=== PATIENT | female | born 1945 | race Caucasian/White ===

== ENCOUNTER 2023-05-17 14:58 | Outpatient (AMB) | payer MEDICARE, OTHER, SELFPAY ==
--- NOTE | 2023-05-17 15:02 | MHC.PC.OV ---
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 Allergies No Known Allergies Allergy (Verified 05/17/23 15:05) Medication List - Last Reconciled 05/17/23 by Camilla Thomason MD atorvastatin 10 mg PO DAILY carbidopa-levodopa 25-100 mg 1 tab PO TID cholecalciferol (vitamin D3) 25 mcg PO DAILY donepezil 5 mg PO DAILY escitalopram oxalate 10 mg PO DAILY Tobacco use date assessed: 05/17/23 Fall risk assessment: 1 Fall in past year Last assessed Fall Risk: 05/17/23 Dental Screening Dental Screen Date: 05/17/23 Did you have a dental visit in the last 12 months?: Yes Did you have a dental problem in the last 6 months where you did not have access to dental care?: No Was dental information given to patient?: No 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 She just moved from [place] recently Patient also have Parkinson's disease she is taking medication with good control of symptoms, need a new neurologist. Her colonoscopy was few years ago History of constipation but eating more fiber and stool softener Lipid disorder: She is on atorvastatin 10 mg and diet-controlled Anxiety: Stable with Lexapro 10 mg Patient is here with her daughter all questions answered I have placed order for labs to be done fasting On examination patient is both ears are impacted with cerumen which seems semi solid We have irrigated the years with good result patient tolerated procedure well. Follow-up 3 or 4 months. She is also going in for eye exam for cataract [facility] Social History Housing: Assisted Living Facility Patient Tobacco Use Status: Never used Tobacco e-Cigarette/Vaping Use: Never Used service: No Current occupational status: retired Cognitive needs: No Hearing needs: No Vision needs: Yes Questionnaire AUDIT C Alcohol Use Questionnaire (AUDIT-C) 1. How often do you have a drink containing alcohol?: Never 3. How often do you have six or more drinks on one occasion?: Never Total Score: 0 Score Reviewed/Action Taken: Yes Review of Systems Const Denies chills, Denies excessive sweating, Denies fever(s) and Denies poor appetite Eyes Denies eye pain ENT Denies sore throat, Denies throat swelling and Denies tongue swelling Card Denies chest pain at rest, Denies radiating jaw, neck or arm pain and Denies paroxysmal nocturnal dyspnea Resp Denies cough and Denies hemoptysis GI Denies melena, Denies change in stool character, Denies coffee ground emesis and Denies vomiting Musc Reports as per HPI Skin/Breast Reports as per HPI Neuro Denies tremor(s) Endo Denies cold intolerance and Denies excessive sweating Aller/Immun Denies throat swelling and Denies tongue swelling Physical exam (Primary Care) Vital Signs: Last Vital Signs Pulse 63 05/17/23 15:04 BP 112/62 05/17/23 15:04 Pulse Ox 96 05/17/23 15:04 Oxygen Delivery Method Room Air 05/17/23 15:04 BMI result Body Mass Index 21.4 Tobacco/Smoking Status: Tobacco use Status Tobacco use date assessed 05/17/23 05/17/23 15:12 Patient Tobacco Use Status Never used Tobacco 05/17/23 15:12 e-Cigarette/Vaping Use Never Used 05/17/23 15:12 Const General: cooperative, comfortable and no acute distress Orientation/consciousness: patient oriented x3 HENMT Head: Yes normocephalic and Yes atraumatic Ears: hearing grossly normal bilaterally Eyes General: appearance normal, both eyes and all related structures Neck Neck: Yes no lymphadenopathy and No tracheal deviation Resp Effort & Inspection: normal respiratory effort, able to speak in complete sentences and no audible wheezes Cardio Rhythm: regular rhythm Heart sounds: S1 normal heart sound present and S2 normal heart sound present GI Palpation (GI): Soft to palpation and nontender Auscultation: normal bowel sounds Skin General skin exam: turgor normal Neuro Other: Tremors present both hands General: patient oriented x3 and moves all extremities Extrem Right lower extremity: no edema Left lower extremity: no edema Psych Affect: normal affect Attitude: cooperative Office Procedures Cerumen Removal From which ear canal was the cerumen removed: bilateral Removal: irrigation Notes: patient tolerated procedure well, no complications and ear canal clear [id number] Irrigation/Lavage Assessment and Plan Assessment & Plan (1) Establishing care with new doctor, encounter for: Code(s): Z76.89 - Persons encountering health services in other specified circumstances (2) Parkinson disease: Code(s): G20 - Parkinson's disease (3) Anxiety, generalized: Code(s): F41.1 - Generalized anxiety disorder (4) Lipid disorder: Code(s): E78.9 - Disorder of lipoprotein metabolism, unspecified (5) Lymphoma: Code(s): C85.90 - Non-Hodgkin lymphoma, unspecified, unspecified site (6) Impacted cerumen of both ears: Code(s): H61.23 - Impacted cerumen, bilateral Plan Patient is a 78-year-old female came in today for an establish care visit Patient a moment is 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 She just moved from [place] recently Patient also have Parkinson's disease she is taking medication with good control of symptoms, need a new neurologist. Her colonoscopy was few years ago History of constipation but eating more fiber and stool softener Lipid disorder: She is on atorvastatin 10 mg and diet-controlled Anxiety: Stable with Lexapro 10 mg Patient is here with her daughter all questions answered I have placed order for labs to be done fasting On examination patient is both ears are impacted with cerumen which seems semi solid We have irrigated the years with good result patient tolerated procedure well. Follow-up 3 or 4 months. She is also going in for eye exam for cataract Orders: Orders Vitamin B12 Today E78.9 - Disorder of lipoprotein metabolism, unspecified, F41.1 - Generalized anxiety disorder, G20 - Parkinson's disease, Z76.89 - Persons encountering health services in other specified circumstances Comprehensive Dike. Panel Fast Today E78.9 - Disorder of lipoprotein metabolism, unspecified, F41.1 - Generalized anxiety disorder, G20 - Parkinson's disease, Z76.89 - Persons encountering health services in other specified circumstances Lipid Panel Today E78.9 - Disorder of lipoprotein metabolism, unspecified, F41.1 - Generalized anxiety disorder, G20 - Parkinson's disease, Z76.89 - Persons encountering health services in other specified circumstances TSH reflex Free T4 Today E78.9 - Disorder of lipoprotein metabolism, unspecified, F41.1 - Generalized anxiety disorder, G20 - Parkinson's disease, Z76.89 - Persons encountering health services in other specified circumstances Vitamin D 25-OH (D2 and D3) Today E78.9 - Disorder of lipoprotein metabolism, unspecified, F41.1 - Generalized anxiety disorder, G20 - Parkinson's disease, Z76.89 - Persons encountering health services in other specified circumstances Complete Blood Count Auto Diff Today E78.9 - Disorder of lipoprotein metabolism, unspecified, F41.1 - Generalized anxiety disorder, G20 - Parkinson's disease, Z76.89 - Persons encountering health services in other specified circumstances Referrals Neurology Referral G20 - Parkinson's disease Hematology & Oncology Referral C85.90 - Non-Hodgkin lymphoma, unspecified, unspecified site Coding Level of Care Code New Pt Level 5 (73042) Diagnoses Establishing care with new doctor, encounter for Z76.89 Parkinson disease G20 Anxiety, generalized F41.1 Lipid disorder E78.9 Lymphoma C85.90 Impacted cerumen of both ears H61.23 CPT Codes Office Procedure - CPT: 52198-Rsh Irrigation/Lavage ([id number]) Time Spent (min) 60 Comment 35 min with patient, 10 ear irrigation,15 charting/ coordination of care
[2023-05-17 15:04] VITALS: BP 112/62; PULSE 63; O2SAT 96; BMI 21.4
== END 2023-05-17 16:30 | disposition home or self-care (01) ==
PROVIDERS: PCP Internal Medicine; Visit Provider Internal Medicine
DX: G20 Parkinson's disease (principal); C85.90 Non-Hodgkin lymphoma, unspecified, unspecified site; Z76.89 Persons encountering health services in other specified circumstances; H61.23 Impacted cerumen, bilateral; F41.1 Generalized anxiety disorder; E78.9 Disorder of lipoprotein metabolism, unspecified
CPT/HCPCS: 69209; 99205

== ENCOUNTER 2023-05-22 10:27 | Outpatient (REF) | payer MEDICARE, OTHER, SELFPAY ==
[2023-05-22 13:31] LABS: MANUAL DIFF FLAG NO
[2023-05-22 13:41] LABS: Basophils Percent Auto 0.7 % (0-2); Eosinophils Absolute Auto 0.2 X10*3/uL (0.0-0.4); Hematocrit 42.2 % (37.0-47.0); Hemoglobin 13.6 g/dl (12.0-16.0); Imm Gran Abs Auto 0.03 X10*3/uL (0.00-0.03); Imm Gran Pct Auto 0.5 % (0.0-0.4); Lymphocytes Absolute Auto 0.8 X10*3/uL (1.2-4.9); Lymphocytes Percent Auto 12.8 % (20-40); Mean Corpuscular HGB Conc 32.2 g/dl (31.0-35.0); Mean Corpuscular Hemoglobin 29.8 pg (27.0-33.0); Mean Corpuscular Volume 92.5 fL (80.0-98.0); Mean Platelet Volume 10.3 fL (9.4-12.3); Monocytes Absolute Auto 0.4 X10*3/uL (0.1-1.2); Neutrophils Absolute Auto 4.6 x10*3/uL (2.0-8.3); Platelet Count 174 X10*3/uL (160-400); Red Blood Count 4.56 X10*6/uL (4.20-5.50); Red Cell Distribution Width 14.1 % (11.0-16.0)
[2023-05-22 14:08] LABS: Alanine Aminotransferase 5 U/L (0-31); Albumin Level 4.3 g/dL (3.5-5.0); Alkaline Phosphatase 80 U/L (39-117); Anion Gap 11 (12-20); Aspartate Amino Transferase 19 U/L (5-31); Bilirubin Total 0.9 mg/dL (0.0-1.0); Blood Urea Nitrogen 9 mg/dL (9-16); Calcium 9.6 mg/dL (8.4-10.2); Carbon Dioxide 28 mmol/L (22-29); Chloride 107 mmol/L (96-108); Cholesterol 169 mg/dL (<200); Estimated Glomerular Filt Rate > 60; Glucose Fasting 91 mg/dL (60-99); HDL Cholesterol 69 mg/dL (>40); LDL Cholesterol Calculated 89 mg/dL (<100); Potassium 4.1 mmol/L (3.3-5.1); Sodium 142 mmol/L (135-145); Total Protein 6.6 g/dL (6.5-8.0); Triglycerides 56 mg/dL (<150)
[2023-05-22 14:22] LABS: Vitamin B12 343 pg/mL (200-900)
[2023-05-22 14:25] LABS: TSH reflex Free T4 5.21 uIU/mL (0.32-4.0)
[2023-05-22 15:27] LABS: Free T4 (Free Thyroxine) 0.76 ng/dL (0.71-1.85)
[2023-05-27 14:37] LABS: Vitamin D 25-OH, D2 <4 ng/mL; Vitamin D 25-OH, D3 25 ng/mL; Vitamin D 25-OH, Total 25 ng/mL (30-100)
== END 2023-05-22 10:28 | disposition home or self-care (01) ==
LOC: HO.HMGCLDS 10:27
PROVIDERS: PCP Internal Medicine; Visit Provider Internal Medicine
DX: E78.9 Disorder of lipoprotein metabolism, unspecified (principal); F41.1 Generalized anxiety disorder; G20 Parkinson's disease; Z76.89 Persons encountering health services in other specified circumstances
CPT/HCPCS: 36415; 80053; 80061; 82306; 82607; 84439; 84443; 85025

== ENCOUNTER 2023-05-31 11:55 | Outpatient (REF) | payer MEDICARE, OTHER, SELFPAY ==
[2023-05-31 15:04] LABS: TSH reflex Free T4 5.72 uIU/mL (0.32-4.0)
[2023-05-31 16:09] LABS: Free T4 (Free Thyroxine) 0.99 ng/dL (0.71-1.85)
== END 2023-05-31 11:56 | disposition home or self-care (01) ==
LOC: HO.HMGCLDS 11:55
PROVIDERS: PCP Internal Medicine; Visit Provider Internal Medicine
DX: R94.6 Abnormal results of thyroid function studies (principal)
CPT/HCPCS: 36415; 84439; 84443

== ENCOUNTER → 2023-06-18 15:09 | Outpatient (BNV) | payer MEDICARE, OTHER, SELFPAY | PROVIDERS: PCP Internal Medicine; Visit Provider Internal Medicine | DX: Z85.72 Personal history of non-Hodgkin lymphomas (principal) | CPT/HCPCS: 99204; 99212; 99213; 99214; G2211 ==

== ENCOUNTER 2023-06-20 08:29 | Outpatient (AMB) | payer MEDICARE, OTHER, SELFPAY ==
--- NOTE | 2023-06-20 08:50 | A.OFFPC_ITS ---
Intake Visit Reasons: Follow Up Labs~ [phone] (iphone) Allergies No Known Allergies Allergy (Verified 05/17/23 15:05) Medication List - Last Reconciled 06/20/23 by Camilla Thomason MD atorvastatin 10 mg PO DAILY carbidopa-levodopa 25-100 mg 1 tab PO TID cyanocobalamin (vitamin B-12) 1,000 mcg PO DAILY 90 days donepezil 5 mg PO DAILY escitalopram oxalate (Lexapro) 10 mg PO DAILY levothyroxine 25 mcg PO DAILY Tobacco use date assessed: 06/20/23 Fall risk assessment: No Falls in past year Last assessed Fall Risk: 06/20/23 Dental Screening Did you have a dental visit in the last 12 months?: Yes Did you have a dental problem in the last 6 months where you did not have access to dental care?: No Was dental information given to patient?: Patient has dentist HPI Follow Up Labs~ [phone] (iphone) HPI Details Patient is 78-year-old female this is a telemedicine video conference to go over lab report Patient's TSH level came back low at 5.72 we have repeated twice. Report explained to patient, I am starting her on levothyroxine 25 mcg, patient was instructed to take it on empty stomach once a day. Her vitamin-D level is 25 I would recommend that she start taking supplement she has bought [id number] supplement that she will start Vitamin B12 level is low normal at 343, have sent supplement patient is to start taking that twice a week. Thyroid test need to be repeated again in 6 weeks, patient have a follow-up appointment in 2 months. [facility] Medical History Parkinson disease Surgical History History of left knee replacement History of left knee surgery History of tonsillectomy Family History Mother Colon cancer Father Lung cancer Sister Breast cancer Social History Housing: Assisted Living Facility Patient Tobacco Use Status: Never used Tobacco e-Cigarette/Vaping Use: Never Used service: No Current occupational status: retired Cognitive needs: No Hearing needs: No Vision needs: Yes Questionnaire AUDIT C Alcohol Use Questionnaire (AUDIT-C) 1. How often do you have a drink containing alcohol?: Never 3. How often do you have six or more drinks on one occasion?: Never Total Score: 0 Score Reviewed/Action Taken: Yes Review of Systems Const Denies chills and Denies fever(s) ENT Denies epistaxis and Denies nasal discharge Card Denies chest pain Resp Denies chest congestion, Denies cough and Denies hemoptysis GI Denies diarrhea and Denies nausea Skin/Breast Denies rash Neuro Reports no additional complaints Psych Reports no additional complaints Endo Reports no additional complaints Physical exam (Primary Care) Tobacco/Smoking Status: Tobacco use Status Tobacco use date assessed 06/20/23 06/20/23 08:51 Patient Tobacco Use Status Never used Tobacco 06/20/23 08:51 e-Cigarette/Vaping Use Never Used 06/20/23 08:51 Telehealth Telehealth Location of provider rendering services: practice address Location of patient: address on file Patient Identification confirmed using: Name, : Yes Telehealth method: video Patient verbally consented to treatment: Yes Patient verbally consented to billing insurance company: Yes Patient informed of any privacy concerns related to visit: Yes Minutes spent on Phone/Video with Pt.: 16 Assessment and Plan Assessment & Plan (1) TSH elevation: Code(s): R79.89 - Other specified abnormal findings of blood chemistry (2) Vitamin D deficiency: Code(s): E55.9 - Vitamin D deficiency, unspecified Plan Patient is 78-year-old female this is a telemedicine video conference to go over lab report Patient's TSH level came back low at 5.72 we have repeated twice. Report explained to patient, I am starting her on levothyroxine 25 mcg, patient was instructed to take it on empty stomach once a day. Her vitamin-D level is 25 I would recommend that she start taking supplement she has bought [id number] supplement that she will start Vitamin B12 level is low normal at 343, have sent supplement patient is to start taking that twice a week. Thyroid test need to be repeated again in 6 weeks, patient have a follow-up appointment in 2 months. Orders: Orders TSH reflex Free T4 6 Weeks R79.89 - Other specified abnormal findings of blood chemistry Medications: New levothyroxine 25 mcg PO DAILY 90 tabs 0RF cyanocobalamin (vitamin B-12) 1,000 mcg PO DAILY 90 tabs 0RF 90 days Coding Level of Care Code Tele Est Pt Level 3 (69732) Diagnoses TSH elevation R79.89 Vitamin D deficiency E55.9
== END 2023-06-20 12:53 | disposition home or self-care (01) ==
LOC: HO.HMGC 08:29
PROVIDERS: PCP Internal Medicine; Visit Provider Internal Medicine
DX: R79.89 Other specified abnormal findings of blood chemistry (principal); E55.9 Vitamin D deficiency, unspecified
CPT/HCPCS: 99213

== ENCOUNTER 2023-07-18 13:04 | Outpatient (REF) | payer MEDICARE, OTHER, SELFPAY ==
--- NOTE | ~2023-07-18 | CT_ITS ---
EXAMINATION: CT ABDOMEN AND PELVIS WITH CONTRAST CLINICAL INFORMATION: History of lymphoma. COMPARISON: None available. TECHNIQUE: Multidetector volumetric images were obtained from the superior aspect of the liver through the pubic symphysis following administration 85 mL of Omnipaque 350 intravenous contrast. Sagittal and coronal reformatted images were obtained on the technologist's workstation. Oral contrast: No This CT examination was performed using dose optimization techniques as appropriate, variously including the following: *Automated exposure control *Adjustment of mA and/or kV according to patient size (this includes techniques or standardized protocols for targeted exams where dose is matched to indication/reason for exam; i.e. extremities or head) *Use of iterative reconstruction technique DLP: 894 mGy-cm. FINDINGS: LUNG BASES: There is a 1 to 2 mm sized right lower lobe pulmonary nodule (4:21). There is mild cardiac enlargement. The visualized lung bases are otherwise unremarkable. LIVER, GALLBLADDER, AND BILIARY TREE: The liver is normal in size, shape, and attenuation. No focal hepatic lesion or biliary ductal dilatation is present. The gallbladder wall demonstrates some marked enhancement but is otherwise unremarkable with no evidence of radiopaque gallstones, gallbladder wall thickening, or obvious pericholecystic inflammatory changes. PANCREAS: Unremarkable. SPLEEN: Unremarkable. ADRENAL GLANDS: Unremarkable. KIDNEYS AND URETERS: The kidneys are normal in size, shape, and attenuation. No hydronephrosis, hydroureter, or calculi seen. No perinephric stranding. BLADDER: Unremarkable. GASTROINTESTINAL TRACT: The small and large bowel are unremarkable aside from some scattered colonic diverticula without diverticulitis. No evidence of appendicitis. ABDOMINAL WALL: No significant hernia is appreciated. LYMPH NODES: Some small retroperitoneal lymph nodes are present, the largest measuring about 1 cm in short axis dimension (6:28). No gross retroperitoneal lymphadenopathy. VASCULAR: Unremarkable. PELVIC VISCERA: Calcification at the fundus of the anteverted uterus probably represents an old fibroid. OSSEOUS STRUCTURES: Unremarkable. CT/CT abdomen pelvis w IV con IMPRESSION: 1. No evidence of recurrent lymphoma. 2. Incidental findings as described above including colonic diverticulosis, probable uterine fibroid and small retroperitoneal lymph nodes. 3. Tiny 1 to 2 mm right lower lobe pulmonary nodule. Fleischner guidelines were followed.
[2023-07-18] MEDS: iohexoL 350 MG/ML 100 ML INFUS..BTL 85 ML IV (14:34)
[2023-07-19 08:07] LABS: Creatinine POC 0.6 mg/dL (0.5-1.4); GFR POC > 60
== END 2023-07-18 13:05 | disposition home or self-care (01) ==
LOC: HO.CT 13:04
PROVIDERS: PCP Internal Medicine; Visit Provider Internal Medicine
DX: C85.90 Non-Hodgkin lymphoma, unspecified, unspecified site (principal)
CPT/HCPCS: 74177; 82565; Q9967

== ENCOUNTER 2023-08-13 14:42 | Outpatient (REF) | payer MEDICARE, OTHER, SELFPAY ==
[2023-08-13 16:38] LABS: TSH reflex Free T4 4.98 uIU/mL (0.32-4.0)
[2023-08-13 18:12] LABS: Free T4 (Free Thyroxine) 0.88 ng/dL (0.71-1.85)
== END 2023-08-13 14:43 | disposition home or self-care (01) ==
LOC: HO.HMGCLDS 14:42
PROVIDERS: PCP Internal Medicine; Visit Provider Internal Medicine
DX: R94.6 Abnormal results of thyroid function studies (principal)
CPT/HCPCS: 36415; 84439; 84443

== ENCOUNTER 2023-08-20 11:04 | Outpatient (AMB) | payer MEDICARE, OTHER, SELFPAY ==
[2023-08-20 11:06] VITALS: BP 110/64; PULSE 71; O2SAT 96; BMI 22.9
--- NOTE | 2023-08-20 11:06 | A.OFFPC_ITS ---
Vital Signs 08/20/23 11:06 Height 5 ft 3 in Weight 129 lb 2 oz BMI 22.9 BP 110/64 Blood Pressure Location Rt brachial Position Sitting Pulse 71 Pulse Source Pulse Oximeter Pulse Oximetry (%) 96 Oxygen Delivery Method Room Air Intake Visit Reasons: Pre Op LT Eye Catract Allergies No Known Allergies Allergy (Verified 08/20/23 11:07) Medication List - Last Reconciled 08/20/23 by Camilla Thomason MD atorvastatin 10 mg PO DAILY carbidopa-levodopa 25-100 mg 1 tab PO BEDTIME cyanocobalamin (vitamin B-12) 1,000 mcg PO DAILY 90 days donepezil 5 mg PO DAILY escitalopram oxalate (Lexapro) 10 mg PO DAILY levothyroxine 25 mcg PO DAILY Tobacco use date assessed: 08/20/23 Fall risk assessment: 2 + Falls in past year Last assessed Fall Risk: 08/20/23 Dental Screening Dental Screen Date: 08/20/23 Did you have a dental visit in the last 12 months?: No Did you have a dental problem in the last 6 months where you did not have access to dental care?: No Was dental information given to patient?: No HPI Pre Op LT Eye Catract HPI Details Patient is 78-year-old female came in today for preop clearance for cataract surgery August 30 and then again in September 18 the other eye [facility] Dr[facility] Patient is doing well and in her usual state of health Blood pressure is controlled vital signs stable Her TSH level is slightly of I am adjusting her levothyroxine to 50 mcg Patient will repeat labs again in 3 months Patient is stable for cataract surgery [facility] Medical History Parkinson disease Surgical History History of left knee replacement History of left knee surgery History of tonsillectomy Family History Mother Colon cancer Father Lung cancer Sister Breast cancer Housing: Assisted Living Facility Patient Tobacco Use Status: Never used Tobacco e-Cigarette/Vaping Use: Never Used service: No Current occupational status: retired Cognitive needs: No Hearing needs: No Vision needs: Yes Questionnaire PHQ-9 Over the last 2 weeks, how often have you been bothered by any of the following problems? 1. Little interest or pleasure in doing things: not at all 2. Feeling down, depressed, or hopeless: not at all 3. Trouble falling or staying asleep, or sleeping too much: not at all 4. Feeling tired or having little energy: not at all 5. Poor appetite or overeating: not at all 6. Feeling bad about yourself - or that you are a failure or have let yourself or your family down: not at all 7. Trouble concentrating on things, such as reading the newspaper or watching television: not at all 8. Moving or speaking so slowly that other people could have noticed. Or the opposite - being so fidgety or restless that you have been moving around a lot more than usual: not at all 9. Thoughts that you would be better off or of hurting yourself in some way: not at all Total score: 0 Depression Screening Interpretation: Negative Depression Screening Done: Yes 83737 - PHQ-9 Billing: Yes Source: Developed by Drs. Julio C Box, Echo Vega, Harsha James and colleagues, with an educational gunjan from [employer]. Thrive Questionnaire Date Thrive assessed: 08/20/23 I am a: Patient What is your living situation today?: I have a steady place to live Within the past 12 months, did the food you bought not last and you didn't have the money to get more?: Never true Within the past 12 months, did you worry whether your food would run out before you got money to buy more?: Never true Do you have trouble paying for medicines?: No Do you have trouble getting transportation to medical appointments?: No Do you have trouble paying your heating and electricity bill?: No Do you have trouble taking care of your child, family member or friend?: No Do you have trouble with day-to-day activities such as bathing, preparing meals, shopping, managing finances, etc.?: Yes Are you currently unemployed and looking for a job?: No Are you interested in more education?: Yes Please select the resources that you would like help with: None Currently or been in a relationship where the following occur: no concerns reported AUDIT C Alcohol Use Questionnaire (AUDIT-C) 1. How often do you have a drink containing alcohol?: Never 3. How often do you have six or more drinks on one occasion?: Never Total Score: 0 Score Reviewed/Action Taken: Yes MARGIE-7 AMB Questionnaire MARGIE-7 Date MARGIE - 7 assessed: 08/20/23 Feeling nervous, anxious, or on edge: 0 = Not at all Not being able to stop or control worryin = Not at all Worrying too much about different things: 0 = Not at all Trouble relaxin = Not at all Being so restless that it is hard to sit still: 0 = Not at all Becoming easily annoyed or irritable: 0 = Not at all Feeling afraid as if something awful might happen: 0 = Not at all Total MARGIE-7 score (0-4 normal; 5-9 mild; 10-14 moderate; 15-21 severe): 0 Source: Developed by Drs. Julio C Box, Echo Vega, Harsha James and colleagues, with an educational gunjan from [employer]. MARGIE-7 Assessment Billing MARGIE-7 Assessment Tool: MARGIE-7 Assessment 53528 Review of Systems Const Denies chills, Denies excessive sweating, Denies fever(s) and Denies poor appetite Eyes Denies eye pain ENT Denies sore throat, Denies throat swelling and Denies tongue swelling Card Denies chest pain at rest, Denies radiating jaw, neck or arm pain and Denies paroxysmal nocturnal dyspnea Resp Denies cough and Denies hemoptysis GI Denies melena, Denies change in stool character, Denies coffee ground emesis and Denies vomiting Musc Reports as per HPI Skin/Breast Reports as per HPI Neuro Denies tremor(s) Endo Denies excessive sweating Aller/Immun Denies throat swelling and Denies tongue swelling Physical exam (Primary Care) Vital Signs: Last Vital Signs Pulse 71 08/20/23 11:06 BP 110/64 08/20/23 11:06 Pulse Ox 96 08/20/23 11:06 Oxygen Delivery Method Room Air 08/20/23 11:06 BMI result Body Mass Index 22.9 Tobacco/Smoking Status: Tobacco use Status Tobacco use date assessed 08/20/23 08/20/23 11:08 Patient Tobacco Use Status Never used Tobacco 08/20/23 11:08 e-Cigarette/Vaping Use Never Used 08/20/23 11:08 PHQ-9: PHQ-9 Score PHQ-9: Total score 0 08/20/23 11:51 Depression Screening Interpretation: Negative Thrive Assessment: Date of Thrive Assessment Date Thrive assessed 08/20/23 08/20/23 11:33 Currently or been in a relationship where the following occur: no concerns reported Const General: cooperative, comfortable and no acute distress Orientation/consciousness: patient oriented x3 HENMT Head: Yes normocephalic and Yes atraumatic Ears: hearing grossly normal bilaterally Eyes General: appearance normal, both eyes and all related structures Neck Neck: Yes no lymphadenopathy, Yes supple and No tracheal deviation Resp Effort & Inspection: normal respiratory effort, able to speak in complete sentences and no audible wheezes Cardio Rhythm: regular rhythm Heart sounds: S1 normal heart sound present and S2 normal heart sound present GI Palpation (GI): Soft to palpation and nontender Auscultation: normal bowel sounds Skin General skin exam: turgor normal Neuro General: patient oriented x3 and moves all extremities Gait exam (Neuro): Normal gait present Extrem Right lower extremity: no edema Left lower extremity: no edema Psych Affect: normal affect Attitude: cooperative Assessment and Plan Assessment & Plan (1) Pre-op evaluation: Code(s): Z01.818 - Encounter for other preprocedural examination (2) Cataract: Code(s): H26.9 - Unspecified cataract Qualifiers: Age-related cataract type: unspecified Cataract type: age-related Laterality: bilateral Qualified Code(s): H25.9 - Unspecified age-related cataract (3) Parkinson disease: Code(s): G20 - Parkinson's disease Qualifiers: Dyskinesia presence: with dyskinesia Fluctuating manifestations: with fluctuating manifestations Qualified Code(s): G20.B2 - Parkinson's disease with dyskinesia, with fluctuations (4) Other specified hypothyroidism: Code(s): E03.8 - Other specified hypothyroidism (5) Anxiety, generalized: Code(s): F41.1 - Generalized anxiety disorder Plan Patient is 78-year-old female came in today for preop clearance for cataract surgery August 30 and then again in September 18 the [address] eye [address] Dr[address] [facility] [place] Patient is doing well and in her usual state of health Blood pressure is controlled vital signs stable Her TSH level is slightly of I am adjusting her levothyroxine to 50 mcg Patient will repeat labs again in 3 months Patient is stable for cataract surgery Orders: Orders Complete Blood Count Auto Diff 3 Months C85.90 - Non-Hodgkin lymphoma, unspecified, unspecified site, E03.8 - Other specified hypothyroidism, E55.9 - Vitamin D deficiency, unspecified, E78.9 - Disorder of lipoprotein metabolism, unspecified, F41.1 - Generalized anxiety disorder, G20 - Parkinson's disease Comprehensive Met. Panel 3 Months C85.90 - Non-Hodgkin lymphoma, unspecified, unspecified site, E03.8 - Other specified hypothyroidism, E55.9 - Vitamin D deficiency, unspecified, E78.9 - Disorder of lipoprotein metabolism, unspecified, F41.1 - Generalized anxiety disorder, G20 - Parkinson's disease TSH reflex Free T4 3 Months C85.90 - Non-Hodgkin lymphoma, unspecified, unspecified site, E03.8 - Other specified hypothyroidism, E55.9 - Vitamin D deficiency, unspecified, E78.9 - Disorder of lipoprotein metabolism, unspecified, F41.1 - Generalized anxiety disorder, G20 - Parkinson's disease Medications: Changed From levothyroxine 25 mcg PO DAILY 90 tabs 0RF To levothyroxine 50 mcg PO DAILY 90 tabs 0RF From carbidopa-levodopa 25-100 mg 1 tab PO BEDTIME 90 tabs 0RF To carbidopa-levodopa 25-100 mg 1 tab PO TID 270 tabs 0RF 90 days Coding Level of Care Code Est Pt Level 4 (82099) Diagnoses Pre-op evaluation Z01.818 Age-related cataract of both eyes, unspecified age-related cataract type H25.9 Age-related cataract type: unspecified Cataract type: age-related Laterality: bilateral Parkinson's disease with dyskinesia and fluctuating manifestations G20.B2 Dyskinesia presence: with dyskinesia Fluctuating manifestations: with fluctuating manifestations Other specified hypothyroidism E03.8 Anxiety, generalized F41.1 Additional Codes MARGIE-7 Assessment Billing - MARGIE-7 Assessment Tool: MARGIE-7 Assessment [id number] ([id number])
== END 2023-08-20 12:38 | disposition home or self-care (01) ==
PROVIDERS: Visit Provider Internal Medicine
DX: H25.9 Unspecified age-related cataract (principal); G20.B2 Parkinson's disease with dyskinesia, with fluctuations; E03.8 Other specified hypothyroidism; F41.1 Generalized anxiety disorder; Z01.818 Encounter for other preprocedural examination
CPT/HCPCS: 99214

== ENCOUNTER 2023-09-12 13:05 | Outpatient (AMB) | payer MEDICARE, OTHER, SELFPAY ==
--- NOTE | 2023-09-12 13:09 | MHC.OFFVIS ---
Intake Vital Signs 09/12/23 13:10 Height 5 ft 3 in Weight 129 lb BMI 22.8 BP 118/70 Blood Pressure Location Rt brachial Position Sitting Respiration 16 Pulse 67 Pulse Source Pulse Oximeter Pulse Oximetry (%) 97 Oxygen Delivery Method Room Air Intake Visit Reasons: [id number] Intake Note: Pt presents to the office for a new pt evaluation for Parkinson's. [employer] Required: No Allergies No Known Allergies Allergy (Verified 09/12/23 13:10) Medication List - Last Reconciled 09/12/23 by Laura Delgado MD atorvastatin 10 mg PO DAILY carbidopa-levodopa 25-100 mg 1 tab PO TID 90 days cyanocobalamin (vitamin B-12) 1,000 mcg PO DAILY 90 days donepezil 5 mg PO DAILY escitalopram oxalate (Lexapro) 10 mg PO DAILY levothyroxine 50 mcg PO DAILY HPI HPI Comments History of Present Illness Details 78y/o Left handed female with h/o Parkinsons Disease comes for further management Her first symptom was tremors in her left hand and later in bilateral hands. she was living in [place] at that time and was diagnosed with Parkinsons disease. She moved to [facility] 5 months ago and is here for further management. She also reports memory issues - usually short term she also has lot of word finding difficulties. she did speech therapy but not sure it helped. Neuropsych eval in November 2022 was c/ Mild cognitive impairment. She is on donepezil 5mg - she could not tolerate 10mg . It helped her speech. Sleep- 1-2 episodes where she thought someone was in the room when she woke up. Mood- anxiety and mild depression Motivation-OK SPeech- softer. No drooling Handwriting- smaller and difficult Using utensils-slower Dressing-slower Showering- slower No difficulty turning in bed Gait- slower She had 2 fall 1 week ago - she lives at [facility] and she tripped on rug she has constipation- better with change in diet No dizziness . No vertigo Appetite fluctuates. No exposure to chemicals, no fh/o parkinsons No h/o head injury . No exposure to antipsychitics or reglan. [facility] Medical History (Updated 09/12/23 @ 13:51 by Laura Delgado MD) Mild cognitive impairment Parkinson's disease without dyskinesia or fluctuating manifestations Lymphoma Parkinson disease Surgical History History of left knee replacement History of left knee surgery History of tonsillectomy Family History Mother Colon cancer Father Lung cancer Sister Breast cancer Social History Housing: Assisted Living Facility Patient Tobacco Use Status: Never used Tobacco e-Cigarette/Vaping Use: Never Used service: No Current occupational status: retired Cognitive needs: No Hearing needs: No Vision needs: Yes Physical Exam Vital Signs: Last Vital Signs Pulse 67 09/12/23 13:10 Resp 16 09/12/23 13:10 BP 118/70 09/12/23 13:10 Pulse Ox 97 09/12/23 13:10 Oxygen Delivery Method Room Air 09/12/23 13:10 BMI result Body Mass Index 22.8 Const General: cooperative, healthy appearing, comfortable and no acute distress Nutritional Appearance: average body habitus Orientation/consciousness: patient oriented x3 Eyes Pupils: Equal, round and reactive pupils present Neck Neck: Yes no meningeal signs Neuro Other: Mildly decreased facial expression and blink fred rest tremors L>R Mild postural tremors Left Upper extremity No cog wheel rigidty Fred bradykinesia L>R FFM and foot taps moderately decreased Moderate hypophonia gait- no arm swing, slow stooped General: patient oriented x3, moves all extremities and no meningeal signs Cranial nerves: Yes Facial sensation intact/muscles of mastication intact, Yes Equal, round and reactive pupils present, Yes Bilaterally intact EOM present, Yes Nystagmus not present, Yes Normal facial strength present and Yes Midline tongue present Cognition (Neuro): normal cognition Deep tendon reflexes (DTR's): Right triceps reflex intensity grade: 1+, Left triceps reflex intensity grade: 1+, Rt Biceps (C5, C6): 1+, Left biceps reflex intensity grade: 1+, Right brachioradialis reflex intensity grade: 1+, Left brachioradialis reflex intensity grade: 1+, Right patellar reflex intensity grade: 1+ and Left patellar reflex intensity grade: 1+ Coordination: [id number] test normal Assessment & Plan Assessment & Plan (1) Parkinson's disease without dyskinesia or fluctuating manifestations: Code(s): G20.A1 - Parkinson's disease without dyskinesia, without mention of fluctuations (2) Mild cognitive impairment: Code(s): G31.84 - Mild cognitive impairment of uncertain or unknown etiology Plan The diagnosis and prognosis were discussed Continue carbidopa/levodopa 25/100 tid lexapro 10mg qd donepezil 5mg qd( did not tolerate 10mg) Reviewed Neuropsyhc testing Info on [email or web address] was given Continue exercise Orders: Orders PT Evaluation and Treatment Today G20.A1 - Parkinson's disease without dyskinesia, without mention of fluctuations Medications: Refilled carbidopa-levodopa 25-100 mg 1 tab PO TID 90 days 270 tabs 0RF donepezil 5 mg PO DAILY 90 tabs 0RF escitalopram oxalate (Lexapro) 10 mg PO DAILY 90 tabs 0RF Coding Level of Care Code New Pt Level 4 (05841) Diagnoses Parkinson's disease without dyskinesia or fluctuating manifestations G20.A1 Mild cognitive impairment G31.84
[2023-09-12 13:10] VITALS: BP 118/70; PULSE 67; RESP 16; O2SAT 97; BMI 22.8
== END 2023-09-12 13:56 | disposition home or self-care (01) ==
PROVIDERS: PCP Internal Medicine; Visit Provider Psychiatry & Neurology Neurology
DX: G20.A1 Parkinson's disease without dyskinesia, without mention of fluctuations (principal); G31.84 Mild cognitive impairment of uncertain or unknown etiology
CPT/HCPCS: 99204

== ENCOUNTER → 2023-09-12 13:05 | Outpatient (BNVA) | payer MEDICARE, OTHER, SELFPAY | PROVIDERS: PCP Internal Medicine; Visit Provider Psychiatry & Neurology Neurology | DX: G20.A1 Parkinson's disease without dyskinesia, without mention of fluctuations (principal); G31.84 Mild cognitive impairment of uncertain or unknown etiology | CPT/HCPCS: 99202 ==

== ENCOUNTER 2023-10-25 13:04 | Outpatient (AMB) | payer MEDICARE, OTHER, SELFPAY ==
--- NOTE | 2023-10-25 13:16 | MHC.PC.OV ---
Vital Signs 10/25/23 13:17 Height 5 ft 3 in Weight 132 lb 4 oz BMI 23.4 BP 118/66 Blood Pressure Location Rt brachial Position Sitting Pulse 65 Pulse Source Pulse Oximeter Pulse Oximetry (%) 97 Oxygen Delivery Method Room Air Intake Visit Reasons: follow up Allergies No Known Allergies Allergy (Verified 10/25/23 13:19) Medication List - Last Reconciled 10/25/23 by Camilla Thomason MD atorvastatin 10 mg PO DAILY carbidopa-levodopa 25-100 mg 1 tab PO TID 90 days cholecalciferol (vitamin D3) (Vitamin D3) 50 mcg PO DAILY cyanocobalamin (vitamin B-12) 1,000 mcg PO DAILY 90 days donepezil 5 mg PO DAILY escitalopram oxalate (Lexapro) 10 mg PO DAILY levothyroxine 50 mcg PO DAILY Tobacco use date assessed: 10/25/23 Fall risk assessment: No Falls in past year Last assessed Fall Risk: 10/25/23 Dental Screening Dental Screen Date: 10/25/23 Did you have a dental visit in the last 12 months?: No Did you have a dental problem in the last 6 months where you did not have access to dental care?: No Was dental information given to patient?: Patient has dentist HPI follow up HPI Details Patient is 78 year female is diagnosed with Parkinson's disease, and history of non-Hodgkin's lymphoma Currently seeing neurologist and is taking medication feeling much better Blood pressure is well controlled Patient is Lexapro for stress and anxiety/depression, patient is stable Continue atorvastatin Hypothyroidism: She is currently on levothyroxine 50 mcg we need to repeat TSH level as it was high in July Follow-up 4 months [facility] Medical History (Updated 10/25/23 @ 13:38 by Camilla Thomason MD) Lymphoma Mild cognitive impairment Parkinson's disease without dyskinesia or fluctuating manifestations Parkinson disease Surgical History History of left knee replacement History of left knee surgery History of tonsillectomy Family History Mother Colon cancer Father Lung cancer Sister Breast cancer Social History Housing: Assisted Living Facility Patient Tobacco Use Status: Never used Tobacco e-Cigarette/Vaping Use: Never Used service: No Current occupational status: retired Cognitive needs: No Hearing needs: No Vision needs: Yes Questionnaire Thrive Questionnaire Date Thrive assessed: 08/20/23 MARGIE-7 AMB Questionnaire MARGIE-7 Date MARGIE - 7 assessed: 08/20/23 Source: Developed by Drs. Julio C Box, Echo Vega, Harsha James and colleagues, with an educational gunjan from [employer]. Review of Systems Const Denies chills and Denies fever(s) ENT Denies epistaxis and Denies nasal discharge Card Denies chest pain Resp Denies chest congestion, Denies cough and Denies hemoptysis GI Denies diarrhea and Denies nausea Skin/Breast Denies rash Neuro Reports no additional complaints Psych Reports no additional complaints Endo Reports no additional complaints Physical exam (Primary Care) Vital Signs: Last Vital Signs Pulse 65 10/25/23 13:17 BP 118/66 10/25/23 13:17 Pulse Ox 97 10/25/23 13:17 Oxygen Delivery Method Room Air 10/25/23 13:17 BMI result Body Mass Index 23.4 Tobacco/Smoking Status: Tobacco use Status Tobacco use date assessed 10/25/23 10/25/23 13:20 Patient Tobacco Use Status Never used Tobacco 10/25/23 13:20 e-Cigarette/Vaping Use Never Used 10/25/23 13:20 Thrive Assessment: Date of Thrive Assessment Date Thrive assessed 08/20/23 10/25/23 13:20 Const General: cooperative, comfortable and no acute distress Orientation/consciousness: patient oriented x3 HENMT Head: Yes normocephalic Eyes General: appearance normal, both eyes and all related structures Neck Neck: Yes supple Resp Effort & Inspection: normal respiratory effort, no cough and no stridor Cardio Rhythm: regular rhythm Heart sounds: S1 normal heart sound present and S2 normal heart sound present Skin General skin exam: turgor normal Neuro General: patient oriented x3, tone normal and moves all extremities Extrem Right lower extremity: no edema Left lower extremity: no edema Assessment and Plan Assessment & Plan (1) Lipid disorder: Code(s): E78.9 - Disorder of lipoprotein metabolism, unspecified (2) TSH elevation: Code(s): R79.89 - Other specified abnormal findings of blood chemistry (3) Other specified hypothyroidism: Code(s): E03.8 - Other specified hypothyroidism (4) Parkinson's disease without dyskinesia or fluctuating manifestations: Code(s): G20.A1 - Parkinson's disease without dyskinesia, without mention of fluctuations (5) Lymphoma: Code(s): C85.90 - Non-Hodgkin lymphoma, unspecified, unspecified site Plan Patient is 78 year female is diagnosed with Parkinson's disease, and history of non-Hodgkin's lymphoma Currently seeing neurologist and is taking medication feeling much better Blood pressure is well controlled Patient is Lexapro for stress and anxiety/depression, patient is stable Continue atorvastatin Hypothyroidism: She is currently on levothyroxine 50 mcg we need to repeat TSH level as it was high in July Follow-up 4 months Orders: Orders TSH reflex Free T4 Today E03.8 - Other specified hypothyroidism, E78.9 - Disorder of lipoprotein metabolism, unspecified, G20.A1 - Parkinson's disease without dyskinesia, without mention of fluctuations, R79.89 - Other specified abnormal findings of blood chemistry Complete Blood Count Auto Diff Today E03.8 - Other specified hypothyroidism, E78.9 - Disorder of lipoprotein metabolism, unspecified, G20.A1 - Parkinson's disease without dyskinesia, without mention of fluctuations, R79.89 - Other specified abnormal findings of blood chemistry Comprehensive Met. Panel Today E03.8 - Other specified hypothyroidism, E78.9 - Disorder of lipoprotein metabolism, unspecified, G20.A1 - Parkinson's disease without dyskinesia, without mention of fluctuations, R79.89 - Other specified abnormal findings of blood chemistry Coding Level of Care Code Est Pt Level 4 (17534) Diagnoses Lipid disorder E78.9 TSH elevation R79.89 Other specified hypothyroidism E03.8 Parkinson's disease without dyskinesia or fluctuating manifestations G20.A1 Lymphoma C85.90
[2023-10-25 13:17] VITALS: BP 118/66; PULSE 65; O2SAT 97; BMI 23.4
== END 2023-10-25 15:32 | disposition home or self-care (01) ==
PROVIDERS: PCP Internal Medicine; Visit Provider Internal Medicine
DX: E78.9 Disorder of lipoprotein metabolism, unspecified (principal); C85.90 Non-Hodgkin lymphoma, unspecified, unspecified site; R79.89 Other specified abnormal findings of blood chemistry; G20.A1 Parkinson's disease without dyskinesia, without mention of fluctuations; E03.8 Other specified hypothyroidism
CPT/HCPCS: 99214

== ENCOUNTER 2023-10-25 13:30 | Outpatient (REF) | payer MEDICARE, OTHER, SELFPAY ==
[2023-10-25 16:19] LABS: MANUAL DIFF FLAG NO
[2023-10-25 16:26] LABS: Basophils Percent Auto 0.5 % (0-2); Eosinophils Absolute Auto 0.1 X10*3/uL (0.0-0.4); Eosinophils Percent Auto 1.8 % (0-4); Hematocrit 41.7 % (37.0-47.0); Hemoglobin 13.7 g/dl (12.0-16.0); Imm Gran Abs Auto 0.03 X10*3/uL (0.00-0.03); Imm Gran Pct Auto 0.5 % (0.0-0.4); Lymphocytes Absolute Auto 0.9 X10*3/uL (1.2-4.9); Lymphocytes Percent Auto 15.5 % (20-40); Mean Corpuscular HGB Conc 32.9 g/dl (31.0-35.0); Mean Corpuscular Hemoglobin 30.2 pg (27.0-33.0); Mean Corpuscular Volume 92.1 fL (80.0-98.0); Mean Platelet Volume 10.4 fL (9.4-12.3); Monocytes Absolute Auto 0.5 X10*3/uL (0.1-1.2); Neutrophils Absolute Auto 4.2 x10*3/uL (2.0-8.3); Neutrophils Percent Auto 73.7 % (45-73); Platelet Count 159 X10*3/uL (160-400); Red Blood Count 4.53 X10*6/uL (4.20-5.50); Red Cell Distribution Width 13.4 % (11.0-16.0); White Blood Count 5.6 X10*3/uL (4.8-10.8)
[2023-10-25 16:52] LABS: Alanine Aminotransferase 12 U/L (0-31); Albumin Level 4.3 g/dL (3.5-5.0); Alkaline Phosphatase 59 U/L (39-117); Anion Gap 14 (12-20); Aspartate Amino Transferase 20 U/L (5-31); Bilirubin Total 0.7 mg/dL (0.0-1.0); Blood Urea Nitrogen 15 mg/dL (9-16); Calcium 9.7 mg/dL (8.4-10.2); Carbon Dioxide 29 mmol/L (22-29); Chloride 103 mmol/L (96-108); Estimated Glomerular Filt Rate > 60; Glucose Random 78 mg/dL (60-115); Potassium 4.1 mmol/L (3.3-5.1); Sodium 142 mmol/L (135-145); Total Protein 6.5 g/dL (6.5-8.0)
[2023-10-25 16:57] LABS: TSH reflex Free T4 2.15 uIU/mL (0.32-4.0)
== END 2023-10-25 13:31 | disposition home or self-care (01) ==
LOC: HO.HMGCLDS 13:30
PROVIDERS: PCP Internal Medicine; Visit Provider Internal Medicine
DX: E78.9 Disorder of lipoprotein metabolism, unspecified (principal); R79.89 Other specified abnormal findings of blood chemistry; E03.8 Other specified hypothyroidism; G20.A1 Parkinson's disease without dyskinesia, without mention of fluctuations
CPT/HCPCS: 36415; 80053; 84443; 85025

== ENCOUNTER 2024-01-15 13:04 | Outpatient (AMB) | payer MEDICARE, OTHER, SELFPAY ==
--- NOTE | 2024-01-15 13:09 | MHC.OFFVIS ---
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 she reports difficulty with memory - remembering names etc Her first symptom was tremors in her left hand and later in bilateral hands. she was living in [place] at that time and was diagnosed with Parkinsons disease. She moved to [facility] 5 months ago and is here for further management. She also reports memory issues - usually short term she also has lot of word finding difficulties. she did speech therapy but not sure it helped. Neuropsych eval in November 2022 was c/ Mild cognitive impairment. She is on donepezil 5mg - she could not tolerate 10mg . It helped her speech. Sleep- 1-2 episodes where she thought someone was in the room when she woke up. Mood- anxiety and mild depression Motivation-OK SPeech- softer. No drooling Handwriting- smaller and difficult Using utensils-slower Dressing-slower Showering- slower No difficulty turning in bed Gait- slower She had 1 near fall - she lives at [facility] she has constipation- better with change in diet No dizziness . No vertigo Appetite fluctuates. No exposure to chemicals, no fh/o parkinsons No h/o head injury . No exposure to antipsychotics or reglan. [facility] Medical History Lymphoma Mild cognitive impairment Parkinson's disease without dyskinesia or fluctuating manifestations Parkinson disease Surgical History History of left knee replacement History of left knee surgery History of tonsillectomy Family History Mother Colon cancer Father Lung cancer Sister Breast cancer Social History Housing: Assisted Living Facility Patient Tobacco Use Status: Never used Tobacco e-Cigarette/Vaping Use: Never Used service: No Current occupational status: retired Cognitive needs: No Hearing needs: No Vision needs: Yes Physical Exam Vital Signs: Last Vital Signs Pulse 68 01/15/24 13:10 Resp 16 01/15/24 13:10 BP 136/74 01/15/24 13:10 Pulse Ox 97 01/15/24 13:10 Oxygen Delivery Method Room Air 01/15/24 13:10 Oxygen Flow Rate 97 01/15/24 13:10 BMI result Body Mass Index 23.7 Const General: cooperative, healthy appearing, comfortable and no acute distress Nutritional Appearance: average body habitus Orientation/consciousness: patient oriented x3 Eyes Pupils: Equal, round and reactive pupils present Neck Neck: Yes no meningeal signs Neuro Other: Mildly decreased facial expression and blink fred rest tremors L>R Mild postural tremors Left Upper extremity No cog wheel rigidty Fred bradykinesia L>R FFM and foot taps moderately decreased Moderate hypophonia, word finding difficulties gait- no arm swing, slow stooped General: patient oriented x3, moves all extremities and no meningeal signs Cranial nerves: Yes Facial sensation intact/muscles of mastication intact, Yes Equal, round and reactive pupils present, Yes Bilaterally intact EOM present, Yes Nystagmus not present, Yes Normal facial strength present and Yes Midline tongue present Cognition (Neuro): normal cognition Deep tendon reflexes (DTR's): Right triceps reflex intensity grade: 1+, Left triceps reflex intensity grade: 1+, Rt Biceps (C5, C6): 1+, Left biceps reflex intensity grade: 1+, Right brachioradialis reflex intensity grade: 1+, Left brachioradialis reflex intensity grade: 1+, Right patellar reflex intensity grade: 1+ and Left patellar reflex intensity grade: 1+ Coordination: galeui-we-pcry test normal Assessment & Plan Assessment & Plan (1) Parkinson's disease without dyskinesia or fluctuating manifestations: Code(s): G20.A1 - Parkinson's disease without dyskinesia, without mention of fluctuations (2) Mild cognitive impairment: Code(s): G31.84 - Mild cognitive impairment of uncertain or unknown etiology Plan The diagnosis and prognosis were discussed Continue carbidopa/levodopa 25/100 tid Increase lexapro 15mg qd donepezil 5mg qd( did not tolerate 10mg) Speech and cognitive therapy Continue exercise Orders: Referrals Speech and Hearing Referral G20.A1 - Parkinson's disease without dyskinesia, without mention of fluctuations, G31.84 - Mild cognitive impairment of uncertain or unknown etiology Medications: Changed From escitalopram oxalate (Lexapro) 10 mg PO DAILY 90 tabs 0RF To escitalopram oxalate (Lexapro) 1.5 tabs orally daily; 135 tabs 2RF Coding Level of Care Code Est Pt Level 4 (92160) Diagnoses Parkinson's disease without dyskinesia or fluctuating manifestations G20.A1 Mild cognitive impairment G31.84
[2024-01-15 13:10] VITALS: BP 136/74; PULSE 68; RESP 16; O2SAT 97; BMI 23.7
== END 2024-01-15 13:54 | disposition home or self-care (01) ==
PROVIDERS: PCP Internal Medicine; Visit Provider Psychiatry & Neurology Neurology
DX: G20.A1 Parkinson's disease without dyskinesia, without mention of fluctuations (principal); G31.84 Mild cognitive impairment of uncertain or unknown etiology
CPT/HCPCS: 99214

== ENCOUNTER → 2024-01-15 13:04 | Outpatient (BNVA) | payer MEDICARE, OTHER, SELFPAY | PROVIDERS: PCP Internal Medicine; Visit Provider Psychiatry & Neurology Neurology | DX: G20.A1 Parkinson's disease without dyskinesia, without mention of fluctuations (principal); G31.84 Mild cognitive impairment of uncertain or unknown etiology | CPT/HCPCS: 99212 ==

== ENCOUNTER 2024-02-18 13:30 | Outpatient (AMB) | payer MEDICARE, OTHER, SELFPAY ==
--- NOTE | 2024-02-18 13:37 | MHC.PC.OV ---
Vital Signs 02/18/24 13:42 02/18/24 13:58 Height 5 ft 3 in Weight 128 lb BMI 22.7 BP 110/58 L Blood Pressure Location Rt brachial Position Sitting Pulse 80 Pulse Source Pulse Oximeter Pulse Oximetry (%) 94 97 Oxygen Delivery Method Room Air Intake Visit Reasons: 4 month follow up Allergies No Known Allergies Allergy (Verified 02/18/24 13:46) Medication List - Last Reconciled 02/18/24 by Camilla Thomason MD atorvastatin 10 mg PO DAILY carbidopa-levodopa 25-100 mg 1 tab PO TID 90 days cholecalciferol (vitamin D3) (Vitamin D3) 50 mcg PO DAILY cyanocobalamin (vitamin B-12) 1,000 mcg PO DAILY 90 days donepezil 5 mg PO DAILY escitalopram oxalate (Lexapro) 1.5 tabs orally daily; levothyroxine 50 mcg PO DAILY Tobacco use date assessed: 02/18/24 Fall risk assessment: No Falls in past year Last assessed Fall Risk: 02/18/24 Dental Screening Dental Screen Date: 10/25/23 Did you have a dental visit in the last 12 months?: Yes Did you have a dental problem in the last 6 months where you did not have access to dental care?: No Was dental information given to patient?: Patient has dentist HPI 4 month follow up HPI Details Patient is a 78-year-old female with a history of Parkinson disease, ex-smoker, COVID months ago Complaining of feeling shortness a breath which started even before she had COVID Patient also have history of lipid disorder, memory deficit, anxiety and hypothyroidism along with vitamin-D deficiency She is due for labs, thyroid test was done in July of last year Complaining of having hot flashes off and on I am ordering pulmonary function test with the patient Meanwhile she is to continue home medications She does not seem to be short of breath at this time, she is able to speak in full sentences Anxiety stable Follow-up 3 months or earlier if needed [facility] Medical History Lymphoma Mild cognitive impairment Parkinson's disease without dyskinesia or fluctuating manifestations Parkinson disease Surgical History History of left knee replacement History of left knee surgery History of tonsillectomy Family History Mother Colon cancer Father Lung cancer Sister Breast cancer Social History Housing: Assisted Living Facility Patient Tobacco Use Status: Never used Tobacco e-Cigarette/Vaping Use: Never Used service: No Current occupational status: retired Cognitive needs: No Hearing needs: No Vision needs: Yes Questionnaire Thrive Questionnaire Date Thrive assessed: 08/20/23 AUDIT C Alcohol Use Questionnaire (AUDIT-C) 1. How often do you have a drink containing alcohol?: Never 3. How often do you have six or more drinks on one occasion?: Never Total Score: 0 Score Reviewed/Action Taken: Yes MARGIE-7 AMB Questionnaire MARGIE-7 Date MARGIE - 7 assessed: 08/20/23 Source: Developed by Drs. Julio C Box, Echo Vega, Harsha James and colleagues, with an educational gunjan from [employer]. Review of Systems Const Denies chills and Denies fever(s) ENT Denies epistaxis and Denies nasal discharge Card Denies chest pain Resp Denies chest congestion, Denies cough and Denies hemoptysis GI Denies diarrhea and Denies nausea Skin/Breast Denies rash Neuro Reports no additional complaints Psych Reports no additional complaints Endo Reports no additional complaints Physical exam (Primary Care) Vital Signs: Last Vital Signs Pulse 80 02/18/24 13:42 BP 110/58 L 02/18/24 13:42 Pulse Ox 97 02/18/24 13:58 Oxygen Delivery Method Room Air 02/18/24 13:42 BMI result Body Mass Index 22.7 Tobacco/Smoking Status: Tobacco use Status Tobacco use date assessed 02/18/24 02/18/24 13:46 Patient Tobacco Use Status Never used Tobacco 02/18/24 13:39 e-Cigarette/Vaping Use Never Used 02/18/24 13:39 Thrive Assessment: Date of Thrive Assessment Date Thrive assessed 08/20/23 02/18/24 13:39 Const General: cooperative, comfortable and no acute distress Orientation/consciousness: patient oriented x3 HENMT Head: Yes normocephalic Eyes General: appearance normal, both eyes and all related structures Neck Neck: Yes supple Resp Effort & Inspection: normal respiratory effort, no cough and no stridor Cardio Rhythm: regular rhythm Heart sounds: S1 normal heart sound present and S2 normal heart sound present Skin General skin exam: turgor normal Neuro General: patient oriented x3, tone normal and moves all extremities Extrem Right lower extremity: no edema Left lower extremity: no edema Assessment and Plan Assessment & Plan (1) Shortness of breath: Code(s): R06.02 - Shortness of breath (2) Ex-smoker: Code(s): Z87.891 - Personal history of nicotine dependence (3) Other specified hypothyroidism: Code(s): E03.8 - Other specified hypothyroidism (4) Vitamin D deficiency: Code(s): E55.9 - Vitamin D deficiency, unspecified (5) Lipid disorder: Code(s): E78.9 - Disorder of lipoprotein metabolism, unspecified (6) Anxiety, generalized: Code(s): F41.1 - Generalized anxiety disorder (7) Parkinson disease: Code(s): G20 - Parkinson's disease Qualifiers: Dyskinesia presence: with dyskinesia Fluctuating manifestations: with fluctuating manifestations Qualified Code(s): G20.B2 - Parkinson's disease with dyskinesia, with fluctuations Plan Patient is a 78-year-old female with a history of Parkinson disease, ex-smoker, COVID months ago Complaining of feeling shortness a breath which started even before she had COVID Patient also have history of lipid disorder, memory deficit, anxiety and hypothyroidism along with vitamin-D deficiency She is due for labs, thyroid test was done in July of last year Complaining of having hot flashes off and on I am ordering pulmonary function test with the patient Meanwhile she is to continue home medications She does not seem to be short of breath at this time, she is able to speak in full sentences Anxiety stable Follow-up 3 months or earlier if needed Orders: Orders TSH reflex Free T4 Today E03.8 - Other specified hypothyroidism, E55.9 - Vitamin D deficiency, unspecified, E78.9 - Disorder of lipoprotein metabolism, unspecified, F41.1 - Generalized anxiety disorder, G20.B2 - Parkinson's disease with dyskinesia, with fluctuations PFT pulmonary function test Today R06.02 - Shortness of breath, Z87.891 - Personal history of nicotine dependence Complete Blood Count Auto Diff Today E03.8 - Other specified hypothyroidism, E55.9 - Vitamin D deficiency, unspecified, E78.9 - Disorder of lipoprotein metabolism, unspecified, F41.1 - Generalized anxiety disorder, G20.B2 - Parkinson's disease with dyskinesia, with fluctuations Comprehensive Met. Panel Today E03.8 - Other specified hypothyroidism, E55.9 - Vitamin D deficiency, unspecified, E78.9 - Disorder of lipoprotein metabolism, unspecified, F41.1 - Generalized anxiety disorder, G20.B2 - Parkinson's disease with dyskinesia, with fluctuations Coding Level of Care Code Est Pt Level 4 (09260) Complex EM visit Add On G2211 Diagnoses Shortness of breath R06.02 Ex-smoker Z87.891 Other specified hypothyroidism E03.8 Vitamin D deficiency E55.9 Lipid disorder E78.9 Anxiety, generalized F41.1 Parkinson's disease with dyskinesia and fluctuating manifestations G20.B2 Dyskinesia presence: with dyskinesia Fluctuating manifestations: with fluctuating manifestations
[2024-02-18 13:42] VITALS: BP 110/58; PULSE 80; O2SAT 94; BMI 22.7
[2024-02-18 13:58] VITALS: O2SAT 97
== END 2024-02-18 14:12 | disposition home or self-care (01) ==
PROVIDERS: PCP Internal Medicine; Visit Provider Internal Medicine
DX: R06.02 Shortness of breath (principal); Z87.891 Personal history of nicotine dependence; G20.B2 Parkinson's disease with dyskinesia, with fluctuations; E03.8 Other specified hypothyroidism; E55.9 Vitamin D deficiency, unspecified; E78.9 Disorder of lipoprotein metabolism, unspecified; F41.1 Generalized anxiety disorder
CPT/HCPCS: 99214; G2211

== ENCOUNTER 2024-02-18 13:55 | Outpatient (REF) | payer MEDICARE, OTHER, SELFPAY ==
[2024-02-18 16:28] LABS: MANUAL DIFF FLAG NO
[2024-02-18 16:37] LABS: Basophils Percent Auto 0.3 % (0-2); Eosinophils Absolute Auto 0.1 X10*3/uL (0.0-0.4); Eosinophils Percent Auto 1.7 % (0-4); Hematocrit 43.4 % (37.0-47.0); Hemoglobin 14.3 g/dl (12.0-16.0); Imm Gran Abs Auto 0.01 X10*3/uL (0.00-0.03); Imm Gran Pct Auto 0.2 % (0.0-0.4); Lymphocytes Absolute Auto 0.9 X10*3/uL (1.2-4.9); Lymphocytes Percent Auto 15.3 % (20-40); Mean Corpuscular HGB Conc 32.9 g/dl (31.0-35.0); Mean Corpuscular Hemoglobin 30.4 pg (27.0-33.0); Mean Corpuscular Volume 92.1 fL (80.0-98.0); Mean Platelet Volume 10.7 fL (9.4-12.3); Monocytes Absolute Auto 0.5 X10*3/uL (0.1-1.2); Monocytes Percent Auto 7.9 % (2-11); Neutrophils Absolute Auto 4.3 x10*3/uL (2.0-8.3); Neutrophils Percent Auto 74.6 % (45-73); Platelet Count 168 X10*3/uL (160-400); Red Blood Count 4.71 X10*6/uL (4.20-5.50); Red Cell Distribution Width 13.5 % (11.0-16.0); White Blood Count 5.8 X10*3/uL (4.8-10.8)
[2024-02-18 17:27] LABS: Alanine Aminotransferase 9 U/L (0-31); Albumin Level 4.4 g/dL (3.5-5.0); Alkaline Phosphatase 62 U/L (39-117); Anion Gap 15 (12-20); Aspartate Amino Transferase 19 U/L (5-31); Bilirubin Total 0.8 mg/dL (0.0-1.0); Blood Urea Nitrogen 13 mg/dL (9-16); Carbon Dioxide 31 mmol/L (22-29); Chloride 105 mmol/L (96-108); Estimated Glomerular Filt Rate > 60; Glucose Random 112 mg/dL (60-115); Potassium 3.8 mmol/L (3.3-5.1); Sodium 147 mmol/L (135-145); Total Protein 6.5 g/dL (6.5-8.0)
[2024-02-18 17:45] LABS: TSH reflex Free T4 1.52 uIU/mL (0.32-4.0)
== END 2024-02-18 13:56 | disposition home or self-care (01) ==
LOC: HO.HMGCLDS 13:55
PROVIDERS: PCP Internal Medicine; Visit Provider Internal Medicine
DX: E03.8 Other specified hypothyroidism (principal); E55.9 Vitamin D deficiency, unspecified; C85.90 Non-Hodgkin lymphoma, unspecified, unspecified site; E78.9 Disorder of lipoprotein metabolism, unspecified; F41.1 Generalized anxiety disorder; G20.B2 Parkinson's disease with dyskinesia, with fluctuations
CPT/HCPCS: 36415; 80053; 84443; 85025

== ENCOUNTER 2024-04-08 10:19 | Outpatient (RCR) | payer MEDICARE, OTHER, SELFPAY ==
--- NOTE | 2024-04-14 16:05 | MHC.SP.ADU ---
Referring provider: Dr. 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 She moved from [place] this past year with her and currently reside in the Independent Living area of [facility]. She arrives with her Step-Daughter, Akiko, who provides additional history. During our interview, Rosalina appeared anxious and had frequent pauses that resulted in word-finding difficulty and loss of topic maintenance. Rosalina reports difficulty sleeping, marked by frequent need to void and sleeping in until the late morning. In recent months, additional stressors have included her Husbands health. She is active with pool aerobics. She reports that she avoids the lunch room at [facility] due to anxiety having people notice her difficulty with word-finding. She reports difficulty with vision, stating that her current lenses are distracting to her. She is in the process of replacing them. Difficulty with vision has also reduced her ability to read, which she used to enjoy daily. She reports history of Speech Therapy in [place], however neither she nor her Step-Daughter are able to recall the therapist name or location. Medical History: Past medical history includes: Lymphoma Mild cognitive impairment Parkinson's disease without dyskinesia or fluctuating manifestations Parkinson disease Past surgical history includes: History of left knee replacement History of left knee surgery History of tonsillectomy Recent Hospitalizations: No Respiratory Needs: Room Air Patient Orientation: Person, Place Only Social History: Employment Status: Retired Highest level of education obtained: Completed Bachelor's Swallowing History: Dysphagia Specific: Within Functional Limits Comments: Pre-eval Risk for Aspiration: None Pre-evaluation Dietary Consistencies: Regular Pre-eval Liquid Intake: Thin Pre-eval Medication Intake: Whole with Liquid Reported Speech, Language, Cognition difficulties: Understanding Attention Reading Memory Cognition Speaking Problem Solving Writing Quality of Life: Patient Stated Goal of Speech-Language Therapy: Assessment Informal Voice Assessment: Voice Loudness: Normal Voice Nasal Resonance: Normal Voice Oral Resonance: Normal Voice Phonatory-based Quality: Normal Voice Pitch: Normal Clinical Impression: Intact Tests of Cognition: RBANS Clinical Impression: Observations: The RBANS is considered a screening battery for cognitive function and is repeatable for the purpose of evaluating any changes in function. It is intended for use with adolescents and adults, ages 12 to 89 years. Composite domains assessed in this test are: Immediate Memory, Visuospatial/Constructional, Language, Attention, and Delayed Memory. Her scores are tabled below: R-BANS Update I.) Immediate Memory Index: 53 Ia.) List Learning: -- Scaled Score: 2 Ib.) Story Memory: -- Scaled Score: 3 The Immediate Memory Index measures, ?initial encoding and learning of complex and simple verbal information. Low scores on this index indicated difficulties with verbal learning.? The score is derived from the participant?s performance on the subtests List Learning and Story Memory. List Learning measures, ?rote verbal memory function.? Participants are asked to repeat back a list of ten words presented to them verbally across four trials. Poor performance on this subtest indicates that, ?the examinee may have difficulty learning new verbal information and that repetition may not be beneficial?, if they do not improve across trials. The Story Memory subtest measures, ?memory for conceptually related verbal information.? Here, a short story is read to them across two trials and they are asked to recall details from the story. ?The test is a measure of verbal memory functioning for information that is related?. As with List Learning, participants that do not demonstrate a positive learning curve across trials could indicate, ?difficulty with learning new verbal learning, and that repetition may not help, or that the examinee may have difficulty retrieving new information from memory. II.) Visuospatial/Constructional Index: 72 IIa.) Figure Copy: -- Scaled Score: 10 IIb.) Line Orientation: -- Percentile Group: <2 The Visuospatial/Constructional Index is derived from the Figure Copy and Line Orientation subtests. It measures, ?basic visuospatial perception and the ability to copy a design from a model?. Low performance with this index can indicate, ?difficulties with processing and using visuospatial information?, or, ?visual impairments or attention disorders such as eron neglect?. The Figure Copy subtest requires the examinee to copy a complex geometrical design from a model that is present throughout the task. ?This requires many cognitive skills including visuospatial reasoning, attention to visual details, motor programming, and to a lesser degree, organization and fine-motor ability?. Points are given for specific details, as well as specific placement in the context of the entire image. The Line Orientation subtest measures, ?the examinee?s ability to correctly identify spatial orientation in two-dimensions?. Poor performance indicates significant visuospatial impairments in acuity and attention. III.) Language Index: 78 IIIa.) Picture Naming: -- Percentile Group: 26 - 50 IIIb.) Semantic Fluency: -- Scaled Score: 2 The Language Index is, ?a measure of expressive language functioning?. Low scores with this subtest ?would indicate difficulties with language functioning? and, ?while the overall score would still indicate language difficulties, the deficits may be more related to fluency versus naming skills.? The Picture Naming subtest is provided by showing the participant a series of 10 simple line drawing and asking them to name them. The Semantic Fluency subtest is a measure of, ?the examinee?s ability to retrieve and express words using a semantic prompt?. In brief, the examinee is given a category and asked to name as many exemplars as they can in 60 seconds. Low scores, ?indicate significantly impaired ability to retrieve and express verbal information from long-term memory stores?. IV.) Attention Index: 64 Tamara.) Digit Span: -- Scaled Score: 7 IVb.) Coding: -- Scaled Score: 2 The Attention Index is a derived from the Digit Span and Coding subtests. It is a measure of, ?simple auditory registration, visual scanning and processing speed. Low scores on this index indicate, ?difficulties with basic attention and processing speed?. Difficulties can vary between the subtests suggesting acute differences between auditory and visual processing and attention. Digit Span is a measure of, ?auditory registration and brief focused attention. Low scores can also indicate difficulties with auditory attention and registration?. In it, the examinee is read a series of single digit numbers and asked to repeat them back in the same order. ?Impairments in auditory acuity can also influence performance on this test?. Coding is a measure of, ?brief, focused, visual attention, visual scanning and processing speed?. In it, the examinee is given a paulino at the top of the page where each symbol is associated with a different number. The examinee is then asked to fill out as many numbers to corresponding symbols as they can in 90 seconds. In incorporates the notion of diligence and sustained attention as well. Difficulties can indicate problems with, ?processing speed and focused visual attention?. V.) Delayed Memory Index: 71 Va.) List Recall: -- Percentile Group: 17-25 Vb.) List Recognition: -- Percentile Group: <2 Vc.) Story Recall: -- Scaled Score: 1 Vd.) Figure Recall: -- Scaled Score: 10 The Delayed Memory Index is derived by combining the subtest scores for List Recall, Story Recall, and Figure Recall, and cross-referencing them with the List Recognition subtest. Auditory and Visual subtest are combined together. Difference between subtests can be highlighted to provide more specific information about areas of deficit and strength. ?The deficits, may be more related to verbal more than visual memory, or free recall as opposed to recognition memory or general variability in memory functioning.? RBANS Total Scale Score: 59 (%ile=0.3) SUMMARY: Rosalina?s domain scores on the RBANS fell in the below average to severely below average range. She demonstrated relative area of strength in Language (SS=78). Her memory scores improved from Immediate Memory (SS=53) to Delayed Memory (SS=71). She recognized 16/20 items on a the Delayed Recognition subtest. Her lowest performance was with the Immediate Memory Index (SS=53). It should be noted that the List Recall and Story Recall subtests are the first two of the test, and she presented with significant anxiety and negative self-talk (?You?re wasting your time?) during both of these subtests. Attention (SS=64) was also significantly reduced. Difficulty with attention and information processing and can negatively impact the ability to encode new information into memory. Her Total Scale Score was 59, in the 0.3 percentile as compared to her age-matched peers. She was not able to complete the Line Orientation task due to difficulty following directions in the context of a Visualspatial task. Per her Step-Daughter this is consistent with anecdotes from home where Rosalina has specific difficulty managing complex visual information. She is in the process of getting new lenses for her glasses, however this inability, despite repetition and prompting may indicate cortical-visual impairment. Review of her EMR shows that she was mentioned to have Mild Cognitive Impairment (MCI) in November of 2022. Today?s results demonstrate a significant regression from MCI and may indicate comorbidities other than Parkinson?s Disease. Her records from [place] are not readily available, but her Step-Daughter states she will work on locating them. It is recommended that Rosalina participate in a short course of Cognitive-Communication Therapy to address cognitively stimulating activities to promote brain health. Treatment will initially focus on a variety of clinician led activities to assess areas of interest and ability levels. Prior to discharge treatment will focus on patient-centered activities that they can participate in the community once treatment has ended. Given the severity of her deficits, it would be beneficial to have a caregiver or Family member present during her appointments to assist with carry-over at home and in the community. Her Step-Daughter reports it may be a hardship for her to attend on a weekly basis, but that there is staff from [facility] that may be able to join her visits. Impressions and Recommendations Impact on Daily Function/Activity Limitations: Daily Activities: Moderate Interpersonal Interactions: Moderate Education: None Employment: None Community: Moderate Prognosis for Improvement: Fair Recommendation for Speech Therapy: Outpatient Speech Therapy Frequency/Duration: 1 x week x 12 weeks Date Range for Service Requested: Time to Reassess: PRN Projection Technician Goals: Short Term Goals: Goal # : STG1: Pt will reorganize x2-3 step sequences presented out of order with >80% accuracy and with the assistance of compensatory strategies. Goal Status: New Goal Goal# : STG2: Pt will identify concrete and abstract category members with >80% accuracy and minimal assistance. Goal Status: New Goal Goal # : STG3: Pt will complete simple mazes with >80% accuracy and minimal assistance. Goal Status: New Goal Goal # : STG4: Pt will complete weekly HEP tasks with >80% accuracy with minimal assistance. Goal Status: New Goal Recommended Referrals to be Discussed with Primary Care Provider: Neurology Neuropsychological Eval Follow-up with referring provider. 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
== END 2024-06-02 14:54 | disposition still patient (30) ==
LOC: HO.SH 10:19
PROVIDERS: PCP Internal Medicine; Visit Provider Psychiatry & Neurology Neurology
DX: G20.A1 Parkinson's disease without dyskinesia, without mention of fluctuations (principal); G31.84 Mild cognitive impairment of uncertain or unknown etiology
CPT/HCPCS: 92523

== ENCOUNTER 2024-05-26 13:38 | Outpatient (AMB) | payer MEDICARE, OTHER, SELFPAY ==
[2024-05-26 13:42] VITALS: BP 128/68; PULSE 61; O2SAT 97; BMI 22.4
--- NOTE | 2024-05-26 13:42 | MHC.PC.OV ---
Vital Signs 05/26/24 13:42 Height 5 ft 3 in Weight 126 lb 8 oz BMI 22.4 BP 128/68 Blood Pressure Location Lt brachial Position Sitting Pulse 61 Pulse Source Pulse Oximeter Pulse Oximetry (%) 97 Oxygen Delivery Method Room Air Intake Visit Reasons: 3M F/U Allergies No Known Allergies Allergy (Verified 05/26/24 13:45) Medication List - Last Reconciled 05/26/24 by Camilla Thomason MD atorvastatin 10 mg PO DAILY carbidopa-levodopa 25-100 mg 1 tab PO TID 90 days cholecalciferol (vitamin D3) (Vitamin D3) 50 mcg PO DAILY cyanocobalamin (vitamin B-12) 1,000 mcg PO DAILY 90 days donepezil 5 mg PO DAILY escitalopram oxalate (Lexapro) 1.5 tabs orally daily; levothyroxine 50 mcg PO DAILY Tobacco use date assessed: 05/26/24 Fall risk assessment: No Falls in past year Last assessed Fall Risk: 05/26/24 Dental Screening Dental Screen Date: 05/26/24 Did you have a dental visit in the last 12 months?: No Did you have a dental problem in the last 6 months where you did not have access to dental care?: No Was dental information given to patient?: Patient has dentist HPI 3M F/U HPI Details Patient is a 79-year-old female with a history of Parkinson disease, ex-smoker She is in her usual state of health She had labs done in January, sodium was slightly elevated at 147 we will be repeating labs again, I encouraged to drink more water Patient would also like her ears clean On examination her left ear is impacted Lipid disorder: Continue atorvastatin 10 mg She is now seeing Dr. Delgado neurology for the treatment of Parkinson's disease and anxiety Continue levothyroxine 50 mcg Continue vitamin-D and B12 supplement Follow-up 6 months [facility] [place] Medical History Lymphoma Mild cognitive impairment Parkinson's disease without dyskinesia or fluctuating manifestations Parkinson disease Surgical History History of left knee replacement History of left knee surgery History of tonsillectomy Family History Mother Colon cancer Father Lung cancer Sister Breast cancer Social History Housing: Assisted Living Facility Patient Tobacco Use Status: Never used Tobacco e-Cigarette/Vaping Use: Never Used service: No Current occupational status: retired Cognitive needs: No Hearing needs: No Vision needs: Yes Questionnaire PHQ-9 Over the last 2 weeks, how often have you been bothered by any of the following problems? 1. Little interest or pleasure in doing things: not at all 2. Feeling down, depressed, or hopeless: not at all 3. Trouble falling or staying asleep, or sleeping too much: not at all 4. Feeling tired or having little energy: not at all 5. Poor appetite or overeating: not at all 6. Feeling bad about yourself - or that you are a failure or have let yourself or your family down: not at all 7. Trouble concentrating on things, such as reading the newspaper or watching television: not at all 8. Moving or speaking so slowly that other people could have noticed. Or the opposite - being so fidgety or restless that you have been moving around a lot more than usual: not at all 9. Thoughts that you would be better off or of hurting yourself in some way: not at all Total score: 0 Depression Screening Interpretation: Negative Depression Screening Done: Yes 69668 - PHQ-9 Billing: Yes Source: Developed by Drs. Julio C Box, Echo Vega, Harsha James and colleagues, with an educational gunjan from [employer]. Thrive Questionnaire Date Thrive assessed: 05/26/24 I am a: Patient What is your living situation today?: I have a steady place to live Within the past 12 months, did the food you bought not last and you didn't have the money to get more?: Never true Within the past 12 months, did you worry whether your food would run out before you got money to buy more?: Never true Do you have trouble paying for medicines?: No Do you have trouble getting transportation to medical appointments?: No Do you have trouble paying your heating and electricity bill?: No Do you have trouble taking care of your child, family member or friend?: No Do you have trouble with day-to-day activities such as bathing, preparing meals, shopping, managing finances, etc.?: No Are you currently unemployed and looking for a job?: No Are you interested in more education?: No Please select the resources that you would like help with: None Currently or been in a relationship where the following occur: No concerns reported THRIVE Score: 0 AUDIT C Alcohol Use Questionnaire (AUDIT-C) 1. How often do you have a drink containing alcohol?: Never 3. How often do you have six or more drinks on one occasion?: Never Total Score: 0 Score Reviewed/Action Taken: Yes MARGIE-7 AMB Questionnaire MARGIE-7 Date MARGIE - 7 assessed: 05/26/24 Feeling nervous, anxious, or on edge: 0 = Not at all Not being able to stop or control worryin = Not at all Worrying too much about different things: 0 = Not at all Trouble relaxin = Not at all Being so restless that it is hard to sit still: 0 = Not at all Becoming easily annoyed or irritable: 0 = Not at all Feeling afraid as if something awful might happen: 0 = Not at all Total MARGIE-7 score (0-4 normal; 5-9 mild; 10-14 moderate; 15-21 severe): 0 Source: Developed by Drs. Julio C Box, Echo Vega, Harsha James and colleagues, with an educational gunjan from [employer]. MARGIE-7 Assessment Billing MARGIE-7 Assessment Tool: MARGIE-7 Assessment 87672 Review of Systems Const Denies chills and Denies fever(s) ENT Denies epistaxis and Denies nasal discharge Card Denies chest pain Resp Denies chest congestion, Denies cough and Denies hemoptysis GI Denies diarrhea and Denies nausea Skin/Breast Denies rash Neuro Reports no additional complaints Psych Reports no additional complaints Endo Reports no additional complaints Physical exam (Primary Care) Vital Signs: Last Vital Signs Pulse 61 05/26/24 13:42 BP 128/68 05/26/24 13:42 Pulse Ox 97 05/26/24 13:42 Oxygen Delivery Method Room Air 05/26/24 13:42 BMI result Body Mass Index 22.4 Tobacco/Smoking Status: Tobacco use Status Tobacco use date assessed 05/26/24 05/26/24 13:46 Patient Tobacco Use Status Never used Tobacco 05/26/24 13:46 e-Cigarette/Vaping Use Never Used 05/26/24 13:46 PHQ-9: PHQ-9 Score PHQ-9: Total score 0 05/26/24 14:03 Depression Screening Interpretation: Negative Thrive Assessment: Date of Thrive Assessment Date Thrive assessed 05/26/24 05/26/24 13:46 Currently or been in a relationship where the following occur: No concerns reported Const General: cooperative, comfortable and no acute distress HENMT Other: Patient has very tortuous ear canals, right ear filled with cerumen Head: Yes normocephalic Eyes General: appearance normal, both eyes and all related structures Neck Neck: Yes supple Resp Effort & Inspection: normal respiratory effort, no cough and no stridor Cardio Rhythm: regular rhythm Heart sounds: S1 normal heart sound present and S2 normal heart sound present Skin General skin exam: turgor normal Neuro General: tone normal and moves all extremities Extrem Right lower extremity: no edema Left lower extremity: no edema Office Procedures Cerumen Removal From which ear canal was the cerumen removed: bilateral Removal: irrigation Notes: patient tolerated procedure well and no complications 12867-Nle Irrigation/Lavage Assessment and Plan Assessment & Plan (1) Other specified hypothyroidism: Code(s): E03.8 - Other specified hypothyroidism (2) Lipid disorder: Code(s): E78.9 - Disorder of lipoprotein metabolism, unspecified (3) Excessive cerumen in both ear canals: Code(s): H61.23 - Impacted cerumen, bilateral (4) Vitamin D deficiency: Code(s): E55.9 - Vitamin D deficiency, unspecified (5) Anxiety, generalized: Code(s): F41.1 - Generalized anxiety disorder (6) Parkinson disease: Code(s): G20 - Parkinson's disease Qualifiers: Dyskinesia presence: with dyskinesia Fluctuating manifestations: with fluctuating manifestations Qualified Code(s): G20.B2 - Parkinson's disease with dyskinesia, with fluctuations (7) Mild cognitive impairment: Code(s): G31.84 - Mild cognitive impairment of uncertain or unknown etiology (8) Shortness of breath: Code(s): R06.02 - Shortness of breath (9) Ex-smoker: Code(s): Z87.891 - Personal history of nicotine dependence Plan Patient is a 79-year-old female with a history of Parkinson disease, ex-smoker She is in her usual state of health She had labs done in January, sodium was slightly elevated at 147 we will be repeating labs again, I encouraged to drink more water Patient would also like her ears clean On examination her left ear is impacted Lipid disorder: Continue atorvastatin 10 mg She is now seeing Dr. Delgado neurology for the treatment of Parkinson's disease and anxiety Continue levothyroxine 50 mcg Continue vitamin-D and B12 supplement Continued to feel mild shortness a breath which has not worsened Follow-up 6 month Orders: Orders UA CC w/rflx Micro + Cult Today E03.8 - Other specified hypothyroidism, E55.9 - Vitamin D deficiency, unspecified, E78.9 - Disorder of lipoprotein metabolism, unspecified, F41.1 - Generalized anxiety disorder, G20.B2 - Parkinson's disease with dyskinesia, with fluctuations, G31.84 - Mild cognitive impairment of uncertain or unknown etiology Complete Blood Count Auto Diff Today E03.8 - Other specified hypothyroidism, E55.9 - Vitamin D deficiency, unspecified, E78.9 - Disorder of lipoprotein metabolism, unspecified, F41.1 - Generalized anxiety disorder, G20.B2 - Parkinson's disease with dyskinesia, with fluctuations, G31.84 - Mild cognitive impairment of uncertain or unknown etiology Comprehensive Met. Panel Today E03.8 - Other specified hypothyroidism, E55.9 - Vitamin D deficiency, unspecified, E78.9 - Disorder of lipoprotein metabolism, unspecified, F41.1 - Generalized anxiety disorder, G20.B2 - Parkinson's disease with dyskinesia, with fluctuations, G31.84 - Mild cognitive impairment of uncertain or unknown etiology TSH reflex Free T4 Today E03.8 - Other specified hypothyroidism, E55.9 - Vitamin D deficiency, unspecified, E78.9 - Disorder of lipoprotein metabolism, unspecified, F41.1 - Generalized anxiety disorder, G20.B2 - Parkinson's disease with dyskinesia, with fluctuations, G31.84 - Mild cognitive impairment of uncertain or unknown etiology LDL Cholesterol Direct Today E03.8 - Other specified hypothyroidism, E55.9 - Vitamin D deficiency, unspecified, E78.9 - Disorder of lipoprotein metabolism, unspecified, F41.1 - Generalized anxiety disorder, G20.B2 - Parkinson's disease with dyskinesia, with fluctuations, G31.84 - Mild cognitive impairment of uncertain or unknown etiology Coding Level of Care Code Est Pt Level 4 (80672) Complex EM visit Add On G2211 Diagnoses Other specified hypothyroidism E03.8 Lipid disorder E78.9 Excessive cerumen in both ear canals H61.23 Vitamin D deficiency E55.9 Anxiety, generalized F41.1 Parkinson's disease with dyskinesia and fluctuating manifestations G20.B2 Dyskinesia presence: with dyskinesia Fluctuating manifestations: with fluctuating manifestations Mild cognitive impairment G31.84 Shortness of breath R06.02 Ex-smoker Z87.891 CPT Codes Office Procedure - CPT: 70534-Eht Irrigation/Lavage ([id number]) Additional Codes MARGIE-7 Assessment Billing - MARGIE-7 Assessment Tool: MARGIE-7 Assessment 09068 ([id number])
== END 2024-05-26 14:10 | disposition home or self-care (01) ==
PROVIDERS: PCP Internal Medicine; Visit Provider Internal Medicine
DX: E03.8 Other specified hypothyroidism (principal); E78.9 Disorder of lipoprotein metabolism, unspecified; G20.B2 Parkinson's disease with dyskinesia, with fluctuations; H61.23 Impacted cerumen, bilateral; E55.9 Vitamin D deficiency, unspecified; F41.1 Generalized anxiety disorder; G31.84 Mild cognitive impairment of uncertain or unknown etiology; R06.02 Shortness of breath; Z87.891 Personal history of nicotine dependence
CPT/HCPCS: 69209; 99214; G2211

== ENCOUNTER 2024-05-26 14:29 | Outpatient (REF) | payer MEDICARE, OTHER, SELFPAY ==
[2024-05-26 16:18] LABS: MANUAL DIFF FLAG NO
[2024-05-26 16:24] LABS: Basophils Percent Auto 0.4 % (0-2); Eosinophils Absolute Auto 0.1 X10*3/uL (0.0-0.4); Eosinophils Percent Auto 1.2 % (0-4); Hemoglobin 13.9 g/dl (12.0-16.0); Imm Gran Abs Auto 0.03 X10*3/uL (0.00-0.03); Imm Gran Pct Auto 0.4 % (0.0-0.4); Lymphocytes Absolute Auto 0.9 X10*3/uL (1.2-4.9); Lymphocytes Percent Auto 12.4 % (20-40); Mean Corpuscular HGB Conc 33.1 g/dl (31.0-35.0); Mean Corpuscular Hemoglobin 30.6 pg (27.0-33.0); Mean Corpuscular Volume 92.5 fL (80.0-98.0); Mean Platelet Volume 10.5 fL (9.4-12.3); Monocytes Absolute Auto 0.5 X10*3/uL (0.1-1.2); Monocytes Percent Auto 7.5 % (2-11); Neutrophils Absolute Auto 5.4 x10*3/uL (2.0-8.3); Neutrophils Percent Auto 78.1 % (45-73); Platelet Count 166 X10*3/uL (160-400); Red Blood Count 4.54 X10*6/uL (4.20-5.50); Red Cell Distribution Width 13.4 % (11.0-16.0); White Blood Count 6.9 X10*3/uL (4.8-10.8)
[2024-05-26 20:51] LABS: Alanine Aminotransferase 18 U/L (0-31); Albumin Level 4.6 g/dL (3.5-5.0); Alkaline Phosphatase 62 U/L (39-117); Anion Gap 14 (12-20); Aspartate Amino Transferase 24 U/L (5-31); Bilirubin Total 0.7 mg/dL (0.0-1.0); Blood Urea Nitrogen 12 mg/dL (9-16); Calcium 10.1 mg/dL (8.4-10.2); Carbon Dioxide 27 mmol/L (22-29); Chloride 105 mmol/L (96-108); Estimated Glomerular Filt Rate > 60; Glucose Random 88 mg/dL (60-115); Potassium 3.8 mmol/L (3.3-5.1); Sodium 142 mmol/L (135-145); Total Protein 6.9 g/dL (6.5-8.0)
[2024-05-26 21:07] LABS: TSH reflex Free T4 1.74 uIU/mL (0.32-4.0)
[2024-05-27 16:03] LABS: LDL Cholesterol Direct 76 mg/dL (<100)
== END 2024-05-26 14:30 | disposition home or self-care (01) ==
LOC: HO.HMGCLDS 14:29
PROVIDERS: PCP Internal Medicine; Visit Provider Internal Medicine
DX: G20.B2 Parkinson's disease with dyskinesia, with fluctuations (principal); F41.1 Generalized anxiety disorder; E78.9 Disorder of lipoprotein metabolism, unspecified; E03.8 Other specified hypothyroidism; E55.9 Vitamin D deficiency, unspecified; G31.84 Mild cognitive impairment of uncertain or unknown etiology
CPT/HCPCS: 36415; 80053; 83721; 84443; 85025

== ENCOUNTER 2024-06-03 11:31 | Outpatient (AMB) | payer MEDICARE, OTHER, SELFPAY ==
--- NOTE | 2024-06-03 11:40 | MHC.OFFVIS ---
Vital Signs 06/03/24 11:41 Height 5 ft 3 in Weight 126 lb BMI 22.3 Intake Visit Reasons: 4 MONTH F/U Intake Note: Patient presents for follow up. Allergies No Known Allergies Allergy (Verified 05/26/24 13:45) Medication List - Last Reconciled 06/03/24 by Laura Delgado MD atorvastatin 10 mg PO DAILY carbidopa-levodopa 25-100 mg 1 tab PO TID 90 days cholecalciferol (vitamin D3) (Vitamin D3) 50 mcg PO DAILY cyanocobalamin (vitamin B-12) 1,000 mcg PO DAILY 90 days donepezil 5 mg PO DAILY escitalopram oxalate (Lexapro) 1.5 tabs orally daily; levothyroxine 50 mcg PO DAILY HPI Comments Details: 79y/o Left handed female with h/o Parkinsons Disease, word finding difficulty, cognitive impairment and comes for follow up. Her lexapro was increased 15mg qd during her last visit - family noticed more anxiety .she does not have a psychologist now. she used to see a psychologist when she was in [place]. Memory is worse .speech is worse.she is scheduled to start speech therapy next week. Her first symptom was tremors in her left hand and later in bilateral hands. she was living in [place] at that time and was diagnosed with Parkinsons disease.she goes to a support group [facility] . She also reports memory issues - usually short term she also has lot of word finding difficulties. she did speech therapy but not sure it helped. Neuropsych eval in November 2022 was c/ Mild cognitive impairment. She is on donepezil 5mg . It helped her speech. Sleep- 1-2 episodes where she thought someone was in the room when she woke up. Mood- anxiety and mild depression Motivation-OK SPeech- softer. No drooling Handwriting- smaller and difficult Using utensils-slower Dressing-slower Showering- slower No difficulty turning in bed Gait- slower She had 1 near fall - she lives at [facility] she has constipation- better with change in diet No dizziness . No vertigo [facility] Medical History Anxiety Lymphoma Mild cognitive impairment Parkinson's disease without dyskinesia or fluctuating manifestations Parkinson disease Surgical History History of left knee replacement History of left knee surgery History of tonsillectomy Family History Mother Colon cancer Father Lung cancer Sister Breast cancer Social History Housing: Assisted Living Facility Patient Tobacco Use Status: Never used Tobacco e-Cigarette/Vaping Use: Never Used service: No Current occupational status: retired Cognitive needs: No Hearing needs: No Vision needs: Yes Physical Exam Vital Signs: BMI result Body Mass Index 22.3 Const General: cooperative, healthy appearing, comfortable and no acute distress Nutritional Appearance: average body habitus Orientation/consciousness: patient oriented x3 Eyes Pupils: Equal, round and reactive pupils present Neck Neck: Yes no meningeal signs Neuro Other: Mildly decreased facial expression and blink fred rest tremors L>R Mild postural tremors Left Upper extremity No cog wheel rigidty Fred bradykinesia L>R FFM and foot taps moderately decreased Moderate hypophonia, word finding difficulties gait- no arm swing, slow stooped General: patient oriented x3, moves all extremities and no meningeal signs Cranial nerves: Yes Facial sensation intact/muscles of mastication intact, Yes Equal, round and reactive pupils present, Yes Bilaterally intact EOM present, Yes Nystagmus not present, Yes Normal facial strength present and Yes Midline tongue present Cognition (Neuro): normal cognition Assessment & Plan Assessment & Plan (1) Parkinson's disease without dyskinesia or fluctuating manifestations: Code(s): G20.A1 - Parkinson's disease without dyskinesia, without mention of fluctuations Category: Medical (2) Mild cognitive impairment: Code(s): G31.84 - Mild cognitive impairment of uncertain or unknown etiology Category: Medical Plan The diagnosis and prognosis were discussed Continue carbidopa/levodopa 25/100 tid lexapro 15mg qd donepezil 5mg qd( did not tolerate 10mg) Speech and cognitive therapy Continue exercise Orders: Referrals Geriatrics Referral F41.1 - Generalized anxiety disorder, G20.A1 - Parkinson's disease without dyskinesia, without mention of fluctuations, G31.84 - Mild cognitive impairment of uncertain or unknown etiology Psychology Referral F41.9 - Anxiety disorder, unspecified Coding Level of Care Code Est Pt Level 4 (40939) Complex EM visit Add On G2211 Diagnoses Parkinson's disease without dyskinesia or fluctuating manifestations G20.A1 Mild cognitive impairment G31.84
[2024-06-03 11:41] VITALS: BMI 22.3
== END 2024-06-03 12:27 | disposition home or self-care (01) ==
PROVIDERS: PCP Internal Medicine; Visit Provider Psychiatry & Neurology Neurology
DX: G20.A1 Parkinson's disease without dyskinesia, without mention of fluctuations (principal); G31.84 Mild cognitive impairment of uncertain or unknown etiology
CPT/HCPCS: 99214; G2211

== ENCOUNTER → 2024-06-03 11:31 | Outpatient (BNVA) | payer MEDICARE, OTHER, SELFPAY | PROVIDERS: PCP Internal Medicine; Visit Provider Psychiatry & Neurology Neurology | DX: G20.A1 Parkinson's disease without dyskinesia, without mention of fluctuations (principal); G31.84 Mild cognitive impairment of uncertain or unknown etiology | CPT/HCPCS: 99212 ==

== ENCOUNTER 2024-08-07 13:00 | Outpatient (RCR) | payer MEDICARE, OTHER, SELFPAY ==
--- NOTE | 2024-08-12 16:03 | MHC.SL.SOA ---
Referring Provider: Dr. Laura Delgado Reason for Referral: Parkinson's disease without dyskinesia, without mention of fluctuations Date of Plan of Treatment:04/08/24 Onset of Symptoms/Illness:01/15/24 Date Treatment Started:04/08/24 Medical Diagnosis:Cognitive communication disorder Primary Speech Language Diagnosis:R41.841 Cognitive communication disorder Secondary Speech Language Diagnosis:R47.01 Aphasia Reason for Visit:23955 Individual Treatment Subjective:This is a formal discharge for Rosalina Trejo (: 49). Her initial Evaluation was on 04/08/24. She was seen for 6 visits between 06/08/24 and 08/07/24. This discharge comes at the request of the patient who reports that the work she has been getting has made her feel bad about herself. Objective: The following goals were targeted this treatment period: STG1: Pt will reorganize x5-6 step sequences presented out of order with >80% accuracy and with the assistance of compensatory strategies. STG2: Pt will identify 10 concrete and abstract category members with >80% accuracy and minimal assistance. STG3: Pt will complete simple mazes with >80% accuracy and minimal assistance. STG4: Pt will complete weekly HEP tasks with >80% accuracy with minimal assistance. Assessment:Rosalina is a very kind and curious 79 year-old woman with progressive Parkinson's. She is active at her [facility] and has local Family support. Her step daughter brought her to appointments and joins her in activities. Carryover has been complicated by dynamics between the and Rosalina. Per Step-Daughter, he is not patient enough to help with HEP. Also, while her Step-Daughter is available, most the time they spend is on the road going to appointments or shopping. Rosalina does have trouble with multi-step problem solving, but does better staying engaged with quick, 1-step problems. Unfortunately, if a problem becomes difficult for her, some negative thoughts about her competency start to distract her and it is hard for her to stay on task. Turner noting, if Pt is given a visually stimulating item she will also become quickly confused. [facility] [employer] discussed Vision Therapy referral for this. They are interested also in the [facility] and [facility] programs which they are waiting for a good time to commit after the Winter. In today's session Rosalina requested that we discharge at this time as she is not getting the most out of treatment, and in fact the problems are making her feel bad about her abilities. They are invited to seek re-referral at a more convenient time. Plan: Goal # : STG1: Pt will reorganize x5-6 step sequences presented out of order with >80% accuracy and with the assistance of compensatory strategies. Status of Goal: Discharge Goal Goal # : STG2: Pt will identify 10 concrete and abstract category members with >80% accuracy and minimal assistance. Status of Goal: Discharge Goal Goal # : STG3: Pt will complete simple mazes with >80% accuracy and minimal assistance. Status of Goal: Discharge Goal Goal # : STG4: Pt will complete weekly HEP tasks with >80% accuracy with minimal assistance. Status of Goal: Discharge Goal Seen by: Graduate/Clinical Fellow: No Supervisory Statement: f_Reg Query Last Value , MHC.AU.SIGNAT Speech Language Pathologist: Ron Trevino M.A., CCC-[employer]ING [employer]ED [employer]ER
== END 2024-08-13 14:25 | disposition home or self-care (01) ==
LOC: HO.SH 13:00
PROVIDERS: PCP Internal Medicine; Visit Provider Psychiatry & Neurology Neurology
DX: G20.A1 Parkinson's disease without dyskinesia, without mention of fluctuations (principal); G31.84 Mild cognitive impairment of uncertain or unknown etiology
CPT/HCPCS: 92507

== ENCOUNTER 2024-08-14 11:21 | Outpatient (REF) | payer MEDICARE, SELFPAY ==
--- NOTE | ~2024-08-14 | MM_ITS ---
EXAMINATION: MM SCREENING DIGITAL BREAST TOMOSYNTHESIS, BILATERAL CLINICAL INFORMATION: Screening. Asymptomatic. COMPARISON: Mammography: Comparison is made with available priors TECHNIQUE: Digital breast mammography with tomosynthesis is performed in both the craniocaudal and mediolateral oblique views along with computer-aided detection (CAD). FINDINGS: There are scattered areas of fibroglandular density (ACR BI-RADS breast composition Category b). Scattered left asymmetries stable back to 2020. There are no significant masses, abnormal calcifications, or other abnormalities. MM/MM tomosynthesis screening BI IMPRESSION: No mammographic evidence of malignancy. ASSESSMENT: BI-RADS BI-RADS 2 - Benign Findings RECOMMENDATION: Routine annual mammography screening. 1 year F/U This examination should not preclude the clinical evaluation of a suspicious palpable abnormality. This patient's information was entered into a reminder system with a target due date for their next mammogram. Electronically signed by: Brittanie Perry DO 08/25/2024 10:57 AM ROZINA
== END 2024-08-14 11:22 | disposition home or self-care (01) ==
LOC: HO.MAMMO 11:21
PROVIDERS: PCP Internal Medicine; Visit Provider Internal Medicine
DX: Z12.31 Encounter for screening mammogram for malignant neoplasm of breast (principal)
CPT/HCPCS: 77063; 77067

== ENCOUNTER → 2024-08-14 11:30 | Outpatient (BNV) | payer MEDICARE, SELFPAY | PROVIDERS: PCP Internal Medicine; Visit Provider Internal Medicine | DX: Z12.31 Encounter for screening mammogram for malignant neoplasm of breast (principal) | CPT/HCPCS: 77063; 77067 ==

== ENCOUNTER 2024-11-24 14:32 | Outpatient (AMB) | payer MEDICARE, OTHER, SELFPAY ==
[2024-11-24 14:37] VITALS: BP 120/70; PULSE 68; RESP 20; TEMP 36.7; O2SAT 98; BMI 22.0
--- NOTE | 2024-11-24 14:37 | A.OFFVIS_ITS ---
Intake Vital Signs 11/24/24 14:37 Height 5 ft 3 in Weight 124 lb BMI 22.0 BP 120/70 Blood Pressure Location Lt brachial Position Sitting Respiration 20 Pulse 68 Pulse Source Pulse Oximeter Temp 98.1 F Temp Source Oral Pulse Oximetry (%) 98 Oxygen Delivery Method Room Air Intake Visit Reasons: SWV Allergies No Known Allergies Allergy (Verified 11/24/24 14:39) Medication List - Last Reconciled 11/24/24 by Camilla Thomason MD atorvastatin 10 mg PO DAILY carbidopa-levodopa 25-100 mg 1 tab PO TID cholecalciferol (vitamin D3) (Vitamin D3) 50 mcg PO DAILY cyanocobalamin (vitamin B-12) 1,000 mcg PO DAILY 90 days donepezil 5 mg PO BEDTIME escitalopram oxalate 20 mg PO DAILY levothyroxine 50 mcg PO DAILY HPI HPI Comments History of Present Illness Details AWV Medical/social history reviewed Past medical history reviewed [place] of care / care team list updated Surgical/ hospitalization history reviewed Current medications including OTC and supplements reviewed Family history reviewed Tobacco controlled form updated Alcohol use form updated Illicit drug use in social history reviewed Current diagnosis of depression ?screening updated Appropriate PHQ 2/PHQ-9 completed . Vital signs reviewed Alcohol tobacco drug use reviewed and discussed . MMSE completed . ? Fall risk: ?Assessed Fall history: ?None Have you had any falls with injury in the past year?? No Have you had 2 or more falls in the past year?? No Fall risk assessment completed Home safety discussed with the patient Functional ability assessed and discussed and documented Activities of daily living reviewed and appropriate actions taken . HRA filled out by the patient and reviewed by provider and scanned . Appropriate written screening schedule established . Any health advise needed provided . Advance care planning discussed with the patient , necessary paperwork filled Examination IPPE/AWE: Balance intact Romberg intact Tandem walk intact walk-in turn intact rise from sit to stand intact . ?Hearing ?whisper test pass . Medication list reviewed, patient is stable on medications All other providers patient is seeing discussed and noted . [facility] Medical History Anxiety Lymphoma Mild cognitive impairment Parkinson's disease without dyskinesia or fluctuating manifestations Parkinson disease Surgical History History of left knee replacement History of left knee surgery History of tonsillectomy Family History Mother Colon cancer Father Lung cancer Sister Breast cancer Social History Housing: Assisted Living Facility Patient Tobacco Use Status: Never used Tobacco e-Cigarette/Vaping Use: Never Used service: No Current occupational status: retired Cognitive needs: No Hearing needs: No Vision needs: Yes Questionnaire PHQ-9 Over the last 2 weeks, how often have you been bothered by any of the following problems? 1. Little interest or pleasure in doing things: not at all 2. Feeling down, depressed, or hopeless: not at all 3. Trouble falling or staying asleep, or sleeping too much: not at all 4. Feeling tired or having little energy: not at all 5. Poor appetite or overeating: not at all 6. Feeling bad about yourself - or that you are a failure or have let yourself or your family down: not at all 7. Trouble concentrating on things, such as reading the newspaper or watching television: not at all 8. Moving or speaking so slowly that other people could have noticed. Or the opposite - being so fidgety or restless that you have been moving around a lot more than usual: not at all 9. Thoughts that you would be better off or of hurting yourself in some way: not at all Total score: 0 Source: Developed by Drs. Julio C Box, Echo Vega, Harsha James and colleagues, with an educational gunjan from [employer]. Physical Exam Vital Signs: Last Vital Signs Temp 98.1 F 11/24/24 14:37 Pulse 68 11/24/24 14:37 Resp 20 11/24/24 14:37 BP 120/70 11/24/24 14:37 Pulse Ox 98 11/24/24 14:37 Oxygen Delivery Method Room Air 11/24/24 14:37 BMI result Body Mass Index 22.0 Office Procedures EKG 78553-[id number], Complete Assessment & Plan Assessment & Plan (1) Parkinson disease: Code(s): G20 - Parkinson's disease Qualifiers: Dyskinesia presence: with dyskinesia Fluctuating manifestations: with fluctuating manifestations Qualified Code(s): G20.B2 - Parkinson's disease with dyskinesia, with fluctuations (2) Anxiety, generalized: Code(s): F41.1 - Generalized anxiety disorder (3) Lipid disorder: Code(s): E78.9 - Disorder of lipoprotein metabolism, unspecified (4) Other specified hypothyroidism: Code(s): E03.8 - Other specified hypothyroidism (5) Swelling of both ankles: Code(s): M25.471 - Effusion, right ankle; M25.472 - Effusion, left ankle (6) Shoulder pain, right: Code(s): M25.511 - Pain in right shoulder Orders: Orders TSH reflex Free T4 Today E03.8 - Other specified hypothyroidism, E78.9 - Disorder of lipoprotein metabolism, unspecified, F41.1 - Generalized anxiety disorder, G20.B2 - Parkinson's disease with dyskinesia, with fluctuations Comprehensive Met. Panel Today E03.8 - Other specified hypothyroidism, E78.9 - Disorder of lipoprotein metabolism, unspecified, F41.1 - Generalized anxiety disorder, G20.B2 - Parkinson's disease with dyskinesia, with fluctuations LDL Cholesterol Direct Today E03.8 - Other specified hypothyroidism, E78.9 - Disorder of lipoprotein metabolism, unspecified, F41.1 - Generalized anxiety disorder, G20.B2 - Parkinson's disease with dyskinesia, with fluctuations Vitamin D 25-OH (D2 and D3) Today E03.8 - Other specified hypothyroidism, E78.9 - Disorder of lipoprotein metabolism, unspecified, F41.1 - Generalized anxiety disorder, G20.B2 - Parkinson's disease with dyskinesia, with fluctuations Complete Blood Count Auto Diff Today E03.8 - Other specified hypothyroidism, E78.9 - Disorder of lipoprotein metabolism, unspecified, F41.1 - Generalized anxiety disorder, G20.B2 - Parkinson's disease with dyskinesia, with f luctuations Vitamin B12 Today E03.8 - Other specified hypothyroidism, E78.9 - Disorder of lipoprotein metabolism, unspecified, F41.1 - Generalized anxiety disorder, G20.B2 - Parkinson's disease with dyskinesia, with fluctuations UA CC w/rflx Micro + Cult Today E03.8 - Other specified hypothyroidism, E78.9 - Disorder of lipoprotein metabolism, unspecified, F41.1 - Generalized anxiety disorder, G20.B2 - Parkinson's disease with dyskinesia, with fluctuations CA echo transthoracic complete Today M25.471 - Effusion, right ankle, M25.472 - Effusion, left ankle XR shoulder RT min 2V Today M25.511 - Pain in right shoulder Quality Reporting (2019) Depression/Bipolar (159/160/161/177) PHQ-9: Total score: 0 Coding Diagnoses Parkinson's disease with dyskinesia and fluctuating manifestations G20.B2 Dyskinesia presence: with dyskinesia Fluctuating manifestations: with fluctuating manifestations Anxiety, generalized F41.1 Lipid disorder E78.9 Other specified hypothyroidism E03.8 Swelling of both ankles M25.471; M25.472 Shoulder pain, right M25.511 CPT Codes EKG - CPT: 00416-[id number], Complete ([id number])
--- NOTE | 2024-11-24 16:08 | A.OFFPC_ITS ---
Vital Signs 11/24/24 14:37 Height 5 ft 3 in Weight 124 lb BMI 22.0 BP 120/70 Blood Pressure Location Lt brachial Position Sitting Respiration 20 Pulse 68 Pulse Source Pulse Oximeter Temp 98.1 F Temp Source Oral Pulse Oximetry (%) 98 Oxygen Delivery Method Room Air Intake Visit Reasons: Follow Up Allergies No Known Allergies Allergy (Verified 11/24/24 14:39) Medication List - Last Reconciled 11/24/24 by Camilla Thomason MD atorvastatin 10 mg PO DAILY carbidopa-levodopa 25-100 mg 1 tab PO TID cholecalciferol (vitamin D3) (Vitamin D3) 50 mcg PO DAILY cyanocobalamin (vitamin B-12) 1,000 mcg PO DAILY 90 days donepezil 5 mg PO BEDTIME escitalopram oxalate 20 mg PO DAILY levothyroxine 50 mcg PO DAILY Tobacco use date assessed: 05/26/24 Dental Screening Dental Screen Date: 05/26/24 HPI Follow Up HPI Details History - The patient is a 79-year-old female pr esenting with detailed evaluations needed for dermatological concerns on the leg, shortness of breath, foot discomfort, and musculoskeletal pain. - Dermatological issues on the legs were previously evaluated in dermatology, presenting with eczema and a recent red john. Which has improved and patient has appointment coming up in March - The patient experiences episodes of sh ortness of breath, worsened when lying flat and uses two pillows to relieve. - history of neuropathy, which affects c omfortable footwear selection. She wanted to have a podiatry referral but could not tell me why she needs it - right Shoulder pain exacerbated by a f all is suspected to be linked to tendonitis, indicating possible limited motion. X-ray of shoulder ordered today - Chronic back pain, worsened at areas o f bra strap pressure - irregularity of hot rhythm noted on ex amination. 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 - Engage in appropriate exercises as julio c ded for shoulder pain. - Continue monitoring for shortness of b reath and contact care if it worsens. - Keep dermatology appointments for leg eczema and ding. - echocardiogram ordered- x-ray to be do ne today right shoulder - lab order to be done today Review of Systems General: No fever no chills neurological: No headaches no dizziness ear nose throat: No sore throat no hearing difficulty no ear pain cardiovascular: No syncope, no chest pain, no palpitations gastrointestinal: No nausea vomiting or diarrhea endocrine: No polyuria polydipsia no heat intolerance genitourinary: No dysuria Physical Exam general: No acute distress HEENT: No acute findings neck: Supple respiratory system: Shortness of breath noted, uses two pillows at night cardiovascular: S1-S2, irregular heart rhythm noted, echocardiogram and cardiology referral planned gastrointestinal: No pain Back examination reveals no reason for back pain other than kyphosis extremities: Swelling noted in feet, possible fluid retention 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: Alert awake oriented x3 motor sensory intact skin: Normal turgor, eczema noted on legs [facility] Medical History Anxiety Lymphoma Mild cognitive impairment Parkinson's disease without dyskinesia or fluctuating manifestations Parkinson disease Surgical History History of left knee replacement History of left knee surgery History of tonsillectomy Family History Mother Colon cancer Father Lung cancer Sister Breast cancer Social History Housing: Assisted Living Facility Patient Tobacco Use Status: Never used Tobacco e-Cigarette/Vaping Use: Never Used service: No Current occupational status: retired Cognitive needs: No Hearing needs: No Vision needs: Yes Questionnaire PHQ-9 Over the last 2 weeks, how often have you been bothered by any of the following problems? 1. Little interest or pleasure in doing things: not at all 2. Feeling down, depressed, or hopeless: not at all 3. Trouble falling or staying asleep, or sleeping too much: not at all 4. Feeling tired or having little energy: not at all 5. Poor appetite or overeating: not at all 6. Feeling bad about yourself - or that you are a failure or have let yourself or your family down: not at all 7. Trouble concentrating on things, such as reading the newspaper or watching television: not at all 8. Moving or speaking so slowly that other people could have noticed. Or the opposite - being so fidgety or restless that you have been moving around a lot more than usual: not at all 9. Thoughts that you would be better off or of hurting yourself in some way: not at all Total score: 0 Depression Screening Interpretation: Negative Depression Screening Done: Yes 12249 - PHQ-9 Billing: Yes Source: Developed by Drs. Julio C Box, Echo Vega, Harsha James and colleagues, with an educational gunjan from [employer]. Thrive Questionnaire Date Thrive assessed: 05/26/24 I am a: Patient What is your living situation today?: I have a steady place to live Within the past 12 months, did the food you bought not last and you didn't have the money to get more?: Never true Within the past 12 months, did you worry whether your food would run out before you got money to buy more?: Never true Do you have trouble paying for medicines?: No Do you have trouble getting transportation to medical appointments?: No Do you have trouble paying your heating and electricity bill?: No Do you have trouble taking care of your child, family member or friend?: No Do you have trouble with day-to-day activities such as bathing, preparing meals, shopping, managing finances, etc.?: No Are you currently unemployed and looking for a job?: No Are you interested in more education?: No Please select the resources that you would like help with: None Currently or been in a relationship where the following occur: No concerns reported THRIVE Score: 0 MARGIE-7 AMB Questionnaire MARGIE-7 Date MARGIE - 7 assessed: 05/26/24 Source: Developed by Drs. Julio C Box, Harsha Berman and colleagues, with an educational gunjan from [employer]. Physical exam (Primary Care) Vital Signs: Last Vital Signs Temp 98.1 F 11/24/24 14:37 Pulse 68 11/24/24 14:37 Resp 20 11/24/24 14:37 BP 120/70 11/24/24 14:37 Pulse Ox 98 11/24/24 14:37 Oxygen Delivery Method Room Air 11/24/24 14:37 BMI result Body Mass Index 22.0 Tobacco/Smoking Status: Tobacco use Status Tobacco use date assessed 05/26/24 06/14/24 10:00 Patient Tobacco Use Status Never used Tobacco 06/14/24 10:00 e-Cigarette/Vaping Use Never Used 06/14/24 10:00 Depression Screening Interpretation: Negative Thrive Assessment: Date of Thrive Assessment Date Thrive assessed 05/26/24 06/14/24 10:00 Currently or been in a relationship where the following occur: No concerns reported Office Procedures EKG [id number], Complete Coding Level of Care Code Est Pt Level 5 (79519) Complex EM visit Add On G2211 Diagnoses Shortness of breath R06.02 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 Swelling of both ankles M25.471; M25.472 Acute pain of right shoulder M25.511 Chronicity: acute Parkinson's disease with dyskinesia and fluctuating manifestations G20.B2 Dyskinesia presence: with dyskinesia Fluctuating manifestations: with fluctuating manifestations Anxiety, generalized F41.1 Lipid disorder E78.9 Other specified hypothyroidism E03.8 Vitamin D deficiency E55.9 CPT Codes EKG - CPT: 87437-[id number], Complete ([id number]) Additional Codes PHQ-9 - 98240 - PHQ-9 Billing: Yes ([id number]) Assessment & Plan Assessment & Plan (1) Shortness of breath: Code(s): R06.02 - Shortness of breath Category: Medical (2) Premature atrial complexes: Code(s): I49.1 - Atrial premature depolarization Category: Medical (3) Swelling of both ankles: Code(s): M25.471 - Effusion, right ankle; M25.472 - Effusion, left ankle Category: Medical (4) Shoulder pain, right: Code(s): M25.511 - Pain in right shoulder Category: Medical Qualifiers: Chronicity: acute Qualified Code(s): M25.511 - Pain in right shoulder (5) Parkinson disease: Code(s): G20 - Parkinson's disease Category: Medical Qualifiers: Dyskinesia presence: with dyskinesia Fluctuating manifestations: with fluctuating manifestations Qualified Code(s): G20.B2 - Parkinson's disease with dyskinesia, with fluctuations (6) Anxiety, generalized: Code(s): F41.1 - Generalized anxiety disorder Category: Medical (7) Lipid disorder: Code(s): E78.9 - Disorder of lipoprotein metabolism, unspecified Category: Medical (8) Other specified hypothyroidism: Code(s): E03.8 - Other specified hypothyroidism Category: Medical (9) Vitamin D deficiency: Code(s): E55.9 - Vitamin D deficiency, unspecified Category: Medical Plan History - The patient is a 79-year-old female presenting with detailed evaluations needed for dermatological concerns on the leg, shortness of breath, foot discomfort, and musculoskeletal pain. - Dermatological issues on the legs were previously evaluated in dermatology, presenting with eczema and a recent red john. Which has improved and patient has appointment coming up in March - The patient experiences episodes of shortness of breath, worsened when lying flat and uses two pillows to relieve. - history of neuropathy, which affects comfortable footwear selection. She wanted to have a podiatry referral but could not tell me why she needs it - right Shoulder pain exacerbated by a fall is suspected to be linked to tendonitis, indicating possible limited motion. X-ray of shoulder ordered today - Chronic back pain, worsened at areas of bra strap pressure - irregularity of hot rhythm noted on examination. EKG done today shows premature atrial complexes 64 beats per minute Due to swelling of ankle I have ordered echocardiogram and will also place a referral for her to be evaluated by leather stripping machine operator Problem List - Red john and eczema on leg - Shortness of breath - bilateral Foot swelling - Foot neuropathy chronic - Shoulder pain right after fall few months ago with limited range of motion in a - Back pain chronic - irregularity of heart rhythm - premature atrial complexes - kyphosis - Parkinson's disease Patient Instructions - Consider wearing comfortable shoes instead of tight ones to ease foot swelling. - Engage in appropriate exercises as guided for shoulder pain. - Continue monitoring for shortness of breath and contact care if it worsens. - Keep dermatology appointments for leg eczema and ding. - echocardiogram ordered- x-ray to be done today right shoulder - lab order to be done today 40 minutes spent in care of this patient, discussing with daughter and patient, EKG coordination of care Orders: Orders TSH reflex Free T4 Today E03.8 - Other specified hypothyroidism, E78.9 - Disorder of lipoprotein metabolism, unspecified, F41.1 - Generalized anxiety disorder, G20.B2 - Parkinson's disease with dyskinesia, with fluctuations Comprehensive Met. Panel Today E03.8 - Other specified hypothyroidism, E78.9 - Disorder of lipoprotein metabolism, unspecified, F41.1 - Generalized anxiety disorder, G20.B2 - Parkinson's disease with dyskinesia, with fluctuations LDL Cholesterol Direct Today E03.8 - Other specified hypothyroidism, E78.9 - Disorder of lipoprotein metabolism, unspecified, F41.1 - Generalized anxiety disorder, G20.B2 - Parkinson's disease with dyskinesia, with fluctuations Vitamin D 25-OH (D2 and D3) Today E03.8 - Other specified hypothyroidism, E78.9 - Disorder of lipoprotein metabolism, unspecified, F41.1 - Generalized anxiety disorder, G20.B2 - Parkinson's disease with dyskinesia, with fluctuations Complete Blood Count Auto Diff Today E03.8 - Other specified hypothyroidism, E78.9 - Disorder of lipoprotein metabolism, unspecified, F41.1 - Generalized anxiety disorder, G20.B2 - Parkinson's disease with dyskinesia, with fluctuations Vitamin B12 Today E03.8 - Other specified hypothyroidism, E78.9 - Disorder of lipoprotein metabolism, unspecified, F41.1 - Generalized anxiety disorder, G20.B2 - Parkinson's disease with dyskinesia, with fluctuations UA CC w/rflx Micro + Cult Today E03.8 - Other specified hypothyroidism, E78.9 - Disorder of lipoprotein metabolism, unspecified, F41.1 - Generalized anxiety disorder, G20.B2 - Parkinson's disease with dyskinesia, with fluctuations CA echo transthoracic complete Today M25.471 - Effusion, right ankle, M25.472 - Effusion, left ankle XR shoulder RT min 2V Today M25.511 - Pain in right shoulder Referrals Cardiology Referral I49.1 - Atrial premature depolarization, M25.471 - Effusion, right ankle, M25.472 - Effusion, left ankle, R06.02 - Shortness of breath
== END 2024-11-24 15:35 | disposition home or self-care (01) ==
PROVIDERS: PCP Internal Medicine; Visit Provider Internal Medicine
DX: R06.02 Shortness of breath (principal); I49.1 Atrial premature depolarization; M25.471 Effusion, right ankle; M25.472 Effusion, left ankle; M25.511 Pain in right shoulder; G20.B2 Parkinson's disease with dyskinesia, with fluctuations; F41.1 Generalized anxiety disorder; E78.9 Disorder of lipoprotein metabolism, unspecified; E03.8 Other specified hypothyroidism; E55.9 Vitamin D deficiency, unspecified

== ENCOUNTER 2024-11-24 14:32 | Outpatient (REF) | payer MEDICARE, SELFPAY ==
--- NOTE | ~2024-11-24 | XR_ITS ---
EXAMINATION: XR SHOULDER, RIGHT CLINICAL INFORMATION: M25.511 - Pain in right shoulder COMPARISON: None available. TECHNIQUE: AP external rotation, Grashey, scapular Y, and axillary views of the right shoulder. FINDINGS: Normal bone mineralization. No fracture, dislocation, or suspicious bone lesion. Normal alignment. The glenohumeral joint demonstrates mild degenerative arthritis. The AC joint is normal. There is a type III acromion. There is a moderate size undersurface spur. The subacromial space is minimally narrowed by subacromial spurring. Remainder of the soft tissue and bony structures appear normal. XR/XR shoulder RT min 2V IMPRESSION: 1. No acute findings right shoulder. 2. Subacromial spur, mildly narrowing the subacromial space. 3. 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 Electronically signed by: Quinton East MD 11/25/2024 12:36 PM [facility] [place]
== END 2024-11-24 14:33 | disposition home or self-care (01) ==
LOC: HO.HMGCX 14:32
PROVIDERS: PCP Internal Medicine; Visit Provider Internal Medicine
DX: R06.02 Shortness of breath (principal); I49.1 Atrial premature depolarization; M25.471 Effusion, right ankle; M25.472 Effusion, left ankle; M25.511 Pain in right shoulder; G20.B2 Parkinson's disease with dyskinesia, with fluctuations; F41.1 Generalized anxiety disorder; E78.9 Disorder of lipoprotein metabolism, unspecified; E03.8 Other specified hypothyroidism; E55.9 Vitamin D deficiency, unspecified
CPT/HCPCS: 73030; 93005; 96127; 99212

== ENCOUNTER → 2024-11-24 15:42 | Outpatient (BNV) | payer MEDICARE, SELFPAY | PROVIDERS: PCP Internal Medicine; Visit Provider Radiology Diagnostic Radiology | DX: M25.711 Osteophyte, right shoulder (principal) | CPT/HCPCS: 73030 ==

== ENCOUNTER 2024-12-08 09:21 | Outpatient (REF) | payer MEDICARE, SELFPAY ==
[2024-12-08 09:56] LABS: MANUAL DIFF FLAG NO
[2024-12-08 10:52] LABS: Basophils Percent Auto 0.6 % (0-2); Eosinophils Absolute Auto 0.1 X10*3/uL (0.0-0.4); Eosinophils Percent Auto 1.1 % (0-4); Hematocrit 41.7 % (37.0-47.0); Hemoglobin 14.1 g/dl (12.0-16.0); Imm Gran Abs Auto 0.02 X10*3/uL (0.00-0.03); Imm Gran Pct Auto 0.3 % (0.0-0.4); Lymphocytes Absolute Auto 0.7 X10*3/uL (1.2-4.9); Lymphocytes Percent Auto 10.7 % (20-40); Mean Corpuscular HGB Conc 33.8 g/dl (31.0-35.0); Mean Corpuscular Hemoglobin 31.2 pg (27.0-33.0); Mean Corpuscular Volume 92.3 fL (80.0-98.0); Mean Platelet Volume 10.4 fL (9.4-12.3); Monocytes Absolute Auto 0.4 X10*3/uL (0.1-1.2); Monocytes Percent Auto 6.4 % (2-11); Neutrophils Absolute Auto 5.1 x10*3/uL (2.0-8.3); Neutrophils Percent Auto 80.9 % (45-73); Platelet Count 150 X10*3/uL (160-400); Red Blood Count 4.52 X10*6/uL (4.20-5.50); Red Cell Distribution Width 13.4 % (11.0-16.0); White Blood Count 6.4 X10*3/uL (4.8-10.8)
[2024-12-08 11:24] LABS: Appearance Urine Clear; Color Urine Yellow; Glucose Urine UA Negative (Negative); Leukocyte Esterase Urine Small (1+) (Negative); Nitrite Urine Negative (Negative); PH 5.5 (5.0-9.0); Specific Gravity - Urine 1.025 (1.005-1.025); UMIC TRIGGER UACC YES; Urine Blood Negative (Negative); Urine Ketones Trace mg/dL (Negative); Urine Protein Negative (Neg-Trace)
[2024-12-08 11:34] LABS: Bacteria Urine None Seen (None Seen); Hyaline Casts Urine 0-2 /LPF (0-2); RBC Urine 0-2 /HPF (0-2); UACC Culture Trigger YES; WBC Urine 0-5 /HPF (0-5)
[2024-12-08 12:06] LABS: Alanine Aminotransferase 10 U/L (0-31); Albumin Level 4.3 g/dL (3.5-5.0); Alkaline Phosphatase 53 U/L (39-117); Anion Gap 11 (12-20); Aspartate Amino Transferase 27 U/L (5-31); Bilirubin Total 0.8 mg/dL (0.0-1.0); Blood Urea Nitrogen 19 mg/dL (9-16); Calcium 9.2 mg/dL (8.4-10.2); Carbon Dioxide 31 mmol/L (22-29); Chloride 107 mmol/L (96-108); Estimated Glomerular Filt Rate > 60; Glucose Random 78 mg/dL (60-115); Potassium 3.6 mmol/L (3.3-5.1); Sodium 145 mmol/L (135-145); Total Protein 6.5 g/dL (6.5-8.0)
[2024-12-08 12:10] LABS: TSH reflex Free T4 1.36 uIU/mL (0.32-4.0)
[2024-12-08 12:18] LABS: Vitamin B12 1105 pg/mL (200-900)
[2024-12-11 01:34] LABS: LDL Cholesterol Direct 67 mg/dL (<100)
[2024-12-14 23:44] LABS: Vitamin D 25-OH, D2 <4 ng/mL; Vitamin D 25-OH, D3 46 ng/mL; Vitamin D 25-OH, Total 46 ng/mL (30-100)
== END 2024-12-08 09:22 | disposition home or self-care (01) ==
LOC: HO.LAB 09:21
PROVIDERS: PCP Internal Medicine; Visit Provider Internal Medicine
DX: E03.8 Other specified hypothyroidism (principal); E55.9 Vitamin D deficiency, unspecified; E78.9 Disorder of lipoprotein metabolism, unspecified; F41.1 Generalized anxiety disorder; G20.B2 Parkinson's disease with dyskinesia, with fluctuations
CPT/HCPCS: 36415; 80053; 81001; 82306; 82607; 83721; 84443; 85025; 87086

== ENCOUNTER → 2024-12-14 13:03 | Outpatient (REF) | payer MEDICARE, SELFPAY ==
--- NOTE | 2024-12-14 13:08 | CA_ITS ---
Transthoracic Echocardiogram Patient (Last, First, Middle): Rosalina Trejo, Gender: Female Date of : 1945 Age: 79 Procedure Date: 12/14/2024 Procedure Type: Transthoracic Echocardiogram Location: OP Height: 160.02 cm Weight: 58.97 kg BSA: 1.61 m2 Heart Rate: 66 bpm BP: 110 / 65 mmHg Laboratory Specialist: KYA Referring MD: Camilla Thomason MD Symptoms: M25.471 - Effusion, right ankle Study Quality: Adequate ECG Rhythm: Sinus Conclusions: - The left ventricular systolic function is hyperdynamic. The visually estimated ejection fraction is >70%. - No obvious valvular pathology seen on this study. Findings Left Ventricle Normal left ventricular cavity size. There is normal left ventricular wall thickness. The left ventricular systolic function is hyperdynamic. The visually estimated ejection fraction is >70%. There is no evidence of regional wall motion abnormalities. Evidence suggests grade I (mild) diastolic dysfunction. Right Ventricle Normal right ventricular cavity size and systolic function. Atria Both atria are normal in size. Aortic Valve There is a normal trileaflet aortic valve. There is no aortic valve stenosis. There is no aortic valve regurgitation. Mitral Valve The mitral valve appears normal. There is trace mitral valve regurgitation. There is no mitral valve stenosis. Pulmonic Valve The pulmonic valve is likely normal. Tricuspid Valve There is trace tricuspid valve regurgitation. There is no evidence of pulmonary hypertension. Great Vessels The asc aorta is normal in size. Venous The inferior vena cava is normal in size and collapses greater than 50% with inspiration. Pericardium/Pleural There is no evidence of pericardial effusion. Prior Study Comparison No prior study available for comparison. Recommendations, Care & Conclusions No obvious valvular pathology seen on this study. Measurements 2D Linear Measurements IVSd: 0.75 0.6-0.9/0.6-1.0 cm LVIDd: 4.02 3.9-5.3/4.2-5.9 cm LVIDd Index: 2.50 2.4-3.2/2.2-3.1 cm/m2 LVIDs: 1.72 2.0-3.6 cm LVPWd: 1.00 0.7-1.1 cm LA Diam: 3.20 2.7-3.8/3.0-4.0 cm LAIDs Index: 1.99 1.5-2.3 cm/m2 LV Mass: 132.12 67-162/88-224 g LV Mass Index: 82.06 43-95/49-115 g/m2 LVOT Diam: 1.70 3.0+(-)1.3 cm 2D Systolic Function EF 4C: 76.40 >55% EF 2C: 73.80 >55% EF BiP: 74.90 >55% Mitral Valve MV Pk E: 1.14 MV PK A: 1.28 MV Decel Time: 202.00 E/A: 0.90 E'Lateral: 7.83 E'Medial: 7.51 E/E' Med: 15.20 E/E' Lat: 14.60 PHT: 59.00 MVA PHT: 3.73 Decel Van Zandt: 5.62 Aortic Valve AoV Pk Yefri: 1.58 AoV Mn Yefri: 1.18 AoV VTI: 0.36 AoV Pk Grad: 10.00 Aov Mn Grad: 6.00 NAEEM Cont.VTI: 1.57 LVOT LVOT Pk Yefri: 1.23 LVOT Mn Yefri: 0.88 LVOT VTI: 0.25 LVOT Pk Grad: 6.00 LVOT Mn Grad: 3.00 LVOT Diam: 1.70 LVOT Area: 2.27 Diastolic Function MV Pk E: 1.14 MV Pk A: 1.28 E/A: 0.90 E'Medial: 7.51 E/E' Med: 15.20 E' Laterial: 7.83 E/E' Lat: 14.60 Right Ventricle TAPSE (mm): 21.50 TVS' Yefri: 12.30 Tricuspid Valve TR Pk Yefri: 2.03 TR Pk Grad: 16.00 RA Press: 3.00 RVSP: 19.00 Great Vessels Aorta Sinus of Valsalva: 3.00 2.0-3.5 cm Ao Asc: 3.10 2.1-3.4 cm Pulmonary Valve PV Pk Yefri: 0.86 Peak PV Grad: 3.00 Updated in Other Vendor System with Status of Final Sanchez Jones MD electronically signed on 12/14/2024 2:09:20 PM with status of Final
== END ==
LOC: HO.CARD 13:03
PROVIDERS: PCP Internal Medicine; Visit Provider Internal Medicine
DX: M25.471 Effusion, right ankle (principal); M25.472 Effusion, left ankle
CPT/HCPCS: 93306

== ENCOUNTER → 2024-12-14 13:08 | Outpatient (BNV) | payer MEDICARE, SELFPAY | PROVIDERS: PCP Internal Medicine; Visit Provider Internal Medicine | DX: I42.8 Other cardiomyopathies (principal) | CPT/HCPCS: 93306 ==

== ENCOUNTER 2024-12-24 12:57 | Outpatient (AMB) | payer MEDICARE, SELFPAY ==
--- NOTE | 2024-12-24 12:59 | MHC.OFFVIS ---
Vital Signs 12/24/24 13:00 Height 5 ft 3 in Weight 115 lb BMI 20.4 BP 122/70 Blood Pressure Location Rt brachial Position Sitting Pulse 74 Pulse Source Pulse Oximeter Pulse Oximetry (%) 98 Oxygen Delivery Method Room Air Intake Visit Reasons: Follow Up-Son would like to be called for visit Intake Note: Patient following up referral to geriatric and speech therapy done 08/23. patient seen at geriatrics at [facility] on 12/04/24 Allergies No Known Allergies Allergy (Verified 12/24/24 13:06) Medication List - Last Reconciled 12/24/24 by Laura Delgado MD atorvastatin 10 mg PO DAILY buspirone 5 mg PO BID carbidopa-levodopa 25-100 mg 1 tab PO TID cholecalciferol (vitamin D3) (Vitamin D3) 50 mcg PO DAILY 90 days cyanocobalamin (vitamin B-12) 1,000 mcg PO DAILY 90 days donepezil 5 mg PO BEDTIME escitalopram oxalate 20 mg PO DAILY levothyroxine 50 mcg PO DAILY multivitamin 1 tab PO DAILY HPI Comments Details: 79y/o Left handed female with h/o Parkinsons Disease, word finding difficulty, cognitive impairment and comes for follow up. 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 he started her on buspar 5 mg bid she denies hallucinations. Her first symptom was tremors in her left hand and later in bilateral hands. she was living in [place] at that time and was diagnosed with Parkinsons disease.she goes to a support group at [facility] . She also reports memory issues - usually short term she also has lot of word finding difficulties. Neuropsych eval in November 2022 was c/ Mild cognitive impairment. She is on donepezil 5mg . Sleep- 1-2 episodes where she thought someone was in the room when she woke up. Mood- anxiety and mild depression Motivation-OK SPeech- softer. No drooling Handwriting- smaller and difficult Using utensils-slower Dressing-slower Showering- slower No difficulty turning in bed Gait- slower She had 1 near fall - she lives at [facility] she has constipation- better with change in diet No dizziness . No vertigo [facility] Medical History (Updated 12/24/24 @ 13:23 by Laura Delgado MD) Dementia Anxiety Lymphoma Mild cognitive impairment Parkinson's disease without dyskinesia or fluctuating manifestations Parkinson disease Surgical History History of left knee replacement History of left knee surgery History of tonsillectomy Family History Mother Colon cancer Father Lung cancer Sister Breast cancer Social History Housing: Assisted Living Facility Patient Tobacco Use Status: Never used Tobacco e-Cigarette/Vaping Use: Never Used service: No Current occupational status: retired Cognitive needs: No Hearing needs: No Vision needs: Yes Physical Exam Vital Signs: Last Vital Signs Pulse 74 12/24/24 13:00 BP 122/70 12/24/24 13:00 Pulse Ox 98 12/24/24 13:00 Oxygen Delivery Method Room Air 12/24/24 13:00 BMI result Body Mass Index 20.4 Const General: cooperative, healthy appearing, comfortable and no acute distress Nutritional Appearance: average body habitus Orientation/consciousness: patient oriented x3 Eyes Pupils: Equal, round and reactive pupils present Neck Neck: Yes no meningeal signs Neuro Other: Mildly decreased facial expression and blink fred rest tremors L>R Mild postural tremors Left Upper extremity No cog wheel rigidty Fred bradykinesia L>R FFM and foot taps moderately decreased Moderate hypophonia, word finding difficulties gait- no arm swing, slow stooped General: patient oriented x3, moves all extremities and no meningeal signs Cranial nerves: Yes Facial sensation intact/muscles of mastication intact, Yes Equal, round and reactive pupils present, Yes Bilaterally intact EOM present, Yes Nystagmus not present, Yes Normal facial strength present and Yes Midline tongue present Cognition (Neuro): normal cognition Assessment & Plan Assessment & Plan (1) Parkinson's disease without dyskinesia or fluctuating manifestations: Code(s): G20.A1 - Parkinson's disease without dyskinesia, without mention of fluctuations Category: Medical (2) Dementia: Code(s): F03.90 - Unspecified dementia, unspecified severity, without behavioral disturbance, psychotic disturbance, mood disturbance, and anxiety Category: Medical Qualifiers: Dementia type: unspecified type Plan The diagnosis and prognosis were discussed Continue carbidopa/levodopa 25/100 tid lexapro 20mg qd donepezil 5mg qd( did not tolerate 10mg) F/u with Dr. Hernandez Continue exercise Coding Level of Care Code Est Pt Level 4 (48229) Complex EM visit Add On G2211 Diagnoses Parkinson's disease without dyskinesia or fluctuating manifestations G20.A1 Dementia F03.90 Dementia type: unspecified type
[2024-12-24 13:00] VITALS: BP 122/70; PULSE 74; O2SAT 98; BMI 20.4
== END 2024-12-24 13:41 | disposition home or self-care (01) ==
LOC: HO.HSMS 12:58
PROVIDERS: PCP Internal Medicine; Visit Provider Psychiatry & Neurology Neurology
DX: G20.A1 Parkinson's disease without dyskinesia, without mention of fluctuations (principal); F03.90 Unspecified dementia, unspecified severity, without behavioral disturbance, psychotic disturbance, mood disturbance, and anxiety
CPT/HCPCS: 99214; G2211

== ENCOUNTER → 2024-12-24 12:57 | Outpatient (BNVA) | payer MEDICARE, SELFPAY | PROVIDERS: PCP Internal Medicine; Visit Provider Psychiatry & Neurology Neurology | DX: G20.A1 Parkinson's disease without dyskinesia, without mention of fluctuations (principal); F02.80 Dementia in other diseases classified elsewhere, unspecified severity, without behavioral disturbance, psychotic disturbance, mood disturbance, and anxiety | CPT/HCPCS: 99212 ==

== ENCOUNTER 2025-01-06 12:22 | Outpatient (AMB) | payer MEDICARE, SELFPAY ==
--- NOTE | 2025-01-06 12:22 | A.OFFPC_ITS ---
Intake Visit Reasons: f/u labs Allergies No Known Allergies Allergy (Verified 01/06/25 12:22) Medication List - Last Reconciled 01/06/25 by Camilla Thomason MD atorvastatin 10 mg PO DAILY buspirone 5 mg PO BID carbidopa-levodopa 25-100 mg 1 tab PO TID cholecalciferol (vitamin D3) (Vitamin D3) 50 mcg PO DAILY 90 days cyanocobalamin (vitamin B-12) 1,000 mcg PO DAILY 90 days donepezil 5 mg PO BEDTIME escitalopram oxalate 20 mg PO DAILY levothyroxine 50 mcg PO DAILY multivitamin 1 tab PO DAILY Tobacco use date assessed: 01/06/25 Fall risk assessment: 1 Fall in past year Last assessed Fall Risk: 01/06/25 Dental Screening Dental Screen Date: 01/06/25 Did you have a dental visit in the last 12 months?: No Did you have a dental problem in the last 6 months where you did not have access to dental care?: No Was dental information given to patient?: Patient has dentist HPI f/u labs HPI Details This is a tele health conference in presence of patient's daughter - The patient is a 79-year-old female pr esenting with noticeable breathlessness. - A previously detected irregular heartb eat was investigated, with the echocardiogram showing normal heart function and no valvular issues. The symptom of breathlessness has noticeably worsened over the past several months. - There is a documented change in the pa tient's ability to exert herself without experiencing dyspnea, as reported by family members witnessing these episodes during daily activities. - An earlier EKG showed the presence of PACs. The respiratory component is noted, requiring further lung function assessment that was initially instructed but not completed. - A brain MRI noted chronic microangiopa thy, raising no immediate concerns of significant brain pathology, though the patient has been diagnosed with mild to moderate dementia by a neurologist, not directly linked to MRI findings. 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 - Complete a pulmonary function test as advised by healthcare providers to assess lung function. - Continue discussions regarding cogniti ve health with the neurologist and express any concerns about memory changes. - Set up a patient portal for more effic ient communication with healthcare provider Review of Systems - General: No fever no chills - Neurological: No headaches no dizziness - Ear nose throat: No sore throat no hearing difficulty no ear pain - Cardiovascular: No syncope - Gastrointestinal: No nausea vomiting or diarrhea PFSH Medical History Dementia Anxiety Lymphoma Mild cognitive impairment Parkinson's disease without dyskinesia or fluctuating manifestations Parkinson disease Surgical History History of left knee replacement History of left knee surgery History of tonsillectomy Family History Mother Colon cancer Father Lung cancer Sister Breast cancer Social History Housing: Assisted Living Facility Patient Tobacco Use Status: Never used Tobacco e-Cigarette/Vaping Use: Never Used service: No Current occupational status: retired Cognitive needs: No Hearing needs: No Vision needs: Yes Questionnaire PHQ-9 Over the last 2 weeks, how often have you been bothered by any of the following problems? 23194 - PHQ-9 Billing: Patient declined-do not bill Source: Developed by Drs. Julio C Box, Echo Vega, Harsha James and colleagues, with an educational gunjan from [employer]. Thrive Questionnaire Date Thrive assessed: 01/06/25 I am a: Patient What is your living situation today?: I have a steady place to live Within the past 12 months, did the food you bought not last and you didn't have the money to get more?: Never true Within the past 12 months, did you worry whether your food would run out before you got money to buy more?: Never true Do you have trouble paying for medicines?: No Do you have trouble getting transportation to medical appointments?: No Do you have trouble paying your heating and electricity bill?: No Do you have trouble taking care of your child, family member or friend?: No Do you have trouble with day-to-day activities such as bathing, preparing meals, shopping, managing finances, etc.?: No Are you currently unemployed and looking for a job?: No Are you interested in more education?: No Please select the resources that you would like help with: None Currently or been in a relationship where the following occur: No concerns reported THRIVE Score: 0 AUDIT C Alcohol Use Questionnaire (AUDIT-C) 1. How often do you have a drink containing alcohol?: Never 3. How often do you have six or more drinks on one occasion?: Never Total Score: 0 Score Reviewed/Action Taken: Yes MARGIE-7 AMB Questionnaire MARGIE-7 Date MARGIE - 7 assessed: 01/06/25 Feeling nervous, anxious, or on edge: 0 = Not at all Not being able to stop or control worryin = Not at all Worrying too much about different things: 0 = Not at all Trouble relaxin = Not at all Being so restless that it is hard to sit still: 0 = Not at all Becoming easily annoyed or irritable: 0 = Not at all Source: Developed by Drs. Julio C Box, Echo Vega, Harsha James and colleagues, with an educational gunjan from [employer]. MARGIE-7 Assessment Billing MARGIE-7 Assessment Tool: MARGIE-7 Assessment 52560 Physical exam (Primary Care) Tobacco/Smoking Status: Tobacco use Status Tobacco use date assessed 01/06/25 01/06/25 12:24 Patient Tobacco Use Status Never used Tobacco 01/06/25 12:24 e-Cigarette/Vaping Use Never Used 01/06/25 12:24 Thrive Assessment: Date of Thrive Assessment Date Thrive assessed 01/06/25 01/06/25 12:24 Currently or been in a relationship where the following occur: No concerns reported Telehealth Telehealth Telehealth [facility] Location of provider rendering services: practice address Location of patient: address on file Patient Identification confirmed using: Name, : Yes Telehealth method: video Patient verbally consented to treatment: Yes Patient verbally consented to billing insurance company: Yes Patient informed of any privacy concerns related to visit: Yes Coding Level of Care Code Tele Est Pt Level 4 (49378) Diagnoses 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 Dyspnea on exertion R06.09 Dyspnea type: dyspnea on exertion Moderate dementia without behavioral disturbance, psychotic disturbance, mood disturbance, or anxiety, unspecified dementia type F03.B0 Dementia behavioral or psychological symptom: without behavioral, psychotic, or mood disturbance or anxiety Dementia severity: moderate Dementia type: unspecified type Additional Codes MARGIE-7 Assessment Billing - MARGIE-7 Assessment Tool: MARGIE-7 Assessment 83237 ([id number]) Time Spent (min) 30 Assessment & Plan Assessment & Plan (1) Premature atrial complexes: Code(s): I49.1 - Atrial premature depolarization Category: Medical (2) Dyspnea: Code(s): R06.00 - Dyspnea, unspecified Category: Medical Qualifiers: Dyspnea type: dyspnea on exertion Qualified Code(s): R06.09 - Other forms of dyspnea (3) Dementia: Code(s): F03.90 - Unspecified dementia, unspecified severity, without behavioral disturbance, psychotic disturbance, mood disturbance, and anxiety Category: Medical Qualifiers: Dementia behavioral or psychological symptom: without behavioral, psychotic, or mood disturbance or anxiety Dementia severity: moderate Dementia type: unspecified type Qualified Code(s): F03.B0 - Unspecified dementia, moderate, without behavioral disturbance, psychotic disturbance, mood disturbance, and anxiety Plan History - The patient is a 79-year-old female presenting with noticeable breathlessness. - A previously detected irregular heartbeat was investigated, with the echocardiogram showing normal heart function and no valvular issues. The symptom of breathlessness has noticeably worsened over the past several months. - There is a documented change in the patient's ability to exert herself without experiencing dyspnea, as reported by family members witnessing these episodes during daily activities. - An earlier EKG showed the presence of PACs. The respiratory component is noted, requiring further lung function assessment that was initially instructed but not completed. - A brain MRI noted chronic microangiopathy, raising no immediate concerns of significant brain pathology, though the patient has been diagnosed with mild to moderate dementia by a neurologist, not directly linked to MRI findings. 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 - Complete a pulmonary function test as advised by healthcare providers to assess lung function. - Continue discussions regarding cognitive health with the neurologist and express any concerns about memory changes. - Set up a patient portal for more efficient communication with healthcare provider Orders: Referrals Cardiology Referral I49.1 - Atrial premature depolarization, R06.09 - Other forms of dyspnea Pulmonology Referral R06.09 - Other forms of dyspnea
== END 2025-01-06 13:09 | disposition home or self-care (01) ==
LOC: HO.HMCC 12:22
PROVIDERS: PCP Internal Medicine; Visit Provider Internal Medicine
DX: I49.1 Atrial premature depolarization (principal); R06.09 Other forms of dyspnea; F03.B0 Unspecified dementia, moderate, without behavioral disturbance, psychotic disturbance, mood disturbance, and anxiety

== ENCOUNTER → 2025-01-06 12:22 | Outpatient (BNVA) | payer MEDICARE, SELFPAY | PROVIDERS: PCP Internal Medicine; Visit Provider Internal Medicine | DX: I49.1 Atrial premature depolarization (principal); R06.09 Other forms of dyspnea; F03.B0 Unspecified dementia, moderate, without behavioral disturbance, psychotic disturbance, mood disturbance, and anxiety | CPT/HCPCS: 96127 ==

== ENCOUNTER 2025-01-15 17:13 | Emergency (ER) | payer MEDICARE, SELFPAY ==
--- NOTE | ~2025-01-15 | CT_ITS ---
CLINICAL HISTORY: AMS CT head without contrast Comparison: None Findings: No acute hemorrhage. No extra-axial fluid collection. No hydrocephalus, mass-effect or herniation. Borja-white differentiation is maintained. White matter is within normal limits for age. No acute orbital pathology. No acute soft tissue abnormality. No fracture. The visualized paranasal sinuses are predominantly clear. The mastoid air cells are clear. Impression: No acute findings. This document has been electronically signed by: Chari Torres MD on 01/15/2025 20:33:49
--- NOTE | ~2025-01-15 | XR_ITS ---
CLINICAL HISTORY: AMS, weak Chest Radiograph Comparison: None Findings: No cardiomegaly. Normal mediastinal contours. No pneumothorax. No opacity. No pleural effusion. Normal upper abdomen. No acute fracture. Impression: No acute findings. This document has been electronically signed by: Chari Torres MD on 01/15/2025 18:23:14
[2025-01-15 17:21] VITALS: BP 128/59; PULSE 64; RESP 14; TEMP 36.3; O2SAT 98
[2025-01-15 17:31] VITALS: BP 100/55; BP 129/66; PULSE 62; PULSE 65; RESP 12; O2SAT 100; O2SAT 99; BMI 20.7
--- NOTE | 2025-01-15 17:38 | ECG_ITS ---
Test Reason : CHEST PAIN Blood Pressure : */* mmHG Vent. Rate : 58 BPM Atrial Rate : 58 BPM P-R Int : 142 ms QRS Dur : 84 ms QT Int : 428 ms P-R-T Axes : 4 44 44 degrees QTcB Int : 420 ms Sinus bradycardia Otherwise normal ECG No previous ECGs available Referred By: Jayde Mckeon Electronically Signed By: LIZ VIEIRA MD
--- NOTE | 2025-01-15 18:14 | ED.AMS ---
HPI - Altered Mental Status General Chief Complaint: Altered Mental Status Stated Complaint: AMX X2 DAYS Time Seen by Provider: 01/15/25 17:35 Source: patient, family (Patients daughter; Akiko) and EMS Mode of arrival: EMS Limitations: altered mental status History of Present Illness ED Provider: Jayde Mckeon NP HPI narrative: Patients daughter; Akiko at bedside Who provides primary source of history. Patient is a 79-year-old female with past medical history of Parkinson's, has had some degree of cognitive dysfunction at baseline but over the past 2 days they have noticed a significant change in her cognition with increasing confusion. They do admit that on 01/12/2025 she received a COVID vaccination. She has also been experiencing incontinence over the past 2 days, not certain whether this is due to her confusion, or lack of sensation that she needs to use the bathroom. Patient is not able to provide much meaningful history. She does admit to having some shortness of breath which per daughter has been ongoing for the past 2 months, she has been evaluated by her primary care doctor for this and they are awaiting an outpatient pulmonology evaluation. She additionally has been seen by Neurology through [facility], states that she most recently had a brain MRI within the past month, which showed no acute abnormal findings aside from chronic microvascular changes concerning for dementia. They deny any recent falls, or head injuries. No notable fevers. Denies any known sick contacts. Denies URI symptoms. Related Data Home Medications ?Medication ?Instructions ?Recorded ?Confirmed buspirone 5 mg tablet 5 mg PO BID 12/24/24 01/06/25 multivitamin 1 tab PO DAILY 12/24/24 01/06/25 Previous Rx's ?Medication ?Instructions ?Recorded carbidopa 25 mg-levodopa 100 mg 1 tab PO TID #90 tabs 08/24/24 tablet donepezil 5 mg tablet 5 mg PO BEDTIME #30 tabs 08/24/24 escitalopram oxalate 20 mg tablet 20 mg PO DAILY #30 tabs 08/24/24 cholecalciferol (vitamin D3) 50 50 mcg PO DAILY 90 days #90 caps 11/25/24 mcg (2,000 unit) capsule (Vitamin D3) atorvastatin 10 mg tablet 10 mg PO DAILY #90 tabs 12/11/24 cyanocobalamin (vitamin B-12) 1,000 mcg PO DAILY 90 days #90 tabs 01/09/25 1,000 mcg tablet levothyroxine 50 mcg tablet 50 mcg PO DAILY #90 tabs 01/10/25 cefuroxime axetil 250 mg tablet 250 mg PO Q12H #10 tabs 01/15/25 Allergies Allergy/AdvReac Type Severity Reaction Status Date / Time No Known Allergies Allergy Verified 01/15/25 17:33 Review of Systems Review of Systems: Yes all other systems are reviewed and are negative [facility] Past Medical History Attestation statement: The following information was validated with the patient. Source: old records reviewed Medical History Dementia Anxiety Lymphoma Mild cognitive impairment Parkinson's disease without dyskinesia or fluctuating manifestations Parkinson disease Surgical History History of left knee replacement History of left knee surgery History of tonsillectomy Family History Family History Mother Colon cancer Father Lung cancer Sister Breast cancer Social History Social History Housing: Assisted Living Facility Patient Tobacco Use Status: Never used Tobacco Smoked in Last 30 Days: No e-Cigarette/Vaping Use: Never Used Use of substances other than those prescribed or required for medical reasons: No Advance Directives: Yes Advance Directives on File: Yes Advance Directives Date on File: 07/15/24 Do you have a plan to hurt others: No Plan service: No Current occupational status: retired Cognitive needs: No Hearing needs: No Vision needs: Yes Physical Exam ED Vital Signs: Vital Signs - 24 hr 01/15/25 17:21 01/15/25 17:31 01/15/25 19:22 Temperature 97.3 F Pulse Rate 64 62 63 Respiratory Rate 14 12 18 Blood Pressure 128/59 L 129/66 163/77 H Pulse Oximetry 98 99 100 Oxygen Delivery Method Room Air Room Air Room Air 01/15/25 21:33 Temperature 98.1 F Pulse Rate 59 Respiratory Rate 16 Blood Pressure 132/40 L Pulse Oximetry 99 Oxygen Delivery Method Room Air BMI result Body Mass Index 20.7 Appearance: Alert.?Oriented to person, disoriented to place time and event. No acute distress.?Normal affect. Eyes: Pupils equal, round and reactive to light.? ENT: Pharynx normal.?? Neck: Normal inspection.? Neck supple.?? CVS: Heart sounds normal. Normal heart rate and rhythm.? Pulses normal.?? Respiratory: No respiratory distress.? Lung sounds clear to auscultation bilaterally?? Abdomen: Soft and non-tender. Normoactive bowel sounds. Skin: Skin warm and dry.? Normal skin color.? Extremities: No lower extremity edema.? Neuro: Moves all extremities spontaneously. Sensation intact bilaterally. CN II-XII intact. No focal neuro deficits. Course Reevaluation(s) Reevaluation #1: Patient signed out to [employer] pending urinalysis and head CT / re-evaluation and disposition Time: 20:04 Reevaluation #2: Patient received in sign-out at change of shift pending urinalysis he CT head. The patient's urinalysis does appear to show a UTI with large esterase, 21-50 white cells and 2+ bacteria. There was only 3-5 epithelial cells. The patient is also having UTI symptoms with confusion and urinary incontinence. We will treat with cefuroxime b.i.d. x5 days. Discussed with the patient's daughter who is comfortable taking the patient home Time: 21:11 Medications Administered Discontinued Medications Generic Name Dose Route Start Last Admin Trade Name Freq PRN Reason Stop Dose Admin Carbidopa/Levodopa 1 tab 01/15/25 21:08 01/15/25 21:33 Carbidopa/Levodopa 25/100 Tablet PO 01/15/25 21:09 1 tab ONCE ONE Administration Cefuroxime Axetil 250 mg 01/15/25 21:10 01/15/25 21:33 Cefuroxime Axetil 250 Mg Tablet PO 01/15/25 21:11 250 mg ONCE ONE Administration Donepezil HCl 5 mg 01/15/25 21:08 01/15/25 21:34 Donepezil Hcl 5 Mg Tablet PO 01/15/25 21:09 5 mg ONCE ONE Administration Medical Decision Making Medical Decision Making MDM Narrative: Patient is a 79-year-old female with past medical history of Parkinson's disease, dementia, lymphoma, anxiety who presents emergency department with family for evaluation of increasing confusion particularly over the past 2 days as per HPI. She is pleasantly confused at the time my evaluation oriented to person. Overall she is well-appearing, nontoxic, afebrile. She is without tachycardia tachypnea or hypoxia. She is able to speak clear full sentences though she is confused, she seems to answer questions purposefully. Most recently seen via telehealth with primary care doctor for further evaluation of breath glistening, prior echocardiogram without valvular issues, showing normal heart function, previous EKGs revealing PACs, advising outpatient follow-up with cardiology and pulmonology for her dyspnea and PACs. On evaluation in the emergency department today, CBC is without leukocytosis anemia, has a mild thrombocytopenia she has been seen on prior. Hoarseness electrolyte derangement. No ERIC. LFTs overall unremarkable. Ammonia within normal range. High sensitive troponin within normal range, EKG without acute ischemic findings. BNP is not elevated, and clinically is without signs of volume overload. Viral serologies are negative. CXR is without consolidation or infiltrate to suggest pneumonia. She has not had any recent falls or head injury, however given her acute confusion, will obtain CT of the head to exclude CVA, ICH, lower suspicion for intracranial mass given recent MRI without acute pathology. Urinalysis is pending at this time. Differential Diagnosis Differential Diagnoses: The differential diagnosis associated with the presentation includes (See narrative above) Admission/Observation Consideration of admission/observation: Escalation of care including admission/observation considered Lab Data MDM Lab Attestation statement: I reviewed the patient's lab results. (See narrative above) 01/15/25 18:17 01/15/25 18:17 Labs: Lab Results 01/15/25 01/15/25 01/15/25 Range/Units 18:17 18:23 19:40 WBC 7.6 (4.8-10.8) X10*3/uL RBC 4.24 (4.20-5.50) X10*6/uL Hgb 13.1 (12.0-16.0) g/dl Hct 39.1 (37.0-47.0) % MCV 92.2 (80.0-98.0) fL MCH 30.9 (27.0-33.0) pg MCHC 33.5 (31.0-35.0) g/dl RDW 13.3 (11.0-16.0) % Plt Count 132 L (160-400) X10*3/uL MPV 10.4 (9.4-12.3) fL Immature Gran % (Auto) 0.4 (0.0-0.4) % Neut % (Auto) 72.0 (45-73) % Lymph % (Auto) 13.6 L (20-40) % [place] % (Auto) 10.9 (2-11) % Eos % (Auto) 2.8 (0-4) % Baso % (Auto) 0.3 (0-2) % Lymph # (Auto) 1.0 L (1.2-4.9) X10*3/uL [place] # (Auto) 0.8 (0.1-1.2) X10*3/uL Eos # (Auto) 0.2 (0.0-0.4) X10*3/uL Baso # (Auto) 0.0 (0.0-0.2) X10*3/uL Abs Immat Gran (auto) 0.03 (0.00-0.03) X10*3/uL Absolute Neuts (auto) 5.5 (2.0-8.3) x10*3/uL Absolute Nucleated RBC 0.000 (0.0-0.012) X10*3/uL Nucleated RBC % (auto) 0.0 (0.0-0.2) /100WBC VBG pH 7.43 (7.32-7.43) VBG pCO2 55 mmHg VBG pO2 37 mmHg VBG HCO3 37 H (22-26) mmol/L VBG O2 Saturation 61.0 % VBG Base Excess 11.2 mmol/L Sodium 142 (135-145) mmol/L Potassium 3.6 (3.3-5.1) mmol/L Chloride 103 (96-108) mmol/L Carbon Dioxide 30 H (22-29) mmol/L Anion Gap 13 (12-20) BUN 26 H (9-16) mg/dL Creatinine 0.89 (0.5-1.4) mg/dL Estim Creat Clear Calc 41.8 Estimated GFR > 60 Random Glucose 96 (60-115) mg/dL Calcium 9.3 (8.4-10.2) mg/dL Magnesium 2.6 (1.6-2.6) mg/dL Total Bilirubin 1.0 (0.0-1.0) mg/dL AST 34 H (5-31) U/L ALT 9 (0-31) U/L Alkaline Phosphatase 45 (39-117) U/L Ammonia 44 (13-55) umol/L Troponin I High Sens 5.7 (<3.5-17.0) ng/L B-Natriuretic Peptide 86 (<100) pg/mL Total Protein 6.0 L (6.5-8.0) g/dL Albumin 4.0 (3.5-5.0) g/dL Lipase 16 (8-78) U/L Urine Color Yellow Urine Appearance Cloudy Urine pH 6.0 (5.0-9.0) Ur Specific [place] 1.015 (1.005-1.025) Urine Protein Trace (Neg-Trace) mg/dL Urine Glucose (UA) Negative (Negative) mg/dL Urine Ketones Trace (Negative) mg/dL Urine Blood Small (1+) H (Negative) Urine Nitrite Negative (Negative) Ur Leukocyte Esterase Large (3+) H (Negative) Urine RBC 11-20 H (0-2) /HPF Urine WBC 21-50 H (0-5) /HPF Ur Squamous Epith Cells 3-5 (0-2) /HPF Urine Bacteria 2+ (None Seen) Hyaline Casts 0-2 (0-2) /LPF Influenza Type A (PCR) NEGATIVE (Negative) Influenza Type B (PCR) NEGATIVE (Negative) RSV RNA Qual (PCR) NEGATIVE (Negative) SARS-CoV-2 RNA (RT-PCR) NEGATIVE (Negative) Independent Interpretation I performed an independent interpretation of an: EKG (EKG reveals a sinus bradycardia with ventricular rate 58, QTC [address]-elevation) and Plain X-Ray (See narrative above) Radiology Impression Discussion of test interpretation with radiology: I have reviewed the radiologist's reading. Radiologist Impression: Chest Radiograph Comparison: None Findings: No cardiomegaly. Normal mediastinal contours. No pneumothorax. No opacity. No pleural effusion. Normal upper abdomen. No acute fracture. Impression: No acute findings. Independent Historian Clinical information obtained from an independent historian. History obtained from or confirmed by: Spouse and Other (Patient's stepdaughter Akiko) External Record Review External record reviewed: Outpatient record Attestation Attending Attestation: I was personally present and available for consultation in the ED. I have reviewed everything on the chart that is available and agree with the documentation provided by the CELESTINA including discussion about the assessment, treatment plan and discussion. Based on medical record the care appears appropriate. Rufus Radford MD [facility] Emergency Medicine Discharge Plan Discharge Clinical Impression: Urinary tract infection Patient Disposition: Home, Self-Care Instructions: Urinary Tract Infection in Older Adults (ED) Additional Instructions: Take cefuroxime twice daily for the next 10 days This is to treat urinary tract infection Take all your other medications as prescribed Follow-up with your primary doctor, return for new or worsening symptoms Prescriptions: New cefuroxime axetil 250 mg tablet 250 mg PO Q12H Qty: 10 0RF No Action donepezil 5 mg tablet 5 mg PO BEDTIME Qty: 30 6RF escitalopram oxalate 20 mg tablet 20 mg PO DAILY Qty: 30 6RF carbidopa-levodopa 25-100 mg tablet 1 tab PO TID Qty: 90 6RF atorvastatin 10 mg tablet 10 mg PO DAILY Qty: 90 0RF cyanocobalamin (vitamin B-12) 1,000 mcg tablet 1,000 mcg PO DAILY 90 Days Qty: 90 0RF levothyroxine 50 mcg tablet 50 mcg PO DAILY Qty: 90 0RF cholecalciferol (vitamin D3) [Vitamin D3] 50 mcg (2,000 unit) Capsule 50 mcg PO DAILY 90 Days Qty: 90 1RF buspirone 5 mg tablet 5 mg PO BID multivitamin Tablet 1 tab PO DAILY Print Language: Guamanian
[2025-01-15 18:27] LABS: Venous Blood Gas Refer to POC result
[2025-01-15 18:27] LABS: VBG Base Excess 11.2 mmol/L; VBG HCO3 37 mmol/L (22-26); VBG pCO2 55 mmHg; VBG pH 7.43 (7.32-7.43); VBG pO2 37 mmHg
[2025-01-15 18:33] LABS: Ammonia 44 umol/L (13-55)
[2025-01-15 18:42] LABS: Alanine Aminotransferase 9 U/L (0-31); Anion Gap 13 (12-20); Aspartate Amino Transferase 34 U/L (5-31); Blood Urea Nitrogen 26 mg/dL (9-16); Calcium 9.3 mg/dL (8.4-10.2); Carbon Dioxide 30 mmol/L (22-29); Chloride 103 mmol/L (96-108); Creatinine Clr Calc Pharmacy 41.8; Estimated Glomerular Filt Rate > 60; Glucose Random 96 mg/dL (60-115); Lipase 16 U/L (8-78); Magnesium 2.6 mg/dL (1.6-2.6); Potassium 3.6 mmol/L (3.3-5.1); Sodium 142 mmol/L (135-145)
[2025-01-15 18:46] LABS: B Type Natriuretic Peptide 86 pg/mL (<100)
[2025-01-15 18:47] LABS: Eosinophils Absolute Auto 0.2 X10*3/uL (0.0-0.4); Hematocrit 39.1 % (37.0-47.0); PLT CLUMP 1; Red Cell Distribution Width 13.3 % (11.0-16.0); SCAN SMEAR FLAG 1; Troponin-I High Sensitivity 5.7 ng/L (<3.5-17.0)
[2025-01-15 18:48] LABS: Basophils Percent Auto 0.3 % (0-2); Eosinophils Percent Auto 2.8 % (0-4); Hemoglobin 13.1 g/dl (12.0-16.0); Imm Gran Abs Auto 0.03 X10*3/uL (0.00-0.03); Imm Gran Pct Auto 0.4 % (0.0-0.4); Lymphocytes Percent Auto 13.6 % (20-40); Mean Corpuscular HGB Conc 33.5 g/dl (31.0-35.0); Mean Corpuscular Hemoglobin 30.9 pg (27.0-33.0); Mean Corpuscular Volume 92.2 fL (80.0-98.0); Mean Platelet Volume 10.4 fL (9.4-12.3); Monocytes Absolute Auto 0.8 X10*3/uL (0.1-1.2); Monocytes Percent Auto 10.9 % (2-11); Neutrophils Absolute Auto 5.5 x10*3/uL (2.0-8.3); Red Blood Count 4.24 X10*6/uL (4.20-5.50)
[2025-01-15 18:52] LABS: Alkaline Phosphatase 45 U/L (39-117)
[2025-01-15 18:55] LABS: MANUAL DIFF FLAG NO; Platelet Count 132 X10*3/uL (160-400); White Blood Count 7.6 X10*3/uL (4.8-10.8)
[2025-01-15 19:06] LABS: Influenza A PCR NEGATIVE (Negative); Influenza B PCR NEGATIVE (Negative); Resp Syncy Virus RNA Qual PCR NEGATIVE (Negative); SARS COV2 PCR INHOUSE NEGATIVE (Negative)
[2025-01-15 19:22] VITALS: BP 163/77; PULSE 63; RESP 18; O2SAT 100
[2025-01-15 19:58] LABS: Appearance Urine Cloudy; Color Urine Yellow; Glucose Urine UA Negative (Negative); Leukocyte Esterase Urine Large (3+) (Negative); Nitrite Urine Negative (Negative); Specific Gravity - Urine 1.015 (1.005-1.025); UMIC TRIGGER UACC YES; Urine Blood Small (1+) (Negative); Urine Ketones Trace mg/dL (Negative); Urine Protein Trace mg/dL (Neg-Trace)
[2025-01-15 20:03] LABS: Bacteria Urine 2+ (None Seen); Hyaline Casts Urine 0-2 /LPF (0-2); UACC Culture Trigger YES; WBC Urine 21-50 /HPF (0-5)
[2025-01-15 21:33] VITALS: BP 132/40; PULSE 59; RESP 16; TEMP 36.7; O2SAT 99
[2025-01-15] MEDS: Carbidopa/Levodopa 25/100 TABLET 1 TAB PO (21:33)
[2025-01-15] MEDS: cefuroxime axetiL 250 MG TABLET PO (21:33)
[2025-01-15] MEDS: Donepezil HCl 5 MG TABLET PO (21:34)
== END 2025-01-16 00:26 | disposition home or self-care (01) ==
PROVIDERS: Nurse Practitioner Family; Emergency Provider Emergency Medicine
DX: N39.0 Urinary tract infection, site not specified (principal); R41.82 Altered mental status, unspecified; R07.89 Other chest pain; R06.02 Shortness of breath; Z03.818 Encounter for observation for suspected exposure to other biological agents ruled out; Z79.899 Other long term (current) drug therapy
CPT/HCPCS: 0241U; 36415; 70450; 71045; 80053; 81001; 81003; 82140; 82803; 83690; 83735; 83880; 84484; 85025; 87086; 93005; 99284; 99285

== ENCOUNTER → 2025-01-15 17:37 | Outpatient (BNV) | payer MEDICARE, SELFPAY | PROVIDERS: Visit Provider Radiology Diagnostic Radiology | DX: R41.82 Altered mental status, unspecified (principal); R53.1 Weakness | CPT/HCPCS: 70450; 71045 ==

== ENCOUNTER → 2025-01-15 17:38 | Outpatient (BNV) | payer MEDICARE, SELFPAY | PROVIDERS: Emergency Provider Emergency Medicine; Visit Provider Internal Medicine Cardiovascular Disease | DX: R00.1 Bradycardia, unspecified (principal) | CPT/HCPCS: 93010 ==

== ENCOUNTER 2025-01-21 12:07 | Outpatient (AMB) | payer MEDICARE, SELFPAY ==
[2025-01-21 12:46] VITALS: BP 110/68; PULSE 57; TEMP 36.4; O2SAT 95
--- NOTE | 2025-01-21 12:46 | MHC.OFFWIV ---
Intake Vital Signs 01/21/25 12:46 Weight 112 lb BP 110/68 Blood Pressure Location Lt brachial Position Sitting Pulse 57 Pulse Source Pulse Oximeter Temp 97.6 F Temp Source Oral Pulse Oximetry (%) 95 Oxygen Delivery Method Room Air Intake Visit Reasons: EP UTI, confusion? Intake Note: Patient here for confusion, not feeling herself. Patient Tobacco Use Status: Never used Tobacco Allergies No Known Allergies Allergy (Verified 01/21/25 13:39) Do you need a note to return to daycare/school/sports/work: No HPI HPI Comments History of Present Illness Details History of Present Illness - The patient is a 79-year-old female presenting with a suspected continued urinary tract infection (UTI) and confusion. The patient's daughter is with her today and she states that on January 14, she noticed an acute change in her mother's mental status, she was very confused so she brought her to the emergency department where she was diagnosed with a UTI. She was given a 5 day prescription of 250 mg of cefuroxime and has been taking it as prescribed. She finished the medication this morning. The patient showed partial symptom resolution, though her condition had not fully returned to her usual baseline. Physical Exam General: Cooperative, healthy appearing, comfortable, no acute distress and well developed Orientation: Patient with noted confusion/memory loss Limitations: as above Head: Normal to inspection Ears: Hearing grossly normal bilaterally Nose: Normal External nose present Face and sinus: Normal facial exam Eyes: Appearance normal, both eyes and all related structures Neck: Normal visual inspection and Yes full ROM Respiratory: Normal respiratory effort and able to speak in complete sentences. Skin: No rashes or lesions noted Neuro: Patient with confusion/memory loss Extremities: Normal to inspection [facility] Medical History Dementia Anxiety Lymphoma Mild cognitive impairment Parkinson's disease without dyskinesia or fluctuating manifestations Parkinson disease Surgical History History of left knee replacement History of left knee surgery History of tonsillectomy Family History Mother Colon cancer Father Lung cancer Sister Breast cancer Social History Housing: Assisted Living Facility Patient Tobacco Use Status: Never used Tobacco e-Cigarette/Vaping Use: Never Used Advance Directives Date on File: 07/15/24 service: No Current occupational status: retired Cognitive needs: No Hearing needs: No Vision needs: Yes Review of Systems Const All systems reviewed & are unremarkable except as noted in HPI and below Physical Exam Vital Signs: Last Vital Signs Temp 97.6 F 01/21/25 12:46 Pulse 57 01/21/25 12:46 BP 110/68 01/21/25 12:46 Pulse Ox 95 01/21/25 12:46 Oxygen Delivery Method Room Air 01/21/25 12:46 Assessment & Plan Assessment & Plan (1) Urinary tract infection: Code(s): N39.0 - Urinary tract infection, site not specified Qualifiers: Hematuria presence: without hematuria Urinary tract infection type: acute cystitis Qualified Code(s): N30.00 - Acute cystitis without hematuria Plan: UA + leuks, negative nitrites, negative blood. Will send for culture. Original culture from the emergency department was contaminated. I have opted to continue the initial antibiotic therapy with Cefuroxime as it looks like the prescription written in the emergency department was only for 5 days rather than the intended 10 days as the doctor wrote in his note. The treatment is prolonged to achieve the originally intended 10-day course, administering 250 mg twice daily for another 5 days due to initially lower dosing. This adjusted regimen is chosen after considering antibiotic efficacy for UTIs and partial symptom improvement. Monitoring for potential symptom exacerbations, such as fever, hematuria, or back pain will be crucial, with recommendations to contact the primary care provider or return to urgent care if needed. This strategic continuation aims to conclusively resolve the infection and return the patient to her baseline health status. Patient was informed and verbally consented to the use of an ambient scribe for clinic note documentation during this visit. Medications: New cefuroxime axetil 250 mg PO Q12H 10 tabs 0RF Coding Level of Care Code Est Pt Level 3 (45925) Diagnoses Acute cystitis without hematuria N30.00 Hematuria presence: without hematuria Urinary tract infection type: acute cystitis
== END 2025-01-21 14:20 | disposition home or self-care (01) ==
PROVIDERS: PCP Internal Medicine; Visit Provider Physician Assistant
DX: Z13.9 Encounter for screening, unspecified (principal); N30.00 Acute cystitis without hematuria

== ENCOUNTER 2025-01-21 12:07 | Outpatient (REF) | payer MEDICARE, SELFPAY ==
[2025-01-22 08:37] LABS: Appearance Urine Clear; Color Urine Yellow; Glucose Urine UA Negative (Negative); Leukocyte Esterase Urine Moderate (2+) (Negative); Nitrite Urine Negative (Negative); PH 6.5 (5.0-9.0); Specific Gravity - Urine 1.015 (1.005-1.025); UMIC TRIGGER UACC YES; Urine Blood Negative (Negative); Urine Ketones Negative (Negative); Urine Protein Trace mg/dL (Neg-Trace)
[2025-01-22 08:52] LABS: Bacteria Urine None Seen (None Seen); Calcium Oxalate Crystals Urine Present; Hyaline Casts Urine 0-2 /LPF (0-2); RBC Urine 0-2 /HPF (0-2); UACC Culture Trigger YES
== END 2025-01-21 12:08 | disposition home or self-care (01) ==
LOC: HO.LNP 12:07
PROVIDERS: PCP Internal Medicine; Visit Provider Physician Assistant
DX: N30.00 Acute cystitis without hematuria (principal)
CPT/HCPCS: 81001; 81003; 87086; 99212

== ENCOUNTER 2025-01-22 10:25 | Outpatient (REF) | payer MEDICARE, SELFPAY | END 2025-01-22 10:26 | disposition home or self-care (01) | LOC: HO.LAB 10:25 | PROVIDERS: Visit Provider Internal Medicine | DX: Z13.89 Encounter for screening for other disorder (principal) ==

== ENCOUNTER 2025-01-28 13:13 | Outpatient (AMB) | payer MEDICARE, SELFPAY ==
--- NOTE | 2025-01-28 13:16 | A.OFFVIS_ITS ---
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 Patient was recently seen by her PCP on 11/24/24, complaints of right shoulder pain s/p fall. Patient reports the pain is very minimal at this point and time but she would like to discuss the arthritis in her shoulder. Pt denies any previous surgeries or injections to her right shoulder. Accompanied by: step daughter Allergies No Known Allergies Allergy (Verified 01/28/25 13:17) Medication List - Last Reconciled 01/28/25 by Fran Carrasco MD atorvastatin 10 mg PO DAILY carbidopa-levodopa 25-100 mg 1 tab PO TID cholecalciferol (vitamin D3) (Vitamin D3) 50 mcg PO DAILY 90 days cyanocobalamin (vitamin B-12) 1,000 mcg PO DAILY 90 days donepezil 5 mg PO BEDTIME escitalopram oxalate 20 mg PO DAILY levothyroxine 50 mcg PO DAILY multivitamin 1 tab PO DAILY [facility] Medical History Dementia Anxiety Lymphoma Mild cognitive impairment Parkinson's disease without dyskinesia or fluctuating manifestations Parkinson disease Surgical History History of left knee replacement History of left knee surgery History of tonsillectomy Family History Mother Colon cancer Father Lung cancer Sister Breast cancer Social History Housing: Assisted Living Facility Patient Tobacco Use Status: Never used Tobacco e-Cigarette/Vaping Use: Never Used Advance Directives Date on File: 07/15/24 service: No Current occupational status: retired Cognitive needs: No Hearing needs: No Vision needs: Yes Physical Exam Vital Signs: BMI result Body Mass Index 20.5 Const Other: Well-nourished well-developed very friendly female awake alert and oriented x3 in no acute distress Extrem Other: Right shoulder examination shows slightly decreased range of motion when compared to her left shoulder, 4/5 strength with supraspinatus testing, positive impingement signs, no instability Results Reviewed Results Reviewed: X-rays of the patient's right shoulder show severe acromioclavicular joint narrowing, a type 3 acromion, no acute bony abnormalities Assessment & Plan Assessment & Plan (1) Shoulder pain, right: Code(s): M25.511 - Pain in right shoulder Category: Medical Qualifiers: Chronicity: acute Qualified Code(s): M25.511 - Pain in right shoulder Plan Ms. Trejo presents with right shoulder pain due to impingement syndrome and acromioclavicular joint arthritis as well as possible rotator cuff tearing. I had a lengthy discussion with the patient regarding the treatment options. At this point the patient's seem to be improving on their own. She will continue with her home stretching program. She will follow up with me on an as-needed basis should her symptoms not plateau at an unacceptable level over the next few months. Feel free to call me at any time should questions regarding her orthopedic management arise. I spent 22 minutes in reviewing the patient's records and imaging studies, seeing the patient and documenting in the medical record. Coding Level of Care Code New Pt Level 3 (59010) Complex EM visit Add On G2211 Diagnoses Acute pain of right shoulder M25.511 Chronicity: acute
[2025-01-28 13:17] VITALS: BMI 20.5
== END 2025-01-28 13:30 | disposition home or self-care (01) ==
PROVIDERS: PCP Internal Medicine; Visit Provider Orthopaedic Surgery
DX: M25.511 Pain in right shoulder (principal)
CPT/HCPCS: 99203; G2211

== ENCOUNTER → 2025-01-28 13:13 | Outpatient (BNVA) | payer MEDICARE, SELFPAY | PROVIDERS: PCP Internal Medicine; Visit Provider Orthopaedic Surgery | DX: M25.511 Pain in right shoulder (principal) | CPT/HCPCS: 99202 ==

== ENCOUNTER 2025-02-02 15:32 | Outpatient (AMB) | payer MEDICARE, SELFPAY ==
[2025-02-02 15:38] VITALS: BP 114/68; PULSE 75; O2SAT 98; BMI 20.5
--- NOTE | 2025-02-02 15:38 | MHC.OFFVIS ---
Vital Signs 02/02/25 15:38 Height 5 ft 2 in Weight 112 lb 2 oz BMI 20.5 BP 114/68 Blood Pressure Location Rt brachial Position Sitting Pulse 75 Pulse Source Pulse Oximeter Pulse Oximetry (%) 98 Oxygen Delivery Method Room Air Intake Visit Reasons: dyspnea Allergies No Known Allergies Allergy (Verified 02/02/25 15:42) HPI HPI dyspnea: Details: Rosalina is a pleasant 79 year old female, former minimal smoker, with underlying Parkinson's, h/o mantle cell lymphoma dx 2019 tx chemo in remission since 2022, anxiety and cognitive impairment. She was referred by PCP for pulmonary evaluation and presents today accompanied by a family member. She reports dyspnea on exertion over the last months that has been progressively worsening. She denies cough or wheezing however does endorse chest tightness which she attributes to anxiety. She denies any triggers other than activity. She does note that her activity level has significantly decreased over the last few years due to physical limitations. She denies prior h/o asthma or recurrent respiratory infections. She endorses prior second hand smoke exposure. She denies occupational exposures. She reports father, smoker with h/o lung cancer. She is started cardiac work up through PCP, echo revealed LVEF 70% suggestive of mild diastolic dysfunction, reporting intermittent BLE edema or orthopnea. She has initial cardiology appt [place] in [place] [facility] Medical History Dementia Anxiety Lymphoma Mild cognitive impairment Parkinson's disease without dyskinesia or fluctuating manifestations Parkinson disease Surgical History History of left knee replacement History of left knee surgery History of tonsillectomy Family History Mother Colon cancer Father Lung cancer Sister Breast cancer Social History (Updated 02/02/25 @ 15:42 by Yudelka Mosher CMA) Housing: Assisted Living Facility Patient Tobacco Use Status: Former Tobacco user e-Cigarette/Vaping Use: Never Used Advance Directives Date on File: 07/15/24 service: No Current occupational status: retired Cognitive needs: No Hearing needs: No Vision needs: Yes Review of Systems Const Denies chills, Denies excessive sweating, Denies fever(s), Denies headache(s) and Denies night sweats Eyes Denies dry eyes, Denies irritation and Denies itchy eyes ENT Reports Normal hearing present, Denies headache(s), Denies nasal congestion, Denies nasal discharge, Denies post nasal drip and Denies sore throat Card Denies chest pain, Denies chest pain at rest, Denies chest pain with activity, Denies claudication and Denies paroxysmal nocturnal dyspnea Resp Denies chest congestion, Denies cough, Denies excessive phlegm production, Denies pain on inspiration, Denies pain with cough, Denies stridor and Denies wheezing Musc Denies myalgias Neuro Reports Normal hearing present and Denies headache(s) Endo Denies excessive sweating Bronson/Lymph Denies lymphadenopathy Aller/Immun Denies itchy eyes, Denies seasonal rhinorrhea and Denies wheezing Physical Exam Vital Signs: Last Vital Signs Pulse 75 02/02/25 15:38 BP 114/68 02/02/25 15:38 Pulse Ox 98 02/02/25 15:38 Oxygen Delivery Method Room Air 02/02/25 15:38 BMI result Body Mass Index 20.5 Const General: cooperative, comfortable, no acute distress and alert Nutritional Appearance: average body habitus Orientation/consciousness: patient oriented x3 Limitations: other limitations (cognitive impairment) HEENT Head: Yes normal to inspection, Yes normocephalic and Yes atraumatic Ears: hearing grossly normal bilaterally and external ears normal Eyes General: appearance normal, both eyes and all related structures Eyelids: Yes eyelids normal Sclerae: sclerae normal EOM: EOMs intact bilaterally Neck Neck: Yes normal visual inspection and Yes no lymphadenopathy Lymphatic: no lymphadenopathy noted Chest Chest palpation & inspection: normal inspection of the chest Resp Effort & Inspection: normal respiratory effort, able to speak in complete sentences, no audible wheezes, no cough, no stridor, not tachypneic, no tripod positioning and no use of accessory muscles Cardio Jugular venous distension: no JVD Rate: regular rate Rhythm: regular rhythm Skin Other: warm, dry General skin exam: no rashes or lesions noted Neuro General: patient oriented x3 Cranial nerves: Yes Normal hearing present Extrem General: Yes normal to inspection, Yes capillary refill normal, Yes no clubbing, cyanosis or edema and Yes no pedal edema Psych Appearance: grossly normal and well kempt Speech and movement: Other speech and movement exam findings present (Psych) (difficulty word finding) Affect: normal affect Attitude: cooperative Thought process: Normal thought process present Thought content: Normal thought content present Insight: Good insight present (Psych) Judgement: Good judgement present (Psych) Assessment & Plan Assessment & Plan (1) Dyspnea: Code(s): R06.00 - Dyspnea, unspecified Category: Medical Qualifiers: Dyspnea type: dyspnea on exertion Qualified Code(s): R06.09 - Other forms of dyspnea Plan Rosalina's symptoms are likely multifactorial with possible pulmonary, cardiac, deconditioning and anxiety contribution. PCP already placed order for PFT and will perform 6MWT at next visit. We did discuss there may be difficulties performing PFT but agreeable to attempt. Recent CXR unremarkable. Patient with shallow breathing, encouraged use of incentive spirometer. May need to consider low dose diuretic if continues with persistent BLE edema, orthopnea and dyspnea as mild diastolic dysfunction on echo. All questions were answered and patient is in agreement of plan. Will follow up to review results or sooner if needed. Coding Level of Care Code New Pt Level 3 (60792) Complex EM visit Add On G2211 Diagnoses Dyspnea on exertion R06.09 Dyspnea type: dyspnea on exertion
--- OUTSIDE RECORDS SUMMARY | 2025-02-02 16:41 | XMS_ITS ---
Author Organization [facility] Address [address] [place] [address] Care Team Providers Care Grizzly Worker Name Role Phone Raiza Kaur MD Primary Care Provider Sherita Her MD, [facility] [phone] REASON FOR VISIT patient moved and no longer being seen Encounters Encounter Location Date Provider Diagnosis DERMATOLOGY [address] [address] 08/09/2023 Enriqueta Siddiqui Plan Of Treatment No Information Progress Notes * Rosalina MUHAMMAD GDOB:1945 ( 78 yo F)Acc No.[id number]:08/09/2023 Patient:?Rosalina Muhammad :1945???Age:78 Y???Sex:Female Address:[address] [place] [address], [address] * true * Date:? Generated for Printi ng/Faxing/eTransmitting on:?02/02/2025 04:41 PM EDT
--- OUTSIDE RECORDS SUMMARY | 2025-02-02 16:41 | XMS_ITS | Patient Health Record ---
Author Organization [facility] Address [address] [place] [address] Care Team Providers Care Linen Attendant Name Role Phone Raiza Kaur MD Primary Care Provider Sherita Her MD, Enriqueta Unavailable [phone] Allergies No Known Allergies Reason For Referral No Information Medications Medication SIG (Take, Route, Frequency, Duration) Notes Start Date End Date Status Carbidopa-Levodopa A ctive Fluorouracil 5 % 1 application to aff ected area Externally Twice a day to entire affected area for 2 weeks Active Atorvastatin Calcium Active Sunscreens - as directed Externally Active Magnesium Not-Taking Social History Tobacco Use: Social History Observation Description Date Details (start date - stop date) Former Smoker NA - NA Smoking: Question Answer Notes Are you a: former smoker Problems Problem Type SNOMED Code ICD Code Onset Dates Problem Status W/U Status Risk Notes Problem Chronic actinic damage (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) Active confirmed Plan Of Treatment No Information Insurance Providers Payer Name Payer Address Payer Phone Subscriber Number Group Number Insured Name Patient Relationship to Insured Coverage Start Date Coverage End Date Medicare B [address] [place] [phone] [id number] Rosalina Trejo Self - patient is the insured C[employer] MCR Supplement ([place]) [address] [place] [phone] [id number] Rosalina Trejo Self - patient is the insured Medical (General) History Medical History History ICD Code DERM HISTORY diffuse rash over body during the summer SCC R upper arm sup ED&C 12/25/19 BCC R upper arm inf ED&C 12/25/19 L lower leg lat seborrheic keratosis 11/01 020 SCC R pretibial leg ED&C 07/05/22 SCC nose ED&C 07/05/22 MEDICAL HISTORY denies Mantle cell lymphoma 12/2019 parkinsons 10/2021 neuropathy Surgical History Surgery Date(Month/Year) L knee surgery 08/2015 Hospitalization History Reason Date(Month/Year) pancreatitis 2013
== END 2025-02-02 16:38 | disposition home or self-care (01) ==
LOC: HO.HPSW 15:33
PROVIDERS: PCP Internal Medicine; Referring Provider Internal Medicine; Visit Provider Nurse Practitioner Family
DX: R06.09 Other forms of dyspnea (principal)
CPT/HCPCS: 99203; G2211

== ENCOUNTER → 2025-02-02 15:32 | Outpatient (BNVA) | payer MEDICARE, SELFPAY | PROVIDERS: PCP Internal Medicine; Referring Provider Internal Medicine; Visit Provider Nurse Practitioner Family | DX: R06.09 Other forms of dyspnea (principal) | CPT/HCPCS: 99202 ==

== ENCOUNTER 2025-02-03 14:35 | Outpatient (AMB) | payer MEDICARE, OTHER, SELFPAY ==
--- NOTE | 2025-02-03 14:35 | MHC.OFFWIV ---
Intake Vital Signs 02/03/25 15:21 Weight 109 lb BP 120/70 Blood Pressure Location Rt brachial Pulse 63 Pulse Source Pulse Oximeter Temp 97.2 F Temp Source Oral Pulse Oximetry (%) 93 Oxygen Delivery Method Room Air Intake Visit Reasons: EP UTI Patient Tobacco Use Status: Former Tobacco user Allergies No Known Allergies Allergy (Verified 02/03/25 15:21) Do you need a note to return to daycare/school/sports/work: No HPI HPI Comments History of Present Illness Details Patient presents to the office with her stepdaughter for possible UTI She is a 79yo F with hx of recurrent UTIs, dementia and parkinsons On 01/15 she went to the ER for increased agitation/anxiety and dementia symptoms She was diagnosed with a UTI and given antibiotics x 5 days. Culture showed mixed luis daniel She was seen on 01/21 in our office and diagnosed with a UTI and was treated with a cephalosporin. Culture was < 10,000 growth at that time Per step-daugher she took the antibiotic x 10 days + constipation and intermittent L sided abdominal ache Pt denies current abdominal pain + continual tiredness, loss of appetite, and increased anxiety Pt denies all urine symptoms such as dysuria, hematuria or urgency Last urine was this morning She has been drinking normal No fever or chills Current tiredness/increased anxiety and poor appetite was being monitored by Néstor, a geriatric psych provider at [facility] in [place]; started on Buspirone recently (recently take off last week due to ? side effect) Change in removal of med has made anxiety worse and those symptoms not better. They have follow up with PCP next week. Last visit was 01/06 for dementia [facility] Medical History Dementia Anxiety Lymphoma Mild cognitive impairment Parkinson's disease without dyskinesia or fluctuating manifestations Parkinson disease Surgical History History of left knee replacement History of left knee surgery History of tonsillectomy Family History Mother Colon cancer Father Lung cancer Sister Breast cancer Social History (Updated 02/02/25 @ 15:42 by Yudelka Mosher CMA) Housing: Assisted Living Facility Patient Tobacco Use Status: Former Tobacco user e-Cigarette/Vaping Use: Never Used Advance Directives Date on File: 07/15/24 service: No Current occupational status: retired Cognitive needs: No Hearing needs: No Vision needs: Yes Review of Systems Const Denies chills, Reports fatigue, Denies fever(s) and Reports poor appetite ENT Denies otalgia, Reports nasal congestion and Denies sore throat Card Denies chest pain Resp Denies cough GI Reports abdominal pain, Reports constipation, Denies nausea and Denies vomiting Denies hematuria, Denies difficulty voiding, Denies dysuria and Denies urinary incontinence Psych Reports other (dementia with anxiety) Endo Reports fatigue Physical Exam Vital Signs: Last Vital Signs Temp 97.2 F 02/03/25 15:21 Pulse 63 02/03/25 15:21 BP 120/70 02/03/25 15:21 Pulse Ox 93 02/03/25 15:21 Oxygen Delivery Method Room Air 02/03/25 15:21 General: Elderly pt Non-toxic, NAD sitting in chair. Answering questions but often pausing and forgetting her next word/thought Skin: Warm dry throughout Eye: EOMI HENT: Airway patent. Uvula midline. No pharyngeal erythema or edema. No HERBICIDE SPRAYER. Bilateral canals clear. TM non-erythematous, non-bulging. No TM perforation or hemotympanum noted. Respiratory: CTA bilaterally. No wheezes, rales or rhonchi Cardiac: RRR. Abdominal: Non-distended. Soft, BS x 4 quad. + minimal ttp L side abdomen with deep palpation only. No rebound or guarding. Neurology: Alert. No aphasia or facial droop. Psych: Good mood and affect Results AMB Urinalysis, Automated UA Leukoctes 125 Lavern/uL Last Edit by MARYSOL Baker on 02/03/25 16:11 UA Nitrite Negative Last Edit by MARYSOL Baker on 02/03/25 16:11 UA Urobilinogen 0.2 mg/dL Last Edit by MARYSOL Baker on 02/03/25 16:11 UA Protein 0 mg/dL Last Edit by MARYSOL Baker on 02/03/25 16:11 UA pH 6.0 Last Edit by MARYSOL Baker on 02/03/25 16:11 UA Blood 0 Neptali/uL Last Edit by MARYSOL Baker on 02/03/25 16:11 UA Specific [place] 1.020 Last Edit by MARYSOL Baker on 02/03/25 16:11 UA Ketone Positive Last Edit by Nya Martinez CCM on 02/03/25 16:11 UA Bilirubin 0 mg/dL Last Edit by Nya Martinez CCM on 02/03/25 16:11 UA Glucose 0 mg/dL Last Edit by Nya Martinez [facility] on 02/03/25 16:11 Assessment & Plan Assessment & Plan (1) Dementia: Code(s): F03.90 - Unspecified dementia, unspecified severity, without behavioral disturbance, psychotic disturbance, mood disturbance, and anxiety Qualifiers: Dementia behavioral or psychological symptom: without behavioral, psychotic, or mood disturbance or anxiety Dementia severity: moderate Dementia type: unspecified type Qualified Code(s): F03.B0 - Unspecified dementia, moderate, without behavioral disturbance, psychotic disturbance, mood disturbance, and anxiety Plan: Patient seen and evaluated with help in history by remediosdajim Pt unable to provide urine sample upon arrival Will let her try again Urinalysis in office +2 leuks ad ketones. Last urine from 01/21 showed 2+ leuks but <10,000 bacteria Will send culture to confirm it is an infection. She currently has stable vital signs and denies urinary symptoms. Discussed culture results from 01/15 and 01/21 with pt and daughter. Discussed need for follow up with PCP for monitoring of worsening dementia symptoms and anxiety Urine culture shoudl be sent for retest as long as pt able to provide sample. Patient gave verbal understanding and had no additional questions or concerns at time of discharge All questions answered (2) Recurrent urinary tract infection: Code(s): N39.0 - Urinary tract infection, site not specified Plan: see above Orders: Orders AMB Urinalysis Automated Today Z13.9 - Encounter for screening, unspecified Urine Culture Today N39.0 - Urinary tract infection, site not specified Coding Level of Care Code Est Pt Level 3 (40781) Diagnoses Moderate dementia without behavioral disturbance, psychotic disturbance, mood disturbance, or anxiety, unspecified dementia type F03.B0 Dementia behavioral or psychological symptom: without behavioral, psychotic, or mood disturbance or anxiety Dementia severity: moderate Dementia type: unspecified type Recurrent urinary tract infection N39.0
[2025-02-03 15:21] VITALS: BP 120/70; PULSE 63; TEMP 36.2; O2SAT 93
--- OUTSIDE RECORDS SUMMARY | 2025-02-03 15:43 | XMS_ITS ---
Author Organization [facility] Address [address] [place] [address] Care Team Providers Care Wealth Management Consultant Name Role Phone Raiza Kaur MD Primary Care Provider Sherita Her MD, [facility] [phone] REASON FOR VISIT patient moved and no longer being seen Encounters Encounter Location Date Provider Diagnosis DERMATOLOGY [address] [address] 08/09/2023 Enriqueta Siddiqui Plan Of Treatment No Information Progress Notes * Rosalina MUHAMMAD GDOB:1945 ( 78 yo F)Acc No.[id number]:08/09/2023 Patient:?Rosalina Muhammad :1945???Age:78 Y???Sex:Female Address:[address] [place] [address], [address] * true * Date:? Generated for Printi ng/Faxing/eTransmitting on:?02/03/2025 03:43 PM EDT
--- OUTSIDE RECORDS SUMMARY | 2025-02-03 15:43 | XMS_ITS | Patient Health Record ---
Author Organization [facility] Address [address] [place] [address] Care Team Providers Care Construction Project Manager Name Role Phone Raiza Kaur MD Primary Care Provider Sherita Her MD, Enriqueta Unavailable [phone] Allergies No Known Allergies Reason For Referral [...] Coverage End Date Medicare B [address] [place] [phone] [id number] Rosalina Trejo Self - patient is the insured C[employer] MCR Supplement ([place]) [address] [place] [phone] [id number] Rosalina Trejo Self - patient is the [...]
== END 2025-02-03 16:16 | disposition home or self-care (01) ==
PROVIDERS: PCP Internal Medicine; Visit Provider Physician Assistant
DX: F03.B0 Unspecified dementia, moderate, without behavioral disturbance, psychotic disturbance, mood disturbance, and anxiety (principal); N39.0 Urinary tract infection, site not specified; Z13.9 Encounter for screening, unspecified

== ENCOUNTER 2025-02-03 14:35 | Outpatient (REF) | payer MEDICARE, SELFPAY ==
--- OUTSIDE RECORDS SUMMARY | 2025-02-04 11:21 | XMS_ITS | Patient Health Record ---
Author Organization [facility] Address [address] [place] [address] Care Team Providers Care Funeral Attendant Name Role Phone Raiza Kaur MD Primary Care Provider Sherita Her MD, Enriqueta Unavailable [phone] Allergies No Known Allergies Reason For Referral [...] Coverage End Date Medicare B [address] [place] [phone] [id number] Rosalina Trejo Self - patient is the insured C[employer] MCR Supplement ([place]) [address] [place] [phone] [id number] Rosalina Trejo Self - patient is the [...]
--- OUTSIDE RECORDS SUMMARY | 2025-02-04 11:22 | XMS_ITS ---
Author Organization [facility] Address [address] [place] [address] Care Team Providers Care Deflector Operator Name Role Phone Raiza Kaur MD Primary Care Provider Sherita Her MD, [facility] [phone] REASON FOR VISIT patient moved and no longer being seen Encounters Encounter Location Date Provider Diagnosis DERMATOLOGY [address] [address] 08/09/2023 Enriqueta Siddiqui Plan Of Treatment No Information Progress Notes * Rosalina MUHAMMAD GDOB:1945 ( 78 yo F)Acc No.[id number]:08/09/2023 Patient:?Rosalina Muhammad :1945???Age:78 Y???Sex:Female Address:[address] [place] [address], [address] * true * Date:? Generated for Printi ng/Faxing/eTransmitting on:?02/04/2025 11:21 AM EDT
== END 2025-02-03 14:36 | disposition home or self-care (01) ==
LOC: HO.LNP 14:35
PROVIDERS: Visit Provider Internal Medicine
DX: N39.0 Urinary tract infection, site not specified (principal); F03.B0 Unspecified dementia, moderate, without behavioral disturbance, psychotic disturbance, mood disturbance, and anxiety
CPT/HCPCS: 81003; 87086; 99212

== ENCOUNTER 2025-02-05 09:59 | Outpatient (REF) | payer MEDICARE, OTHER, SELFPAY ==
--- NOTE | 2025-02-05 10:02 | PFT_ITS ---
Indication: Dyspnea Spirometry [FEV1 to FVC 70%; FEV1 1.6 L; FVC 2.27 L. There was a significant response to bronchodilators noted. To note, the patient does have an FEF 25-75 of 29% predicted suggesting significant small airways disease.] Lung Volumes [Total lung capacity 80% predicted] Diffusion Capacity [DLCO 88% predicted] Comparisons [none] Interpretation [There is an obstructive ventilatory defect consistent with moderate COPD versus uncontrolled asthma. The patient does have significant small airways disease. Had significant response to bronchodilators noted. Lung volumes and diffusing capacity both within normal limits. Clinical correlation warranted.] MTDD
--- OUTSIDE RECORDS SUMMARY | 2025-02-05 10:31 | XMS_ITS | Patient Health Record ---
Author Organization [facility] Address [address] [place] [address] Care Team Providers Care Department Of Natural Resources Officer Name Role Phone Raiza Kaur MD Primary Care Provider Sherita Her MD, Enriqueta Unavailable [phone] Allergies No Known Allergies Reason For Referral [...] Coverage End Date Medicare B [address] [place] [phone] [id number] Rosalina Trejo Self - patient is the insured Cign[employer] MCR Supplement ([place]) [address] [place] [phone] [id number] Rosalina Trejo Self - patient is the [...]
--- OUTSIDE RECORDS SUMMARY | 2025-02-05 10:31 | XMS_ITS ---
Author Organization [facility] Address [address] [place] [address] Care Team Providers Care Picture Hanger Name Role Phone Raiza Kaur MD Primary Care Provider Sherita Her MD, Enriqueta Unavailable [phone] REASON FOR VISIT patient moved and no longer being seen Encounters Encounter Location Date Provider Diagnosis [facility] [address] [address] 08/09/2023 Enriqueta Siddiqui Plan Of Treatment No Information Progress Notes * Rosalina MUHAMMAD GDOB:1945 ( 78 yo F)Acc No.[id number]:08/09/2023 Patient:?Rosalina Muhammad :1945???Age:78 Y???Sex:Female Address:[address] [place] [address], [address] * true * Date:? Generated for Ramandeep crawford/Yanni/eTransmitting on:?02/05/2025 10:30 AM EDT
[2025-02-05 10:48] VITALS: PULSE 75; O2SAT 99
== END 2025-02-05 10:00 | disposition home or self-care (01) ==
LOC: HO.RESP 09:59
PROVIDERS: PCP Internal Medicine; Visit Provider Internal Medicine
DX: R06.02 Shortness of breath (principal); Z87.891 Personal history of nicotine dependence
CPT/HCPCS: 94010; 94640; 94727; 94729

== ENCOUNTER → 2025-02-05 10:02 | Outpatient (BNV) | payer MEDICARE, OTHER, SELFPAY | PROVIDERS: PCP Internal Medicine; Visit Provider Hospitalist | DX: R06.09 Other forms of dyspnea (principal) | CPT/HCPCS: 94060; 94727; 94729 ==

== ENCOUNTER 2025-02-07 16:01 | Outpatient (REF) | payer SELFPAY ==
--- OUTSIDE RECORDS SUMMARY | 2025-02-08 13:57 | XMS_ITS | Patient Health Record ---
Author Organization [facility] Address [address] [place] [address] Care Team Providers Care Senior Analyst Programmer Name Role Phone Raiza Kaur MD Primary Care Provider Sherita Her MD, Enriqueta Unavailable [phone] Allergies No Known Allergies Reason For Referral [...] Coverage End Date Medicare B [address] [place] [phone] [id number] Rosalina Trejo Self - patient is the insured Cign[employer] MCR Supplement ([place]) [address] [place] [phone] [id number] Rosalina Trejo Self - patient is the [...]
[2025-02-08 16:07] LABS: Appearance Urine Clear; Color Urine Yellow; Glucose Urine UA Negative (Negative); Leukocyte Esterase Urine Negative (Negative); Nitrite Urine Negative (Negative); Specific Gravity - Urine <= 1.005 (1.005-1.025); Urine Blood Negative (Negative); Urine Ketones Negative (Negative); Urine Protein Negative (Neg-Trace)
== END 2025-02-07 16:02 | disposition home or self-care (01) ==
LOC: HO.HMGCLNP 16:01
PROVIDERS: PCP Internal Medicine; Visit Provider Internal Medicine
DX: E03.8 Other specified hypothyroidism (principal); E78.9 Disorder of lipoprotein metabolism, unspecified; F41.1 Generalized anxiety disorder; G20.B2 Parkinson's disease with dyskinesia, with fluctuations
CPT/HCPCS: 81003

== ENCOUNTER 2025-02-09 13:36 | Outpatient (AMB) | payer MEDICARE, OTHER, SELFPAY ==
[2025-02-09 13:41] VITALS: BP 122/68; PULSE 84; O2SAT 95; BMI 19.9
--- NOTE | 2025-02-09 13:47 | A.OFFVIS_ITS ---
Intake Vital Signs 02/09/25 13:41 02/09/25 13:53 Height 5 ft 2 in Weight 108 lb 9 oz BMI 19.9 19.9 BP 122/68 Blood Pressure Location Rt brachial Position Sitting Pulse 84 Pulse Source Pulse Oximeter Pulse Oximetry (%) 95 Oxygen Delivery Method Room Air Intake Visit Reasons: MWV Allergies No Known Allergies Allergy (Verified 02/09/25 13:53) Medication List - Last Reconciled 02/09/25 by Camilla Thomason MD atorvastatin 10 mg PO DAILY carbidopa-levodopa 25-100 mg 1 tab PO TID cholecalciferol (vitamin D3) (Vitamin D3) 50 mcg PO DAILY 90 days cyanocobalamin (vitamin B-12) 1,000 mcg PO DAILY 90 days donepezil 5 mg PO BEDTIME escitalopram oxalate 20 mg PO DAILY levothyroxine 50 mcg PO DAILY multivitamin 1 tab PO DAILY Do you need a note to return to daycare/school/sports/work: No HPI MWV HPI Details History - The patient is a 79-year-old female pr esenting with breathing difficulties and medication management needs. Along with Medicare wellness visit - She has been diagnosed with both Asthm a and Chronic Obstructive Pulmonary Disease (COPD) on pulmonary function test recently. Symptoms improved with the use of a bronchodilator during the test - The patient reports feelings of instab ility and a history of two falls over the past year, one from getting up from the toilet and another trip, which increases her fear of falling. - She reports Parkinson's Disease and on going issues relating to balance. - She has a history of Gastroesophageal Reflux Disease (GERD) stable at this time - She mentions concerns over elevated Vi tamin B12 levels, which were last noted to be high in November. Prescribed through neurology - The patient reports a urinary tract in fection occurred a month ago with recent urinalysis showing no signs of infection. - The patient is experiencing some weigh t loss, which could be related to Parkinson's Disease. Problem List - Chronic Obstructive Pulmonary Disease (COPD) - Asthma - Parkinson's Disease - Gastroesophageal Reflux Disease (GERD) - History of Falls - Vitamin B12 Elevation - anxiety Diagnostic results - Labs: CBC normal, no anemia; electroly maynor normal; kidney function normal; liver enzymes stable; vitamin D level normal; thyroid function normal. - Test: Pulmonary function test indicate s Asthma and COPD. Patient Instructions - Start using the prescribed inhaler onc e daily in the morning and rinse mouth after use. Breo - Maintain consistent intake of nutritio n, particularly to counteract weight loss. - Discuss elevated Vitamin B12 levels [facility]. - Incorporate safe walking practices to manage fall risk. - Continue managing GERD symptoms regula rly. Review of Systems General: No fever no chills neurological: No headaches ear nose throat: No sore throat , no ear pain cardiovascular: No syncope, no chest pain, no palpitations gastrointestinal: No nausea vomiting or diarrhea endocrine: No polyuria polydipsia no heat intolerance genitourinary: No dysuria skin: No new complaints Physical Exam general: No acute distress HEENT: No acute findings neck: Supple respiratory system: Breathing comfortably cardiovascular: S1-S2 gastrointestinal: No pain extremities: No new findings AROMATHERAPIST: Alert awake oriented x3 balance impaired skin: Normal turgor, oxygen saturation 95% on room air HPI Comments History of Present Illness Details AWV Medical/social history reviewed Past medical history reviewed [place] of care / care team list updated Surgical/ hospitalization history reviewed Current medications including OTC and supplements reviewed Family history reviewed Tobacco controlled form updated Alcohol use form updated Illicit drug use in social history reviewed Current diagnosis of depression ?screening updated Appropriate PHQ 2/PHQ-9 completed . Vital signs reviewed Alcohol tobacco drug use reviewed and discussed . MMSE completed . ? Fall risk: ?Assessed Fall history: ?Yes Have you had any falls with injury in the past year?? Yes Have you had 2 or more falls in the past year?? Yes Fall risk assessment completed Home safety discussed with the patient Functional ability assessed and discussed and documented Activities of daily living reviewed and appropriate actions taken . HRA filled out by the patient and reviewed by provider and scanned . Appropriate written screening schedule established . Any health advise needed provided . Advance care planning discussed with the patient , necessary paperwork filled Examination IPPE/AWE: Balance failed Romberg failed Tandem walk failed walk-in turn intact rise from sit to stand intact . ?Hearing ?whisper test pass . Medication list reviewed, patient is stable on medications All other providers patient is seeing discussed and noted . [facility] Medical History Dementia Anxiety Lymphoma Mild cognitive impairment Parkinson's disease without dyskinesia or fluctuating manifestations Parkinson disease Surgical History History of left knee replacement History of left knee surgery History of tonsillectomy Family History Mother Colon cancer Father Lung cancer Sister Breast cancer Social History Housing: Assisted Living Facility Patient Tobacco Use Status: Former Tobacco user e-Cigarette/Vaping Use: Never Used Advance Directives Date on File: 07/15/24 service: No Current occupational status: retired Cognitive needs: No Hearing needs: No Vision needs: Yes Questionnaire Medicare Wellness Checkup [age] What gender do you identify with?: female During the past 4 weeks, how much have you been bothered by emotional problems such as feeling anxious, depressed, irritable, sad or downhearted, and blue?: extremely During the past 4 weeks, has your physical & emotional health limited your social activities with family, friends, neighbors, or groups?: quite a bit During the past 4 weeks, how much bodily pain have you generally had?: no pain During the past 4 weeks, was someone available to help you if you needed & wanted help?: yes, some During the past 4 weeks, what was the hardest physical activity you could do for at least 2 minutes?: moderate Can you get to places out of walking distance without help? (For eg., can you travel alone on buses, taxis or drive your car?): No Can you go shopping for groceries or clothes without someone's help?: No Can you prepare your own meals?: No Can you do your housework without help?: No Because of any health problems, do you need the help of another person with your personal care needs such as eating, bathing, dressing or getting around the h ouse?: Yes Can you handle your own money without help?: No During the past 4 weeks, how would you rate your health in general?: fair During the past 4 weeks how have things been going for you?: pretty bad Are you having difficulties driving your car?: not applicable, I don't use a car Do you always fasten your seat belt when you are in a car?: yes, usually During past 4 weeks, have you been bothered by the following: never: Falling or dizzy when standing up, Sexual problems? and Teeth or denture problems?, sometimes: Problems using the telephone? and often: Trouble eating well? and Tiredness or fatigue? Have you fallen 2 or more times in the past year?: Yes Are you afraid of falling?: Yes Are you a smoker?: no During the past 4 weeks, how many drinks of wine, beer, or other alcoholic beverages did you have?: no alcohol at all Do you exercise for about 20 minutes 3 or more times a week?: yes, some of the time Have you been given information to help with the following?: yes: Hazards in your house that might hurt you? and yes: Keeping track of your medications? How often do you have trouble taking medicines the way you have been told to take them?: I always take medicine as prescribed How confident are you that you can control & manage most of your health problems?: not very confident What is your race?: White Mini Mental State Exam (MMSE) Orientation What is the (year) (season) (date) (day) (month)?: year, season, date, day and month Where are we (state) (county) (town or city) (hospital) (floor)?: state, county, town or city, hospital/clinic and floor Score Score: 10 Activity of Daily Living Bathing - sponge bath, tub bath or shower: receives no assistance (gets in/out by self, if usual bathing means Dressing - getting clothes from closets & drawers, including inner/outer garments & fasteners.: gets clothes & gets completely dressed without help Toileting - going to the 'toilet room' for urine/bowel elimination & cleaning self/arranging clothes: goes to toilet room, cleans self, arranges clothes without help Transfer: moves in & out of bed and chair without help (may use support object) Continence: controls urination/bowel movements completely by self Feeding: feeds self without help Total Score: 0 Information obtained from: patient Using telephone: independent Traveling: dependent Shopping: dependent Preparing meals: needs assistance Housework: needs assistance Taking medicine: independent Managing money: independent PHQ-9 Over the last 2 weeks, how often have you been bothered by any of the following problems? 1. Little interest or pleasure in doing things: more than half the days 2. Feeling down, depressed, or hopeless: nearly every day 3. Trouble falling or staying asleep, or sleeping too much: several days 4. Feeling tired or having little energy: nearly every day 5. Poor appetite or overeating: nearly every day 6. Feeling bad about yourself - or that you are a failure or have let yourself or your family down: not at all 7. Trouble concentrating on things, such as reading the newspaper or watching television: nearly every day 8. Moving or speaking so slowly that other people could have noticed. Or the opposite - being so fidgety or restless that you have been moving around a lot more than usual: more than half the days 9. Thoughts that you would be better off or of hurting yourself in some way: not at all Total score: 17 Depression Screening Interpretation: Positive Depression Screening Follow-up: Existing condition and In treatment Depression Screening Done: Yes 01816 - PHQ-9 Billing: Yes Source: Developed by Drs. Julio C Box, Echo Vega, Harsha James and colleagues, with an educational gunjan from [employer]. Physical Exam Vital Signs: Last Vital Signs Pulse 84 02/09/25 13:41 BP 122/68 02/09/25 13:41 Pulse Ox 95 02/09/25 13:41 Oxygen Delivery Method Room Air 02/09/25 13:41 BMI result Body Mass Index 19.9 Assessment & Plan Assessment & Plan (1) Medicare annual wellness visit, initial: Code(s): Z00.00 - Encounter for general adult medical examination without abnormal findings (2) Bronchospasm: Code(s): J98.01 - Acute bronchospasm (3) Mild cognitive impairment: Code(s): G31.84 - Mild cognitive impairment of uncertain or unknown etiology (4) Shortness of breath: Code(s): R06.02 - Shortness of breath (5) Parkinson's disease without dyskinesia or fluctuating manifestations: Code(s): G20.A1 - Parkinson's disease without dyskinesia, without mention of fluctuations (6) Other specified hypothyroidism: Code(s): E03.8 - Other specified hypothyroidism (7) Lipid disorder: Code(s): E78.9 - Disorder of lipoprotein metabolism, unspecified (8) Anxiety, generalized: Code(s): F41.1 - Generalized anxiety disorder (9) Recurrent falls: Code(s): R29.6 - Repeated falls (10) COPD (chronic obstructive pulmonary disease): Code(s): J44.9 - Chronic obstructive pulmonary disease, unspecified Qualifiers: Emphysema type: other COPD type: emphysema Qualified Code(s): J43.8 - Other emphysema Plan History - The patient is a 79-year-old female presenting with breathing difficulties and medication management needs. Along with Medicare wellness visit - She has been diagnosed with both Asthma and Chronic Obstructive Pulmonary Disease (COPD) on pulmonary function test recently. Symptoms improved with the use of a bronchodilator during the test - The patient reports feelings of instability and a history of two falls over the past year, one from getting up from the toilet and another trip, which increases her fear of falling. - She reports Parkinson's Disease and ongoing issues relating to balance. - She has a history of Gastroesophageal Reflux Disease (GERD) stable at this time - She mentions concerns over elevated Vitamin B12 levels, which were last noted to be high in November. Prescribed through neurology - The patient reports a urinary tract infection occurred a month ago with recent urinalysis showing no signs of infection. - The patient is experiencing some weight loss, which could be related to Parkinson's Disease. Problem List - Chronic Obstructive Pulmonary Disease (COPD) - Asthma - Parkinson's Disease - Gastroesophageal Reflux Disease (GERD) - History of Falls - Vitamin B12 Elevation - anxiety Diagnostic results - Labs: CBC normal, no anemia; electrolytes normal; kidney function normal; liver enzymes stable; vitamin D level normal; thyroid function normal. - Test: Pulmonary function test indicates Asthma and COPD. Patient Instructions - Start using the prescribed inhaler once daily in the morning and rinse mouth after use. Breo - Maintain consistent intake of nutrition, particularly to counteract weight loss. - Discuss elevated Vitamin B12 levels with neurology. - Incorporate safe walking practices to manage fall risk. - Continue managing GERD symptoms regularly. Medications: New fluticasone furoate-vilanterol 50-25 mcg/dose (Breo Ellipta) 1 inh inhalation Q24H 30 days 1 units 0RF [arochamber] As directed 1 ea 0RF J98.01 - Acute bronchospasm Quality Reporting (2019) Depression/Bipolar (159/160/161/177) PHQ-9: Total score: 17 Coding Level of Care Code Medicare First (G0438) Est Pt Level 4 (57976) Diagnoses Medicare annual wellness visit, initial Z00.00 Bronchospasm J98.01 Mild cognitive impairment G31.84 Shortness of breath R06.02 Parkinson's disease without dyskinesia or fluctuating manifestations G20.A1 Other specified hypothyroidism E03.8 Lipid disorder E78.9 Anxiety, generalized F41.1 Recurrent falls R29.6 Other emphysema J43.8 Emphysema type: other COPD type: emphysema CPT Codes Advance Care Planning - Time spent: 1-15 minutes, on File ([id number]) Additional Codes PHQ-9 - 70154 - PHQ-9 Billing: Yes ([id number]) Advance Care Planning Advance Care Planning discussion: Completed/Scanned Forms completed: Health Care Proxy Time spent: 1-15 minutes, on File
[2025-02-09 13:53] VITALS: BMI 19.9
--- OUTSIDE RECORDS SUMMARY | 2025-02-09 14:43 | XMS_ITS | Patient Health Record ---
Author Organization 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
== END 2025-02-09 15:50 | disposition home or self-care (01) ==
PROVIDERS: PCP Internal Medicine; Visit Provider Internal Medicine
DX: Z00.00 Encounter for general adult medical examination without abnormal findings (principal); J98.01 Acute bronchospasm; G20.A1 Parkinson's disease without dyskinesia, without mention of fluctuations; J43.8 Other emphysema; G31.84 Mild cognitive impairment of uncertain or unknown etiology; R06.02 Shortness of breath; E03.8 Other specified hypothyroidism; E78.9 Disorder of lipoprotein metabolism, unspecified; F41.1 Generalized anxiety disorder; R29.6 Repeated falls

== ENCOUNTER → 2025-02-09 13:36 | Outpatient (BNVA) | payer MEDICARE, SELFPAY | PROVIDERS: PCP Internal Medicine; Visit Provider Internal Medicine | DX: Z00.00 Encounter for general adult medical examination without abnormal findings (principal); J98.01 Acute bronchospasm; G31.84 Mild cognitive impairment of uncertain or unknown etiology; G20.A1 Parkinson's disease without dyskinesia, without mention of fluctuations; E03.8 Other specified hypothyroidism; E78.9 Disorder of lipoprotein metabolism, unspecified; F41.1 Generalized anxiety disorder; R29.6 Repeated falls; J43.8 Other emphysema | CPT/HCPCS: 96127; 99212 ==

== ENCOUNTER 2025-02-14 18:54 | Emergency (ER) | payer MEDICARE, OTHER, SELFPAY ==
--- NOTE | ~2025-02-14 | CT_ITS ---
CLINICAL HISTORY: Lower abdominal tenderness, R O appy, diverticular CT abdomen and pelvis with contrast Comparison: 07/18/2023 Findings: Lung bases are clear. No acute bony abnormalities. Liver and spleen within normal limits. Pancreas and adrenal glands unremarkable. Gallbladder is within normal limits. No significant focal renal abnormalities. No renal stones or hydronephrosis. Abdominal aorta is normal in caliber. No free fluid or adenopathy in the pelvis. No diverticulitis. Appendix not identified. Large amount of stool throughout the colon. Perirectal stranding and fluid noted. Findings consistent with stercoral colitis. Impression: Acute stercoral colitis Large amount of stool throughout colon This document has been electronically signed by: Bassam Malagon MD on 02/15/2025 00:55:58
[2025-02-14 19:08] VITALS: BP 128/77; PULSE 68; O2SAT 97
[2025-02-14 19:18] VITALS: BP 157/78; PULSE 66; RESP 18; TEMP 37; O2SAT 100; BMI 21.3
[2025-02-14 19:39] LABS: MANUAL DIFF FLAG NO
[2025-02-14 19:43] LABS: Basophils Percent Auto 0.2 % (0-2); Eosinophils Absolute Auto 0.1 X10*3/uL (0.0-0.4); Eosinophils Percent Auto 0.5 % (0-4); Hematocrit 40.9 % (37.0-47.0); Hemoglobin 13.8 g/dl (12.0-16.0); Imm Gran Abs Auto 0.03 X10*3/uL (0.00-0.03); Imm Gran Pct Auto 0.3 % (0.0-0.4); Lymphocytes Absolute Auto 1.1 X10*3/uL (1.2-4.9); Lymphocytes Percent Auto 12.1 % (20-40); Mean Corpuscular HGB Conc 33.7 g/dl (31.0-35.0); Mean Corpuscular Volume 91.9 fL (80.0-98.0); Monocytes Absolute Auto 0.7 X10*3/uL (0.1-1.2); Monocytes Percent Auto 7.2 % (2-11); Neutrophils Absolute Auto 7.3 x10*3/uL (2.0-8.3); Neutrophils Percent Auto 79.7 % (45-73); Platelet Count 149 X10*3/uL (160-400); Red Blood Count 4.45 X10*6/uL (4.20-5.50); Red Cell Distribution Width 13.6 % (11.0-16.0); White Blood Count 9.2 X10*3/uL (4.8-10.8)
[2025-02-14 19:46] LABS: VBG Base Excess 10.6 mmol/L; VBG HCO3 35 mmol/L (22-26); VBG pCO2 49 mmHg; VBG pH 7.47 (7.32-7.43); VBG pO2 33 mmHg
[2025-02-14 19:46] LABS: Venous Blood Gas Refer to POC result
[2025-02-14 19:55] LABS: Alanine Aminotransferase 11 U/L (0-31); Albumin Level 4.1 g/dL (3.5-5.0); Alkaline Phosphatase 48 U/L (39-117); Anion Gap 11 (12-20); Aspartate Amino Transferase 34 U/L (5-31); Bilirubin Total 0.7 mg/dL (0.0-1.0); Blood Urea Nitrogen 22 mg/dL (9-16); Calcium 9.4 mg/dL (8.4-10.2); Carbon Dioxide 31 mmol/L (22-29); Chloride 105 mmol/L (96-108); Creatinine Clr Calc Pharmacy 52.6; Estimated Glomerular Filt Rate > 60; Glucose Random 108 mg/dL (60-115); Magnesium 2.4 mg/dL (1.6-2.6); Sodium 143 mmol/L (135-145); Total Protein 5.9 g/dL (6.5-8.0)
[2025-02-14 20:00] VITALS: BP 154/89; PULSE 67; RESP 18; O2SAT 97
[2025-02-14 20:14] LABS: Ammonia 37 umol/L (13-55)
[2025-02-14 20:16] LABS: TSH reflex Free T4 2.15 uIU/mL (0.32-4.0)
[2025-02-14 21:42] LABS: Appearance Urine Clear; Color Urine Yellow; Glucose Urine UA Negative (Negative); Leukocyte Esterase Urine Trace (Negative); Nitrite Urine Negative (Negative); UMIC TRIGGER UACC YES; Urine Blood Negative (Negative); Urine Ketones Trace mg/dL (Negative); Urine Protein Negative (Neg-Trace)
[2025-02-14 21:46] LABS: Bacteria Urine None Seen (None Seen); Hyaline Casts Urine 0-2 /LPF (0-2); RBC Urine 0-2 /HPF (0-2); Squamous Epithelial Cell Urine 0-2 /HPF (0-2); WBC Urine 0-5 /HPF (0-5)
[2025-02-14 22:20] VITALS: BP 141/82; PULSE 68; RESP 16; TEMP 36.2; O2SAT 96
--- NOTE | 2025-02-14 23:32 | ED_ITS ---
HPI - General Adult General Chief complaint: General Medical Stated complaint: Increased confusion/ Urinary frequency Time Seen by Provider: 02/14/25 23:32 Source: patient and family ([id number]) Mode of arrival: EMS Limitations: no limitations History of Present Illness ED Provider: Dr. Joey Alvarado HPI narrative: 79-year-old female with past medical history of Parkinson's disease, COPD, dementia, anxiety, lymphoma, anxiety who was brought to the emergency department by her [id number] for evaluation of increased confusion, incontinence of urine and bowels. Patient was incontinent of urine and stool last night. She became more confused last night and today. She also complained of lower abdominal pain. The uqytvsqu-gj-dnn states that this has happened to the patient on 01/16/2024 when she was evaluated in the emergency department. At that ED visit she did have a positive urinalysis but the urine culture revealed [id number] CFUs of mixed bacteria. The daughter states that after the ED visit the patient's care green improved but never really got back to the patient's baseline. The patient lives in his assisted living with her . Related Data Home Medications ?Medication ?Instructions ?Recorded ?Confirmed multivitamin 1 tab PO DAILY 12/24/24 02/15/25 Previous Rx's ?Medication ?Instructions ?Recorded carbidopa 25 mg-levodopa 100 mg 1 tab PO TID #90 tabs 08/24/24 tablet donepezil 5 mg tablet 5 mg PO BEDTIME #30 tabs 08/24/24 escitalopram oxalate 20 mg tablet 20 mg PO DAILY #30 tabs 08/24/24 cholecalciferol (vitamin D3) 50 50 mcg PO DAILY 90 days #90 caps 11/25/24 mcg (2,000 unit) capsule (Vitamin D3) atorvastatin 10 mg tablet 10 mg PO DAILY #90 tabs 12/11/24 cyanocobalamin (vitamin B-12) 1,000 mcg PO DAILY 90 days #90 tabs 01/09/25 1,000 mcg tablet levothyroxine 50 mcg tablet 50 mcg PO DAILY #90 tabs 01/10/25 arochamber #1 ea 02/09/25 fluticasone furoate 50 1 inh inhalation Q24H 30 days #1 02/09/25 mcg-vilanterol 25 mcg/dose units inhalation powder (Breo Ellipta) Allergies Allergy/AdvReac Type Severity Reaction Status Date / Time No Known Allergies Allergy Verified 02/14/25 19:20 Review of Systems 2 Review of Systems: Yes all other systems are reviewed and are negative [facility] Past Medical History [facility] Narrative: Social history: The patient is and lives in the [facility] assisted living [place]. She does not smoke cigarettes and does not drink alcohol. Medical History Dementia Anxiety Lymphoma Mild cognitive impairment Parkinson's disease without dyskinesia or fluctuating manifestations Parkinson disease Surgical History History of left knee replacement History of left knee surgery History of tonsillectomy Family History Family History Mother Colon cancer Father Lung cancer Sister Breast cancer Social History Social History Housing: Assisted Living Facility Patient Tobacco Use Status: Former Tobacco user e-Cigarette/Vaping Use: Never Used Advance Directives Date on File: 07/15/24 service: No Current occupational status: retired Cognitive needs: No Hearing needs: No Vision needs: Yes Physical Exam ED Vital Signs: Vital Signs - 24 hr 02/17/25 11:56 Temperature 97.9 F Pulse Rate 80 Respiratory Rate 25 H Blood Pressure 147/73 H Pulse Oximetry 98 Oxygen Delivery Method Room Air BMI result Body Mass Index 21.3 Vital signs revealed elevated blood pressures otherwise unremarkable Exam: General: Awake, oriented to person only, defers all questions to her [id number], does appear to be confused Head: Normocephalic, atraumatic EENT: PERRL, Lids normal, sclera normal, conjunctiva normal, nose normal , ears normal, throat without erythema or exudates Neck: Supple, no adenopathy Lung: breath sounds symmetric, no wheezing, rales or rhonchi Chest: symmetric movement, nontender Heart: regular rate and rhythm, normal S1, S2 no murmurs or rubs Abdomen: soft, mild to moderate lower abdominal tenderness, mild diffuse tenderness, normoactive bowel sounds Rectal: Patient had significant impaction and was oozing stool around the impaction Back: no vertebral tenderness, no CVAT Extremities: no deformities, moves all extremities symmetrically Neuro: Awake, alert, oriented to person only, infused and defers all answers to questions to her [id number]-[id number], cranial nerves intact, moves all extremities symmetrically Psych: Pleasant, cooperative Course Course Course Narrative: Time: 10:12 Date: 02/15/25 Provider: BLACK Grossman Patient in physician observation for case management needs. No acute events reported overnight.? Labs and imaging reviewed. No current issues or complaints. VS stable. Physical therapy evaluated patient this morning and recommend short-term rehab. Pending case management placement. Will continue to monitor. 02/16/2025 0917 Veronica Winchester PA-C Observation continues. Case management continues to follow. Reevaluation(s) Reevaluation #1: Time: 12:21 Date: 02/17/25 Provider: BLACK Bolden Physician observation ended at 11:20am Patient has been accepted to [facility]. VS remain stable. does not require medical admission at this time. Patient to be placed at a rehab facility. stable for d/c Time: 11:20 Medications Administered Discontinued Medications Generic Name Dose Route Start Last Admin Trade Name Haydee PRN Reason Stop Dose Admin Acetaminophen 975 mg 02/15/25 17:40 02/15/25 17:48 Acetaminophen 325 Mg Tablet PO 02/15/25 17:41 975 mg ONCE ONE Administration Atorvastatin Calcium 10 mg 02/15/25 09:15 02/17/25 09:57 Atorvastatin Calcium 10 Mg Tablet PO 10 mg DAILY SVETA Administration Carbidopa/Levodopa 1 tab 02/15/25 09:15 02/17/25 09:57 Carbidopa/Levodopa 25/100 Tablet PO 1 tab TID SVETA Administration Cyanocobalamin 1,000 mcg 02/15/25 09:15 02/17/25 09:57 Cyanocobalamin (Vitamin B-12) 1,000 Mcg Tablet PO 1,000 mcg DAILY SVETA Administration Donepezil HCl 5 mg 02/15/25 21:00 02/16/25 20:29 Donepezil Hcl 5 Mg Tablet PO 5 mg BEDTIME SVETA Administration Escitalopram Oxalate 20 mg 02/15/25 09:15 02/17/25 09:56 Escitalopram Oxalate 20 Mg Tablet PO 20 mg DAILY SVETA Administration Iohexol 85 ml 02/15/25 00:16 02/15/25 00:17 Iohexol 350 Mg/Ml 100 Ml Infus..Btl IV 02/15/25 00:17 85 ml ONCE ONE Administration Levothyroxine Sodium 50 mcg 02/15/25 09:15 02/17/25 06:37 Levothyroxine Sodium 50 Mcg Tablet PO 50 mcg DAILY@0600 SVETA Administration Mineral Oil 133 ml 02/15/25 03:18 02/15/25 03:29 Mineral Oil Enema 133 Ml Enema MA 02/15/25 03:19 133 ml ONCE ONE Administration Multivitamins/Vitamin C 1 tab 02/15/25 09:15 02/17/25 09:57 Multivitamin Tablet PO 1 tab DAILY SVETA Administration Non-Formulary Medication 1 inhalation 02/16/25 08:00 02/17/25 08:09 Fluticasone Furoate-Vilanterol [Breo Ellipta] INHALE 1 inhalation RDAILY SVETA Administration Vitamin D 50 mcg 02/15/25 09:15 02/17/25 09:56 Cholecalciferol (Vitamin D3) 25 Mcg Tablet PO 50 mcg DAILY SVETA Administration Medical Decision Making Medical Decision Making MDM Narrative: 79-year-old female with past medical history of Parkinson's disease, COPD, dementia, anxiety, lymphoma, anxiety who was brought to the emergency department by her [id number]-je-gif for evaluation of increased confusion, incontinence of urine and bowels. Patient was incontinent of urine and stool last night. She became more confused last night and today. She also complained of lower abdominal pain. The fgtyeoyi-es-vqf states that this has happened to the patient on 01/16/2024 when she was evaluated in the emergency department. At that ED visit she did have a positive urinalysis but the urine culture revealed [id number] CFUs of mixed bacteria. The daughter states that after the ED visit the patient's care green improved but never really got back to the patient's baseline. The patient lives in his assisted living with her . Vital signs revealed elevated blood pressures otherwise unremarkable. Physical examination did reveal confusion but I think this is consistent with her dementia. Patient did have moderate lower abdominal tenderness as well as mild diffuse tenderness Differential diagnosis: ?Includes but is not limited to urinary tract infection, appendicitis, diverticulitis, pancreatitis, constipation, impaction, electrolyte abnormalities, anemia, worsening dementia Course: 00:03 My interpretation patient's laboratory evaluation as follows: WBC was normal at 9200. Platelet count was low 149,000. Bicarb was elevated 31. BUN is elevated 22 with a normal creatinine of 0.74. AST is elevated 34. Urinalysis was trace positive for leukocyte esterase. Microscopic revealed 0-2 RBCs, 0-2 WBCs, no bacteria-this microscopic evaluation is not consistent with a urinary tract infection. Patient's VBG revealed an elevated pH of 7.47 and an elevated bicarb of 35. Given the patient's lower abdominal tenderness, I did order a CT scan of the abdomen pelvis with IV contrast. 03:36 CT scan revealed a large stool burden with acute stercoral colitis with perirectal stranding and fluid noted. I did do a rectal exam and the patient had several large hard balls of stool in the rectum and she was disimpacted by me. And then ordered a Fleet's enema to be followed by a soapsuds enema at the Fleet's enema was unsuccessful. At the end of my shift, the patient is waiting for the enema administration, therefore the patient's care was turned over to my colleague, Dr. Seda Cowan. 336 am 02/15/25 I received sign-out from my colleague Dr. Jacinto After a Fleet enema, patient was successfully able to move her bowels. I discussed with the patient's stepdaughter that patient's current mental status is unlikely to be secondary to a UTI. Most likely, patient's dementia is gradually worsening. Patient lives in independent living with her . Patient's is unable to care for her. Patient's stepdaughter is requesting to have a PT case management consult to have extra visiting nurses. At this time, they would prefer not to place the patient in a halfway PT and case management consult are pending Physician observation started at 650am Admission/Observation Consideration of admission/observation: Escalation of care including admission/observation considered (Yes) Lab Data [facility] Lab Attestation statement: I reviewed the patient's lab results. 02/14/25 19:34 02/14/25 19:34 Labs: Lab Results 02/14/25 02/14/25 02/14/25 Range/Units 19:34 19:40 21:34 WBC 9.2 (4.8-10.8) X10*3/uL RBC 4.45 (4.20-5.50) X10*6/uL Hgb 13.8 (12.0-16.0) g/dl Hct 40.9 (37.0-47.0) % MCV 91.9 (80.0-98.0) fL MCH 31.0 (27.0-33.0) pg MCHC 33.7 (31.0-35.0) g/dl RDW 13.6 (11.0-16.0) % Plt Count 149 L (160-400) X10*3/uL MPV 10.0 (9.4-12.3) fL Immature Gran % (Auto) 0.3 (0.0-0.4) % Neut % (Auto) 79.7 H (45-73) % Lymph % (Auto) 12.1 L (20-40) % Coleman % (Auto) 7.2 (2-11) % Eos % (Auto) 0.5 (0-4) % Baso % (Auto) 0.2 (0-2) % Lymph # (Auto) 1.1 L (1.2-4.9) X10*3/uL Coleman # (Auto) 0.7 (0.1-1.2) X10*3/uL Eos # (Auto) 0.1 (0.0-0.4) X10*3/uL Baso # (Auto) 0.0 (0.0-0.2) X10*3/uL Abs Immat Gran (auto) 0.03 (0.00-0.03) X10*3/uL Absolute Neuts (auto) 7.3 (2.0-8.3) x10*3/uL Absolute Nucleated RBC 0.000 (0.0-0.012) X10*3/uL Nucleated RBC % (auto) 0.0 (0.0-0.2) /100WBC VBG pH 7.47 H (7.32-7.43) VBG pCO2 49 mmHg VBG pO2 33 mmHg VBG HCO3 35 H (22-26) mmol/L VBG O2 Saturation 50.0 % VBG Base Excess 10.6 mmol/L Sodium 143 (135-145) mmol/L Potassium 4.0 (3.3-5.1) mmol/L Chloride 105 (96-108) mmol/L Carbon Dioxide 31 H (22-29) mmol/L Anion Gap 11 L (12-20) BUN 22 H (9-16) mg/dL Creatinine 0.74 (0.5-1.4) mg/dL Estim Creat Clear Calc 52.6 Estimated GFR > 60 POC Glucose (60-115) mg/dL Random Glucose 108 (60-115) mg/dL Calcium 9.4 (8.4-10.2) mg/dL Magnesium 2.4 (1.6-2.6) mg/dL Total Bilirubin 0.7 (0.0-1.0) mg/dL AST 34 H (5-31) U/L ALT 11 (0-31) U/L Alkaline Phosphatase 48 (39-117) U/L Ammonia 37 (13-55) umol/L Total Protein 5.9 L (6.5-8.0) g/dL Albumin 4.1 (3.5-5.0) g/dL TSH 2.15 (0.32-4.0) uIU/mL Urine Color Yellow Urine Appearance Clear Urine pH 6.0 (5.0-9.0) Ur Specific [place] 1.020 (1.005-1.025) Urine Protein Negative (Neg-Trace) mg/dL Urine Glucose (UA) Negative (Negative) mg/dL Urine Ketones Trace (Negative) mg/dL Urine Blood Negative (Negative) Urine Nitrite Negative (Negative) Ur Leukocyte Esterase Trace H (Negative) Urine RBC 0-2 (0-2) /HPF Urine WBC 0-5 (0-5) /HPF Ur Squamous Epith Cells 0-2 (0-2) /HPF Urine Bacteria None Seen (None Seen) Hyaline Casts 0-2 (0-2) /LPF Influenza Type A (PCR) (Negative) Influenza Type B (PCR) (Negative) RSV RNA Qual (PCR) (Negative) SARS-CoV-2 RNA (RT-PCR) (Negative) 02/15/25 02/17/25 Range/Units 09:00 07:35 WBC (4.8-10.8) X10*3/uL RBC (4.20-5.50) X10*6/uL Hgb (12.0-16.0) g/dl Hct (37.0-47.0) % MCV (80.0-98.0) fL MCH (27.0-33.0) pg MCHC (31.0-35.0) g/dl RDW (11.0-16.0) % Plt Count (160-400) X10*3/uL MPV (9.4-12.3) fL Immature Gran % (Auto) (0.0-0.4) % Neut % (Auto) (45-73) % Lymph % (Auto) (20-40) % Coleman % (Auto) (2-11) % Eos % (Auto) (0-4) % Baso % (Auto) (0-2) % Lymph # (Auto) (1.2-4.9) X10*3/uL Coleman # (Auto) (0.1-1.2) X10*3/uL Eos # (Auto) (0.0-0.4) X10*3/uL Baso # (Auto) (0.0-0.2) X10*3/uL Abs Immat Gran (auto) (0.00-0.03) X10*3/uL Absolute Neuts (auto) (2.0-8.3) x10*3/uL Absolute Nucleated RBC (0.0-0.012) X10*3/uL Nucleated RBC % (auto) (0.0-0.2) /100WBC VBG pH (7.32-7.43) VBG pCO2 mmHg VBG pO2 mmHg VBG HCO3 (22-26) mmol/L VBG O2 Saturation % VBG Base Excess mmol/L Sodium (135-145) mmol/L Potassium (3.3-5.1) mmol/L Chloride (96-108) mmol/L Carbon Dioxide (22-29) mmol/L Anion Gap (12-20) BUN (9-16) mg/dL Creatinine (0.5-1.4) mg/dL Estim Creat Clear Calc Estimated GFR POC Glucose 101 (60-115) mg/dL Random Glucose (60-115) mg/dL Calcium (8.4-10.2) mg/dL Magnesium (1.6-2.6) mg/dL Total Bilirubin (0.0-1.0) mg/dL AST (5-31) U/L ALT (0-31) U/L Alkaline Phosphatase (39-117) U/L Ammonia (13-55) umol/L Total Protein (6.5-8.0) g/dL Albumin (3.5-5.0) g/dL TSH (0.32-4.0) uIU/mL Urine Color Urine Appearance Urine pH (5.0-9.0) Ur Specific [place] (1.005-1.025) Urine Protein (Neg-Trace) mg/dL Urine Glucose (UA) (Negative) mg/dL Urine Ketones (Negative) mg/dL Urine Blood (Negative) Urine Nitrite (Negative) Ur Leukocyte Esterase (Negative) Urine RBC (0-2) /HPF Urine WBC (0-5) /HPF Ur Squamous Epith Cells (0-2) /HPF Urine Bacteria (None Seen) Hyaline Casts (0-2) /LPF Influenza Type A (PCR) NEGATIVE (Negative) Influenza Type B (PCR) NEGATIVE (Negative) RSV RNA Qual (PCR) NEGATIVE (Negative) SARS-CoV-2 RNA (RT-PCR) NEGATIVE (Negative) Radiology Impression Discussion of test interpretation with radiology: I have reviewed the radiologist's reading. Radiologist Impression: CT abdomen and pelvis with contrast Comparison: 07/18/2023 Findings: Lung bases are clear. No acute bony abnormalities. Liver and spleen within normal limits. Pancreas and adrenal glands unremarkable. Gallbladder is within normal limits. No significant focal renal abnormalities. No renal stones or hydronephrosis. Abdominal aorta is normal in caliber. No free fluid or adenopathy in the pelvis. No diverticulitis. Appendix not identified. Large amount of stool throughout the colon. Perirectal stranding and fluid noted. Findings consistent with stercoral colitis. Impression: Acute stercoral colitis Large amount of stool throughout colon This document has been electronically signed by: Bassam Malagon MD on 02/15/2025 00:55:58 Independent Historian Clinical information obtained from an independent historian. History obtained from or confirmed by: Other ([id number], Akiko) External Record Review External record reviewed: Other (Previous ED records, microbiology urine studies) Chronic Conditions Patient?s care impacted by: Other (Parkinson's, dementia) Discharge Plan Discharge Clinical Impression: Acute confusion, Stercoral colitis, Fecal impaction Dementia Qualifiers: Dementia type: unspecified type Dementia severity: moderate Dementia behavioral or psychological symptom: without behavioral, psychotic, or mood disturbance or anxiety Qualified Code(s): F03.B0 - Unspecified dementia, moderate, without behavioral disturbance, psychotic disturbance, mood disturbance, and anxiety Patient Disposition: Xfer Inpatient Rehab Fac Transfer Details: [facility] SUSANNE, [address], [facility], [phone] Instructions: Constipation (ED), Fecal Impaction (ED) Additional Instructions: Your blood work was unremarkable and unchanged from your previous blood work. Your urinalysis was trace positive for leukocyte esterase. The microscopic evaluation did not reveal a significant amount of white blood cells in you had no bacteria. Given these tests, it is unlikely that you have a urinary tract infection. A urine culture will be done by the microbiology lab and if you grow significant amount of bacteria then the emergency department will contact you and start you on an antibiotic. Your CT scan revealed a large amount of stool in your colon and rectum to the point where you have inflammation of your rectum (stercoral colitis). You were disimpacted by me and given enemas. Continue taking your stool softeners Take extra-strength Senokot 2 pills twice a day up to 4 days, you can stop sooner if you have good bowel movements. Continue taking your other medications as prescribed by your providers. I believe that your confusion also may be caused by worsening dementia in you should discuss this with your primary care provider. Follow-up with your doctor in 2 days. Please return to the emergency department if your symptoms get worse or if you develop any symptoms that are concerning to you. Prescriptions: No Action donepezil 5 mg tablet 5 mg PO BEDTIME Qty: 30 6RF escitalopram oxalate 20 mg tablet 20 mg PO DAILY Qty: 30 6RF carbidopa-levodopa 25-100 mg tablet 1 tab PO TID Qty: 90 6RF atorvastatin 10 mg tablet 10 mg PO DAILY Qty: 90 0RF cyanocobalamin (vitamin B-12) 1,000 mcg tablet 1,000 mcg PO DAILY 90 Days Qty: 90 0RF levothyroxine 50 mcg tablet 50 mcg PO DAILY Qty: 90 0RF cholecalciferol (vitamin D3) [Vitamin D3] 50 mcg (2,000 unit) Capsule 50 mcg PO DAILY 90 Days Qty: 90 1RF multivitamin Tablet 1 tab PO DAILY Breo Ellipta 50-25 mcg/dose blister with device 1 inh inhalation Q24H 30 Days Qty: 1 0RF (DME) arochamber standard See Rx Instructions .Route .MEDSUPPLY Qty: 1 0RF Rx Instructions: As directed Referrals: Anamaria Bocanegra [Outside] Camilla Thomason MD [Primary Care Provider] - Interventions: ED Discharge Assessment Last Done: 02/17/25 11:56 Discharge Date/Time: 02/17/25 12:01 Print Language: Kinyarwanda
[2025-02-15] VITALS (11 sets, daily range): BP systolic 131–191; BP diastolic 67–109; PULSE 66–88; RESP 14–20; TEMP 35.8–37.8; O2SAT 93–99
[2025-02-15] MEDS: iohexoL 350 MG/ML 100 ML INFUS..BTL 85 ML IV (00:17)
[2025-02-15] MEDS: Mineral OiL enema 133 ML ENEMA PR (03:29)
--- NOTE | 2025-02-15 03:34 | PC.NURSE ---
Took over care at 3:00am from RAMIRO Neal, medicated per nov.
--- NOTE | 2025-02-15 04:14 | MHC.EDTECH ---
Full bedding change done and Pt cleaned up. Vital signs up to date
--- NOTE | 2025-02-15 06:06 | PC.NURSE ---
Notified, pt daughter Dr. Daniel see her as soon as possible.
--- NOTE | 2025-02-15 06:28 | MHC.EDTECH ---
Pt found to be incontinent of urine and a small BM. Pt was cleaned and new purewick placed. Call guillen within reach
--- NOTE | 2025-02-15 06:56 | PC.NURSE ---
pt resting in with daughter, plan is pt case managment
--- NOTE | 2025-02-15 08:45 | PC.NURSE ---
patient continuously leaking bowels onto bed s/p fleet enema by previous staff member. pericare performed. pt turned/repositioned to comfort. call guillen placed within reach.
--- NOTE | 2025-02-15 09:07 | PC.NURSE ---
patient seen by PT - d/t increased confusion and incontinence of urine and bowels, pt noted to have difficulty ambulating with a steady gait. PT is recommending STR at this time. plan of care ongoing. call guillen placed within reach.
--- NOTE | 2025-02-15 09:13 | PHA.MEDREC ---
Pharmacy Consult ? Medication Reconciliation Pharmacy has completed the medication reconciliation. Confirmed med rec done by nursing. Matches claims.
[2025-02-15] MEDS: Cyanocobalamin (Vitamin B-12) 1,000 MCG TABLET 1000 MCG PO (09:50)
[2025-02-15] MEDS: Levothyroxine Sodium 50 MCG TABLET PO (09:50)
[2025-02-15] MEDS: Multivitamin TABLET 1 TAB PO (09:50)
[2025-02-15] MEDS: Escitalopram Oxalate 20 MG TABLET PO (09:50)
[2025-02-15] MEDS: Cholecalciferol (Vitamin D3) 25 MCG TABLET 50 MCG PO (09:50)
[2025-02-15] MEDS: Carbidopa/Levodopa 25/100 TABLET 1 TAB PO ×3 (09:50→21:55)
[2025-02-15] MEDS: Atorvastatin Calcium 10 MG TABLET PO (09:50)
[2025-02-15 10:25] LABS: Influenza A PCR NEGATIVE (Negative); Influenza B PCR NEGATIVE (Negative); Resp Syncy Virus RNA Qual PCR NEGATIVE (Negative); SARS COV2 PCR INHOUSE NEGATIVE (Negative)
--- NOTE | 2025-02-15 10:52 | MHC.EDTECH ---
pt incontinent of stool x3
--- NOTE | 2025-02-15 12:02 | MHC.EDTECH ---
pt incontinent x4
--- NOTE | 2025-02-15 12:41 | MHC.CM.ED ---
Addendum entered by Cherelle Zimmerman 02/15/25 13:13: Per Albertina at [facility], patient has 7 free days. Original Note: Received case management consult overnight. Patient came to the ER due to confusion. Work up indicated stool impaction. Disimpaction performed. Physical therapy eval completed. Short term rehab is recommended. Patient has not been inpatient in any facility in the past 30 days. Referral made to all 3 acute rehab facilities. No acute rehab bed offers. Patient is a resident of [facility]. Patient's typically have 9 free rehab days at [facility]. Referral made via [facility]. [facility] is looking to verify that patient has free days available. However they will not have a bed before Saturday. Met with patient and daughter, Akiko. Patient lives with her , ambulates independently and had no services prior to coming to the ER. PCP verified. Copy of HCP verified to be on file. Patient and Akiko agreeable to placement at [facility] and are aware it will not be prior to Saturday. Continue to monitor for d/c needs.
[2025-02-15] MEDS: Acetaminophen 325 MG TABLET 975 MG PO (17:48)
--- NOTE | 2025-02-15 21:02 | PC.NURSE ---
family is reporting pt is more agitated than baseline, states this happens with a UTI but urine was negative yesterday
[2025-02-15] MEDS: Donepezil HCl 5 MG TABLET PO (21:56)
--- NOTE | 2025-02-16 02:07 | PC.NURSE ---
assist with washing and bed change again after incont of BM
--- NOTE | 2025-02-16 05:59 | PC.NURSE ---
assist pt to commode and back to bed. pt continues to have BM, increased confusion
[2025-02-16] MEDS: Levothyroxine Sodium 50 MCG TABLET PO (06:25)
[2025-02-16 06:53] VITALS: BP 134/54; PULSE 74; RESP 18; TEMP 36.8; O2SAT 94
[2025-02-16] MEDS: [UNRECOGNIZED DRUG - OTHER] INHALE (08:36)
[2025-02-16] MEDS: VILANTEROL INHALE (08:36)
[2025-02-16] MEDS: FLUTICASONE FUROATE INHALE (08:36)
[2025-02-16 08:37] VITALS: PULSE 79; RESP 16; O2SAT 97
--- NOTE | 2025-02-16 09:13 | MHC.CM.ED ---
Patient remains in ER overflow. Anticipate patient will d/c to [facility] for STR on 02/17. Patient has 7 free days available there. Patient and daughter, Akiko aware. Continue to monitor for d/c needs.
[2025-02-16 10:08] VITALS: BP 146/77; PULSE 77; RESP 18; O2SAT 97
[2025-02-16] MEDS: Cyanocobalamin (Vitamin B-12) 1,000 MCG TABLET 1000 MCG PO (10:09)
[2025-02-16] MEDS: Multivitamin TABLET 1 TAB PO (10:09)
[2025-02-16] MEDS: Cholecalciferol (Vitamin D3) 25 MCG TABLET 50 MCG PO (10:09)
[2025-02-16] MEDS: Escitalopram Oxalate 20 MG TABLET PO (10:09)
[2025-02-16] MEDS: Carbidopa/Levodopa 25/100 TABLET 1 TAB PO ×3 (10:09→20:29)
[2025-02-16] MEDS: Atorvastatin Calcium 10 MG TABLET PO (10:09)
--- NOTE | 2025-02-16 11:13 | PC.NURSE ---
Report received. Taken over care at this time.
[2025-02-16 15:09] VITALS: BP 147/79; PULSE 78; RESP 15; TEMP 36.5; O2SAT 94
[2025-02-16 19:16] VITALS: BP 144/78; PULSE 65; RESP 18; TEMP 36.7; O2SAT 98
[2025-02-16] MEDS: Donepezil HCl 5 MG TABLET PO (20:29)
--- NOTE | 2025-02-17 00:24 | PC.NURSE ---
This RN assumed pt care @ 2300. Pt attempting to get oob, Pt assisted back into bed by charge Plan of care ongoing
[2025-02-17 05:06] VITALS: BP 167/91; PULSE 82; RESP 18; TEMP 37.1; O2SAT 98
--- NOTE | 2025-02-17 05:20 | PC.NURSE ---
this RN assumed care of pt at 0300. pt found to be OOB w/o assistance despite having chair alarm intact. pt found wandering in room in the dark. incontinent of urine. pt assisted to the commode. unable to urinate. bed change/fresh linen/padding applied. pt assisted back into bed. vitals obtained - wnl. on RA w/o difficulty. no sob/wob noted. respirations even/unlabored. chair alarm in place. plan of care ongoing. call guillen placed within reach.
[2025-02-17] MEDS: Levothyroxine Sodium 50 MCG TABLET PO (06:37)
[2025-02-17 07:40] LABS: Glucose, Whole Blood 101 mg/dL (60-115)
[2025-02-17] MEDS: VILANTEROL INHALE (08:09)
[2025-02-17] MEDS: [UNRECOGNIZED DRUG - OTHER] INHALE (08:09)
[2025-02-17] MEDS: FLUTICASONE FUROATE INHALE (08:09)
--- NOTE | 2025-02-17 08:13 | MHC.CM.ED ---
Patient remains in ER. Can leave for [facility] at 1130am. Margarito MORRIS booked. [facility] with chart. Patient, Tarsha RUBIO and Laila CLEANING aware. Attempted to speak to Akiko via telephone at [phone]. Phone line is busy. Will attempt to call again. Continue to monitor for d/c needs.
[2025-02-17 09:14] VITALS: BP 147/73; PULSE 80; RESP 25; TEMP 36.6; O2SAT 98
[2025-02-17] MEDS: Cholecalciferol (Vitamin D3) 25 MCG TABLET 50 MCG PO (09:56)
[2025-02-17] MEDS: Escitalopram Oxalate 20 MG TABLET PO (09:56)
[2025-02-17] MEDS: Cyanocobalamin (Vitamin B-12) 1,000 MCG TABLET 1000 MCG PO (09:57)
[2025-02-17] MEDS: Carbidopa/Levodopa 25/100 TABLET 1 TAB PO (09:57)
[2025-02-17] MEDS: Atorvastatin Calcium 10 MG TABLET PO (09:57)
[2025-02-17] MEDS: Multivitamin TABLET 1 TAB PO (09:57)
[2025-02-17 11:56] VITALS: BP 147/73; PULSE 80; RESP 25; TEMP 36.6; O2SAT 98
== END 2025-02-17 12:01 ==
PROVIDERS: Physician Assistant; Physician Assistant Medical; Emergency Provider Emergency Medicine Emergency Medical Services; PCP Internal Medicine
DX: R41.0 Disorientation, unspecified (principal); K52.89 Other specified noninfective gastroenteritis and colitis; K56.41 Fecal impaction; G20.A1 Parkinson's disease without dyskinesia, without mention of fluctuations; F03.B0 Unspecified dementia, moderate, without behavioral disturbance, psychotic disturbance, mood disturbance, and anxiety; E78.5 Hyperlipidemia, unspecified; J45.909 Unspecified asthma, uncomplicated; Z87.891 Personal history of nicotine dependence; Z03.818 Encounter for observation for suspected exposure to other biological agents ruled out; Z79.02 Long term (current) use of antithrombotics/antiplatelets; Z79.899 Other long term (current) drug therapy
CPT/HCPCS: 0241U; 36415; 74177; 80053; 81001; 82140; 82803; 82947; 83735; 84443; 85025; 97162; 99285; Q9967

== ENCOUNTER → 2025-02-15 | Outpatient (BNV) | payer MEDICARE, OTHER, SELFPAY | PROVIDERS: Emergency Provider Emergency Medicine Emergency Medical Services; PCP Internal Medicine; Visit Provider Radiology Diagnostic Radiology | DX: K52.89 Other specified noninfective gastroenteritis and colitis (principal); K56.41 Fecal impaction | CPT/HCPCS: 74177 ==

== ENCOUNTER 2025-02-26 12:58 | Outpatient (AMB) | payer MEDICARE, SELFPAY ==
--- NOTE | 2025-02-26 12:45 | MHC.OFFVIS ---
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 She was initally referred by PCP for pulmonary evaluation and presents today accompanied by stepdaughter. At the last visit she reported increased dyspnea on exertion over the last months that has been progressively worsening. PCP recently started on Breo and noted improvements in labored breathing and chest tightness. She denies cough or wheezing. Recent CXR unremarkable. Today she presents to review PFT results. [facility] Medical History Dementia Anxiety Lymphoma Mild cognitive impairment Parkinson's disease without dyskinesia or fluctuating manifestations Parkinson disease Surgical History History of left knee replacement History of left knee surgery History of tonsillectomy Family History Mother Colon cancer Father Lung cancer Sister Breast cancer Social History Housing: Assisted Living Facility Patient Tobacco Use Status: Former Tobacco user e-Cigarette/Vaping Use: Never Used Advance Directives Date on File: 07/15/24 service: No Current occupational status: retired Cognitive needs: No Hearing needs: No Vision needs: Yes Review of Systems Const Denies chills, Denies excessive sweating, Denies fever(s), Denies headache(s) and Denies night sweats Eyes Denies dry eyes, Denies irritation and Denies itchy eyes ENT Reports Normal hearing present, Denies headache(s), Denies nasal congestion, Denies nasal discharge, Denies post nasal drip and Denies sore throat Card Denies chest pain, Denies chest pain at rest, Denies chest pain with activity, Denies claudication and Denies paroxysmal nocturnal dyspnea Resp Denies chest congestion, Denies cough, Denies excessive phlegm production, Denies pain on inspiration, Denies pain with cough, Denies stridor and Denies wheezing Musc Denies myalgias Neuro Reports Normal hearing present and Denies headache(s) Endo Denies excessive sweating Bronson/Lymph Denies lymphadenopathy Aller/Immun Denies itchy eyes, Denies seasonal rhinorrhea and Denies wheezing Physical Exam Vital Signs: Last Vital Signs Pulse 64 02/26/25 13:11 BP 130/72 02/26/25 13:11 Pulse Ox 98 02/26/25 13:11 Oxygen Delivery Method Room Air 02/26/25 13:11 BMI result Body Mass Index 19.8 Const General: cooperative, comfortable, no acute distress and alert Nutritional Appearance: average body habitus Orientation/consciousness: patient oriented x3 Limitations: other limitations (cognitive impairment) HEENT Head: Yes normal to inspection, Yes normocephalic and Yes atraumatic Ears: hearing grossly normal bilaterally and external ears normal Eyes General: appearance normal, both eyes and all related structures Eyelids: Yes eyelids normal Sclerae: sclerae normal EOM: EOMs intact bilaterally Neck Neck: Yes normal visual inspection and Yes no lymphadenopathy Lymphatic: no lymphadenopathy noted Chest Chest palpation & inspection: normal inspection of the chest Resp Effort & Inspection: normal respiratory effort, able to speak in complete sentences, no audible wheezes, no cough, no stridor, not tachypneic, no tripod positioning and no use of accessory muscles Cardio Jugular venous distension: no JVD Rate: regular rate Rhythm: regular rhythm Skin Other: warm, dry General skin exam: no rashes or lesions noted Neuro General: patient oriented x3 Cranial nerves: Yes Normal hearing present Extrem General: Yes normal to inspection, Yes capillary refill normal, Yes no clubbing, cyanosis or edema and Yes no pedal edema Psych Appearance: grossly normal and well kempt Speech and movement: Other speech and movement exam findings present (Psych) (difficulty word finding) Affect: normal affect Attitude: cooperative Thought process: Normal thought process present Thought content: Normal thought content present Insight: Good insight present (Psych) Judgement: Good judgement present (Psych) Office Procedures 6 Minute Walk Time:: 13:20 SPO2 % at rest: 100 Pulse at rest: 68 SPO2 % during excercise: 97 Pulse during excercise: 78 SPO2 % after excercise: 99 Pulse after excercise: 67 Distance in yards walked: 100 [place] Score: 3 Performance Observations:: Patient walked on level ground with one arm assist for balance. Patient walked f or the entire 6 minutes maintaining a O2 saturation of 97% or greater and a pulse of 67-78. Denies shortness of breath. No supplemental oxygen was needed. [address] - 6 Minute Walk Assessment & Plan Assessment & Plan (1) Asthma-COPD overlap syndrome: Code(s): J44.89 - Other specified chronic obstructive pulmonary disease Category: Medical Plan Reviewed PFT which revealed an obstructive ventilatory defect consistent with moderate COPD versus uncontrolled asthma. The patient does have significant small airways disease and had significant response to bronchodilators noted. Lung volumes and diffusing capacity both within normal limits. She has been on low dose Breo, stepdaughter reported notable improvement. Discussed importance of good oral hygiene to prevent thrush. 6MWT performed today and patient does not require supplemental oxygen at this time. Spirometry to be performed in 3-6 months. All questions were answered and patient is in agreement of plan. Will follow up in 3 months or sooner if needed. Orders: Orders AMB 6 minute walk Today J45.909 - Unspecified asthma, uncomplicated Medications: New albuterol sulfate 90 mcg/actuation 2 puffs inhalation Q4-6H PRN 1 ea 0RF shortness of breath or wheezing Changed From fluticasone furoate-vilanterol 50-25 mcg/dose (Breo Ellipta) 1 inh inhalation Q24H 30 days 1 units 0RF To fluticasone furoate-vilanterol 50-25 mcg/dose (Breo Ellipta) 1 inh inhalation ONCE 30 days 60 ea 6RF Coding Level of Care Code Est Pt Level 4 (02959) Diagnoses 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 CPT Codes Coding ([id number])
[2025-02-26 13:11] VITALS: BP 130/72; PULSE 64; O2SAT 98; BMI 19.8
--- OUTSIDE RECORDS SUMMARY | 2025-02-26 13:11 | XMS_ITS | Patient Health Record ---
Author Organization [facility] Address [address] [place] [address] Care Team Providers Care Home Security Alarm Installer Name Role Phone Raiza Kaur MD Primary Care Provider Sherita Her MD, Enriqueta Unavailable [phone] Allergies No Known Allergies Reason For Referral [...] Coverage End Date Medicare B [address] [place] [phone] [id number] Rosalina Trejo Self - patient is the insured [employer] MCR Supplement ([place]) [address] [place] [phone] [id number] Rosalina Trejo Self - patient is the [...]
[2025-02-26 13:37] VITALS: PULSE 68; O2SAT 100
== END 2025-02-26 14:00 | disposition home or self-care (01) ==
LOC: HO.HPSW 12:59
PROVIDERS: PCP Internal Medicine; Visit Provider Nurse Practitioner Family
DX: J44.89 Other specified chronic obstructive pulmonary disease (principal)
CPT/HCPCS: 94618; 99214

== ENCOUNTER → 2025-02-26 12:58 | Outpatient (BNVA) | payer MEDICARE, SELFPAY | PROVIDERS: PCP Internal Medicine; Visit Provider Nurse Practitioner Family | DX: J44.89 Other specified chronic obstructive pulmonary disease (principal) | CPT/HCPCS: 94618; 99212 ==

== ENCOUNTER 2025-03-03 14:44 | Outpatient (REF) | payer MEDICARE, OTHER, SELFPAY ==
--- NOTE | ~2025-03-03 | XR_ITS ---
EXAMINATION: XR CHEST CLINICAL INFORMATION: R05.9 - Cough, unspecified COMPARISON: Chest x-ray 01/15/2025 TECHNIQUE: 2 views of the chest were obtained. FINDINGS: Lungs are well-expanded with patchy bilateral lower lobe opacities suspicious for developing infiltrate /atelectasis. Small pulmonary nodules are not excluded. Heart size and pulmonary vascularity is normal. There is no pleural effusion. There is mild dextroscoliosis mid dorsal spine. XR/XR chest 2V IMPRESSION: Patchy opacities in both lower lobe suspicious for developing infiltrate or atelectasis. Small pulmonary nodules are not excluded. Electronically signed by: Alex Osullivan MD 03/03/2025 04:09 PM EDT
== END 2025-03-03 14:45 | disposition home or self-care (01) ==
LOC: HO.HMGCX 14:44
PROVIDERS: PCP Internal Medicine; Visit Provider Physician Assistant
DX: J22 Unspecified acute lower respiratory infection (principal); R09.89 Other specified symptoms and signs involving the circulatory and respiratory systems; R53.83 Other fatigue
CPT/HCPCS: 71046; 99212

== ENCOUNTER 2025-03-03 14:44 | Outpatient (AMB) | payer MEDICARE, OTHER, SELFPAY ==
--- OUTSIDE RECORDS SUMMARY | 2025-03-03 14:46 | XMS_ITS | Patient Health Record ---
Author Organization [facility] Address [address] [place] [address] Care Team Providers Care House Steward/Stewardess Name Role Phone Raiza Kaur MD Primary Care Provider Sherita Her MD, Enriqueta Unavailable [phone] Allergies No Known Allergies Reason For Referral [...] Coverage End Date Medicare B [address] [place] [phone] [id number] Rosalina Trejo Self - patient is the insured [employer] MCR Supplement ([place]) [address] [place] [phone] [id number] Rosalina Trejo Self - patient is the [...]
[2025-03-03 14:48] VITALS: BP 92/60; PULSE 83; RESP 15; TEMP 36.8; O2SAT 98; BMI 19.6
--- NOTE | 2025-03-03 14:48 | AM.OFFWIN_ITS ---
Intake Vital Signs 03/03/25 14:48 Height 5 ft 2 in Weight 107 lb BMI 19.6 BP 92/60 Blood Pressure Location Lt brachial Position Sitting Respiration 15 Pulse 83 Temp 98.3 F Temp Source Oral Pulse Oximetry (%) 98 Oxygen Delivery Method Room Air Intake Visit Reasons: EP-cough, voice issue, ?uti Intake Note: Pt is here today c/o coughing up phlegm x2 days: unable to obtain urine sample Patient Tobacco Use Status: Former Tobacco user Allergies No Known Allergies Allergy (Verified 03/03/25 15:23) HPI HPI Comments History of Present Illness Details History - The patient is a 79-year-old female pr esenting with her daughter and sister complaining of a cough and fatigue. - Cough with chest congestion began two nights ago, noted to have increased without fever, ear pain, sinus pain or shortness of breath. - The patient has COPD managed with Breo initiated two weeks prior and an as-needed rescue inhaler. Is rinsing mouth s/p use. - Fatigue evident post-rehabilitation [facility]; exacerbated by two recent hospitalizations for UTI and bowel impaction, she then went to rehab and was di scharged a week ago. She was not back to her baseline and has in home aids coming to help her at [place], where she lives. Physical Exam General: Cooperative, healthy appearing, comfortable and no acute distress Orientation/consciousness: Patient oriented x3 Limitations: No limitations Head: Normal to inspection Ears: Hearing grossly normal bilaterally, external ears normal and TM's normal bilaterally Nose: Normal external nose present, Normal nares present and No nasal discharge present Face and sinus: Normal facial exam and Yes sinuses nontender Mouth: Normal oral and palatal mucosa present and moist mucous membranes Throat: Yes tonsils normal, Yes uvula midline. Posterior oropharynx erythema, cobblestone appearance, no exudates Eyes: Appearance normal, both eyes and all related structures Neck: Normal visual inspection Respiratory: dim but Clear to auscultation bilaterally. Normal respiratory effort, able to speak in complete sentences, no respiratory distress, not tachypneic, no tripod positioning and no use of accessory muscles Cardiovascular: Regular rate and rhythm. Normal S1 and S2 Skin: No rashes or lesions noted Neuro: Patient oriented x3 Extremities: Normal to inspection and Yes no clubbing, cyanosis or edema [facility] Medical History Dementia Anxiety Lymphoma Mild cognitive impairment Parkinson's disease without dyskinesia or fluctuating manifestations Parkinson disease Surgical History History of left knee replacement History of left knee surgery History of tonsillectomy Family History Mother Colon cancer Father Lung cancer Sister Breast cancer Social History Housing: Assisted Living Facility Patient Tobacco Use Status: Former Tobacco user e-Cigarette/Vaping Use: Never Used Advance Directives Date on File: 07/15/24 service: No Current occupational status: retired Cognitive needs: No Hearing needs: No Vision needs: Yes Review of Systems Const All systems reviewed & are unremarkable except as noted in HPI and below Physical Exam Vital Signs: Last Vital Signs Temp 98.3 F 03/03/25 14:48 Pulse 83 03/03/25 14:48 Resp 15 03/03/25 14:48 BP 92/60 03/03/25 14:48 Pulse Ox 98 03/03/25 14:48 Oxygen Delivery Method Room Air 03/03/25 14:48 BMI result Body Mass Index 19.6 Assessment & Plan Assessment & Plan (1) Lower respiratory infection (e.g., bronchitis, pneumonia, pneumonitis, pulmonitis): Code(s): J22 - Unspecified acute lower respiratory infection Plan: VSS, pt well appearing and PE unremarkable. - Obtain chest X-ray to rule out pneumonic processes with consideration of recent cough onset and fatigue. - Initiate Evelin D to manage symptoms potentially linked to allergic etiology. - Discuss with patient the pharmacy dispatch for antibiotics if chest X-ray results indicate pneumonia. - Advise continuation of rinsing s/p steroid inhaler with caution for oral thrush, no evidence of oral thrush today. - Keep under observation for evolving symptoms particularly concerning COPD/asthma exacerbations. - Follow up post-X-ray to refine treatments as necessary based on diagnostic outcomes. Patient was informed and verbally consented to the use of an ambient scribe for clinic note documentation during this visit (2) Fatigue: Code(s): R53.83 - Other fatigue Qualifiers: Fatigue type: unspecified Qualified Code(s): R53.83 - Other fatigue Plan: Patient was unable to provide a urine sample in the office so we did send her home with supplies and I did place an order. Her daughter will make sure the urine his done through a clean-catch, she has been given all the supplies. She knows to refrigerated the urine and then return it to the lab once they have a sample. Orders: Orders UA CC w/rflx Micro + Cult Today R53.83 - Other fatigue XR chest 2V Today R05.9 - Cough, unspecified Coding Level of Care Code Est Pt Level 4 (65818) Diagnoses Lower respiratory infection (e.g., bronchitis, pneumonia, pneumonitis, pulmonitis) J22 Fatigue, unspecified type R53.83 Fatigue type: unspecified
== END 2025-03-03 15:46 | disposition home or self-care (01) ==
PROVIDERS: PCP Internal Medicine; Visit Provider Physician Assistant
DX: J22 Unspecified acute lower respiratory infection (principal); R53.83 Other fatigue

== ENCOUNTER → 2025-03-03 15:48 | Outpatient (BNV) | payer MEDICARE, OTHER, SELFPAY | PROVIDERS: PCP Internal Medicine; Visit Provider Radiology Diagnostic Radiology | DX: J98.11 Atelectasis (principal) | CPT/HCPCS: 71046 ==

== ENCOUNTER 2025-03-05 11:47 | Outpatient (AMB) | payer MEDICARE, SELFPAY ==
--- NOTE | 2025-03-05 11:49 | A.OFFPC_ITS ---
Vital Signs 03/05/25 11:50 Height 5 ft 2 in Weight 109 lb BMI 19.9 BP 110/70 Blood Pressure Location Rt brachial Position Sitting Pulse 70 Pulse Source Pulse Oximeter Temp 97.7 F Temp Source Oral Pulse Oximetry (%) 95 Oxygen Delivery Method Room Air Intake Visit Reasons: ER followup constipation Allergies No Known Allergies Allergy (Verified 03/03/25 15:23) Medication List - Last Reconciled 03/05/25 by Camilla Thomason MD albuterol sulfate 90 mcg/actuation 2 puffs inhalation Q4-6H PRN amoxicillin-pot clavulanate 875-125 mg 1 tab PO Q12H [arochamber As directed] atorvastatin 10 mg PO DAILY carbidopa-levodopa 25-100 mg 1 tab PO TID cholecalciferol (vitamin D3) (Vitamin D3) 50 mcg PO DAILY 90 days cyanocobalamin (vitamin B-12) 1,000 mcg PO DAILY 90 days donepezil 5 mg PO BEDTIME doxycycline hyclate 100 mg PO BID escitalopram oxalate 20 mg PO DAILY fluticasone furoate-vilanterol 50-25 mcg/dose (Breo Ellipta) 1 inh inhalation ONCE 30 days levothyroxine 50 mcg PO DAILY multivitamin 1 tab PO DAILY Tobacco use date assessed: 01/06/25 Dental Screening Dental Screen Date: 01/06/25 HPI ER followup constipation HPI Details Patient was evaluated at [facility] Emergency room on 02/17/2025 Presented with chief complaint of confusion And found to have fecal impaction and constipation Workup revealed urinalysis which was positive for leuk esterase however microscopic evaluation did not reveal any significant bacteria CT scan of abdomen showed large amount of stool in the colon and rectum to the point where she had developed inflammation of rectum She was disimpacted with the help of enemas And discharged home with Senokot to be taken 2 tablets every night Patient has a history of dementia which might have contributed to confusion She was given list fruits and vegetable to be taken to avoid constipation along with the exercise and drinking lots of water Currently patient is also seeing neurologist for dementia and Parkinson's And product development specialist for asthma She is taking atorvastatin 10 mg for lipid disorder B12 Lexapro 20 mg through neurology And Breo inhaler which was recently started Patient is on levothyroxine 50 mcg for hypothyroidism Her last set of labs was 02/14/2025 which revealed normal hemoglobin level Her platelet count fluctuate and last count was 149 Electrolytes were within normal limit GFR more than 60 creatinine 0.74 Normal magnesium liver enzymes stable Two days ago patient was evaluated in walk-in clinic and was diagnosed with pneumonia - The patient was treated with Doxycycli ne and Augmentin for bacterial pneumonia, patient's daughter and sister is here today I would recommend to call product development specialist on Saturday for a follow-up appointment on pneumonia meanwhile continue antibiotics Family is having difficulty taking care of the patient at home currently due to ongoing confusion They do have help available and sister is also helping Medical History: - History of bowel obstruction with impa cted stool - Past instances of urinary tract infect ions - History of colitis secondary to bowel impaction - Underlying asthma with treatment respo nse - Recent diagnosis of bacterial pneumoni a - dementia/Parkinson's/confusion Medications: - Doxycycline for bacterial pneumonia - Augmentin for bacterial pneumonia - Senna for constipation management Along with other medications, list reviewed Social History: - The patient lives at home, requiring a n aide for morning care, though rec ommended to have assistance at both morning and night. - There is a concern surrounding mobilit y as the patient is at a notable risk for falls. - The patient?s sister is currently prov iding support at home, but family and aides may not consistently be available. - The patient?s has been resides in the same apartment, causing some logistical challenges to consistent care due to privacy and potential discomfort with outsiders. Diagnostic Results: - Radiographic Imaging: Chest X-ray was performed two days prior to this visit, confirming bacterial pneumonia. Problem List - Cognitive Dysfunction - Impacted Bowel - Bacterial Pneumonia - recurrent Urinary Tract Infection - Colitis - Risk of Falls - Asthma Patient Instructions - Continue the prescribed antibiotics re gimen for at least 10 days. - Maintain use of Senna for bowel manage ment accordingly and adjust dosage based on bowel movements. - Introduce a stool softener if needed. - Hydrate adequately and ensure nutritio nal intake. - Schedule a follow-up appointment with a heat pump installer for pneumonia evaluation. consider Mucinex for congestion if needed. - Monitor for any changes or worsening i n diarrhea and adjust Senna as necessary. - Continue utilizing a pulmonary inhaler as needed. Review of Systems - General: No fever patient is poor historian - Neurological: No headaches dizziness present - Ear nose throat: No sore throat hearing difficulty noticed - Cardiovascular: No syncope, no chest pain - Gastrointestinal: No nausea vomiting or diarrhea Physical Exam General: No acute distress HEENT: No acute findings Neck: Supple, Respiratory system: Able to talk in full sentences, no stridor or audible wheeze Cardiovascular: S1-S2 Gastrointestinal: No pain, dealing with colitis due to impacted bowels Extremities: No new findings COMPRESS TRUCKER: Awake and alert seems to be mildly confused Skin: Normal turgor, had difficulty standing up and getting on examination table [facility] Medical History Dementia Anxiety Lymphoma Mild cognitive impairment Parkinson's disease without dyskinesia or fluctuating manifestations Parkinson disease Surgical History History of left knee replacement History of left knee surgery History of tonsillectomy Family History Mother Colon cancer Father Lung cancer Sister Breast cancer Social History Housing: Assisted Living Facility Patient Tobacco Use Status: Former Tobacco user e-Cigarette/Vaping Use: Never Used Advance Directives Date on File: 07/15/24 service: No Current occupational status: retired Cognitive needs: No Hearing needs: No Vision needs: Yes Questionnaire Thrive Questionnaire Date Thrive assessed: 01/06/25 MARGIE-7 AMB Questionnaire MARGIE-7 Date MARGIE - 7 assessed: 01/06/25 Source: Developed by Drs. Julio C Box, Echo Vega, Harsha James and colleagues, with an educational gunjan from [employer]. Physical exam (Primary Care) Vital Signs: Last Vital Signs Temp 97.7 F 03/05/25 11:50 Pulse 70 03/05/25 11:50 BP 110/70 03/05/25 11:50 Pulse Ox 95 03/05/25 11:50 Oxygen Delivery Method Room Air 03/05/25 11:50 BMI result Body Mass Index 19.9 Tobacco/Smoking Status: Tobacco use Status Tobacco use date assessed 01/06/25 03/05/25 11:51 Patient Tobacco Use Status Former Tobacco user 03/05/25 11:51 e-Cigarette/Vaping Use Never Used 03/05/25 11:51 Thrive Assessment: Date of Thrive Assessment Date Thrive assessed 01/06/25 03/05/25 11:51 Coding Level of Care Code Est Pt Level 5 (24034) Diagnoses Seen in emergency room Z76.89 Impaction, bowel K56.49 Colitis K52.9 Pneumonia of both lower lobes due to infectious organism J18.9 Lung location: lower lobe of lung Pneumonia type: due to unspecified organism Recurrent UTI N39.0 Confusion R41.0 Risk for falls Z91.81 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 Moderate dementia without behavioral disturbance, psychotic disturbance, mood disturbance, or anxiety, unspecified dementia type F03.B0 Dementia behavioral or psychological symptom: without behavioral, psychotic, or mood disturbance or anxiety Dementia severity: moderate Dementia type: unspecified type Time Spent (min) 41 Comment Case discussed with daughter and sister, [id number], reviewing chart, coordination of ca Assessment & Plan Assessment & Plan (1) Seen in emergency room: Code(s): Z76.89 - Persons encountering health services in other specified circumstances Category: Medical (2) Impaction, bowel: Code(s): K56.49 - Other impaction of intestine Category: Medical (3) Colitis: Code(s): K52.9 - Noninfective gastroenteritis and colitis, unspecified Category: Medical (4) Bilateral pneumonia: Code(s): J18.9 - Pneumonia, unspecified organism Category: Medical Qualifiers: Lung location: lower lobe of lung Pneumonia type: due to unspecified organism Qualified Code(s): J18.9 - Pneumonia, unspecified organism (5) Recurrent UTI: Code(s): N39.0 - Urinary tract infection, site not specified Category: Medical (6) Confusion: Code(s): R41.0 - Disorientation, unspecified Category: Medical (7) Risk for falls: Code(s): Z91.81 - History of falling Category: Medical (8) Asthma-COPD overlap syndrome: Code(s): J44.89 - Other specified chronic obstructive pulmonary disease Category: Medical (9) Dementia: Code(s): F03.90 - Unspecified dementia, unspecified severity, without behavioral disturbance, psychotic disturbance, mood disturbance, and anxiety Category: Medical Qualifiers: Dementia behavioral or psychological symptom: without behavioral, psychotic, or mood disturbance or anxiety Dementia severity: moderate Dementia type: unspecified type Qualified Code(s): F03.B0 - Unspecified dementia, moderate, without behavioral disturbance, psychotic disturbance, mood disturbance, and anxiety Plan Patient was evaluated at [facility] Emergency room on 02/17/2025 Presented with chief complaint of confusion And found to have fecal impaction and constipation Workup revealed urinalysis which was positive for leuk esterase however microscopic evaluation did not reveal any significant bacteria CT scan of abdomen showed large amount of stool in the colon and rectum to the point where she had developed inflammation of rectum She was disimpacted with the help of enemas And discharged home with Senokot to be taken 2 tablets every night Patient has a history of dementia which might have contributed to confusion She was given list fruits and vegetable to be taken to avoid constipation along with the exercise and drinking lots of water Currently patient is also seeing neurologist for dementia and Parkinson's And product development specialist for asthma She is taking atorvastatin 10 mg for lipid disorder B12 Lexapro 20 mg through neurology And Breo inhaler which was recently started Patient is on levothyroxine 50 mcg for hypothyroidism Her last set of labs was 02/14/2025 which revealed normal hemoglobin level Her platelet count fluctuate and last count was 149 Electrolytes were within normal limit GFR more than 60 creatinine 0.74 Normal magnesium liver enzymes stable Two days ago patient was evaluated in walk-in clinic and was diagnosed with pneumonia - The patient was treated with Doxycycline and Augmentin for bacterial pneumonia, patient's daughter and sister is here today I would recommend to call product development specialist on Saturday for a follow-up appointment on pneumonia meanwhile continue antibiotics Family is having difficulty taking care of the patient at home currently due to ongoing confusion They do have help available and sister is also helping Medical History: - History of bowel obstruction with impacted stool - Past instances of urinary tract infections - History of colitis secondary to bowel impaction - Underlying asthma with treatment response - Recent diagnosis of bacterial pneumonia - dementia/Parkinson's/confusion Medications: - Doxycycline for bacterial pneumonia - Augmentin for bacterial pneumonia - Senna for constipation management Along with other medications, list reviewed Social History: - The patient lives at home, requiring an aide for morning care, though recommended to have assistance at both morning and night. - There is a concern surrounding mobility as the patient is at a notable risk for falls. - The patient?s sister is currently providing support at home, but family and aides may not consistently be available. - The patient?s has been resides in the same apartment, causing some logistical challenges to consistent care due to privacy and potential discomfort with outsiders. Diagnostic Results: - Radiographic Imaging: Chest X-ray was performed two days prior to this visit, confirming bacterial pneumonia. Problem List - Cognitive Dysfunction - Impacted Bowel - Bacterial Pneumonia - recurrent Urinary Tract Infection - Colitis - Risk of Falls - Asthma Patient Instructions - Continue the prescribed antibiotics regimen for at least 10 days. - Maintain use of Senna for bowel management accordingly and adjust dosage based on bowel movements. - Introduce a stool softener if needed. - Hydrate adequately and ensure nutritional intake. - Schedule a follow-up appointment with a heat pump installer for pneumonia evaluation. consider Mucinex for congestion if needed. - Monitor for any changes or worsening in diarrhea and adjust Senna as necessary. - Continue utilizing a pulmonary inhaler as needed. Medications: New sennosides-docusate sodium 8.6-50 mg (Senokot-S) 1 tab-cap PO BEDTIME 90 tabs 0RF 90 days K59.03 - Drug induced constipation, T40.2X5A - Adverse effect of other opioids, initial encounter
[2025-03-05 11:50] VITALS: BP 110/70; PULSE 70; TEMP 36.5; O2SAT 95; BMI 19.9
--- OUTSIDE RECORDS SUMMARY | 2025-03-05 12:26 | XMS_ITS | Patient Health Record ---
Author Organization [facility] Address [address] [place] [address] Care Team Providers Care Client Coordinator Name Role Phone Natasha PHAM, Raiza Primary Care Provider Sherita Her MD, Enriqueta Unavailable [phone] Allergies No Known Allergies Reason For Referral [...] Problem Status W/U Status Risk Notes Problem Skin changes due to chronic exposure to non-ionizing radiation ([id number]) Chronic actinic damage (L57.8) Active confirmed Plan Of Treatment No Information Insurance Providers Payer Name Payer Address Payer Phone Subscriber Number Group Number Insured Name Patient Relationship to Insured Coverage Start Date Coverage End Date Medicare B [address] [place] [phone] [id number] Rosalina Trejo Self - patient is the insured Cign[employer] MCR Supplement ([place]) [address] [place] [phone] [id number] Rosalina Trejo Self - patient is the insured Medical (General) History Medical History History ICD Code DERM HISTORY diffuse rash over body during the summer SCC R upper arm sup ED&C 12/25/19 BCC R upper arm inf ED&C 12/25/19 L lower leg lat seborrheic keratosis 11/01 SCC R pretibial leg ED&C 07/05/22 SCC nose ED&C 07/05/22 MEDICAL HISTORY denies Mantle cell lymphoma 12/2019 parkinsons 10/2021 neuropathy Surgical History Surgery Date(Month/Year) L knee surgery 08/2015 Hospitalization History Reason Date(Month/Year) pancreatitis 2013
== END 2025-03-05 12:20 | disposition home or self-care (01) ==
LOC: HO.HMCC 11:48
PROVIDERS: PCP Internal Medicine; Visit Provider Internal Medicine
DX: K56.49 Other impaction of intestine (principal); J44.89 Other specified chronic obstructive pulmonary disease; F03.B0 Unspecified dementia, moderate, without behavioral disturbance, psychotic disturbance, mood disturbance, and anxiety; Z76.89 Persons encountering health services in other specified circumstances; K52.9 Noninfective gastroenteritis and colitis, unspecified; N39.0 Urinary tract infection, site not specified; J18.9 Pneumonia, unspecified organism; R41.0 Disorientation, unspecified; Z91.81 History of falling

== ENCOUNTER → 2025-03-05 11:47 | Outpatient (BNVA) | payer MEDICARE, SELFPAY | PROVIDERS: PCP Internal Medicine; Visit Provider Internal Medicine | DX: K56.49 Other impaction of intestine (principal); K52.9 Noninfective gastroenteritis and colitis, unspecified; J18.9 Pneumonia, unspecified organism; N39.0 Urinary tract infection, site not specified; R41.0 Disorientation, unspecified; J44.89 Other specified chronic obstructive pulmonary disease; F03.B0 Unspecified dementia, moderate, without behavioral disturbance, psychotic disturbance, mood disturbance, and anxiety; Z91.81 History of falling; Z76.89 Persons encountering health services in other specified circumstances | CPT/HCPCS: 99212 ==

== ENCOUNTER → 2025-03-09 23:59 | Outpatient (BNV) | payer MEDICARE, SELFPAY | PROVIDERS: PCP Internal Medicine; Visit Provider Internal Medicine | DX: G20.A1 Parkinson's disease without dyskinesia, without mention of fluctuations (principal); E53.8 Deficiency of other specified B group vitamins | CPT/HCPCS: G0180 ==

== ENCOUNTER → 2025-03-11 08:39 | Outpatient (BNVA) | payer MEDICARE, SELFPAY | PROVIDERS: PCP Internal Medicine; Visit Provider Internal Medicine | DX: Z13.89 Encounter for screening for other disorder (principal) ==

== ENCOUNTER 2025-03-19 16:00 | Outpatient (REF) | payer MEDICARE, SELFPAY ==
[2025-03-20 13:58] LABS: Appearance Urine Clear; Color Urine Yellow; Glucose Urine UA Negative (Negative); Leukocyte Esterase Urine Negative (Negative); Nitrite Urine Negative (Negative); PH 6.5 (5.0-9.0); Specific Gravity - Urine <= 1.005 (1.005-1.025); Urine Blood Negative (Negative); Urine Ketones Negative (Negative); Urine Protein Negative (Neg-Trace)
== END 2025-03-19 16:01 | disposition home or self-care (01) ==
LOC: HO.HMGCLNP 16:00
PROVIDERS: PCP Internal Medicine; Visit Provider Internal Medicine
DX: G20.B2 Parkinson's disease with dyskinesia, with fluctuations (principal); F41.1 Generalized anxiety disorder; E78.9 Disorder of lipoprotein metabolism, unspecified; E03.8 Other specified hypothyroidism; E55.9 Vitamin D deficiency, unspecified; G31.84 Mild cognitive impairment of uncertain or unknown etiology
CPT/HCPCS: 81003

== ENCOUNTER 2025-03-22 14:56 | Outpatient (AMB) | payer MEDICARE, SELFPAY ==
[2025-03-22 15:02] VITALS: BP 110/72; PULSE 91; O2SAT 96; BMI 19.2
--- NOTE | 2025-03-22 15:02 | A.OFFVIS_ITS ---
Vital Signs 03/22/25 15:02 Height 5 ft 2 in Weight 105 lb BMI 19.2 BP 110/72 Blood Pressure Location Rt brachial Position Sitting Pulse 91 Pulse Source Pulse Oximeter Pulse Oximetry (%) 96 Oxygen Delivery Method Room Air Intake Visit Reasons: Follow up Intake Note: Patient presents for follow up parkinson's Allergies No Known Allergies Allergy (Verified 03/22/25 15:05) Medication List - Last Reconciled 03/22/25 by Laura Delgado MD albuterol sulfate 90 mcg/actuation 2 puffs inhalation Q4-6H PRN amoxicillin-pot clavulanate 875-125 mg 1 tab PO Q12H [arochamber As directed] atorvastatin 10 mg PO DAILY carbidopa-levodopa 25-100 mg 1 tab PO TID cholecalciferol (vitamin D3) (Vitamin D3) 50 mcg PO DAILY 90 days cyanocobalamin (vitamin B-12) 1,000 mcg PO DAILY 90 days donepezil 5 mg PO BEDTIME escitalopram oxalate 20 mg PO DAILY fluticasone furoate-vilanterol 50-25 mcg/dose (Breo Ellipta) 1 inh inhalation ONCE 30 days levothyroxine 50 mcg PO DAILY multivitamin 1 tab PO DAILY sennosides-docusate sodium 8.6-50 mg (Senokot-S) 1 tab-cap PO BEDTIME 90 days HPI Comments Details: 80y/o Left handed female with h/o Parkinsons Disease, word finding difficulty, cognitive impairment and comes for follow up.she feels she is worse. Her mood is worse- has an appointment with psychiatrist tomorrow. she had an episode on bowel impaction, UTI and Pneumonia since her last which had worsened her dementia and anxiety. she is getting home care now. she was seen by Geriatrics at [facility] who diagnosed her with moderate parkinsons dementia vs DLBD. she denies hallucinations. she is very anxious especially in the later part of the day. she is reporting vivid dreams especially about her father and wakes up confused . Her first symptom was tremors in her left hand and later in bilateral hands. she was living in [place] at that time and was diagnosed with Parkinsons disease.she goes to a support group at [place] . She also reports memory issues - usually short term she also has lot of word finding difficulties. Neuropsych eval in November 2022 was c/ Mild cognitive impairment. She is on donepezil 5mg . Sleep- 1-2 episodes where she thought someone was in the room when she woke up. Mood- anxiety and mild depression Motivation-OK SPeech- softer. No drooling Handwriting- smaller and difficult Using utensils-slower Dressing-slower Showering- slower No difficulty turning in bed Gait- slower She had 1 near fall - she lives at [facility] living she has constipation- better with change in diet No dizziness . No vertigo PFSH Medical History Dementia Anxiety Lymphoma Mild cognitive impairment Parkinson's disease without dyskinesia or fluctuating manifestations Parkinson disease Surgical History History of left knee replacement History of left knee surgery History of tonsillectomy Family History Mother Colon cancer Father Lung cancer Sister Breast cancer Social History Housing: Assisted Living Facility Patient Tobacco Use Status: Former Tobacco user e-Cigarette/Vaping Use: Never Used Advance Directives Date on File: 07/15/24 service: No Current occupational status: retired Cognitive needs: No Hearing needs: No Vision needs: Yes Physical Exam Vital Signs: Last Vital Signs Pulse 91 03/22/25 15:02 BP 110/72 03/22/25 15:02 Pulse Ox 96 03/22/25 15:02 Oxygen Delivery Method Room Air 03/22/25 15:02 BMI result Body Mass Index 19.2 Const General: cooperative, healthy appearing, comfortable and no acute distress Nutritional Appearance: average body habitus Orientation/consciousness: patient oriented x3 Eyes Pupils: Equal, round and reactive pupils present Neck Neck: Yes no meningeal signs Neuro Other: Mildly decreased facial expression and blink fred rest tremors L>R Mild postural tremors Left Upper extremity No cog wheel rigidty Fred bradykinesia L>R FFM and foot taps moderately decreased Moderate hypophonia, word finding difficulties gait- no arm swing, slow stooped General: patient oriented x3, moves all extremities and no meningeal signs Cranial nerves: Yes Facial sensation intact/muscles of mastication intact, Yes Equal, round and reactive pupils present, Yes Bilaterally intact EOM present, Yes Nystagmus not present, Yes Normal facial strength present and Yes Midline tongue present Cognition (Neuro): normal cognition Assessment & Plan Assessment & Plan (1) Parkinson's disease without dyskinesia or fluctuating manifestations: Code(s): G20.A1 - Parkinson's disease without dyskinesia, without mention of fluctuations Category: Medical (2) Dementia: Code(s): F03.90 - Unspecified dementia, unspecified severity, without behavioral disturbance, psychotic disturbance, mood disturbance, and anxiety Category: Medical Qualifiers: Dementia type: unspecified type Dementia severity: moderate Dementia behavioral or psychological symptom: without behavioral, psychotic, or mood disturbance or anxiety Qualified Code(s): F03.B0 - Unspecified dementia, moderate, without behavioral disturbance, psychotic disturbance, mood disturbance, and anxiety Plan Continue carbidopa/levodopa 25/100 tid lexapro 20mg qd donepezil 5mg qd( did not tolerate 10mg) F/u with Dr. Hernandez Continue exercise Psychiatric eval- patient has sundowning and vivid dreams Coding Level of Care Code Est Pt Level 4 (27614) Complex EM visit Add On G2211 Diagnoses Parkinson's disease without dyskinesia or fluctuating manifestations G20.A1 Moderate dementia without behavioral disturbance, psychotic disturbance, mood disturbance, or anxiety, unspecified dementia type F03.B0 Dementia type: unspecified type Dementia severity: moderate Dementia behavioral or psychological symptom: without behavioral, psychotic, or mood disturbance or anxiety
--- OUTSIDE RECORDS SUMMARY | 2025-03-22 16:29 | XMS_ITS | Patient Health Record ---
Author Organization [facility] Address [address] [place] [address] Care Team Providers Care Livestock Dealer Name Role Phone Natasha PHAM, Raiza Primary Care Provider Sherita Her MD, Enriqueta Unavailable [phone] Allergies No Known Allergies Reason For Referral [...] due to chronic exposure to non-ionizing radiation ([id number]) Chronic actinic damage (L57.8) Active confirmed Plan Of Treatment No Information Insurance Providers Payer Name Payer Address Payer Phone Subscriber Number Group Number Insured Name Patient Relationship to Insured Coverage Start Date Coverage End Date Medicare B [address] [place] [phone] [id number] Rosalina Trejo Self - patient is the insured [employer] MCR Supplement ([place]) [address] [place] [phone] [id number] Rosalina Trejo Self - patient is the [...]
== END 2025-03-22 15:49 | disposition home or self-care (01) ==
LOC: HO.HSMS 14:57
PROVIDERS: PCP Internal Medicine; Visit Provider Psychiatry & Neurology Neurology
DX: G20.A1 Parkinson's disease without dyskinesia, without mention of fluctuations (principal); F03.B0 Unspecified dementia, moderate, without behavioral disturbance, psychotic disturbance, mood disturbance, and anxiety
CPT/HCPCS: 99214; G2211

== ENCOUNTER → 2025-03-22 14:56 | Outpatient (BNVA) | payer MEDICARE, SELFPAY | PROVIDERS: PCP Internal Medicine; Visit Provider Psychiatry & Neurology Neurology | DX: G20.A1 Parkinson's disease without dyskinesia, without mention of fluctuations (principal); F03.B0 Unspecified dementia, moderate, without behavioral disturbance, psychotic disturbance, mood disturbance, and anxiety | CPT/HCPCS: 99212 ==

== ENCOUNTER 2025-03-25 08:41 | Outpatient (AMB) | payer MEDICARE, SELFPAY ==
--- OUTSIDE RECORDS SUMMARY | 2025-03-25 09:12 | XMS_ITS | Patient Health Record ---
Author Organization [facility] Address [address] [place] [address] Care Team Providers Care Jacquard Loom Weaver Name Role Phone Raiza Kaur MD Primary Care Provider Sherita Her MD, Enriqueta Unavailable [phone] Allergies No Known Allergies Reason For Referral No Information Medications Medication SIG (Take, Route, Frequency, Duration) Notes Start Date End Date Status Carbidopa-Levodopa A ctive Fluorouracil 5 % 1 application to aff ected area Externally Twice a day to entire affected area; Duration: 2 weeks Active Atorvastatin Calcium Active Sunscreens [...] Medicare B [address] [place] [phone] [id number] Rosalina Trejo Self - patient is the insured C[employer] MCR Supplement ([place]) [address] [place] [phone] [id number] Rosalina Trejo Self - patient is the [...]
--- NOTE | 2025-03-25 09:37 | A.OFFPC_ITS ---
Intake Visit Reasons: Telehealth visit 1 week f/up Allergies No Known Allergies Allergy (Verified 03/22/25 15:05) Medication List - Last Reconciled 03/25/25 by Camilla Thomason MD albuterol sulfate 90 mcg/actuation 2 puffs inhalation Q4-6H PRN amoxicillin-pot clavulanate 875-125 mg 1 tab PO Q12H [arochamber As directed] atorvastatin 10 mg PO DAILY carbidopa-levodopa 25-100 mg 1 tab PO TID cholecalciferol (vitamin D3) (Vitamin D3) 50 mcg PO DAILY 90 days cyanocobalamin (vitamin B-12) 1,000 mcg PO DAILY 90 days donepezil 5 mg PO BEDTIME escitalopram oxalate 20 mg PO DAILY fluticasone furoate-vilanterol 50-25 mcg/dose (Breo Ellipta) 1 inh inhalation ONCE 30 days levothyroxine 50 mcg PO DAILY multivitamin 1 tab PO DAILY sennosides-docusate sodium 8.6-50 mg (Senokot-S) 1 tab-cap PO BID 90 days Tobacco use date assessed: 01/06/25 Dental Screening Dental Screen Date: 01/06/25 HPI Telehealth visit 1 week f/up HPI Details History - The patient is a 80-year-old female pr esenting with constipation and dementia- related symptoms. - Dementia: The patient has a history of dementia, which has been progressively worsening, with current symptoms including significant cognitive decline and sundowning. - Constipation: The patient has been exp eriencing constipation, with bowel movements occurring every five to seven days, requiring the use of Senna and stool softeners. - Interventions for constipation have in cluded adjusting the dosage of Senna and adding a stool softener, with recent changes leading to improved bowel movements. - Anxiety: The patient has been experien cing increased anxiety, for which a new medication regimen is started by Psychiatrist Dr Hernandez to complement her current Lexapro prescription. Problem List - Dementia - Constipation - Anxiety - Sundowning Patient Instructions - Continue taking Senna as prescribed, a djusting the dose as needed to ensure regular bowel movements every other day. - Monitor for signs of constipation and adjust Senna dosage accordingly, using [id number] options if necessary. - Take Metamucil with a full glass of wa ter to aid in bowel movements. - Contact the physician if bowel movemen ts do not occur after adjusting Senna dosage for three to four days. - Follow up with the neurologist and psy chiatrist as planned for ongoing management of dementia and anxiety. Review of Systems - General: No fever no chills - Neurological: No headaches no dizziness - Ear nose throat: No sore throat no hearing difficulty no ear pain - Cardiovascular: No syncope, no chest pain, no palpitations - Gastrointestinal: No nausea vomiting or diarrhea PFSH Medical History Dementia Anxiety Lymphoma Mild cognitive impairment Parkinson's disease without dyskinesia or fluctuating manifestations Parkinson disease Surgical History History of left knee replacement History of left knee surgery History of tonsillectomy Family History Mother Colon cancer Father Lung cancer Sister Breast cancer Social History Housing: Assisted Living Facility Patient Tobacco Use Status: Former Tobacco user e-Cigarette/Vaping Use: Never Used Advance Directives Date on File: 07/15/24 service: No Current occupational status: retired Cognitive needs: No Hearing needs: No Vision needs: Yes Questionnaire Thrive Questionnaire Date Thrive assessed: 01/06/25 MARGIE-7 AMB Questionnaire MARGEI-7 Date MARGIE - 7 assessed: 01/06/25 Source: Developed by Drs. Julio C Box, Echo Vega, Harsha James and colleagues, with an educational gunjan from [employer]. Physical exam (Primary Care) Tobacco/Smoking Status: Tobacco use Status Tobacco use date assessed 01/06/25 03/25/25 09:37 Patient Tobacco Use Status Former Tobacco user 03/25/25 09:37 e-Cigarette/Vaping Use Never Used 03/25/25 09:37 Thrive Assessment: Date of Thrive Assessment Date Thrive assessed 01/06/25 03/25/25 09:37 Telehealth Telehealth Telehealth Platform: [facility] Location of provider rendering services: practice address Location of patient: address on file Patient Identification confirmed using: Name, : Yes Telehealth method: video Patient verbally consented to treatment: Yes Patient verbally consented to billing insurance company: Yes Patient informed of any privacy concerns related to visit: Yes Minutes spent on Phone/Video with Pt.: 30 Coding Level of Care Code Tele Est Pt Level 4 (92121) Diagnoses Confusion R41.0 Moderate dementia without behavioral disturbance, psychotic disturbance, mood disturbance, or anxiety, unspecified dementia type F03.B0 Dementia type: unspecified type Dementia severity: moderate Dementia behavioral or psychological symptom: without behavioral, psychotic, or mood disturbance or anxiety Constipation by delayed colonic transit K59.01 Anxiety, generalized F41.1 SunDown syndrome F05 Assessment & Plan Assessment & Plan (1) Confusion: Code(s): R41.0 - Disorientation, unspecified Category: Medical (2) Dementia: Code(s): F03.90 - Unspecified dementia, unspecified severity, without behavioral disturbance, psychotic disturbance, mood disturbance, and anxiety Category: Medical Qualifiers: Dementia type: unspecified type Dementia severity: moderate Dementia behavioral or psychological symptom: without behavioral, psychotic, or mood disturbance or anxiety Qualified Code(s): F03.B0 - Unspecified dementia, moderate, without behavioral disturbance, psychotic disturbance, mood disturbance, and anxiety (3) Constipation by delayed colonic transit: Code(s): K59.01 - Slow transit constipation Category: Medical (4) Anxiety, generalized: Code(s): F41.1 - Generalized anxiety disorder Category: Medical (5) 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 - Dementia: The patient has a history of dementia, which has been progressively worsening, with current symptoms including significant cognitive decline and sundowning. - Constipation: The patient has been experiencing constipation, with bowel movements occurring every five to seven days, requiring the use of Senna and stool softeners. - Interventions for constipation have included adjusting the dosage of Senna and adding a stool softener, with recent changes leading to improved bowel movements. - Anxiety: The patient has been experiencing increased anxiety, for which a new medication regimen is started by Psychiatrist Dr Hernandez to complement her current Lexapro prescription. Problem List - Dementia - Constipation - Anxiety - Sundowning Patient Instructions - Continue taking Senna as prescribed, adjusting the dose as needed to ensure regular bowel movements every other day. - Monitor for signs of constipation and adjust Senna dosage accordingly, using [id number] options if necessary. - Take Metamucil with a full glass of water to aid in bowel movements. - Contact the physician if bowel movements do not occur after adjusting Senna dosage for three to four days. - Follow up with the neurologist and psychiatrist as planned for ongoing management of dementia and anxiety. Neurology visit is recent this month, notes reviewed Review of Systems - General: No fever no chills - Neurological: No headaches no dizziness - Ear nose throat: No sore throat no hearing difficulty no ear pain - Cardiovascular: No syncope, no chest pain, no palpitations - Gastrointestinal: No nausea vomiting or diarrhea Medications: Changed From sennosides-docusate sodium 8.6-50 mg (Senokot-S) 1 tab-cap PO BEDTIME 90 days 90 tabs 0RF K59.03 - Drug induced constipation, T40.2X5A - Adverse effect of other opioids, initial encounter To sennosides-docusate sodium 8.6-50 mg (Senokot-S) 1 tab-cap PO BID 180 tabs 0RF 90 days K59.03 - Drug induced constipation, T40.2X5A - Adverse effect of other opioids, initial encounter
== END 2025-03-25 09:46 | disposition home or self-care (01) ==
LOC: HO.HMCC 08:41
PROVIDERS: PCP Internal Medicine; Visit Provider Internal Medicine
DX: R41.0 Disorientation, unspecified (principal); F03.B0 Unspecified dementia, moderate, without behavioral disturbance, psychotic disturbance, mood disturbance, and anxiety; K59.01 Slow transit constipation; F41.1 Generalized anxiety disorder; F05 Delirium due to known physiological condition

== ENCOUNTER → 2025-03-25 08:41 | Outpatient (BNVA) | payer MEDICARE, SELFPAY | PROVIDERS: PCP Internal Medicine; Visit Provider Internal Medicine | DX: Z13.89 Encounter for screening for other disorder (principal) ==

== ENCOUNTER 2025-03-25 10:44 | Observation (INO) | payer MEDICARE, SELFPAY ==
[2025-03-25] VITALS (11 sets, daily range): BP systolic 102–162; BP diastolic 50–94; PULSE 60–115; RESP 16–18; TEMP 36.3–37.7; O2SAT 89–98; BMI 18.3; BMI 18.7
--- NOTE | ~2025-03-25 | XR_ITS ---
EXAMINATION: XR CHEST CLINICAL INFORMATION: Syncope COMPARISON: March 03, 2025 TECHNIQUE: Frontal view of the chest was obtained. FINDINGS: Medial right basilar opacity has improved since the prior study. Lungs are clear. Heart size is within normal limits. XR/XR chest 1V IMPRESSION: Improved right basilar airspace opacity. Electronically signed by: Josse Panda MD 03/25/2025 01:59 PM EDT
--- NOTE | 2025-03-25 10:58 | ECG_ITS ---
Test Reason : syncope Blood Pressure : */* mmHG Vent. Rate : 65 BPM Atrial Rate : 65 BPM P-R Int : 148 ms QRS Dur : 92 ms QT Int : 436 ms P-R-T Axes : 79 64 72 degrees QTcB Int : 453 ms Normal sinus rhythm Possible Left atrial enlargement Borderline ECG When compared with ECG of 15-Jan-2025 17:42, No significant change was found Referred By: Camelia Pedro Electronically Signed By: DEVONTE BARILLAS
--- NOTE | 2025-03-25 11:07 | ED_ITS ---
HPI - Altered Mental Status General Chief Complaint: Altered Mental Status Stated Complaint: unresponsive /AMS Time Seen by Provider: 03/25/25 10:56 Source: patient, EMS and old records reviewed Mode of arrival: EMS Limitations: physical limitation ( Dementia) History of Present Illness ED Provider: DR. Pedro HPI narrative: 80-year-old female PMH significant for asthma/ COPD overlap syndrome, former 15 pack-year smoker, dementia with sundowning syndrome, baseline confusion, recurrent UTI, pneumonia, constipation, patient was brought in by EMS for evaluation after having syncopal episode witnessed by family. patient had breakfast then became unresponsive family called 911 on EMS initial evaluation patient was hypotensive patient was given 500 cc of normal saline was administrated by EMS with improvement of patient unresponsiveness and hypotension. On arrival blood pressure was within normal, patient is awake, patient is a poor historian likely secondary to dementia. 13:00 family now at bedside given more history, patient ate small amount of breakfast then became pale while she was sitting on the table with the help of family patient was moved to the couch then patient immediately started to become unresponsive for 5-10 minutes and looked very pale then improved after EMS gave her 500 cc of normal saline. As per family patient had recent UTI and recent pneumonia that was treated with antibiotic. Related Data Home Medications ?Medication ?Instructions ?Recorded ?Confirmed multivitamin 1 tab PO DAILY 12/24/2403/01 Previous Rx's ?Medication ?Instructions ?Recorded cholecalciferol (vitamin D3) 50 50 mcg PO DAILY 90 day s #90 caps 11/25/24 mcg (2,000 unit) capsule (Vitamin D3) cyanocobalamin (vitamin B-12) 1,000 mcg PO DAILY 90 da ys #90 tabs 01/09/25 1,000 mcg tablet levothyroxine 50 mcg tablet 50 mcg PO DAILY #90 tabs 0 01/10/25 arochamber #1 ea 02/09/25 albuterol sulfate 90 mcg/actuation 2 puff inhalation Q 4-6H PRN 02/26/25 aerosol inhaler shortness of breath or wheez ing #1 ea fluticasone furoate 50 1 inh inhalation ONCE 30 day s #60 02/26/25 mcg-vilanterol 25 mcg/dose ea inhalation powder (Breo Ellipta) atorvastatin 10 mg tablet 10 mg PO DAILY #90 tabs 02/21 carbidopa 25 mg-levodopa 100 mg 1 tab PO TID #90 tabs 03/04/25 tablet donepezil 5 mg tablet 5 mg PO BEDTIME #30 tabs 02/21 escitalopram oxalate 20 mg tablet 20 mg PO DAILY #30 t abs 03/04/25 sennosides 8.6 mg-docusate sodium 1 tab-cap PO BID 90 days #180 tabs 03/25/25 50 mg tablet (Senokot-S) Allergies Allergy/AdvReac Type Severity Reaction Status Date / Time No Known Allergies Allergy Verified 03/25/25 10:55 Review of Systems 2 Review of Systems: All other systems are reviewed and are negative Constitutional: Reports as per HPI and Reports no additional constitutional complaints Eyes: Reports as per HPI and Reports no additional eye complaints Reports system reviewed and no additional complaints, except as documented Cardiovascular: Reports as per HPI and Reports no additional cardiovascular complaints Respiratory: Reports as per HPI and Reports no additional respiratory complaints Gastrointestinal: Reports as per HPI and Reports no additional gastrointestinal complaints Genitourinary: Reports no additional female genitourinary complaints Musculoskeletal: Reports no additional musculoskeletal complaints Skin/Breast: Reports system reviewed and no additional complaints, except as docu Psychiatric: Reports no additional psychiatric complaints Endocrine: Reports no additional endocrine complaints Hematologic/Lymphatic: Reports no additional hematologic/lymphatic complaints Allergic/Immunologic: Reports no additional allergic/immunologic complaints Reports system reviewed and no additional complaints, except as documented and Reports Abnormal speech present [facility] Past Medical History Medical History Dementia Anxiety Lymphoma Mild cognitive impairment Parkinson's disease without dyskinesia or fluctuating manifestations Parkinson disease Surgical History History of left knee replacement History of left knee surgery History of tonsillectomy Family History Family History Mother Colon cancer Father Lung cancer Sister Breast cancer Social History Social History Housing: Assisted Living Facility Unable to assess alcohol history related to: Unknown Patient Tobacco Use Status: Former Tobacco user Smoked in Last 30 Days: No e-Cigarette/Vaping Use: Never Used Use of substances other than those prescribed or required for medical reasons: Unknown Advance Directives: Yes Advance Directives on File: Yes Advance Directives Date on File: 07/15/24 service: No Current occupational status: retired Cognitive needs: No Hearing needs: No Vision needs: Yes Physical Exam ED Vital Signs: Vital Signs - 24 hr 03/25/25 10:54 03/25/25 12:24 03/25/25 14:20 Temperature 98 F 98.6 F Pulse Rate 66 69 71 Respiratory Rate 18 18 17 Blood Pressure 118/50 L 117/63 148/75 H Pulse Oximetry 94 95 96 Oxygen Delivery Method Room Air Room Air Room Air BMI result Body Mass Index 18.3 Vital signs have been reviewed and appear to be correct. Blood pressure elevated. Heart rate normal. Respiratory rate normal. Temperature normal. Oxygen saturation normal. Appearance: Alert. Awake, disoriented x3. No acute distress. Head: Normal external exam. Normocephalic. Atraumatic. No Soriano signs noted. No raccoon eyes noted Eyes: PERRLA. EOMI. Conjunctiva and sclera normal. Eyelids normal. ENT: TM's Normal. Pharynx normal. Uvula midline. Moist mucous membranes. No trismus noted. No drooling noted. No muffled voice noted. Neck: Normal inspection. Neck supple. FROM. No adenopathy. Thyroid Normal. No meningeal signs. No neck mass noted. CVS: Normal heart rate and rhythm. Heart sound normal. No murmurs noted. Pulses normal throughout. Respiratory: No respiratory distress. Painless inspiration. Breath sounds normal. No wheezes/rales/rhonchi noted. Chest nontender. No accessory muscle usage noted or decreased air movement noted. Abdomen: Soft and nontender. Bowel sounds normal in all 4 quadrants. No distention noted. No organomegaly noted. No visible injury noted. Back: No CVA tenderness. Full range of motion noted. Skin: Skin warm and dry. Normal skin color. Normal skin turgor. No rashes/lesions/lacerations noted. Extremities: No lower extremity edema. Extremities exhibit normal range of motion. Extremities nontender. Neuro: Cranial nerve exam: II-XII are grossly intact No motor deficit. No sensory deficit. Reflexes normal. NIH Stroke Scale Time: 11:18 Level of Consciousness: Alert Level of Consciousness Questions: Answers both questions correctly Level of Consciousness Commands: Performs both tasks correctly Best Gaze: Normal Visual: No visual loss Facial Palsy: Normal Motor Arm (Right): No drift Motor Arm (Left): No drift Motor Leg (Right): No drift Motor Leg (Left): No drift Limb Ataxia: Absent Sensory: Normal Best Language: No aphasia Dysarthia: Normal Extinction and Inattention: No abnormality Score: 0 Course Reevaluation(s) Reevaluation #1: episode of unresponsiveness with hypotension improved after was given half a L of normal saline, no sepsis is anticipated with clean urine and improved of chest x-ray and patient regaining her consciousness after IV fluids. Patient will need to be admitted for observation. Time: 14:53 Medical Decision Making Differential Diagnosis Differential Diagnoses: The differential diagnosis associated with the presentation includes ( ACS, pneumonia, pneumothorax, pleural effusion, UTI, anemia, electrolyte derangement, dehydration, ERIC.) Admission/Observation Consideration of admission/observation: Escalation of care including admission/observation considered Consult Healthcare Provider Management of the patient was discussed with: Hospitalist ( Dr. Jordan) Lab Data MDM Lab Attestation statement: I reviewed the patient's lab results. 03/25/25 11:56 03/25/25 11:51 Labs: Lab Results 03/25/25 03/25/25 03/25/25 Range/Units 10:55 11:51 11:56 WBC 8.9 (4.8-10.8) X10*3/uL RBC 4.00 L (4.20-5.50) X10*6/uL Hgb 12.2 (12.0-16.0) g/dl Hct 36.4 L (37.0-47.0) % MCV 91.0 (80.0-98.0) fL MCH 30.5 (27.0-33.0) pg MCHC 33.5 (31.0-35.0) g/dl RDW 13.8 (11.0-16.0) % Plt Count 159 L (160-400) X10*3/uL MPV 10.1 (9.4-12.3) fL Immature Gran % (Auto) 0.6 H (0.0-0.4) % Neut % (Auto) 85.7 H (45-73) % Lymph % (Auto) 6.5 L (20-40) % [place] % (Auto) 6.1 (2-11) % Eos % (Auto) 0.8 (0-4) % Baso % (Auto) 0.3 (0-2) % Lymph # (Auto) 0.6 L (1.2-4.9) X10*3/uL [place] # (Auto) 0.5 (0.1-1.2) X10*3/uL Eos # (Auto) 0.1 (0.0-0.4) X10*3/uL Baso # (Auto) 0.0 (0.0-0.2) X10*3/uL Abs Immat Gran (auto) 0.05 H (0.00-0.03) X10*3/uL Absolute Neuts (auto) 7.7 (2.0-8.3) x10*3/uL Absolute Nucleated RBC 0.000 (0.0-0.012) X10*3/uL Nucleated RBC % (auto) 0.0 (0.0-0.2) /100WBC Smear Tech's Comments VERIFIED PT 12.9 H (10.9-12.4) SEC INR 1.1 (0.9-1.1) Sodium 142 (135-145) mmol/L Potassium 3.3 (3.3-5.1) mmol/L Chloride 104 (96-108) mmol/L Carbon Dioxide 30 H (22-29) mmol/L Anion Gap 11 L (12-20) BUN 11 (9-16) mg/dL Creatinine 0.82 (0.5-1.4) mg/dL Estim Creat Clear Calc 44.5 Estimated GFR > 60 POC Glucose 121 H (60-115) mg/dL Random Glucose 135 H (60-115) mg/dL Lactic Acid 1.4 (0.5-2.0) mmol/L Calcium 8.8 D (8.4-10.2) mg/dL Total Bilirubin 0.6 (0.0-1.0) mg/dL Direct Bilirubin 0.2 (0.0-0.5) mg/dL AST 20 (5-31) U/L ALT < 6 (0-31) U/L Alkaline Phosphatase 53 (39-117) U/L Troponin I High Sens < 2.7 D (<3.5-17.0) ng/L B-Natriuretic Peptide 138 H (<100) pg/mL Total Protein 5.7 L (6.5-8.0) g/dL Albumin 3.8 (3.5-5.0) g/dL Lipase 15 (8-78) U/L Urine Color Urine Appearance Urine pH (5.0-9.0) Ur Specific [place] (1.005-1.025) Urine Protein (Neg-Trace) mg/dL Urine Glucose (UA) (Negative) mg/dL Urine Ketones (Negative) mg/dL Urine Blood (Negative) Urine Nitrite (Negative) Ur Leukocyte Esterase (Negative) 03/25/25 Range/Units 12:06 WBC (4.8-10.8) X10*3/uL RBC (4.20-5.50) X10*6/uL Hgb (12.0-16.0) g/dl Hct (37.0-47.0) % MCV (80.0-98.0) fL MCH (27.0-33.0) pg MCHC (31.0-35.0) g/dl RDW (11.0-16.0) % Plt Count (160-400) X10*3/uL MPV (9.4-12.3) fL Immature Gran % (Auto) (0.0-0.4) % Neut % (Auto) (45-73) % Lymph % (Auto) (20-40) % [place] % (Auto) (2-11) % Eos % (Auto) (0-4) % Baso % (Auto) (0-2) % Lymph # (Auto) (1.2-4.9) X10*3/uL [place] # (Auto) (0.1-1.2) X10*3/uL Eos # (Auto) (0.0-0.4) X10*3/uL Baso # (Auto) (0.0-0.2) X10*3/uL Abs Immat Gran (auto) (0.00-0.03) X10*3/uL Absolute Neuts (auto) (2.0-8.3) x10*3/uL Absolute Nucleated RBC (0.0-0.012) X10*3/uL Nucleated RBC % (auto) (0.0-0.2) /100WBC Smear Tech's Comments PT (10.9-12.4) SEC INR (0.9-1.1) Sodium (135-145) mmol/L Potassium (3.3-5.1) mmol/L Chloride (96-108) mmol/L Carbon Dioxide (22-29) mmol/L Anion Gap (12-20) BUN (9-16) mg/dL Creatinine (0.5-1.4) mg/dL Estim Creat Clear Calc Estimated GFR POC Glucose (60-115) mg/dL Random Glucose (60-115) mg/dL Lactic Acid (0.5-2.0) mmol/L Calcium (8.4-10.2) mg/dL Total Bilirubin (0.0-1.0) mg/dL Direct Bilirubin (0.0-0.5) mg/dL AST (5-31) U/L ALT (0-31) U/L Alkaline Phosphatase (39-117) U/L Troponin I High Sens (<3.5-17.0) ng/L B-Natriuretic Peptide (<100) pg/mL Total Protein (6.5-8.0) g/dL Albumin (3.5-5.0) g/dL Lipase (8-78) U/L Urine Color Yellow Urine Appearance Clear Urine pH 7.5 (5.0-9.0) Ur Specific [place] 1.015 (1.005-1.025) Urine Protein Negative (Neg-Trace) mg/dL Urine Glucose (UA) Negative (Negative) mg/dL Urine Ketones Trace (Negative) mg/dL Urine Blood Negative (Negative) Urine Nitrite Negative (Negative) Ur Leukocyte Esterase Negative (Negative) Independent Interpretation I performed an independent interpretation of an: Plain X-Ray ( chest: Improved right basilar airspace opacity.) Radiology Impression Discussion of test interpretation with radiology: I have reviewed the radiologist's reading. Discharge Plan Discharge Clinical Impression: Episode of unresponsiveness, Syncope, Hypotension Patient Disposition: Admitted As Inpatient Print Language: Palauan
[2025-03-25 12:05] LABS: Basophils Percent Auto 0.3 % (0-2); Eosinophils Absolute Auto 0.1 X10*3/uL (0.0-0.4); Eosinophils Percent Auto 0.8 % (0-4); Hematocrit 36.4 % (37.0-47.0); Hemoglobin 12.2 g/dl (12.0-16.0); Imm Gran Abs Auto 0.05 X10*3/uL (0.00-0.03); Imm Gran Pct Auto 0.6 % (0.0-0.4); Lymphocytes Absolute Auto 0.6 X10*3/uL (1.2-4.9); Lymphocytes Percent Auto 6.5 % (20-40); MANUAL DIFF FLAG SCAN; Mean Corpuscular HGB Conc 33.5 g/dl (31.0-35.0); Mean Corpuscular Hemoglobin 30.5 pg (27.0-33.0); Monocytes Absolute Auto 0.5 X10*3/uL (0.1-1.2); Monocytes Percent Auto 6.1 % (2-11); Neutrophils Absolute Auto 7.7 x10*3/uL (2.0-8.3); Neutrophils Percent Auto 85.7 % (45-73); PLT CLUMP 1; Red Cell Distribution Width 13.8 % (11.0-16.0); SCAN SMEAR FLAG 1
[2025-03-25 12:09] LABS: INTERNATIONAL NORM RATIO 1.1 (0.9-1.1); Prothrombin Time 12.9 SEC (10.9-12.4)
[2025-03-25 12:19] LABS: Alanine Aminotransferase < 6 U/L (0-31); Albumin Level 3.8 g/dL (3.5-5.0); Alkaline Phosphatase 53 U/L (39-117); Anion Gap 11 (12-20); Aspartate Amino Transferase 20 U/L (5-31); Bilirubin Direct 0.2 mg/dL (0.0-0.5); Bilirubin Total 0.6 mg/dL (0.0-1.0); Blood Urea Nitrogen 11 mg/dL (9-16); Calcium 8.8 mg/dL (8.4-10.2); Carbon Dioxide 30 mmol/L (22-29); Chloride 104 mmol/L (96-108); Creatinine Clr Calc Pharmacy 44.5; Estimated Glomerular Filt Rate > 60; Glucose Random 135 mg/dL (60-115); Lactic Acid 1.4 mmol/L (0.5-2.0); Lipase 15 U/L (8-78); Potassium 3.3 mmol/L (3.3-5.1); Sodium 142 mmol/L (135-145); Total Protein 5.7 g/dL (6.5-8.0)
[2025-03-25 12:22] LABS: Appearance Urine Clear; Color Urine Yellow; Glucose Urine UA Negative (Negative); Leukocyte Esterase Urine Negative (Negative); Nitrite Urine Negative (Negative); PH 7.5 (5.0-9.0); Specific Gravity - Urine 1.015 (1.005-1.025); Urine Blood Negative (Negative); Urine Ketones Trace mg/dL (Negative); Urine Protein Negative (Neg-Trace)
[2025-03-25 12:24] LABS: B Type Natriuretic Peptide 138 pg/mL (<100); Mean Platelet Volume 10.1 fL (9.4-12.3); Platelet Count 159 X10*3/uL (160-400); SLIDE REVIEW VERIFIED; White Blood Count 8.9 X10*3/uL (4.8-10.8)
[2025-03-25 12:28] LABS: Troponin-I High Sensitivity < 2.7 ng/L (<3.5-17.0)
[2025-03-25 12:49] LABS: Glucose, Whole Blood 121 mg/dL (60-115)
--- NOTE | 2025-03-25 15:18 | MHC.EDTECH ---
pt placed on bedpan for bowel movement, pt was unsuccessful, believes she no longer needs to use the bathroom, vitals obtained including retal temp 99.8. call guillen within reach
--- NOTE | 2025-03-25 15:47 | P.HPHOSP_ITS ---
History of Present Illness Date of Service: 03/25/25 Attending physician on admission: Criss Mckeon Chief Complaint: Loss of consciousness. Rosalina Trejo is a 80 years old woman with past medical history significant for recurrent UTI is, Parkinson's disease, dementia and COPD was brought to the ED after she had an event of unresponsiveness that was witnessed by her daughter who was at bedside. This event was brief. During this episode the patient became very weak, pale, diaphoresis and was drooling. No seizure activity or urinary incontinence noted. Patient denied any headache, acute visual disturbances, chest pain or shortness on breath. She did not report any acute gastrointestinal or genitourinary symptoms. Daughter mentioned that patient has been very constipated and has been taking seen and [id number] stool softeners. She is not taking blood pressure medication water pills. According to patient's daughter she does not drink or eat well. Patient underwent a TTE on November of this year after she was found to have some rhythm irregularities. It showed a hyperdynamic LV function > 7%, grade 1 diastolic dysfunction and no significant valve disease. According to patient's daughter and the patient was found to have hypotension by EMS and received IV fluids for this. She also mentioned that patient was recently hospitalized for pneumonia. In the ED, upon arrival to the emergency department, patient was found to have stable vital signs. Last blood pressure is 151/86. Blood workup showed no leukocytosis or lactic acidosis. Hemoglobin is 12.2 and platelets 159. There are no significant electrolyte imbalances. CO2 is 30 and anion gap 11. Creatinine is 0.82 and BUN 11. Random glucose 132. LFTs are normal. Troponin is less than 2.7. BNP is 138. TSH is 1.25. Urinalysis showed no evidence of UTI, however, it showed trace ketones. CXR showed improving right bibasilar airspace opacity. ED tx: None. Review of Systems 2 Review of Systems: Yes Unobtainable due to mental status [facility] Medical History Dementia Anxiety Lymphoma Mild cognitive impairment Parkinson's disease without dyskinesia or fluctuating manifestations Parkinson disease Family History Mother Colon cancer Father Lung cancer Sister Breast cancer Surgical History History of left knee replacement History of left knee surgery History of tonsillectomy Social History Housing: Assisted Living Facility Unable to assess alcohol history related to: Unknown Patient Tobacco Use Status: Former Tobacco user Smoked in Last 30 Days: No e-Cigarette/Vaping Use: Never Used Use of substances other than those prescribed or required for medical reasons: Unknown Advance Directives: Yes Advance Directives on File: Yes Advance Directives Date on File: 07/15/24 service: No Current occupational status: retired Cognitive needs: No Hearing needs: No Vision needs: Yes Meds Allergies Allergy/AdvReac Type Severity Reaction Status Date / Time No Known Allergies Allergy Verified 03/25/25 10:55 Active Medications: Current Medications Acetaminophen (Acetaminophen 325 Mg Tablet) 975 mg PO Q6H PRN PRN Reason: Pain, Mild 1-3,fever,headache Enoxaparin Sodium (Enoxaparin Sodium 40 Mg/0.4 Ml Syringe) 40 mg SUBCUT Q24H SVETA Melatonin (Melatonin 3 Mg Tablet) 6 mg PO BEDTIME PRN PRN Reason: Insomnia Sodium Chloride (0.9 % Sodium Chloride Flush 3 Ml Syringe) 3 ml IVFLUSH QSHIFT [facility] Home Medications ?Medication ?Instructions ?Recorded ?Confirmed ?Last Taken ?Type multivitamin 1 tab PO DAILY 12/24/24 06/2 03/2403/25/25 History fluticasone furoate 50 1 inh inhalation DAILY 03/2503/25/25 Unknown History mcg-vilanterol 25 mcg/dose inhalation powder (Breo Ellipta) levothyroxine 50 mcg tablet 50 mcg PO DAILY@0600 03/2503/25/25 03/25/25 History Physical Exam 2 Vital Signs and Narrative: Vital Signs: Last Vital Signs Temp 99.8 F 03/25/25 15:17 Pulse 82 03/25/25 15:17 Resp 17 03/25/25 15:17 BP 151/86 H 03/25/25 15:17 Pulse Ox 97 03/25/25 15:17 O2 Del Method Room Air 03/25/25 15:17 BMI result Body Mass Index 18.3 Constitutional - Awake and Alert, No apparent distress. Underweight. Coughing at times. HEENT - PER, EOMI Heart - RRR, No murmurs. Lungs - Normal lung expansion, Normal respiratory effort, No respiratory distress, CTA bilaterally Abdomen - NT / ND; +BS; No rebound or guarding Extremities - no calf tenderness bilaterally, no swelling Musculoskeletal - Normal inspection, normal ROM Skin - Warm/Dry Neurological - Alert. No focal weakness grossly speech. Psychological - Depressed affect Results Labs 03/25/25 11:56 03/25/25 11:51 Labs: Laboratory Results - last 24 hr 03/25/25 03/25/25 03/25/25 10:55 11:51 11:56 MCV 91.0 MCH 30.5 MCHC 33.5 RDW 13.8 Plt Count 159 L MPV 10.1 Immature Gran % (Auto) 0.6 H Neut % (Auto) 85.7 H Lymph % (Auto) 6.5 L [place] % (Auto) 6.1 Eos % (Auto) 0.8 Baso % (Auto) 0.3 Lymph # (Auto) 0.6 L [place] # (Auto) 0.5 Eos # (Auto) 0.1 Baso # (Auto) 0.0 Abs Immat Gran (auto) 0.05 H Absolute Neuts (auto) 7.7 Absolute Nucleated RBC 0.000 Nucleated RBC % (auto) 0.0 Smear Tech's Comments VERIFIED PT 12.9 H INR 1.1 Anion Gap 11 L Estim Creat Clear Calc 44.5 Estimated GFR > 60 POC Glucose 121 H Random Glucose 135 H Lactic Acid 1.4 Calcium 8.8 D Total Bilirubin 0.6 Direct Bilirubin 0.2 AST 20 ALT < 6 Alkaline Phosphatase 53 Troponin I High Sens < 2.7 D B-Natriuretic Peptide 138 H Total Protein 5.7 L Albumin 3.8 Lipase 15 Urine Color Urine Appearance Urine pH Ur Specific [place] Urine Protein Urine Glucose (UA) Urine Ketones Urine Blood Urine Nitrite Ur Leukocyte Esterase 03/25/25 12:06 MCV MCH MCHC RDW Plt Count MPV Immature Gran % (Auto) Neut % (Auto) Lymph % (Auto) [place] % (Auto) Eos % (Auto) Baso % (Auto) Lymph # (Auto) [place] # (Auto) Eos # (Auto) Baso # (Auto) Abs Immat Gran (auto) Absolute Neuts (auto) Absolute Nucleated RBC Nucleated RBC % (auto) Smear Tech's Comments PT INR Anion Gap Estim Creat Clear Calc Estimated GFR POC Glucose Random Glucose Lactic Acid Calcium Total Bilirubin Direct Bilirubin AST ALT Alkaline Phosphatase Troponin I High Sens B-Natriuretic Peptide Total Protein Albumin Lipase Urine Color Yellow Urine Appearance Clear Urine pH 7.5 Ur Specific [place] 1.015 Urine Protein Negative Urine Glucose (UA) Negative Urine Ketones Trace Urine Blood Negative Urine Nitrite Negative Ur Leukocyte Esterase Negative Imaging Radiologist's Impressions: Impressions Chest X-Ray 03/25/25 13:40 IMPRESSION: Improved right basilar airspace opacity. Electronically signed by: Josse Panda MD 03/25/2025 01:59 PM EDT RP Assessment and Plan (1) Hypotension: Qualifiers: Hypotension type: orthostatic hypotension Qualified Code(s): I95.1 - Orthostatic hypotension Status: Acute (2) Loss of consciousness: Status: Acute Plan Rosalina Trejo is a 80 y/o woman presents with: * Loss of consciousness in the setting of hypotension that resolved after receiving IV fluids. Possible orthostasis secondary to p.o. intake/dehydration (labs showed ketonuria increased CO2). Keeping observation under hospitalist service. Check orthostatic vital signs qshift. Fall precautions. Gentle IV fluids (underlying HFpEF). Encourage oral hydration. Recent TTE (November 2024) showed grade I diastolic dysfunction we will significant valve disease. Cardiology consult. * Parkinson disease. Continue carbidopa. * Hyperlipidemia. Continue atorvastatin. * Dementia. Continue donepezil. * Mood disorder. Continue Lexapro. * Hypothyroidism. Continue levothyroxine. * History of recurrent UTI. UA today showed no evidence of UTI. * COPD. No home oxygen. Noticed symptoms. Continue home inhalers DVT prophylaxis: Heparin Code status: Full Quality Stroke Does the patient have a stroke diagnosis?: No VTE Prior VTE?: No VTE Risk Level:: Medical - moderate - high VTE Device Contraindication: Treatment Not Indicated VTE Drug Contraindication: N/A - Med Ordered
[2025-03-25 16:10] LABS: Magnesium 2.2 mg/dL (1.6-2.6)
[2025-03-25 16:24] LABS: Thyroid Stimulating Hormone 1.25 uIU/mL (0.32-4.0)
--- NOTE | 2025-03-25 16:39 | PHA.MEDREC ---
Addendum entered by Faby Campos RPh 03/25/25 16:50: MED REC REVIEWED BY [facility] Original Note: Pharmacy Consult ? Medication Reconciliation Pharmacy reviewed med rec done by nursing. Nurse confirmed she got her information from Rx Bottles but going down and speaking with pt daughter at bedside, she has a med box list of the pt medications the nurse utilized (also nurse then confirmed she did use med box list and not rx bottles). I got the list of medications and confirmed they matched what was imputed in the med rec. Pt daughter confirmed pt has never opened the Albuterol inhaler and is only using the Breo inhaler daily and the pt has not started the Mirtazapine 7.5mg tabs yet and is waiting to get them in the mail-order.
[2025-03-25] MEDS: Lactated Ringers 1,000 ML 100 ML IVCONT (17:05)
[2025-03-25] MEDS: 0.9 % Sodium Chloride Flush 3 ML SYRINGE IVFLUSH ×2 (17:06→21:49)
[2025-03-25 20:30] LABS: Troponin-I High Sensitivity 3.7 ng/L (<3.5-17.0)
[2025-03-25] MEDS: Carbidopa/Levodopa 25/100 TABLET 1 TAB PO (21:40)
[2025-03-25] MEDS: Melatonin 3 MG TABLET 6 MG PO (21:40)
[2025-03-25] MEDS: Donepezil HCl 5 MG TABLET PO (21:40)
[2025-03-26] VITALS (10 sets, daily range): BP systolic 109–166; BP diastolic 63–91; PULSE 64–95; RESP 16–18; TEMP 36.3–36.9; O2SAT 94–98; BMI 18.7
[2025-03-26] MEDS: Lactated Ringers 1,000 ML 100 ML IVCONT (02:51)
[2025-03-26] MEDS: Levothyroxine Sodium 50 MCG TABLET PO ×2 (05:58→12:10)
[2025-03-26 06:51] LABS: MANUAL DIFF FLAG NO
[2025-03-26 06:57] LABS: Basophils Percent Auto 0.2 % (0-2); Eosinophils Absolute Auto 0.2 X10*3/uL (0.0-0.4); Eosinophils Percent Auto 1.8 % (0-4); Hematocrit 40.9 % (37.0-47.0); Hemoglobin 13.8 g/dl (12.0-16.0); Imm Gran Abs Auto 0.07 X10*3/uL (0.00-0.03); Imm Gran Pct Auto 0.8 % (0.0-0.4); Lymphocytes Percent Auto 12.1 % (20-40); Mean Corpuscular HGB Conc 33.7 g/dl (31.0-35.0); Mean Corpuscular Hemoglobin 30.5 pg (27.0-33.0); Mean Corpuscular Volume 90.3 fL (80.0-98.0); Mean Platelet Volume 10.2 fL (9.4-12.3); Monocytes Absolute Auto 0.7 X10*3/uL (0.1-1.2); Monocytes Percent Auto 7.7 % (2-11); Neutrophils Absolute Auto 6.6 x10*3/uL (2.0-8.3); Neutrophils Percent Auto 77.4 % (45-73); Platelet Count 193 X10*3/uL (160-400); Red Blood Count 4.53 X10*6/uL (4.20-5.50); Red Cell Distribution Width 13.7 % (11.0-16.0); White Blood Count 8.6 X10*3/uL (4.8-10.8)
[2025-03-26 07:11] LABS: Anion Gap 12 (12-20); Blood Urea Nitrogen 7 mg/dL (9-16); Calcium 9.1 mg/dL (8.4-10.2); Carbon Dioxide 31 mmol/L (22-29); Chloride 104 mmol/L (96-108); Creatinine Clr Calc Pharmacy 60.2; Estimated Glomerular Filt Rate > 60; Glucose Random 111 mg/dL (60-115); Magnesium 2.1 mg/dL (1.6-2.6); Potassium 3.2 mmol/L (3.3-5.1); Sodium 144 mmol/L (135-145)
--- NOTE | 2025-03-26 09:02 | MHC.CM.PN ---
Patient has a diagnosis of Dementia; CM spoke with Daughter/HCP/Akiko @ [phone] and addressed CASEY with her (original will be mailed to Akiko and a copy has been placed on the chart). Patient lives with her @ [facility] and uses a walker to assist with mobility. Home/resume [facility] is the goal and CM has initiated and will follow for dc planning. PCP is Dr. Camilla Thomason and Daughter will transport to home at time of dc. Patient recently used her free week @ [facility].
[2025-03-26] MEDS: Escitalopram Oxalate 20 MG TABLET PO (09:21)
[2025-03-26] MEDS: Multivitamin TABLET 1 TAB PO (09:21)
[2025-03-26] MEDS: Cyanocobalamin (Vitamin B-12) 1,000 MCG TABLET 1000 MCG PO (09:21)
[2025-03-26] MEDS: Carbidopa/Levodopa 25/100 TABLET 1 TAB PO ×2 (09:21→15:36)
[2025-03-26] MEDS: Cholecalciferol (Vitamin D3) 25 MCG TABLET 50 MCG PO (09:21)
[2025-03-26] MEDS: Atorvastatin Calcium 10 MG TABLET PO (09:21)
[2025-03-26] MEDS: Heparin Sodium,Porcine 5,000 UNIT/ML VIAL 5000 UNIT SUBCUT (09:22)
[2025-03-26] MEDS: 0.9 % Sodium Chloride Flush 3 ML SYRINGE IVFLUSH (09:31)
--- NOTE | 2025-03-26 09:40 | P.PNIM_ITS ---
Subjective Subjective Date of Service: 03/26/25 Interval History: Patient is pleasant but demented not sure where she's at thinks she's in a basement Physical Exam 2 Vital Signs: Vital Signs: Last Vital Signs Temp 98.4 F 03/26/25 07:17 Pulse 65 03/26/25 07:17 Resp 18 03/26/25 07:17 BP 162/78 H 03/26/25 07:17 Pulse Ox 96 03/26/25 07:17 O2 Del Method Room Air 03/26/25 07:17 BMI result Body Mass Index 18.7 General: demented Resp: CTA bilateral CVS: S1,S2,RRR GI: +BS, NT, no distention Skin: No rash Neuro: motor grossly intact Psych: appropriate affect Objective Data Active Medications Acetaminophen (Acetaminophen 325 Mg Tablet) 975 mg PO Q6H PRN PRN Reason: Pain, Mild 1-3,fever,headache Albuterol Sulfate (Albuterol Sulfate 90 Mcg 8 Gm Inhaler) 2 puff INHALE Q4H PRN PRN Reason: shortness of breath or wheezing Atorvastatin Calcium (Atorvastatin Calcium 10 Mg Tablet) 10 mg PO DAILY [facility] Last Admin: 03/26/25 09:21 Dose: 10 mg Documented By: LALIT Carbidopa/Levodopa (Carbidopa/Levodopa 25/100 Tablet) 1 tab PO TID [facility] Last Admin: 03/26/25 09:21 Dose: 1 tab Documented By: LALIT Cyanocobalamin (Cyanocobalamin (Vitamin B-12) 1,000 Mcg Tablet) 1,000 mcg PO DAILY [facility] Last Admin: 03/26/25 09:21 Dose: 1,000 mcg Documented By: LALIT Donepezil HCl (Donepezil Hcl 5 Mg Tablet) 5 mg PO BEDTIME [facility] Last Admin: 03/25/25 21:40 Dose: 5 mg Documented By: NADER Escitalopram Oxalate (Escitalopram Oxalate 20 Mg Tablet) 20 mg PO DAILY [facility] Last Admin: 03/26/25 09:21 Dose: 20 mg Documented By: LALIT Heparin Sodium (Porcine) (Heparin Sodium,Porcine 5,000 Unit/Ml Vial) 5,000 unit SUBCUT Q12H [facility] Last Admin: 03/26/25 09:22 Dose: 5,000 unit Documented By: LALIT Levothyroxine Sodium (Levothyroxine Sodium 50 Mcg Tablet) 50 mcg PO DAILY@0600 [facility] Last Admin: 03/26/25 05:58 Dose: 50 mcg Documented By: NADER Levothyroxine Sodium (Levothyroxine Sodium 50 Mcg Tablet) 50 mcg PO DAILY@0600 [facility] Melatonin (Melatonin 3 Mg Tablet) 6 mg PO BEDTIME PRN PRN Reason: Insomnia Last Admin: 03/25/25 21:40 Dose: 6 mg Documented By: NADER Multivitamins/Vitamin C (Multivitamin Tablet) 1 tab PO DAILY [facility] Last Admin: 03/26/25 09:21 Dose: 1 tab Documented By: LALIT Non-Formulary Medication (Fluticasone Furoate-Vilanterol [Breo Ellipta]) 1 inhalation INHALE DAILY [facility] Non-Formulary Medication (Fluticasone Furoate-Vilanterol [Breo Ellipta]) 1 inhalation INHALE DAILY [facility] Senna/Docusate Sodium (Sennosides/Docusate Sodium Tablet) 1 tab PO BID [facility] Sodium Chloride (0.9 % Sodium Chloride Flush 3 Ml Syringe) 3 ml IVFLUSH QSHIFT [facility] Last Admin: 03/26/25 09:31 Dose: 3 ml Documented By: LALIT Vitamin D (Cholecalciferol (Vitamin D3) 25 Mcg Tablet) 50 mcg PO DAILY [facility] Last Admin: 03/26/25 09:21 Dose: 50 mcg Documented By: LALIT Labs 03/26/25 06:17 03/26/25 06:17 Labs: Laboratory Results - last 24 hr 03/25/25 03/25/25 03/25/25 10:55 11:51 11:56 MCV 91.0 MCH 30.5 MCHC 33.5 RDW 13.8 Plt Count 159 L MPV 10.1 Immature Gran % (Auto) 0.6 H Neut % (Auto) 85.7 H Lymph % (Auto) 6.5 L [place] % (Auto) 6.1 Eos % (Auto) 0.8 Baso % (Auto) 0.3 Lymph # (Auto) 0.6 L [place] # (Auto) 0.5 Eos # (Auto) 0.1 Baso # (Auto) 0.0 Abs Immat Gran (auto) 0.05 H Absolute Neuts (auto) 7.7 Absolute Nucleated RBC 0.000 Nucleated RBC % (auto) 0.0 Smear Tech's Comments VERIFIED PT 12.9 H INR 1.1 Anion Gap 11 L Estim Creat Clear Calc 44.5 Estimated GFR > 60 POC Glucose 121 H Random Glucose 135 H Lactic Acid 1.4 Calcium 8.8 D Magnesium 2.2 Total Bilirubin 0.6 Direct Bilirubin 0.2 AST 20 ALT < 6 Alkaline Phosphatase 53 Troponin I High Sens < 2.7 D B-Natriuretic Peptide 138 H Total Protein 5.7 L Albumin 3.8 Lipase 15 TSH 1.25 Urine Color Urine Appearance Urine pH Ur Specific [place] Urine Protein Urine Glucose (UA) Urine Ketones Urine Blood Urine Nitrite Ur Leukocyte Esterase 03/25/25 03/25/25 03/26/25 12:06 20:00 06:17 MCV 90.3 MCH 30.5 MCHC 33.7 RDW 13.7 Plt Count 193 MPV 10.2 Immature Gran % (Auto) 0.8 H Neut % (Auto) 77.4 H Lymph % (Auto) 12.1 L [place] % (Auto) 7.7 Eos % (Auto) 1.8 Baso % (Auto) 0.2 Lymph # (Auto) 1.0 L [place] # (Auto) 0.7 Eos # (Auto) 0.2 Baso # (Auto) 0.0 Abs Immat Gran (auto) 0.07 H Absolute Neuts (auto) 6.6 Absolute Nucleated RBC 0.000 Nucleated RBC % (auto) 0.0 Smear Tech's Comments PT INR Anion Gap 12 Estim Creat Clear Calc 60.2 Estimated GFR > 60 POC Glucose Random Glucose 111 Lactic Acid Calcium 9.1 Magnesium 2.1 Total Bilirubin Direct Bilirubin AST ALT Alkaline Phosphatase Troponin I High Sens 3.7 B-Natriuretic Peptide Total Protein Albumin Lipase TSH Urine Color Yellow Urine Appearance Clear Urine pH 7.5 Ur Specific [place] 1.015 Urine Protein Negative Urine Glucose (UA) Negative Urine Ketones Trace Urine Blood Negative Urine Nitrite Negative Ur Leukocyte Esterase Negative Assessment and Plan (1) Syncope: Status: Acute Plan 80 years old woman with past medical history significant for recurrent UTI is, Parkinson's disease, advanced dementia and COPD was brought to the ED after she had a syncope witnessed by daughter, described as brief LOC. She became weak, pale, diaphoresis and was drooling. No seizure activity or urinary incontinen Syncope DDx: hypotension, orthostatic, no seizure like activity described, no arrythmia noted. Seems to back at baseline Bein eval by cardio and Neuro, PT eval and possible dc later today. Parkinson disease. Continue carbidopa. Hyperlipidemia. Continue atorvastatin. Dementia. Continue donepezil. Mood disorder. Continue Lexapro. Hypothyroidism. Continue levothyroxine. History of recurrent UTI. UA today showed no evidence of UTI. COPD. No home oxygen. Noticed symptoms. Continue home inhalers DVT prophylaxis: Heparin Code status: Full Quality Stroke Does the patient have a stroke diagnosis?: No VTE Prior VTE?: No VTE Risk Level:: Medical - moderate - high VTE Device Contraindication: Treatment Not Indicated VTE Drug Contraindication: N/A - Med Ordered
--- NOTE | 2025-03-26 10:24 | PM.CNCAR ---
History of Present Illness History of Present Illness Date of Service: 03/26/25 Chief complaint: Syncope Narrative: This is a cardiology consultation regarding syncopal episode. Patient is not able to give me any meaningful information. She keeps talking about her mother. She does not know where she is or why she is here. Per notes, it seems she has got Parkinson's disease, dementia and COPD. She was brought to the hospital for unresponsiveness witnessed by daughter. Brief event apparently. Patient had become weak, pale and diaphoretic, drooling. Seems that she does not drink or eat well. Per notes, thought to be hypotensive by EMS and got IV fluids. There is also mention of hospitalization for pneumonia recently. Currently, patient not able to give me any information beyond this. Review of Systems Review of Systems: Unable to obtain review of systems due to patient's mental status PMFSH Past Medical History Medical History Dementia Anxiety Lymphoma Mild cognitive impairment Parkinson's disease without dyskinesia or fluctuating manifestations Parkinson disease Family History Family History Mother Colon cancer Father Lung cancer Sister Breast cancer Surgical History Surgical History History of left knee replacement History of left knee surgery History of tonsillectomy Social History Social History Housing: Assisted Living Facility Unable to assess alcohol history related to: Unknown Patient Tobacco Use Status: Former Tobacco user e-Cigarette/Vaping Use: Never Used Advance Directives Date on File: 07/15/24 service: No Current occupational status: retired Cognitive needs: No Hearing needs: No Vision needs: Yes Meds Allergies Allergy/AdvReac Type Severity Reaction Status Date / Time No Known Allergies Allergy Verified 03/25/25 10:55 Active Medications: Current Medications Acetaminophen (Acetaminophen 325 Mg Tablet) 975 mg PO Q6H PRN PRN Reason: Pain, Mild 1-3,fever,headache Albuterol Sulfate (Albuterol Sulfate 90 Mcg 8 Gm Inhaler) 2 puff INHALE Q4H PRN PRN Reason: shortness of breath or wheezing Atorvastatin Calcium (Atorvastatin Calcium 10 Mg Tablet) 10 mg PO DAILY SVETA Last Admin: 03/26/25 09:21 Dose: 10 mg Carbidopa/Levodopa (Carbidopa/Levodopa 25/100 Tablet) 1 tab PO TID [facility] Last Admin: 03/26/25 09:21 Dose: 1 tab Cyanocobalamin (Cyanocobalamin (Vitamin B-12) 1,000 Mcg Tablet) 1,000 mcg PO DAILY [facility] Last Admin: 03/26/25 09:21 Dose: 1,000 mcg Donepezil HCl (Donepezil Hcl 5 Mg Tablet) 5 mg PO BEDTIME [facility] Last Admin: 03/25/25 21:40 Dose: 5 mg Escitalopram Oxalate (Escitalopram Oxalate 20 Mg Tablet) 20 mg PO DAILY [facility] Last Admin: 03/26/25 09:21 Dose: 20 mg Heparin Sodium (Porcine) (Heparin Sodium,Porcine 5,000 Unit/Ml Vial) 5,000 unit SUBCUT Q12H [facility] Last Admin: 03/26/25 09:22 Dose: 5,000 unit Levothyroxine Sodium (Levothyroxine Sodium 50 Mcg Tablet) 50 mcg PO DAILY@0600 [facility] Last Admin: 03/26/25 05:58 Dose: 50 mcg Levothyroxine Sodium (Levothyroxine Sodium 50 Mcg Tablet) 50 mcg PO DAILY@0600 [facility] Melatonin (Melatonin 3 Mg Tablet) 6 mg PO BEDTIME PRN PRN Reason: Insomnia Last Admin: 03/25/25 21:40 Dose: 6 mg Multivitamins/Vitamin C (Multivitamin Tablet) 1 tab PO DAILY [facility] Last Admin: 03/26/25 09:21 Dose: 1 tab Non-Formulary Medication (Fluticasone Furoate-Vilanterol [Breo Ellipta]) 1 inhalation INHALE DAILY [facility] Senna/Docusate Sodium (Sennosides/Docusate Sodium Tablet) 1 tab PO BID [facility] Sodium Chloride (0.9 % Sodium Chloride Flush 3 Ml Syringe) 3 ml IVFLUSH QSHIFT [facility] Last Admin: 03/26/25 09:31 Dose: 3 ml Vitamin D (Cholecalciferol (Vitamin D3) 25 Mcg Tablet) 50 mcg PO DAILY [facility] Last Admin: 03/26/25 09:21 Dose: 50 mcg Home Medications ?Medication ?Instructions ?Recorded ?Confirmed ?Last Taken ?Type multivitamin 1 tab PO DAILY 12/24/24 03/25/25 03/25/25 History fluticasone furoate 50 1 inh inhalation DAILY 03/25/25 03/25/25 Unknown History mcg-vilanterol 25 mcg/dose inhalation powder (Breo Ellipta) levothyroxine 50 mcg tablet 50 mcg PO DAILY@0600 03/25/25 03/25/25 03/25/25 History Physical Exam Vital Signs: Vital Signs: Last Vital Signs Temp 98.4 F 03/26/25 07:17 Pulse 95 03/26/25 09:58 Resp 18 03/26/25 07:17 BP 141/74 H 03/26/25 09:58 Pulse Ox 96 03/26/25 07:17 O2 Del Method Room Air 03/26/25 07:17 BMI result Body Mass Index 18.7 Const: General: comfortable and no acute distress Orientation/consciousness: No patient oriented x3 HEENT: Other: Unremarkable Head: Yes normal to inspection Neck: Neck: Yes normal visual inspection Chest: Chest palpation & inspection: normal inspection of the chest Resp: Auscultation: clear to auscultation bilaterally Cardio: Palpation: normal PMI Heart sounds: S1 normal heart sound present, S2 normal heart sound present, no gallops, no murmurs and no rubs GI: Palpation (GI): Soft to palpation Back/Spine/Pelvis: Other: unremarkable Skin: General skin exam: no rashes or lesions noted Neuro: General: No patient oriented x3 Extrem: General: Yes normal to inspection Psych: Mental Status: mental status grossly abnormal Objective Labs and Meds 03/26/25 06:17 03/26/25 06:17 Lab results: Laboratory Results - last 24 hr 03/25/25 03/25/25 03/25/25 10:55 11:51 11:56 WBC 8.9 RBC 4.00 L Hgb 12.2 Hct 36.4 L MCV 91.0 MCH 30.5 MCHC 33.5 RDW 13.8 Plt Count 159 L MPV 10.1 Immature Gran % (Auto) 0.6 H Neut % (Auto) 85.7 H Lymph % (Auto) 6.5 L [place] % (Auto) 6.1 Eos % (Auto) 0.8 Baso % (Auto) 0.3 Lymph # (Auto) 0.6 L [place] # (Auto) 0.5 Eos # (Auto) 0.1 Baso # (Auto) 0.0 Abs Immat Gran (auto) 0.05 H Absolute Neuts (auto) 7.7 Absolute Nucleated RBC 0.000 Nucleated RBC % (auto) 0.0 Smear Tech's Comments VERIFIED PT 12.9 H INR 1.1 Sodium 142 Potassium 3.3 Chloride 104 Carbon Dioxide 30 H Anion Gap 11 L BUN 11 Creatinine 0.82 Estim Creat Clear Calc 44.5 Estimated GFR > 60 POC Glucose 121 H Random Glucose 135 H Lactic Acid 1.4 Calcium 8.8 D Magnesium 2.2 Total Bilirubin 0.6 Direct Bilirubin 0.2 AST 20 ALT < 6 Alkaline Phosphatase 53 Troponin I High Sens < 2.7 D B-Natriuretic Peptide 138 H Total Protein 5.7 L Albumin 3.8 Lipase 15 TSH 1.25 Urine Color Urine Appearance Urine pH Ur Specific [place] Urine Protein Urine Glucose (UA) Urine Ketones Urine Blood Urine Nitrite Ur Leukocyte Esterase 03/25/25 03/25/25 03/26/25 12:06 20:00 06:17 WBC 8.6 RBC 4.53 Hgb 13.8 Hct 40.9 MCV 90.3 MCH 30.5 MCHC 33.7 RDW 13.7 Plt Count 193 MPV 10.2 Immature Gran % (Auto) 0.8 H Neut % (Auto) 77.4 H Lymph % (Auto) 12.1 L [place] % (Auto) 7.7 Eos % (Auto) 1.8 Baso % (Auto) 0.2 Lymph # (Auto) 1.0 L [place] # (Auto) 0.7 Eos # (Auto) 0.2 Baso # (Auto) 0.0 Abs Immat Gran (auto) 0.07 H Absolute Neuts (auto) 6.6 Absolute Nucleated RBC 0.000 Nucleated RBC % (auto) 0.0 Smear Tech's Comments PT INR Sodium 144 Potassium 3.2 L Chloride 104 Carbon Dioxide 31 H Anion Gap 12 BUN 7 L Creatinine 0.62 Estim Creat Clear Calc 60.2 Estimated GFR > 60 POC Glucose Random Glucose 111 Lactic Acid Calcium 9.1 Magnesium 2.1 Total Bilirubin Direct Bilirubin AST ALT Alkaline Phosphatase Troponin I High Sens 3.7 B-Natriuretic Peptide Total Protein Albumin Lipase TSH Urine Color Yellow Urine Appearance Clear Urine pH 7.5 Ur Specific [place] 1.015 Urine Protein Negative Urine Glucose (UA) Negative Urine Ketones Trace Urine Blood Negative Urine Nitrite Negative Ur Leukocyte Esterase Negative ECG Interpretation: EKG with underlying sinus rhythm at 65/Min; possible left atrial enlargement; normal AL and corrected QT. Imaging Radiologist's impression: Impressions Chest X-Ray 03/25/25 13:40 IMPRESSION: Improved right basilar airspace opacity. Electronically signed by: Josse Panda MD 03/25/2025 01:59 PM EDT RP Assessment and Plan (1) Syncope: Status: Acute (2) Parkinson disease: Qualifiers: Dyskinesia presence: with dyskinesia Fluctuating manifestations: with fluctuating manifestations Qualified Code(s): G20.B2 - Parkinson's disease with dyskinesia, with fluctuations Status: Acute (3) Dementia: Qualifiers: Dementia type: unspecified type Dementia severity: moderate Dementia behavioral or psychological symptom: without behavioral, psychotic, or mood disturbance or anxiety Qualified Code(s): F03.B0 - Unspecified dementia, moderate, without behavioral disturbance, psychotic disturbance, mood disturbance, and anxiety Status: Acute (4) Confusion: Status: Acute Plan Telemetry is not showing any significant bradyarrhythmias or other findings. High sensitivity troponins are unremarkable. Cardiac BNP is slightly increased at 138. Echocardiogram from November shows hyperdynamic LVEF and no significant valvular findings. Per documentation, EMS thought it to be hypotensive and given fine at cc of saline. Overall, symptoms possibly from low blood pressure related dehydration. No clear cardiac etiology to explain her symptoms. Considering her comorbidities and mental status, do not feel she needs anything further at this time. Discussed with Dr. Acevedo. Procedures Date of Service Date of Service: 03/26/25
--- NOTE | 2025-03-26 10:37 | P.CNNE_ITS ---
History of Present Illness Data of Consult Service Date: 03/26/25 Primary Care Provider: Unknown Physician HPI Reason for consult: Syncope 80 years old woman with underlying history of Parkinson's disease was brought to hospital after an episode of unresponsiveness was noted by family member. There was no reporting of any convulsion or seizure-like episode. Apparently she became relatively unresponsive and was drooling. No obvious explanation was found and she was admitted for further evaluation. When I talked to her, she could not elaborate what had happened. She could not tell me who her neurologist or even the primary care was. Review of Systems 2 Review of Systems: No recent cold or flu-like illness PMFSH Past Medical History Medical History Dementia Anxiety Lymphoma Mild cognitive impairment Parkinson's disease without dyskinesia or fluctuating manifestations Parkinson disease Family History Family History Mother Colon cancer Father Lung cancer Sister Breast cancer Surgical History Surgical History History of left knee replacement History of left knee surgery History of tonsillectomy Social History Social History Housing: Assisted Living Facility Unable to assess alcohol history related to: Unknown Patient Tobacco Use Status: Former Tobacco user e-Cigarette/Vaping Use: Never Used Advance Directives Date on File: 07/15/24 service: No Current occupational status: retired Cognitive needs: No Hearing needs: No Vision needs: Yes Meds Allergies Allergy/AdvReac Type Severity Reaction Status Date / Time No Known Allergies Allergy Verified 03/25/25 10:55 Active Medications: Current Medications Acetaminophen (Acetaminophen 325 Mg Tablet) 975 mg PO Q6H PRN PRN Reason: Pain, Mild 1-3,fever,headache Albuterol Sulfate (Albuterol Sulfate 90 Mcg 8 Gm Inhaler) 2 puff INHALE Q4H PRN PRN Reason: shortness of breath or wheezing Atorvastatin Calcium (Atorvastatin Calcium 10 Mg Tablet) 10 mg PO DAILY [facility] Last Admin: 03/26/25 09:21 Dose: 10 mg Carbidopa/Levodopa (Carbidopa/Levodopa 25/100 Tablet) 1 tab PO TID [facility]ETA Last Admin: 03/26/25 09:21 Dose: 1 tab Cyanocobalamin (Cyanocobalamin (Vitamin B-12) 1,000 Mcg Tablet) 1,000 mcg PO DAILY [facility] Last Admin: 03/26/25 09:21 Dose: 1,000 mcg Donepezil HCl (Donepezil Hcl 5 Mg Tablet) 5 mg PO BEDTIME [facility] Last Admin: 03/25/25 21:40 Dose: 5 mg Escitalopram Oxalate (Escitalopram Oxalate 20 Mg Tablet) 20 mg PO DAILY [facility] Last Admin: 03/26/25 09:21 Dose: 20 mg Heparin Sodium (Porcine) (Heparin Sodium,Porcine 5,000 Unit/Ml Vial) 5,000 unit SUBCUT Q12H [facility] Last Admin: 03/26/25 09:22 Dose: 5,000 unit Levothyroxine Sodium (Levothyroxine Sodium 50 Mcg Tablet) 50 mcg PO DAILY@0600 [facility] Last Admin: 03/26/25 05:58 Dose: 50 mcg Levothyroxine Sodium (Levothyroxine Sodium 50 Mcg Tablet) 50 mcg PO DAILY@0600 [facility] Melatonin (Melatonin 3 Mg Tablet) 6 mg PO BEDTIME PRN PRN Reason: Insomnia Last Admin: 03/25/25 21:40 Dose: 6 mg Multivitamins/Vitamin C (Multivitamin Tablet) 1 tab PO DAILY [facility] Last Admin: 03/26/25 09:21 Dose: 1 tab Non-Formulary Medication (Fluticasone Furoate-Vilanterol [Breo Ellipta]) 1 inhalation INHALE DAILY [facility] Senna/Docusate Sodium (Sennosides/Docusate Sodium Tablet) 1 tab PO BID [facility] Sodium Chloride (0.9 % Sodium Chloride Flush 3 Ml Syringe) 3 ml IVFLUSH QSHIFT [facility] Last Admin: 03/26/25 09:31 Dose: 3 ml Vitamin D (Cholecalciferol (Vitamin D3) 25 Mcg Tablet) 50 mcg PO DAILY [facility] Last Admin: 03/26/25 09:21 Dose: 50 mcg Home Medications ?Medication ?Instructions ?Recorded ?Confirmed ?Last Taken ?Type multivitamin 1 tab PO DAILY 12/24/24 06/2 03/2403/25/25 History fluticasone furoate 50 1 inh inhalation DAILY 03/2503/25/25 Unknown History mcg-vilanterol 25 mcg/dose inhalation powder (Breo Ellipta) levothyroxine 50 mcg tablet 50 mcg PO DAILY@0600 03/2503/25/25 03/25/25 History Physical Exam 2 Vital Signs: Vital Signs: Last Vital Signs Temp 98.4 F 03/26/25 07:17 Pulse 95 03/26/25 09:58 Resp 18 03/26/25 07:17 BP 141/74 H 03/26/25 09:58 Pulse Ox 96 03/26/25 07:17 O2 Del Method Room Air 03/26/25 07:17 BMI result Body Mass Index 18.7 Neuro: Other: She is alert and awake watching television. Spontaneity and fluency of speech are diminished. Comprehension is intact. She did not know what had happened and could not tell me name of her neurologist or primary care physician. Facial expression blinking were diminished. Moderate generalize bradykinesia was noted more so on the right side with significant rigidity on the right side and mild tremor. Deep tendon reflexes were trace to absent with flexor plantars. Results Labs 03/26/25 06:17 03/26/25 06:17 Labs: Short CBC 03/25/25 03/26/25 Range/Units 11:56 06:17 WBC 8.9 8.6 (4.8-10.8) X10*3/uL Hgb 12.2 13.8 (12.0-16.0) g/dl Hct 36.4 L 40.9 (37.0-47.0) % Plt Count 159 L 193 (160-400) X10*3/uL BMP 03/25/25 03/26/25 11:51 06:17 Sodium 142 144 Potassium 3.3 3.2 L Chloride 104 104 Carbon Dioxide 30 H 31 H BUN 11 7 L Creatinine 0.82 0.62 Calcium 8.8 D 9.1 Liver Function 03/25/25 Range/Units 11:51 Total Bilirubin 0.6 (0.0-1.0) mg/dL Direct Bilirubin 0.2 (0.0-0.5) mg/dL AST 20 (5-31) U/L ALT < 6 (0-31) U/L Alkaline Phosphatase 53 (39-117) U/L Albumin 3.8 (3.5-5.0) g/dL Urine 03/25/25 Range/Units 12:06 Urine Color Yellow Urine Appearance Clear Urine pH 7.5 (5.0-9.0) Ur Specific [place] 1.015 (1.005-1.025) Urine Protein Negative (Neg-Trace) mg/dL Urine Glucose (UA) Negative (Negative) mg/dL No significant abnormality noted on CAT scan of brain. Assessment and Plan (1) Episode of unresponsiveness: Status: Acute This could very well be orthostatic syncope as her blood pressure fluctuated significantly. This would suggest underlying dysautonomia resulting in orthostatic hypotensive dysfunction. Seizure disorder is a possibility too. A routine EEG is recommended. Otherwise, I recommend adjusting her medications and remove any medicines that could contribute to hypotension. If she continues to be hypertensive, a nighttime dose of antihypertensive should be considered. Procedures Date of Service Date of Service: 03/26/25
--- NOTE | 2025-03-26 13:31 | MHC.CM.PN ---
CM met with Patient, her , and her Daughter/HCP/Akiko to discuss PT's recommendation for STR. Per that conversation, referrals have been made to the 3 area acute rehabs, [facility], [facility], and [facility]. CM awaits responses.
--- NOTE | 2025-03-26 14:40 | MHC.CM.PN ---
Per MD, Patient is medically cleared for dc to STR today. Patient will dc to her first choice facility/[facility] today at 4:30 PM, via [facility].
--- NOTE | 2025-03-26 14:44 | PM.DS ---
DS: Providers Provider Date of Service: 03/26/25 Date of admission: 03/25/25 14:59 Date of discharge: 03/26/25 Primary care physician: Camilla Thomason MD Consults: 03/25/25 15:44 Consult to Cardiology Routine Consulting Provider: [facility] Reason for consultation: Syncope Has provider been notified: No 03/26/25 09:46 Consult to Neurology Routine Consulting Provider: [facility] Reason for consultation: sycnope DS: Diagnosis Discharge Diagnosis (1) Episode of unresponsiveness: Status: Acute DS: Summary Hospital Course Hospital Course: admission hpi Chief Complaint: Loss of consciousness. Rosalina Trejo is a 80 years old woman with past medical history significant for recurrent UTI is, Parkinson's disease, dementia and COPD was brought to the ED after she had an event of unresponsiveness that was witnessed by her daughter who was at bedside. This event was brief. During this episode the patient became very weak, pale, diaphoresis and was drooling. No seizure activity or urinary incontinence noted. Patient denied any headache, acute visual disturbances, chest pain or shortness on breath. She did not report any acute gastrointestinal or genitourinary symptoms. Daughter mentioned that patient has been very constipated and has been taking seen and [id number] stool softeners. She is not taking blood pressure medication water pills. According to patient's daughter she does not drink or eat well. Patient underwent a TTE on November of this year after she was found to have some rhythm irregularities. It showed a hyperdynamic LV function > 7%, grade 1 diastolic dysfunction and no significant valve disease. According to patient's daughter and the patient was found to have hypotension by EMS and received IV fluids for this. She also mentioned that patient was recently hospitalized for pneumonia. In the ED, upon arrival to the emergency department, patient was found to have stable vital signs. Last blood pressure is 151/86. Blood workup showed no leukocytosis or lactic acidosis. Hemoglobin is 12.2 and platelets 159. There are no significant electrolyte imbalances. CO2 is 30 and anion gap 11. Creatinine is 0.82 and BUN 11. Random glucose 132. LFTs are normal. Troponin is less than 2.7. BNP is 138. TSH is 1.25. Urinalysis showed no evidence of UTI, however, it showed trace ketones. CXR showed improving right bibasilar airspace opacity. ED tx: None. Hospital course: 80 years old woman with past medical history significant for recurrent UTI is, Parkinson's disease, advanced dementia and COPD was brought to the ED after she had a syncope witnessed by daughter, described as brief LOC. She became weak, pale, diaphoresis and was drooling. No seizure activity or urinary incontinence was observed. Patient was hydrated with resolution of hypotension. She was observe on tele without any maliagant arrythmia, her blood continues to be normal. She was seen by cardiology with no further testing recommended. Neurology saw her and recommend EEG and to ensure hydration. EEG is not available as inpatient and will be arranged on outpatient basis. Parkinson disease. Continue carbidopa. Hyperlipidemia. Continue atorvastatin. Dementia. Continue donepezil. Mood disorder. Continue Lexapro. Hypothyroidism. Continue levothyroxine. History of recurrent UTI. UA today showed no evidence of UTI. COPD. No home oxygen. Noticed symptoms. Continue home inhalers To rehab Time Attestation Discharge Coordination Time (in mins): 40 Quality: Safe Use of Opioids Does Pt have an Active Cancer Diagnosis on the Problem List?: No Quality: Stroke Does the patient have a stroke diagnosis?: No Physical Exam Vital Signs: Vital Signs: Last Vital Signs Temp 98.4 F 03/26/25 07:17 Pulse 68 03/26/25 11:16 Resp 16 03/26/25 11:14 BP 124/71 03/26/25 11:16 Pulse Ox 96 03/26/25 11:16 O2 Del Method Room Air 03/26/25 11:14 BMI result Body Mass Index 18.7 General: demented Resp: CTA bilateral CVS: S1,S2,RRR GI: +BS, NT, no distention Skin: No rash Neuro: motor grossly intact Psych: appropriate affect DS: Data Data Completed and Pending Labs on day of discharge: Laboratory Results - last 24 hr 03/25/25 03/25/25 03/26/25 11:51 20:00 06:17 WBC 8.6 RBC 4.53 Hgb 13.8 Hct 40.9 MCV 90.3 MCH 30.5 MCHC 33.7 RDW 13.7 Plt Count 193 MPV 10.2 Immature Gran % (Auto) 0.8 H Neut % (Auto) 77.4 H Lymph % (Auto) 12.1 L [place] % (Auto) 7.7 Eos % (Auto) 1.8 Baso % (Auto) 0.2 Lymph # (Auto) 1.0 L [place] # (Auto) 0.7 Eos # (Auto) 0.2 Baso # (Auto) 0.0 Abs Immat Gran (auto) 0.07 H Absolute Neuts (auto) 6.6 Absolute Nucleated RBC 0.000 Nucleated RBC % (auto) 0.0 Sodium 144 Potassium 3.2 L Chloride 104 Carbon Dioxide 31 H Anion Gap 12 BUN 7 L Creatinine 0.62 Estim Creat Clear Calc 60.2 Estimated GFR > 60 Random Glucose 111 Calcium 9.1 Magnesium 2.2 2.1 Troponin I High Sens 3.7 TSH 1.25 Preliminary micro results at discharge 03/25/25 11:50 Blood Culture - Preliminary Blood - Venous No growth after 24 hours. 03/25/25 11:52 Blood Culture - Preliminary Blood - Venous No growth after 24 hours. Discharge Plan Discharge Anticipated Discharge Date/Time: 03/26/25 14:36 Patient Disposition: Xfer Inpatient Rehab Fac Discharge Diagnosis: Sycnope, Hypotension/Dehydration [facility]Outside] - 1 Week Camilla Thomason MD [Primary Care Provider, Internal Medicine] - 1 Week Discharge Medications: Continued cyanocobalamin (vitamin B-12) 1,000 mcg tablet 1,000 mcg PO DAILY 90 Days Qty: 90 0RF atorvastatin 10 mg tablet 10 mg PO DAILY Qty: 90 0RF escitalopram oxalate 20 mg tablet 20 mg PO DAILY Qty: 30 0RF donepezil 5 mg tablet 5 mg PO BEDTIME Qty: 30 0RF carbidopa-levodopa 25-100 mg tablet 1 tab PO TID Qty: 90 0RF sennosides-docusate sodium [Senokot-S] 8.6-50 mg tablet 1 tab-cap PO BID 90 Days Qty: 180 0RF cholecalciferol (vitamin D3) [Vitamin D3] 50 mcg (2,000 unit) Capsule 50 mcg PO DAILY 90 Days Qty: 90 1RF levothyroxine 50 mcg tablet 50 mcg PO DAILY@0600 Breo Ellipta 50-25 mcg/dose blister with device 1 inh inhalation DAILY multivitamin Tablet 1 tab PO DAILY (DME) arochamber standard See Rx Instructions .Route .MEDSUPPLY Qty: 1 0RF Rx Instructions: As directed Discharge Orders: Discharge Order (Routine); Ordered 03/26/25 Ordered By: Ilan Acevedo Diet: Advance to usual diet Activity on Discharge: As tolerated Stand Alone Forms: Patient Portal Discharge page Print Language: Hungarian Other Ambulatory Orders: EEG ambulatory (Routine) Timeframe: 1 Week Facility: [facility] - Location: Radiology Ordered By: Ilan Acevedo Care Plan Goals: recovery from syncope and dehydration Health Concerns: syncope dementia parkinson Plan of Treatment: stay hydrated Assessment: See above
== END 2025-03-26 17:11 ==
LOC: HO.ED 14:53 → HO.EDOVER 15:31 → HO.IMC 17:05
PROVIDERS: Admitting Provider Internal Medicine; Emergency Provider Emergency Medicine; PCP Internal Medicine; Visit Provider Internal Medicine
DX: I95.1 Orthostatic hypotension (principal); E86.0 Dehydration; F03.90 Unspecified dementia, unspecified severity, without behavioral disturbance, psychotic disturbance, mood disturbance, and anxiety; F05 Delirium due to known physiological condition; J44.89 Other specified chronic obstructive pulmonary disease; Z87.440 Personal history of urinary (tract) infections; G20.A1 Parkinson's disease without dyskinesia, without mention of fluctuations; F02.80 Dementia in other diseases classified elsewhere, unspecified severity, without behavioral disturbance, psychotic disturbance, mood disturbance, and anxiety; Z79.899 Other long term (current) drug therapy
CPT/HCPCS: 36415; 71045; 80048; 80076; 81003; 82947; 83605; 83690; 83735; 83880; 84443; 84484; 85025; 85610; 87040; 93005; 96360; 96361; 97162; 99222; 99285; J1644; J7120

== ENCOUNTER → 2025-03-25 12:51 | Outpatient (BNV) | payer MEDICARE, SELFPAY | PROVIDERS: Emergency Provider Emergency Medicine; Visit Provider Radiology Diagnostic Radiology | DX: J84.89 Other specified interstitial pulmonary diseases (principal) | CPT/HCPCS: 71045 ==

== ENCOUNTER → 2025-03-25 14:59 | Outpatient (BNV) | payer MEDICARE, SELFPAY | PROVIDERS: Admitting Provider Internal Medicine; Emergency Provider Emergency Medicine; Visit Provider Psychiatry & Neurology Neurology | DX: R40.4 Transient alteration of awareness (principal) | CPT/HCPCS: 99222 ==

== ENCOUNTER → 2025-03-25 14:59 | Outpatient (BNV) | payer MEDICARE, SELFPAY | PROVIDERS: Admitting Provider Internal Medicine; Emergency Provider Emergency Medicine; Visit Provider Internal Medicine | DX: R55 Syncope and collapse (principal); R40.4 Transient alteration of awareness | CPT/HCPCS: 99222; 99239; 99499 ==

== ENCOUNTER → 2025-03-25 14:59 | Outpatient (BNV) | payer MEDICARE, SELFPAY | PROVIDERS: Admitting Provider Internal Medicine; Emergency Provider Emergency Medicine; Visit Provider Internal Medicine | DX: R55 Syncope and collapse (principal); G20.B2 Parkinson's disease with dyskinesia, with fluctuations; F02.80 Dementia in other diseases classified elsewhere, unspecified severity, without behavioral disturbance, psychotic disturbance, mood disturbance, and anxiety; R41.0 Disorientation, unspecified | CPT/HCPCS: 99222 ==

== ENCOUNTER 2025-04-16 13:02 | Outpatient (AMB) | payer MEDICARE, SELFPAY ==
[2025-04-16 13:03] VITALS: BP 126/70; PULSE 67; O2SAT 96; BMI 18.3
--- NOTE | 2025-04-16 13:03 | MHC.PC.OV ---
Vital Signs 04/16/25 13:03 Height 5 ft 5 in Weight 110 lb BMI 18.3 BP 126/70 Blood Pressure Location Lt brachial Position Sitting Pulse 67 Pulse Source Pulse Oximeter Pulse Oximetry (%) 96 Intake Visit Reasons: rehab d/c Milk Bottler Required: No Allergies No Known Allergies Allergy (Verified 04/16/25 13:03) Medication List - Last Reconciled 04/16/25 by Camilla Thomason MD amantadine HCl 50 mg (1/2 x 100 mg) PO BID [arochamber As directed] atorvastatin 10 mg PO DAILY carbidopa-levodopa 25-100 mg 1 tab PO TID cholecalciferol (vitamin D3) (Vitamin D3) 50 mcg PO DAILY 90 days cyanocobalamin (vitamin B-12) 1,000 mcg PO DAILY 90 days donepezil 5 mg PO BEDTIME escitalopram oxalate 20 mg PO DAILY fluticasone furoate-vilanterol 50-25 mcg/dose (Breo Ellipta) 1 inh inhalation DAILY levothyroxine 50 mcg PO DAILY@0600 memantine 7 mg PO DAILY mirtazapine 7.5 mg PO DAILY multivitamin 1 tab PO DAILY sennosides-docusate sodium 8.6-50 mg (Senokot-S) 1 tab-cap PO BID 90 days Tobacco use date assessed: 01/06/25 Fall risk assessment: No Falls in past year Last assessed Fall Risk: 04/16/25 Dental Screening Dental Screen Date: 01/06/25 HPI rehab d/c HPI Details Patient is a 80-year-old female came in today for follow-up after being discharged from a rehab facility called [facility] She was admitted there on 03/26/2025 and discharged on 04/05/2025 Swallowing test was done patient was able to swallow even thin regular consistency Patient currently taking albuterol inhaler as needed for wheezing Amantadine 50 mg, half a tab bid Atorvastatin 10 mg once a day Carbidopa levodopa 25-100 mg 4 times a day Vitamin-D supplement vitamin B12 supplement Donepezil 5 mg once a day Lexapro 20 mg once a day Breo inhaler 1 inhalation every day Levothyroxine 50 mcg every day Mirtazapine 15 mg half a tablet at bedtime mamantine 7 mg qd She is currently living in assisted living facility She was evaluated at [facility] in February for confusion And had consultation by cardio in the hospital Her last blood test report from 03/26/2025 shows normal hemoglobin and hematocrit white count of 8.6, platelet 193 Electrolytes within normal limit with potassium being 3.2 creatinine of 0.6 GFR more than 60 Random glucose 111, magnesium 2.1, TSH 1.25 Her chest x-ray on 03/25/2025 showed improved right basilar airspace opacity She has appointment coming up with cardiovascular as a new patient for atrial premature contractions and shortness a breath on of this month Pulmonary appointment is coming up 06/08/2025 for the management of asthma Neurology appointment is in June for the management of dementia She came in today with her daughter and Son - Reports periodic ankle swelling, monitored by visiting nurses - Expresses concerns related to possible depression with feelings of misunderstanding or cognitive difficulty, want to be addressed driectly how ever have difficulty answering questions Social History: - Patient resides in an assisted living facility and have strong family support Problem List - Parkinson's disease - Depression - Cognitive changes - Need for pulmonary follow-up for previous lung opacity - Hypokalemia (resolved) - Anticipated follow-up for cardiology and Neuro Diagnostic results - Previous right lung opacity noted in chest imaging - Historical hypokalemia during hospitalization Patient Instructions - Continue with prescribed medications as currently instructed. - Attend upcoming appointments with five piece expansion maker hand, pulmonary, neurology, and other relevant specialties. - Keep hydrated and monitor swelling. - Seek immediate care if severe breathlessness or new pulmonary symptoms develop. - Use patient portal for non-urgent questions or concerns. - Write down future questions to discuss in follow-up visits. Review of Systems General: No fever no chills neurological: No headaches no dizziness ear nose throat: No sore throat no hearing difficulty no ear pain cardiovascular: No syncope, no chest pain, no palpitations gastrointestinal: No nausea vomiting or diarrhea skin: No new complaints Physical Exam general: No acute distress HEENT: No acute findings neck: Supple respiratory system: Able to talk in full sentences, no audible wheeze, no stridor, lungs clear cardiovascular: S1-S2 RRR, heart is regular gastrointestinal: No pain, soft extremities: no swelling PERSONAL INJURY PARALEGAL: Alert, awake, having difficulty answering questions skin: Normal turgor [facility] Medical History Confusion Parkinson disease Dementia Anxiety Lymphoma Mild cognitive impairment Parkinson's disease without dyskinesia or fluctuating manifestations Parkinson disease Surgical History History of left knee replacement History of left knee surgery History of tonsillectomy Family History Mother Colon cancer Father Lung cancer Sister Breast cancer Social History Housing: Assisted Living Facility Unable to assess alcohol history related to: Unknown Patient Tobacco Use Status: Former Tobacco user e-Cigarette/Vaping Use: Never Used Advance Directives Date on File: 07/15/24 service: No Current occupational status: retired Cognitive needs: No Hearing needs: No Vision needs: Yes Questionnaire PHQ-9 Over the last 2 weeks, how often have you been bothered by any of the following problems? 1. Little interest or pleasure in doing things: more than half the days 2. Feeling down, depressed, or hopeless: nearly every day 3. Trouble falling or staying asleep, or sleeping too much: several days 4. Feeling tired or having little energy: nearly every day 5. Poor appetite or overeating: nearly every day 6. Feeling bad about yourself - or that you are a failure or have let yourself or your family down: not at all 7. Trouble concentrating on things, such as reading the newspaper or watching television: nearly every day 8. Moving or speaking so slowly that other people could have noticed. Or the opposite - being so fidgety or restless that you have been moving around a lot more than usual: more than half the days 9. Thoughts that you would be better off or of hurting yourself in some way: not at all Total score: 17 Depression Screening Interpretation: Positive Depression Screening Follow-up: Existing condition and In treatment Depression Screening Done: Yes 90310 - PHQ-9 Billing: Yes Source: Developed by Drs. Julio C Box, Echo Vega, Harsha James and colleagues, with an educational gunjan from [employer]. Thrive Questionnaire Date Thrive assessed: 04/16/25 I am a: Parent/Caregiver What is your living situation today?: I have a steady place to live Within the past 12 months, did the food you bought not last and you didn't have the money to get more?: Never true Within the past 12 months, did you worry whether your food would run out before you got money to buy more?: Never true Do you have trouble paying for medicines?: No Do you have trouble getting transportation to medical appointments?: No Do you have trouble paying your heating and electricity bill?: No Do you have trouble taking care of your child, family member or friend?: No Do you have trouble with day-to-day activities such as bathing, preparing meals, shopping, managing finances, etc.?: Yes Are you currently unemployed and looking for a job?: No Are you interested in more education?: No Please select the resources that you would like help with: None Currently or been in a relationship where the following occur: No concerns reported THRIVE Score: 0 AUDIT C Alcohol Use Questionnaire (AUDIT-C) 1. How often do you have a drink containing alcohol?: Never 3. How often do you have six or more drinks on one occasion?: Never Total Score: 0 Score Reviewed/Action Taken: Yes MARGIE-7 AMB Questionnaire MARGIE-7 Date MARGIE - 7 assessed: 04/16/25 Feeling nervous, anxious, or on edge: 3 = Nearly every day Not being able to stop or control worryin = Nearly every day Worrying too much about different things: 3 = Nearly every day Trouble relaxin = Nearly every day Being so restless that it is hard to sit still: 2 = More than half the days Becoming easily annoyed or irritable: 1 = Several days Feeling afraid as if something awful might happen: 2 = More than half the days Total MARGIE-7 score (0-4 normal; 5-9 mild; 10-14 moderate; 15-21 severe): 17 Source: Developed by Drs. Julio C Box, Echo Vega, Harsha James and colleagues, with an educational gunjan from [employer]. MARGIE-7 Assessment Billing MARGIE-7 Assessment Tool: MARGIE-7 Assessment 80843 Physical exam (Primary Care) Vital Signs: Last Vital Signs Pulse 67 04/16/25 13:03 BP 126/70 04/16/25 13:03 Pulse Ox 96 04/16/25 13:03 BMI result Body Mass Index 18.3 Tobacco/Smoking Status: Tobacco use Status Tobacco use date assessed 01/06/25 04/16/25 13:04 Patient Tobacco Use Status Former Tobacco user 04/16/25 13:04 e-Cigarette/Vaping Use Never Used 04/16/25 13:04 PHQ-9: PHQ-9 Score PHQ-9: Total score 17 04/16/25 13:39 Depression Screening Interpretation: Positive Depression Screening Follow-up: Existing condition and In treatment Thrive Assessment: Date of Thrive Assessment Date Thrive assessed 04/16/25 04/16/25 13:04 Currently or been in a relationship where the following occur: No concerns reported Coding Level of Care Code Est Pt Level 5 (69046) Diagnoses Hospital discharge follow-up Z09 Other urinary incontinence N39.498 Urinary Incontinence type: other incontinence Atelectasis of right lung J98.11 Anxiety, generalized F41.1 Risk for falls Z91.81 Lipid disorder E78.9 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 Other specified hypothyroidism E03.8 Recurrent UTI N39.0 Parkinson's disease without dyskinesia or fluctuating manifestations G20.A1 Mild cognitive impairment G31.84 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 Additional Codes MARGIE-7 Assessment Billing - MARGIE-7 Assessment Tool: MARGIE-7 Assessment 40585 ([id number]) PHQ-9 - 98921 - PHQ-9 Billing: Yes ([id number]) Time Spent (min) 40 Comment Reviewing hospital notes rehab notes/taqd-pt-oxve with the patient and family/coordination Assessment & Plan Assessment & Plan (1) Hospital discharge follow-up: Code(s): Z09 - Encounter for follow-up examination after completed treatment for conditions other than malignant neoplasm Category: Medical (2) Urine incontinence: Code(s): R32 - Unspecified urinary incontinence Category: Medical Qualifiers: Urinary Incontinence type: other incontinence Qualified Code(s): N39.498 - Other specified urinary incontinence (3) Atelectasis of right lung: Code(s): J98.11 - Atelectasis Category: Medical (4) Anxiety, generalized: Code(s): F41.1 - Generalized anxiety disorder Category: Medical (5) Risk for falls: Code(s): Z91.81 - History of falling Category: Medical (6) Lipid disorder: Code(s): E78.9 - Disorder of lipoprotein metabolism, unspecified Category: Medical (7) Premature atrial complexes: Code(s): I49.1 - Atrial premature depolarization Category: Medical (8) Other specified hypothyroidism: Code(s): E03.8 - Other specified hypothyroidism Category: Medical (9) Recurrent UTI: Code(s): N39.0 - Urinary tract infection, site not specified Category: Medical (10) Parkinson's disease without dyskinesia or fluctuating manifestations: Code(s): G20.A1 - Parkinson's disease without dyskinesia, without mention of fluctuations Category: Medical (11) Mild cognitive impairment: Code(s): G31.84 - Mild cognitive impairment of uncertain or unknown etiology Category: Medical (12) Asthma-COPD overlap syndrome: Code(s): J44.89 - Other specified chronic obstructive pulmonary disease Category: Medical Plan Patient is a 80-year-old female came in today for follow-up after being discharged from a rehab facility called [facility] She was admitted there on 03/26/2025 and discharged on 04/05/2025 Swallowing test was done patient was able to swallow even thin regular consistency Patient currently taking albuterol inhaler as needed for wheezing Amantadine 50 mg, half a tab bid Atorvastatin 10 mg once a day Carbidopa levodopa 25-100 mg 4 times a day Vitamin-D supplement vitamin B12 supplement Donepezil 5 mg once a day Lexapro 20 mg once a day Breo inhaler 1 inhalation every day Levothyroxine 50 mcg every day Mirtazapine 15 mg half a tablet at bedtime mamantine 7 mg qd She is currently living in assisted living facility She was evaluated at [facility] in February for confusion And had consultation by cardio in the hospital Her last blood test report from 03/26/2025 shows normal hemoglobin and hematocrit white count of 8.6, platelet 193 Electrolytes within normal limit with potassium being 3.2 creatinine of 0.6 GFR more than 60 Random glucose 111, magnesium 2.1, TSH 1.25 Her chest x-ray on 03/25/2025 showed improved right basilar airspace opacity She has appointment coming up with cardiovascular as a new patient for atrial premature contractions and shortness a breath on of this month Pulmonary appointment is coming up 06/08/2025 for the management of asthma Neurology appointment is in June for the management of dementia She came in today with her daughter and Son - Reports periodic ankle swelling, monitored by visiting nurses - Expresses concerns related to possible depression with feelings of misunderstanding or cognitive difficulty, want to be addressed driectly how ever have difficulty answering questions Social History: - Patient resides in an assisted living facility and have strong family support Problem List - Parkinson's disease - Depression - Cognitive changes - Need for pulmonary follow-up for previous lung opacity - Hypokalemia (resolved) - Anticipated follow-up for cardiology and Neuro - irregularity of heart - Hypothyroid - recurrent UTI Diagnostic results - Previous right lung opacity noted in chest imaging - Historical hypokalemia during hospitalization Patient Instructions - Continue with prescribed medications as currently instructed. - Attend upcoming appointments with five piece expansion maker hand, pulmonary, neurology, and other relevant specialties. - Keep hydrated and monitor swelling. - Seek immediate care if severe breathlessness or new pulmonary symptoms develop. - Use patient portal for non-urgent questions or concerns. - Write down future questions to discuss in follow-up visits. Orders: Orders UA CC w/rflx Micro + Cult Today R32 - Unspecified urinary incontinence XR chest 2V Today J98.11 - Atelectasis
--- OUTSIDE RECORDS SUMMARY | 2025-04-16 13:05 | XMS_ITS | Patient Health Record ---
Author Organization [facility] Address [address] [place] [address] Care Team Providers Care [place] Name Role Phone Raiza Kaur MD Primary Care Provider Sherita Her MD, Enriqueta Unavailable [phone] Allergies No Known Allergies Reason For Referral [...] Coverage End Date Medicare B [address] [place] [phone] [id number] Rosalina Trejo Self - patient is the insured [employer] MCR Supplement ([place]) [address] [place] [phone] [id number] Rosalina Trejo Self - patient is the [...]
--- OUTSIDE RECORDS SUMMARY | 2025-04-16 13:05 | XMS_ITS | Encounter Summary ---
Author Organization [facility] Address [address] [place] [phone] Phone Care Team Providers Care Clean Out Driller Helper Name Role Phone Camilla Thomason MD Primary Care Provider Aj Beth DO Unavailable [phone] Reason for Visit * Reason Onset Date Comments Update- Seeking [facility] 04/15/2025 Encounter Details Date Type Department Care Team (Late st Contact Info) Description 04/15/2025 Telephone [facility] [address] [place] [address] Anthony Berman RN [address] [place] [address] [email or web address] Update- Seeking NURSING HOME Social History Tobacco Use Types Packs/Day Years Used Date Smoking Tobacco: Never Smokeless Tobacco: Never Education Answer Date Recorded Are you interested in more education? Not on cade e 08/03/2024 Are you concerned about learning? Not on file 08/03/2024 No 08/03/2024 No 08/03/2024 Digital Access Answer Date Recorded No 08/03/2024 No 08/03/2024 Reliable internet access at home? Not on file 08/03/2024 Device with a working camera? Not on file Comments Unknown Sex and Gender Information Value Date Recorded Sex Assigned at Not on file Legal Sex Female 8:27 AM EST Gender Identity Not on file Sexual Orientation Not on file documented as of this encounter Progress Notes * Anthony Berman RN - 04/15/2025 3:31 PM EDT Update from [place]: Rosalina had been admitted, then to rehab, and now in [facility]THONY apt at [facility]. Seeking placement for both parents. Realizing that Independent Living setting was not sufficient--both parents need NURSING HOME. Wishes resources for NURSING HOME placement. documented in this encounter Plan of Treatment Upcoming Encounters Date Type Department Care Team (Late st Contact Info) Description 06/28/2025 4:00 PM EDT Office Visit [facility] [address] [place] [id number] [place] [address] documented as of this encounter Visit Diagnoses Not on filedocumented in this encounter Additional Health Concerns Assessment Noted Time PHQ-9 Depression Total Score: 15 025 10:40 AM EDT PHQ-2 Depression Total Score: 4 02/12/20 25 10:40 AM EDT documented as of this encounter Care Teams Clean Out Driller Helper Relationship Specialty Start Date End Date Camilla Thomason MD PCP - General Internal Medicine 08/03/24 Aj Hernandez DO [address] [place] [phone] [email or web address] Geriatric Medicine 08/03/24 documented as of this encounter Additional Source Comments The information contained in this document represents components of the legal health record. It is not the complete legal health record.[facility]
== END 2025-04-16 15:09 | disposition home or self-care (01) ==
LOC: HO.HMCC 13:02
PROVIDERS: PCP Internal Medicine; Visit Provider Internal Medicine
DX: J44.89 Other specified chronic obstructive pulmonary disease (principal); G20.A1 Parkinson's disease without dyskinesia, without mention of fluctuations; F41.1 Generalized anxiety disorder; Z09 Encounter for follow-up examination after completed treatment for conditions other than malignant neoplasm; N39.498 Other specified urinary incontinence; J98.11 Atelectasis; Z91.81 History of falling; E78.9 Disorder of lipoprotein metabolism, unspecified; I49.1 Atrial premature depolarization; E03.8 Other specified hypothyroidism; N39.0 Urinary tract infection, site not specified; G31.84 Mild cognitive impairment of uncertain or unknown etiology

== ENCOUNTER 2025-04-16 13:02 | Outpatient (REF) | payer MEDICARE, SELFPAY ==
--- NOTE | ~2025-04-16 | XR_ITS ---
EXAMINATION: XR CHEST 2 VIEWS HISTORY: J98.11 - Atelectasis COMPARISON: Comparison is made with the prior examination dated 03/25/2025. FINDINGS: PA and lateral views of the chest are submitted. The lungs are expanded and clear. There is no pleural effusion, pneumothorax, or pulmonary vascular congestion. The heart is normal in size. The bones are intact. XR/XR chest 2V IMPRESSION: No acute cardiopulmonary abnormality. Electronically signed by: JulioC Monk MD 04/16/2025 01:55 PM EDT
== END 2025-04-16 13:03 | disposition home or self-care (01) ==
LOC: HO.HMGCX 13:02
PROVIDERS: PCP Internal Medicine; Visit Provider Internal Medicine
DX: Z09 Encounter for follow-up examination after completed treatment for conditions other than malignant neoplasm (principal); N39.498 Other specified urinary incontinence; J98.11 Atelectasis; F41.1 Generalized anxiety disorder; E78.9 Disorder of lipoprotein metabolism, unspecified; I49.1 Atrial premature depolarization; E03.8 Other specified hypothyroidism; N39.0 Urinary tract infection, site not specified; G20.A1 Parkinson's disease without dyskinesia, without mention of fluctuations; G31.84 Mild cognitive impairment of uncertain or unknown etiology; J44.89 Other specified chronic obstructive pulmonary disease; Z91.81 History of falling; Z79.899 Other long term (current) drug therapy; Z13.31 Encounter for screening for depression; Z13.39 Encounter for screening examination for other mental health and behavioral disorders
CPT/HCPCS: 71046; 96127; 99212

== ENCOUNTER → 2025-04-16 13:41 | Outpatient (BNV) | payer MEDICARE, SELFPAY | PROVIDERS: PCP Internal Medicine; Visit Provider Radiology Diagnostic Radiology | DX: J98.11 Atelectasis (principal) | CPT/HCPCS: 71046 ==

== ENCOUNTER 2025-04-26 13:53 | Outpatient (AMB) | payer MEDICARE, SELFPAY ==
--- NOTE | 2025-04-26 14:04 | MHC.OFFVIS ---
Vital Signs 04/26/25 14:05 Height 5 ft 5 in Weight 108 lb 0.424 oz BMI 18.0 BP 118/60 Blood Pressure Location Lt brachial Position Sitting Pulse 68 Pulse Source Pulse Oximeter Intake Visit Reasons: [employer] WORKER/Paddy/Atrial premature depolarization/SOB Allergies No Known Allergies Allergy (Verified 04/16/25 13:03) Medication List - Last Reconciled 04/26/25 by Sanchez Jones MD amantadine HCl 50 mg (1/2 x 100 mg) PO BID [arochamber As directed] atorvastatin 10 mg PO DAILY carbidopa-levodopa 25-100 mg 1 tab PO TID cholecalciferol (vitamin D3) (Vitamin D3) 50 mcg PO DAILY 90 days cyanocobalamin (vitamin B-12) 1,000 mcg PO DAILY 90 days donepezil 5 mg PO BEDTIME escitalopram oxalate 20 mg PO DAILY fluticasone furoate-vilanterol 50-25 mcg/dose (Breo Ellipta) 1 inh inhalation DAILY levothyroxine 50 mcg PO DAILY@0600 memantine 7 mg PO DAILY mirtazapine 7.5 mg PO DAILY multivitamin 1 tab PO DAILY sennosides-docusate sodium 8.6-50 mg (Senokot-S) 1 tab-cap PO BID 90 days HPI Comments Details: Rosalina is here for follow-up. Recently seen in the hospital for syncopal episode. Patient has a background of Parkinson's disease, dementia. She was admitted to the hospital for unresponsiveness, witnessed by daughter. Patient had apparently become weak, pale and diaphoretic. Thought to be from dehydration, as she improved significantly with IV fluids. She was monitored on telemetry but no arrhythmias identified. Eventually, discharged home. Daughter states that she is doing okay for the most part. No specific cardiac concerns. Prior to this, no known coronary disease, myocardial infarction or cardiomyopathy. [facility] Medical History (Updated 04/26/25 @ 14:52 by Sanchez Jones MD) Dementia Confusion Parkinson disease Anxiety Lymphoma Mild cognitive impairment Parkinson's disease without dyskinesia or fluctuating manifestations Parkinson disease Surgical History History of left knee replacement History of left knee surgery History of tonsillectomy Family History Mother Colon cancer Father Lung cancer Sister Breast cancer Social History Housing: Assisted Living Facility Unable to assess alcohol history related to: Unknown Patient Tobacco Use Status: Former Tobacco user e-Cigarette/Vaping Use: Never Used Advance Directives Date on File: 07/15/24 service: No Current occupational status: retired Cognitive needs: No Hearing needs: No Vision needs: Yes Review of Systems Const Denies weakness ENT Denies dizziness Card Denies chest pain, Reports chest pain with activity, Denies syncope, Denies rapid heart rate, Denies pedal edema, Denies edema, Denies leg edema, Denies lightheadedness, Denies palpitations, Denies dyspnea, Denies dyspnea on exertion and Denies orthopnea Resp Denies cough, Denies dyspnea and Denies dyspnea on exertion GI Denies hematochezia and Denies change in stool character Musc Denies abnormal gait, Denies muscle cramps, Denies muscle weakness, Denies numbness, Denies radiating pain into limb and Denies tingling Neuro Denies abnormal gait, Denies dizziness, Denies syncope, Denies numbness, Denies tingling and Denies weakness Endo Denies palpitations Physical Exam Vital Signs: Last Vital Signs Pulse 68 04/26/25 14:05 BP 118/60 04/26/25 14:05 BMI result Body Mass Index 18.0 Const General: comfortable and no acute distress Orientation/consciousness: patient oriented x3 HEENT Other: Unremarkable Head: Yes normal to inspection Neck Neck: Yes normal visual inspection Chest Chest palpation & inspection: normal inspection of the chest Resp Auscultation: clear to auscultation bilaterally Cardio Palpation: normal PMI Heart sounds: S1 normal heart sound present, S2 normal heart sound present, no gallops, no murmurs and no rubs GI Palpation (GI): Soft to palpation Back/Spine/Pelvis Other: unremarkable Skin General skin exam: no rashes or lesions noted Neuro General: patient oriented x3 Extrem General: Yes normal to inspection Psych Mental Status: mental status grossly normal Assessment & Plan Assessment & Plan (1) Syncope and collapse: Code(s): R55 - Syncope and collapse Category: Medical (2) Parkinson's disease without dyskinesia or fluctuating manifestations: Code(s): G20.A1 - Parkinson's disease without dyskinesia, without mention of fluctuations Category: Medical (3) Dementia: Code(s): F03.90 - Unspecified dementia, unspecified severity, without behavioral disturbance, psychotic disturbance, mood disturbance, and anxiety Category: Medical Qualifiers: Dementia type: unspecified type Dementia severity: moderate Dementia behavioral or psychological symptom: without behavioral, psychotic, or mood disturbance or anxiety Qualified Code(s): F03.B0 - Unspecified dementia, moderate, without behavioral disturbance, psychotic disturbance, mood disturbance, and anxiety Plan EKG with underlying sinus rhythm at 65/Min; possible left atrial enlargement; no ischemic changes; normal HI and corrected QT. Available high sensitivity troponins are within range. Echocardiogram with hyperdynamic LVEF; no significant valvular findings. Overall, syncopal episode thought to be from dehydration. That issues now resolved and no recurring episodes. Otherwise, no clear-cut cardiac concerns and daughter will call us as needed. We discussed this at length today. Discussion Notes During the discussion, I emphasized the importance of maintaining adequate hydration to prevent hypotensive episodes. We reviewed the management strategies for Parkinson's disease and dementia, highlighting the role of the assisted living facility in providing comprehensive care. I also discussed the need for vigilance in monitoring for infections, given their potential impact on cognitive function. I advised scheduling regular follow-up appointments to monitor her health status and adjust care plans as necessary. Patient was informed and verbally consented to the use of an ambient scribe for clinic note documentation during this visit. Patient Instructions: - Ensure adequate fluid intake to prevent dehydration. - Adhere to prescribed medications for Parkinson's disease and dementia. - Monitor for signs of infection and seek medical attention if symptoms arise. - Attend regular follow-up appointments to assess health status. Coding Level of Care Code Est Pt Level 3 (17764) Diagnoses Syncope and collapse R55 Parkinson's disease without dyskinesia or fluctuating manifestations G20.A1 Moderate dementia without behavioral disturbance, psychotic disturbance, mood disturbance, or anxiety, unspecified dementia type F03.B0 Dementia type: unspecified type Dementia severity: moderate Dementia behavioral or psychological symptom: without behavioral, psychotic, or mood disturbance or anxiety
[2025-04-26 14:05] VITALS: BP 118/60; PULSE 68; BMI 18.0
--- OUTSIDE RECORDS SUMMARY | 2025-04-26 14:37 | XMS_ITS | Patient Health Record ---
Author Organization [facility] Address [address] [place] [address] Care Team Providers Care Consultant Name Role Phone Raiza Kaur MD Primary Care Provider Sherita Her MD, Enriqueta Unavailable [phone] Allergies No Known Allergies Reason For Referral [...] Coverage End Date Medicare B [address] [place] [phone] [id number] Rosalina Trejo Self - patient is the insured [employer] MCR Supplement ([place]) [address] [place] [phone] [id number] Rosalina Trejo Self - patient is the [...]
--- OUTSIDE RECORDS SUMMARY | 2025-04-26 14:37 | XMS_ITS | Encounter Summary ---
Author Organization [facility] Address [address] [place] [address] [place] [address] Phone Care Team Providers Care Groutman Name Role Phone Camilla Thomason MD Primary Care Provider Aj Hernandez DO Unavailable [phone] Encounter Details Date Type Department Care Team (Late st Contact Info) Description 12/04/2024 Procedure Pass [facility], [address] [place] [address] Social History Tobacco Use Types Packs/Day Years [...] on file documented as of this encounter Plan of Treatment Upcoming Encounters Date Type Department Care Team (Late st Contact Info) Description 06/28/2025 4:00 PM EDT Office Visit [facility] [address] [place] [address] [place] [address] [email or web address] documented as of this encounter Visit Diagnoses Not on filedocumented in this encounter Care Teams Groutman Relationship Specialty Start Date End Date Camilla Thomason MD [facility] [place] [address] PCP - General Internal Medicine 08/03/24 [place] [address] [email or web address] Geriatric Medicine 08/03/24 documented as of this encounter Additional Source Comments The information contained in this document represents components of the legal health record. It is not the complete legal health record.[facility]
== END 2025-04-26 14:53 | disposition home or self-care (01) ==
LOC: HO.HCS 13:53
PROVIDERS: PCP Internal Medicine; Visit Provider Internal Medicine
DX: R55 Syncope and collapse (principal); G20.A1 Parkinson's disease without dyskinesia, without mention of fluctuations; F03.B0 Unspecified dementia, moderate, without behavioral disturbance, psychotic disturbance, mood disturbance, and anxiety
CPT/HCPCS: 99213

== ENCOUNTER → 2025-04-26 13:53 | Outpatient (BNVA) | payer MEDICARE, SELFPAY | PROVIDERS: PCP Internal Medicine; Visit Provider Internal Medicine | DX: G20.A1 Parkinson's disease without dyskinesia, without mention of fluctuations (principal); R55 Syncope and collapse; F03.B0 Unspecified dementia, moderate, without behavioral disturbance, psychotic disturbance, mood disturbance, and anxiety | CPT/HCPCS: 99212 ==

== ENCOUNTER 2025-05-26 14:21 | Outpatient (REF) | payer MEDICARE, OTHER, SELFPAY ==
--- NOTE | ~2025-05-26 | XR_ITS ---
EXAMINATION: XR CHEST 2 VIEWS HISTORY: R05.9 - Cough, unspecified COMPARISON: Comparison is made with the prior examination dated 04/16/2025. FINDINGS: PA and lateral views of the chest are submitted. The lungs are expanded and clear. There is no pleural effusion, pneumothorax, or pulmonary vascular congestion. The heart is normal in size. Again seen is scoliosis of the spine. XR/XR chest 2V IMPRESSION: No acute cardiopulmonary abnormality. Electronically signed by: Julio C Monk MD 05/26/2025 02:44 PM EDT
--- NOTE | ~2025-05-26 | FL_ITS ---
EXAMINATION: Modified Barium Swallow CLINICAL INFORMATION: Dysphagia COMPARISON: None TECHNIQUE: Modified barium swallow was performed under lateral fluoroscopy with patient in standing position. Barium mixed with solids and liquids of different consistencies was administered by the speech pathologist. Examination was recorded in the fluoroscopy suite. FINDINGS: Patient was given multiple consistencies. There was minimal transient laryngeal penetration on thin liquids. There is no glottic or subglottic aspiration. FLUOROSCOPY TIME: 52 seconds Number of Spot Images: N/A DOSE AREA PRODUCT: 477.1 uGy-m2 (microgray-meter squared) FL/FL Modified Barium Swallow IMPRESSION: Trace transient laryngeal penetration on thin liquids. No evidence of aspiration. Please refer to the full speech therapy report to follow for further detail. Electronically signed by: Quinton East MD 05/26/2025 03:21 PM EDT
--- OUTSIDE RECORDS SUMMARY | 2025-05-26 15:24 | XMS_ITS | Patient Health Record ---
Author Organization [facility] Address [address] [place] [address] Care Team Providers Care Sheet Rock Applicator Name Role Phone Raiza Kaur MD Primary Care Provider Sherita Her MD, Enriqueta Unavailable [phone] Allergies No Known Allergies Reason For Referral [...] Medicare B [address] [place] [phone] [id number] Rosalina Trejo Self - patient is the insured [employer] MCR Supplement ([place]) [address] [place] [phone] [id number] Rosalina Trejo Self - patient is the [...]
--- OUTSIDE RECORDS SUMMARY | 2025-05-26 15:24 | XMS_ITS | Clinical Summary ---
Author Organization [facility] Address [address] [address] Phone Care Team Providers Care Typing Element Machine Operator Name Role Phone Camilla Thomason MD Primary Care Provider [phone] Aj Hernandez DO Unavailable [phone] Allergies No known active allergies Medications atorvastatin (LIPITOR) 10 MG tablet 10/29/19 25 Active carbidopa-levodo pa (SINEMET) 25-100 mg per tablet 3 (three) times a day. 10/29/19 25 Active escitalopram oxalate (LEXAPRO) 20 MG tablet 10/29/19 25 Active levothyroxine (SYNTHROID, LEVOTHROID) 50 MCG tablet 10/29/19 25 Active cyanocobalamin, vitamin B-12, 1000 MCG tablet Take 2,000 mcg by mouth daily. Active cholecalciferol (VITAMIN D3) 2,000 unit tablet Take 1,000 Units by mouth daily. Active BREO ELLIPTA 50-25 mcg/dose DsDv 02/11/20 25 Active therapeutic multivitamin tablet Take 1 tablet by mouth daily. Active albuterol 90 mcg/actuation inhaler 02/27/20 25 Active mirtazapine (REMERON) 15 MG tablet Take 15 mg by mouth nightly at bedtime. 03/25/20 25 Active amantadine HCl (SYMMETREL) 100 mg tablet 05/13/20 Active amantadine HCl (SYMMETREL) 50 mg/5 mL solution 04/05/20 Active memantine (NAMENDA XR) 7 mg 24 hr sprinkle capsule 04/20/20 25 Active senna (SENOKOT) 8.6 mg tablet Take 1 tablet by mouth daily. Active psyllium (KONSYL) Pack Take 1 packet by mouth 2 (two) times a day. Active docusate sodium (COLACE) 50 MG capsule Take 50 mg by mouth 2 (two) times a day. Active donepeziL (ARICEPT) 5 MG tablet 10/29/19 025 Discontinued amoxicillin-clav ulanate (AUGMENTIN) 875-125 mg per tablet Take 1 tablet by mouth 2 (two) times a day. 03/03/20 25 025 Discontinued doxycycline hyclate (DORYX) 100 MG tablet Take 1 tablet by mouth 2 (two) times a day. 03/03/20 025 Discontinued Active Problems Problem Noted Date Diagnosed Date Mixed dementia 12/04/2024 Mood disorder 12/04/2024 Encounters Date Type Department Care Team Description 05/20/2025 2:30 PM EDT Office Visit [facility] [address] [place] [address] [place] [address] Aj Hernandez, Mixed dementia (Primary Dx); Encounter for support to caregiver; Encounter for medication review; Advance care planning 05/17/2025 Telephone [facility] [address] [place] [address] [place] [address] Anthony Berman RN 04/15/2025 Telephone [facility] [address] [place] [address] [place] [address] Anthony Berman RN Update- Seeking [facility] 03/08/2025 Telephone [facility] [address] [place] [address] [place] [address] Anthony Berman RN from Last 3 Months Social History Tobacco Use Types Packs/Day Years Used Date Smoking Tobacco: Never Smokeless Tobacco: Never Tobacco Cessation:Counseling Given: Not Answered Education Answer Date Recorded Are you interested [...] on file Sexual Orientation Not on file Last Filed Vital Signs Vital Sign Reading Time Taken Comments Blood Pressure 124/62 05/20/2025 2:36 PM EDT Pulse 90 05/20/2025 2:36 PM EDT Temperature - - Respiratory Rate - - Oxygen Saturation 99% 05/20/2025 2:36 PM EDT Inhaled Oxygen Concentration - - Weight 52.3 kg (115 lb 3.2 oz) 05/20/2025 2:36 P M EDT Height 162.6 cm (5' 4 ) 12/19/2024 12:50 PM EDT Body Mass Index 19.77 12/19/2024 12:50 PM EDT Plan of Treatment Upcoming Encounters Date Type Department Care Team (Late st Contact Info) Description 09/03/2025 12:15 PM EST Office Visit [facility] [address] [place] [address] Aj Hernandez DO [address] [place] [address] Health Maintenance Due Date Last Done Comments LIPID PANEL 1947 TSH LEVEL 1947 HEPATITIS C SCREENING 1965 ZOSTER VACCINES (1 of 2) 1997 OSTEOPOROSIS SCREENING INITI AL (ONE-TIME) 2012 DEPRESSION SCREENING 05/20/2026 05/20/2025, 05/20/2025 Adult Td,Tdap Booster 09/18/2034 09/18/2024 PNEUMOCOCCAL VACCINES (50+ years) Completed 11/24/2024 RSV VACCINE Completed 11/24/2024 COVID-19 VACCINE Completed 01/12/2025, 06/25/2024, 01/07/2024 SMOKING STATUS SCREENING (On ce After 26 Yrs) Completed 05/20/2025 HEPATITIS A VACCINES Aged Out No long er eligible based on patient's age to complete this topic HIB VACCINES Aged Out No longer eligi ble based on patient's age to complete this topic MENINGOCOCCAL VACCINES (ACWY) Aged Out No longer eligible based on patient's age to complete this topic MENINGOCOCCAL VACCINES (B) Aged Out N o longer eligible based on patient's age to complete this topic Medical Devices Not on file Insurance MEDICARE PART A & B GENERIC COMMERCIAL MEDICARE PART A & B GENERIC COMMERCIAL MEDICARE PART A & B GENERIC COMMERCIAL MEDICARE PART A & B Member Subscriber Plan / Payer (Ef fective 2013-Present) Name:Rosalina Trejo Member ID:[id number] Relation to Subscriber:Self Name:TrejoRosalina mack Subscriber ID:[id number] Payer ID:[id number] Group ID:Not on file Type:Medicare Address: [employer] [place] [place] [place] [address] GENERIC COMMERCIAL MEDICARE PART A & B GENERIC COMMERCIAL MEDICARE PART A & B GENERIC COMMERCIAL Advance Directives For more information, please contact: [phone] (9AM - 5PM [facility], Saturday-Saturday) Healthcare Agents on File Name Relationship Healthcare Agent Relationshi p Communication Akiko Neil Daughter .Primary Health Care Agent (Proxy form on file) Care Teams Typing Element Machine Operator Relationship Specialty Start Date End Date Camilla Thomason MD [address] [facility] [place] [address] PCP - General Internal Medicine 08/03/24 [place] [address] Geriatric Medicine 08/03/24 Additional Source Comments The information contained in this document represents components of the legal health record. It is not the complete legal health record.[facility]
--- OUTSIDE RECORDS SUMMARY | 2025-05-26 15:24 | XMS_ITS | Encounter Summary ---
Author Organization [facility] Address [address] [address] Phone Care Team Providers Care Specialized Language Instructor Name Role Phone Camilla Thomason MD Primary Care Provider Aj Hernandez DO Unavailable [phone] Encounter Details Date Type Department Care Team (Late st Contact Info) Description 12/04/2024 Procedure Pass [address] [place] [address] Social History Tobacco Use Types Packs/Day Years [...] Description 09/03/2025 12:15 PM EST Office Visit [facility] [address] [place] [address] [email or web address] documented as of this encounter Visit Diagnoses Not on filedocumented in this encounter Care Teams Specialized Language Instructor Relationship Specialty Start Date End Date Camilla Thomason MD [facility] [place] [address] PCP - General Internal Medicine 08/03/24 [place] [address] [email or web address] Medicine 08/03/24 documented as of this encounter Additional Source Comments The information contained in this document represents components of the legal health record. It is not the complete legal health record.[facility]
--- NOTE | 2025-06-07 15:51 | MHC.SL.IMP ---
Date of Plan of Treatment: 05/26/25 Onset of Symptoms/Illness: 04/28/25 Date Treatment Started: 05/26/25 Admitting Diagnosis: Parkinson's Disease Primary Speech & Language Diagnosis: R13.10 Dysphagia Reason for Today's Visit: 67627 Modified Barium Swallow Study Pre-evaluation Dietary Consistencies: Regular Pre-evaluation Liquid Consistency: Thin Pre-evaluation Medication Administration: Whole with Liquid Medical History: Modified Barium Swallow Study Fluoroscopic Evaluation of Swallowing Function CPT Code 77084 Evaluation Year: 2024 Reason for Study: Difficulty swallowing Referring Physician: Laura Delgado MD Evaluating Clinician: Ely Campbell MA, CCC-SQUEEZER OPERATOR Study Number: 1 Patient Name: Rosalina Trejo Status: Outpatient, Ambulatory Age: 80 Sex: Female Medical History Medical History (Updated 04/26/25 @ 14:52 by Sanchez Jones MD) Dementia Confusion Parkinson disease Anxiety Lymphoma Mild cognitive impairment Parkinson's disease without dyskinesia or fluctuating manifestations Parkinson disease Surgical History History of left knee replacement History of left knee surgery History of tonsillectomy Current (pre-evaluation) Intake/Diet: Route: PO Diet Grade: Regular Liquid Consistencies: Thin Pre-Study Functional Oral Intake Scale (FOIS): 7- Total oral intake with no restrictions Pain: None reported at time of study SUBJECTIVE: Patient is a 80 year old female referred for a modified barium swallow study (MBSS) by Dr. Delgado from the Neurology and Sleep office. 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 Patient was seen by SQUEEZER OPERATOR briefly for cognitive linguistic therapy 04/08/24-07/24/24 with goals targeting memory and word finding. Patient reports having trouble swallowing pills and is inquiring to see if she could dissolve pills in water or if there is another way to take them easily. Food and Liquid Trials: Oral Impairment: Lip Closure: Did not test Oral Impairment: Tongue Control During Bolus Hold: 1=Escape to lateral buccal cavity/floor of mouth (FOM) Oral Impairment: Bolus Preparation/Mastication: 0=Timely and efficient chewing and mashing Oral Impairment: Bolus Transport/Lingual Motion: 1= Delayed initiation of tongue motion Oral Impairment: Oral Residue: 0=Complete oral clearance Oral Impairment:Initiation of Pharyngeal Swallow: 1=Bolus head in valleculae Pharyngeal Impairment: Soft Palate Elevation: 0=No bolus between soft palate (SP)/pharyngeal wall (PW) Pharyngeal Impairment: Laryngeal Elevation: 1=Partial thyroid cartilage/arytenoids to epiglottic petiole movement Pharyngeal Impairment: Anterior Hyoid Excursion: 1=Partial anterior movement Pharyngeal Impairment: Epiglottic Movement: 1=Partial inversion Pharyngeal Impairment: Laryngeal Vestibular Closure:: 1=Incomplete: narrow column air/contrast in laryngeal vestibule Pharyngeal Impairment: Pharyngeal Stripping Wave: 0=Present: complete Pharyngeal Impairment: Pharyngeal Contraction: Did not test Pharyngeal Impairment: Pharyngoesophageal Segment Openin=Partial distention/partial duration: partial obstruction of flow Pharyngeal Impairment: Tongue Base (TB) Retraction: 0=No contrast between tongue base and posterior pharyngeal wall Pharyngeal Impairment: Pharyngeal Residue: 1=Trace residue within or on pharyngeal structures Pharyngeal Impairment: Esophageal Clearance Upright Position: Did not test Impressions and Recommendations OBJECTIVE: Time-out: performed at 14:45 Evaluation Start: 14:30; Stop: 14:35 Patient Positioning: Standing Viewing Planes: LATERAL ONLY Contrast: MBSImP? Standardized Protocol using commercially prepared, standardized Barium viscosities, including: Varibar? THIN LIQUID (40% w/v, <15 cps) , Varibar? PUDDING (40% w/v, <2791-8248 cps) , 1/2 Shortbread Cookie (1 x1 x.25 ) MBSImP ID: [id number] [facility] Results: Lip closure for intraoral bolus containment could not be assessed due to logistical reasons not related to physiologic impairment. Tongue control during bolus hold allowed bolus escape to the lateral buccal cavity/floor of mouth. Bolus preparation and mastication resulted in timely and efficient chewing and mashing. Bolus transport/lingual motion demonstrated delayed initiation of tongue motion. Oral residue was not observed. There was complete oral clearance. Initiation of the pharyngeal swallow occurred when the bolus head was in the valleculae. Soft palate elevation resulted in no bolus between the soft palate and the pharyngeal wall. Laryngeal elevation was decreased, with partial superior movement of the thyroid cartilage/partial approximation of the arytenoids to the epiglottic petiole. Anterior hyoid excursion demonstrated partial anterior movement. Epiglottic movement resulted in partial inversion. Laryngeal vestibular closure was complete, as indicated by no air or contrast within the laryngeal vestibule at the height of the swallow. Pharyngeal stripping wave was present and complete. Pharyngeal contraction could not be determined due to logistical reasons not related to physiologic impairment. Pharyngoesophageal segment opening demonstrated partial distension/partial duration, with partial obstruction of bolus flow. Tongue base retraction allowed no contrast between the retracted tongue base and the posterior pharyngeal wall. Pharyngeal residue was a trace within or on pharyngeal structures. Esophageal clearance in the upright position could not be assessed due to logistical reasons not related to physiologic impairment. Oral Impairment Score: 3 (absence of score, component 1) Pharyngeal Impairment Score: 4 (absence of score, component 13) Esophageal Impairment Score: --- (absence of score, component 17) Laryngeal Penetration and Aspiration: Neither penetration nor aspiration was observed in today's study with Cookie, Pudding-thick. Penetration was observed in today's study. Thin Contrast entered the airway, remained above the vocal folds, and was ejected from the airway. ASSESSMENT: This exam was performed by the radiologist and the speech pathologist. Patient was standing for lateral view only. She fed independently and trialed the following consistencies: -Thin liquid (individual cup sips) -Puree (mixture applesauce w/ barium pudding) -Regular (Ananya Doone coated w/ barium pudding) Adequate lip closure with no spillage from the oral cavity. Mastication was timely and efficient. Mildly delayed lingual transport, but with good recollection. Pharyngeal swallow trigger initiated as the bolus head reached the valleculae. No evidence of nasopharyngeal reflux. Partial laryngeal elevation with partial epiglottic inversion and incomplete laryngeal vestibular closure. Flash penetration on thin liquid. A trace amount of liquid entered the airway above the vocal folds and spontaneously cleared. No evidence of aspiration during this exam. There was trace residue in the valleculae and pyriforms, which cleared with subsequent swallows. Liquid Intake Recommendation: Thin Dietary Recommendations: Regular Medication Administration: Crushed with Puree Please contact the pharmacy regarding appropriate crushable or liquid drug formulations that are available whenever modified delivery is recommended. Compensatory Strategies Recommended: Sitting Upright (90 deg), Small Bites and Sips, Alternate Liquids/Solids, Rate of Ingestion Change Recommendation for Speech Therapy: NA:Typical Evaluation Text Comment: Intake Recommendations: Route: PO Diet Grade: Regular Liquid Consistencies: Thin Post-Study Functional Oral Intake Scale (FOIS): 7- Total oral intake with no restrictions Flash penetration with thin liquid. No evidence of aspiration during this exam. Good oral and pharyngeal clearance. Therapy Recommendations: Diet modification and speech intervention are not warranted at this time. Consult with Pharmacy to see if pills can be taken CRUSHED in PUREE or if medications are available in liquid form for ease of swallowing. Clinician - Supplemental, Miscellaneous Communication: It is important to note MBSS objective studies are snapshots in time and Patient function might vary with factors such as time of day or concomitant medical conditions. For this reason, the final treatment plan for this patient should rest with their medical care team. Additional recommendations should be considered with the totality of the Patient in mind. Thank for the opportunity to participate in the care of this patient. If you have any questions about the content of this report, please contact the [facility] at [facility]. Education: Education regarding findings from today's study and plans for therapy were provided to Patient only through Verbal Instruction. Understanding was expressed by the Patient only. Software Engineer Web Services Clinician/Clinical Fellow: No Supervisory Statement: N/A Speech Language Pathologist: Ely Campbell M.A., CCC-SQUEEZER OPERATOR
== END 2025-05-26 14:22 | disposition home or self-care (01) ==
LOC: HO.XRAY 14:21
PROVIDERS: PCP Internal Medicine; Visit Provider Psychiatry & Neurology Neurology
DX: G20.A1 Parkinson's disease without dyskinesia, without mention of fluctuations (principal); R50.9 Fever, unspecified; R13.10 Dysphagia, unspecified
CPT/HCPCS: 71046; 74230; 92611

== ENCOUNTER → 2025-05-26 14:25 | Outpatient (BNV) | payer MEDICARE, OTHER, SELFPAY | PROVIDERS: PCP Internal Medicine; Visit Provider Radiology Diagnostic Radiology | DX: R13.10 Dysphagia, unspecified (principal); R05.9 Cough, unspecified | CPT/HCPCS: 71046; 74230 ==

== ENCOUNTER 2025-06-08 13:56 | Outpatient (AMB) | payer MEDICARE, SELFPAY ==
[2025-06-08 14:01] VITALS: BP 122/54; PULSE 71; O2SAT 98; BMI 19.0
--- NOTE | 2025-06-08 14:01 | A.OFFVIS_ITS ---
Vital Signs 06/08/25 14:01 Height 5 ft 5 in Weight 114 lb 6 oz BMI 19.0 BP 122/54 L Blood Pressure Location Rt brachial Position Sitting Pulse 71 Pulse Source Pulse Oximeter Pulse Oximetry (%) 98 Oxygen Delivery Method Room Air Intake Visit Reasons: Shortness of breath Allergies No Known Allergies Allergy (Verified 06/08/25 14:05) HPI HPI Shortness of breath: Details: Rosalina is a pleasant 80 year old female, former 15 pack year smoker, quit 40 years ago with underlying asthma, Parkinson's, h/o mantle cell lymphoma dx 2019 tx chemo in remission since 2022, anxiety and cognitive impairment. Today she is accompanied by her stepdaughter. She reports good control of respiratory symptoms since initiating Breo with improvements in dyspnea and cough. Her stepdaughter also notes less labored breathing with activity. Since the last visit she has moved into assisted living and has a visiting nurse administer Breo with some issues, noting difficulty with timing and inhalation of medication. We had discussed switching to nebulized therapy but agreed to continue Breo at this time, COUNTS INCLUDE [facility] BEDS AT THE [facility] Medical History (Updated 04/26/25 @ 14:52 by Sanchez Jones MD) Dementia Confusion Parkinson disease Anxiety Lymphoma Mild cognitive impairment Parkinson's disease without dyskinesia or fluctuating manifestations Parkinson disease Surgical History History of left knee replacement History of left knee surgery History of tonsillectomy Family History Mother Colon cancer Father Lung cancer Sister Breast cancer Social History Housing: Assisted Living Facility Unable to assess alcohol history related to: Unknown Patient Tobacco Use Status: Former Tobacco user e-Cigarette/Vaping Use: Never Used Advance Directives Date on File: 07/15/24 service: No Current occupational status: retired Cognitive needs: No Hearing needs: No Vision needs: Yes Review of Systems Const Denies chills, Denies excessive sweating, Denies fever(s), Denies headache(s) and Denies night sweats Eyes Denies dry eyes, Denies irritation and Denies itchy eyes ENT Reports Normal hearing present, Denies headache(s), Denies nasal congestion, Denies nasal discharge, Denies post nasal drip and Denies sore throat Card Denies chest pain, Denies chest pain at rest, Denies chest pain with activity, Denies claudication and Denies paroxysmal nocturnal dyspnea Resp Denies chest congestion, Denies cough, Denies excessive phlegm production, Denies pain on inspiration, Denies pain with cough, Denies stridor and Denies wheezing Musc Denies myalgias Neuro Reports Normal hearing present and Denies headache(s) Endo Denies excessive sweating Bronson/Lymph Denies lymphadenopathy Aller/Immun Denies itchy eyes, Denies seasonal rhinorrhea and Denies wheezing Physical Exam Vital Signs: Last Vital Signs Pulse 71 06/08/25 14:01 BP 122/54 L 06/08/25 14:01 Pulse Ox 98 06/08/25 14:01 Oxygen Delivery Method Room Air 06/08/25 14:01 BMI result Body Mass Index 19.0 Const General: cooperative, comfortable, no acute distress and alert Nutritional Appearance: average body habitus Orientation/consciousness: patient oriented x3 Limitations: other limitations (cognitive impairment) HEENT Head: Yes normal to inspection, Yes normocephalic and Yes atraumatic Ears: hearing grossly normal bilaterally and external ears normal Eyes General: appearance normal, both eyes and all related structures Eyelids: Yes eyelids normal Sclerae: sclerae normal EOM: EOMs intact bilaterally Neck Neck: Yes normal visual inspection and Yes no lymphadenopathy Lymphatic: no lymphadenopathy noted Chest Chest palpation & inspection: normal inspection of the chest Resp Effort & Inspection: normal respiratory effort, able to speak in complete sentences, no audible wheezes, no cough, no stridor, not tachypneic, no tripod positioning and no use of accessory muscles Cardio Jugular venous distension: no JVD Rate: regular rate Rhythm: regular rhythm Skin Other: warm, dry General skin exam: no rashes or lesions noted Neuro General: patient oriented x3 Cranial nerves: Yes Normal hearing present Extrem General: Yes normal to inspection, Yes capillary refill normal, Yes no clubbing, cyanosis or edema and Yes no pedal edema Psych Appearance: grossly normal and well kempt Speech and movement: Other speech and movement exam findings present (Psych) (difficulty word finding) Affect: normal affect Attitude: cooperative Thought process: Normal thought process present Thought content: Normal thought content present Insight: Good insight present (Psych) Judgement: Good judgement present (Psych) Results Reviewed Results Reviewed: [address] [address] XRay Report Signed Patient: Rosalina Trejo MR#: [id number] : 1945 Acct:[id number] Age/Sex: 80 / F ADM Date: 05/26/25 Loc: [facility] Attending Dr: Laura Delgado MD Ordering Physician: Seda Lorenzo NP Date of Service: 05/26/25 Procedure(s): XR chest 2V Accession Number(s): [id number] cc: Camilla Thomason MD; Seda Lorenzo NP~ EXAMINATION: XR CHEST 2 VIEWS HISTORY: R05.9 - Cough, unspecified COMPARISON: Comparison is made with the prior examination dated 04/16/2025. FINDINGS: PA and lateral views of the chest are submitted. The lungs are expanded and clear. There is no pleural effusion, pneumothorax, or pulmonary vascular congestion. The heart is normal in size. Again seen is scoliosis of the spine. XR/XR chest 2V IMPRESSION: No acute cardiopulmonary abnormality. Electronically signed by: Julio C Monk MD 05/26/2025 02:44 PM EDT RP Dictated By: Julio C Monk MD Signed By: <Electronically signed by Julio C Monk MD in OV> 05/26/25 1444 DD/ 1430 TD/TT: 05/26/25 1439 Pasteurizing Supervisor: Assessment & Plan Assessment & Plan (1) Asthma-COPD overlap syndrome: Code(s): J44.89 - Other specified chronic obstructive pulmonary disease Category: Medical Plan At this time, patient reports good control of respiratory symptoms with the use of Breo. Discussed switching to nebulized therapy due to concerns of inhaling properly however agreed to hold off at this time. Will consider spirometry at next visit. All questions were answered and patient is in agreement of plan. Will follow up in 3 months or sooner if needed. Coding Level of Care Code Est Pt Level 3 (39579) Diagnoses 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
--- OUTSIDE RECORDS SUMMARY | 2025-06-08 16:35 | XMS_ITS | Encounter Summary ---
Author Organization [facility] Address [address] [address] Phone Care Team Providers Care Glass Lathe Operator Name Role Phone Camilla Thomason MD Primary Care Provider [phone] Aj Hernandez DO Unavailable [phone] Reason for Visit * Reason Onset Date Comments Hospice 06/07/2025 Encounter Details Date Type Department Care Team (Late st Contact Info) Description 06/07/2025 Telephone [facility] [address] [place] [address] Anthony Berman RN [address] [place] [address] [email or web address] Hospice Social History Tobacco Use Types Packs/Day Years [...] Progress Notes * Anthony Berman RN - 06/07/2025 5:12 PM EDT Kavita Jennifer calls, states she works with Annemarie Santiago. States that family has indicated they are ready to pursue Hospice services and wish referral. This RN will contact Akiko to review and confirm. documented in this encounter Plan of Treatment Upcoming Encounters Date Type Department Care Team (Late st Contact Info) Description 09/03/2025 12:15 PM EST Office Visit [facility] [place] [address] [place] [address] [email or web address] documented as of this encounter Visit Diagnoses Not on filedocumented in this encounter Additional Health Concerns Assessment Noted Time PHQ-9 Depression Total Score: 8 05/20/20 25 2:28 PM EDT PHQ-2 Depression Total Score: 4 05/20/20 25 2:28 PM EDT documented as of this encounter Care Teams Glass Lathe Operator Relationship Specialty Start Date End Date Camilla Thomason MD [address] [place] [address] PCP - General Internal Medicine 08/03/24 [place] [address] Geriatric Medicine 08/03/24 documented as of this encounter Additional Source Comments The information contained in this document represents components of the legal health record. It is not the complete legal health record.[facility]
--- OUTSIDE RECORDS SUMMARY | 2025-06-08 16:35 | XMS_ITS | Encounter Summary ---
Author Organization [facility] Address [address] [address] Phone Care Team Providers Care Emergency Services Professional Name Role Phone Camilla Thomason MD Primary Care Provider [phone] Aj Hernandez DO Unavailable [phone] Encounter Details Date Type Department Care Team (Late st Contact Info) Description 12/04/2024 Procedure Pass [address] [place] [address] Social History Tobacco Use Types Packs/Day Years [...] Description 09/03/2025 12:15 PM EST Office Visit [facility] [place] [address] [place] [address] [email or web address] documented as of this encounter Visit Diagnoses Not on filedocumented in this encounter Care Teams Emergency Services Professional Relationship Specialty Start Date End Date Camilla Thomason MD [facility] [place] [address] PCP - General Internal Medicine 08/03/24 [place] [address] [email or web address] Geriatric Medicine 08/03/24 documented as of this encounter Additional Source Comments The information contained in this document represents components of the legal health record. It is not the complete legal health record.[facility]
--- OUTSIDE RECORDS SUMMARY | 2025-06-08 16:35 | XMS_ITS | Encounter Summary ---
Author Organization [facility] Address [address] [place] [address] Phone Care Team Providers Care Tower Excavator Operator Name Role Phone Camilla Thomason MD Primary Care Provider [phone] Aj Hernandez DO Unavailable [phone] Reason for Referral * Hospice - New Request Specialty Diagnoses / Procedures Referred By Contleno t Referred To Contact Hospice and Palliative Medicine Karon Shetty MD [facility] [place] [address] Phone: tel: [email or web address] [facility] [address] [place], [place] Phone: tel: fax: Referral ID Status Reason Start Date Expiration Date V isits Requested Visits Authorized [id number] New Request 06/08/2025 06/08/2026 1 1 Encounter Details Date Type Department Care Team (Late st Contact Info) Description 06/08/2025 Orders Only [facility] [address] [place], [place] [phone] Karon Shetty MD [facility] [place] [address] Social History Tobacco Use Types Packs/Day Years [...] Description 09/03/2025 12:15 PM EST Office Visit [facility] [place] [address] [place] [address] Scheduled Referrals Name Type Priority Associated Diagnoses Orde r Schedule 4NEXT REFERRAL TO HOSPICE Outpatient Referral Routine Ordered: 06/08/2025 documented as of this encounter Visit Diagnoses Not on filedocumented in this encounter Additional Health Concerns Assessment Noted Time PHQ-9 Depression Total Score: 8 05/20/20 25 2:28 PM EDT PHQ-2 Depression Total Score: 4 05/20/20 25 2:28 PM EDT documented as of this encounter Care Teams Tower Excavator Operator Relationship Specialty Start Date End Date Camilla Thomason MD [facility] [place] [address] PCP - General Internal Medicine 08/03/24 Aj Hernandez DO [address] [place] [address] Geriatric Medicine 08/03/24 documented as of this encounter Additional Source Comments The information contained in this document represents components of the legal health record. It is not the complete legal health record.[facility]
--- OUTSIDE RECORDS SUMMARY | 2025-06-08 16:36 | XMS_ITS | Clinical Summary ---
Author Organization [facility] Address [address] [address] Phone Care Team Providers Care Chefs Name Role Phone Camilla Thomason MD Primary Care Provider [phone] Aj Hernandez DO Unavailable [phone] Allergies No known active allergies Medications atorvastatin [...] amantadine HCl (SYMMETREL) 100 mg tablet 05/13/20 25 Active amantadine HCl (SYMMETREL) 50 mg/5 mL solution 04/05/20 25 Active memantine (NAMENDA XR) 7 mg 24 hr sprinkle capsule 04/20/20 25 Active senna (SENOKOT) 8.6 mg tablet Take 1 tablet by mouth daily. Active psyllium (KONSYL) Pack Take 1 packet by mouth 2 (two) times a day. Active docusate sodium (COLACE) 50 MG capsule Take 50 mg by mouth 2 (two) times a day. Active donepeziL (ARICEPT) 5 MG tablet 10/29/19 25 025 Discontinued amoxicillin-clav ulanate (AUGMENTIN) 875-125 mg per tablet Take 1 tablet by mouth 2 (two) times a day. 03/03/20 25 025 Discontinued doxycycline hyclate (DORYX) 100 MG tablet Take 1 tablet by mouth 2 (two) times a day. 03/03/20 025 Discontinued Active Problems Problem Noted Date Diagnosed Date Mixed dementia 12/04/2024 Mood disorder 12/04/2024 Encounters Date Type Department Care Team Description 06/08/2025 Orders Only [facility] [address] [place] [id number] Homehealth, Interface ProviderMD 06/07/2025 Telephone [facility] [address] [place] [address] [place] [address] Anthony Berman RN Hospice 05/20/2025 2:30 PM EDT Office Visit [facility] [address] [place] [address] [place] [address] Aj Hernandez, Mixed dementia (Primary Dx); Encounter for support to caregiver; Encounter for medication review; Advance care planning 05/17/2025 Telephone [facility] [address] [place] [address] [place] [address] Anthony Berman RN 04/15/2025 Telephone [facility] [address] [place] [address] [place] [address] Anthony Berman RN Update- Seeking [facility] 03/08/2025 Telephone [facility] [address] [place] [address] Anthony Berman RN from Last 3 Months [...] Description 09/03/2025 12:15 PM EST Office Visit [facility] [address] [place] [address] Aj Hernandez DO [address] [place] [address] [email or web address] Health Maintenance Due Date Last Done Comments LIPID PANEL 1947 TSH LEVEL 1947 HEPATITIS C SCREENING 1965 ZOSTER VACCINES (1 of 2) 1997 OSTEOPOROSIS SCREENING INITI AL (ONE-TIME) 2012 INFLUENZA VACCINE (#1) 2025 06/25/2024 DEPRESSION SCREENING 05/20/2026 05/20/2025, 05/20/2025 Adult Td,Tdap [...] Advance Directives For more information, please contact: [phone] (9AM - 5PM [facility], Saturday-Saturday) Healthcare Agents on File Name Relationship Healthcare Agent Relationshi p Communication Akiko Neil Daughter .Primary Health Care Agent (Proxy form on file) Care Teams Chefs Relationship Specialty [place] [address] [place] [address] [place] [address] PCP - General Internal Medicine 08/03/24 Aj Hernandez DO [address] [place] [id number] [email or web address] Geriatric Medicine 08/03/24 Additional Source Comments The information contained in this document represents components of the legal health record. It is not the complete legal health record.[facility]
--- OUTSIDE RECORDS SUMMARY | 2025-06-08 16:36 | XMS_ITS | Patient Health Record ---
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
== END 2025-06-08 14:39 | disposition home or self-care (01) ==
LOC: HO.HPSW 13:57
PROVIDERS: PCP Internal Medicine; Visit Provider Nurse Practitioner Family
DX: J44.89 Other specified chronic obstructive pulmonary disease (principal)
CPT/HCPCS: 99213

== ENCOUNTER → 2025-06-08 13:56 | Outpatient (BNVA) | payer MEDICARE, SELFPAY | PROVIDERS: PCP Internal Medicine; Visit Provider Nurse Practitioner Family | DX: J44.89 Other specified chronic obstructive pulmonary disease (principal); Z87.891 Personal history of nicotine dependence | CPT/HCPCS: 99212 ==

== ENCOUNTER 2025-07-02 15:04 | Outpatient (AMB) | payer MEDICARE, SELFPAY ==
--- OUTSIDE RECORDS SUMMARY | 2025-07-02 15:06 | XMS_ITS | Encounter Summary ---
Author Organization [facility] Address [address] [place] [address] Phone Care Team Providers Care Insurance Agents Supervisor Name Role Phone Camilla Thomason MD Primary Care Provider [phone] Aj Hernandez DO Unavailable [phone] DavidAj dodson DO Unavailable [phone] Encounter Details Date Type Department Care Team (Late st Contact Info) Description 06/11/2025 Orders Only [facility] [address] [place] [address] Aj Hernandez, DO [address] [place] [address] Social History Tobacco Use Types Packs/Day Years [...] Care Team (Late st Contact Info) Description 07/19/2025 3:00 PM EDT Office Visit [facility] [address] [place] [address] Kevin Corona MD [address] [place] [address] 09/03/2025 12:15 PM EST Office Visit [facility] [address] [place] [address] David, Aj Zepeda, [address] [address] 10/07/2025 1:30 PM EST Office Visit [address] [address] Aj Hernandez, DO [address] [place] [address] Viv Miller [address] [address] [email or web address] 10/12/2025 2:30 PM EST Office Visit [address] [address] Aj Hernandez, DO [address] [place] [address] Viv Miller [facility] [address] [place] [address] [email or web address] 10/21/2025 2:30 PM EST Office Visit [address] [address] Aj Hernandez, DO [address] [place] [address] Viv Miller [address] [address] [email or web address] 10/28/2025 2:30 PM EST Office Visit [address] [address] Aj Hernandez, DO [address] [place] [address] [email or web address] Viv Miller [address] [address] [email or web address] 11/02/2025 2:30 PM EST Office Visit [address] [address] Aj Hernandezsh, DO [address] [place] [address] [email or web address] Viv Miller [address] [address] [email or web address] 11/11/2025 2:30 PM EST Office Visit [address] [address] Aj Hernandezsh, DO [address] [place] [address] Viv Miller [address] [address] [email or web address] 11/18/2025 2:30 PM EST Office Visit [address] [address] Aj Hernandez, DO [address] [place] [address] [email or web address] Viv Miller [address] [address] [email or web address] 11/25/2025 2:30 PM EST Office Visit [address] [address] Aj Hernandez, DO [address] [place] [address] [email or web address] Viv Miller [address] [address] [email or web address] 12/02/2025 2:30 PM EST Office Visit [address] [address] Aj Hernandezsh, DO [address] [place] [address] [email or web address] Viv Miller [address] [address] [email or web address] 12/09/2025 2:30 PM EDT Office Visit [address] [address] Aj Hernandez, DO [address] [place] [address] [email or web address] Viv Miller [address] [address] [email or web address] 12/16/2025 2:30 PM EDT Office Visit [address] [address] [place] [address] Viv Miller [employer]-FIN[employer]CIAL IN[employer]MENT ADVISER [address] [place] [address] [email or web address] 12/23/2025 2:30 PM EDT Office Visit [facility] [address] [place] [address] [place] [address] Viv Miller [employer]-FIN[employer]CIAL IN[employer]MENT ADVISER [address] [place] [address] [email or web address] documented as of this encounter Visit Diagnoses Not on filedocumented in this encounter Additional Health Concerns Assessment Noted Time PHQ-9 Depression Total Score: 8 05/20/20 2:28 PM EDT PHQ-2 Depression Total Score: 4 05/20/20 2:28 PM EDT documented as of this encounter Care Teams Insurance Agents Supervisor Relationship Specialty Start Date End Date Camilla Thomason MD [address] [facility] [place] [address] PCP - General Internal Medicine 08/03/24 [place] [address] PCP - Hospice Attending 06/10/25 [place] [address] Geriatric Medicine 08/03/24 documented as of this encounter Additional Source Comments The information contained in this document represents components of the legal health record. It is not the complete legal health record.[facility]
--- OUTSIDE RECORDS SUMMARY | 2025-07-02 15:06 | XMS_ITS ---
Author Name [facility] Organization Unknown Care Team Organization Name Specialty Phone Email Start Date End Da te [facility] 07/01/2025 [facility] 06/30/2025
--- OUTSIDE RECORDS SUMMARY | 2025-07-02 15:06 | XMS_ITS | Data Portability ---
Author Organization [facility], Main Office Address [address] [facility], [address] [place] [address] Care Team Providers Care Hand Ornament Maker Name Role Phone [facility] OTHER Assessment No assessment recorded. Plan of Treatment Reminders Order Date Submit Date Provider Last Modified By Organization Details Last Modified Time Details Appointments None record ed. Lab None record ed. Referral None record ed. Procedures None record ed. Surgeries None record ed. Imaging None record ed. Medication Orders None record ed. Patient TargetsNo targets recorded. Patient InstructionsNo instructions recorded. Reason for Referral None Reported. 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 2024 NEEMA ZEE NP [address] [facility], [address], [place], [address], [facility] 5 13:56:55 Chronic obstructive pulmonary disease 73031432 Active 2024 NEEMA ZEE NP [address] [facility], [address], [place], [address], [facility] 5 13:57:04 Dementia 59760461 Active 2024 NEEMA ZEE NP [address] [facility], [address], [place], [address], [facility] 5 13:57:20 Generalized anxiety disorder 41000775 Active 2024 NEEMA ZEE NP [address] [facility], [address], [place], [address], [facility] 5 13:57:29 Malignant lymphoma 538901000 Active 2024 NEEMA ZEE NP [address] [facility], [address], [place], [address], [facility] 5 13:57:55 Asthenia 90027588 Active 2024 NEEMA ZEE NP [address] [facility], [address], [place], [address], [facility] 5 13:58:03 Primary hypothyroidism 28624552 Active 2024 NEEMA ZEE NP [address], [address], [place], [address], [facility] 5 13:58:18 Vitamin D deficiency 81615354 Active 2024 NEEMA ZEE NP [address], [address], [place], [address], [facility] 5 13:58:31 Cobalamin deficiency 811734731 Active 2024 NEEMA ZEE NP [address] [facility], [address], [place], [address], [facility] 5 13:58:46 Gastroesophage al reflux disease without esophagitis 052745119 Active 2024 NEEMA ZEE NP [address] [facility], [address], [place], [address], [facility] 5 13:59:19 Mixed hyperlipidemia 717208779 Active 2024 NEEMA ZEE NP [address] [facility], [address], [place], [address], [facility] 5 14:12:43 Acute constipation 178959964 Active 2024 NEEMA ZEE NP [address] [facility], [address], [place], [address], [facility] 5 14:13:08 Problem Notes None recorded. Medical Equipment None Reported. Allergies No known drug allergies Medications Not known to be on any medication Vitals Date Recorded Heart rate Respiratory rate Body temperature Oxygen saturation Oxygen saturation in Arterial blood by Pulse oximetry Systolic And Diastolic Provider Name and Address Organization Details Last Updated DateTime 5 74 /min 18 /min 98.3 [degF] 94 % 94 % 134/54 mm[Hg] NEEMA ZEE NP [address] [facility], [address], [place], [address], [facility] 5 14:08:07 Date Recorded Heart rate Respiratory rate Body temperature Oxygen saturation Oxygen saturation in Arterial blood by Pulse oximetry Systolic And Diastolic Provider Name and Address Organization Details Last Updated DateTime 5 67 /min 18 /min 97.7 [degF] 97 % 97 % 117/62 mm[Hg] NEEMA ZEE NP [address] [facility], [address], [place], [address], [facility] 5 10:57:31 Date Recorded Heart rate Respiratory rate Body temperature Oxygen saturation Oxygen saturation in Arterial blood by Pulse oximetry Systolic And Diastolic Provider Name and Address Organization Details Last Updated DateTime 5 65 /min 16 /min 97.8 [degF] 95 % 95 % 143/73 mm[Hg] NEEMA ZEE NP [address] [facility], [facility] [address], [place], [address], [facility] 5 09:58:21 Social History Question Answer Notes LastModified by [employer] ion Details LastModified Time Tobacco Smoking Status Former Smoker NEEMA ZEE NP [address] [facility] [address], [place], [address], [facility] 02/17/2025 14:02:11 What Is Your Code Status? DNR/DNI No Dialysis, G Tube, Or IVF [email or web address] Information not available 02/17/2025 Where Do You Live? Apartment LIves With Bess CRUZ [email or web address] Information not available 02/17/2025 Do You Have A Medical Power Of Ham Curer? Yes Has HCP [email or web address] Information not available 02/17/2025 What Was The Date Of Your Most Recent Tobacco Screening? 02/17/2025 Information not available 02/17/2025 Do You Have An Out Of Hospital DNR? Yes Information not available 02/17/2025 Has Tobacco Cessation Counseling Been Provided? No [email or web address] Information not available 02/17/2025 Sex: Unknown Functional Status Question Answer Note LastModified by Organizat ion Details LastModified Time Do you use any illicit or recreational drugs? No [email or web address] Information not available 02/17/2025 Do you or have you ever used any other forms of tobacco or nicotine? No Information not available 02/17/2025 What is your level of alcohol consumption? None [email or web address] Information not available 02/17/2025 Mental Status None recorded. Family History Relationship Description Onset Age of this Age Resolved Age Notes LastModified by Organization Details LastModified Time Mother Malignant neoplasm of colon [email or web address] Not available 2024 14:00:24 Father Malignant neoplasm of lung Not available 2024 14:00:36 Sister Malignant neoplasm of breast [email or web address] Not available 2024 14:00:47 Medical History No medical history recorded. Gynecological HistoryNo gynecological history recorded. Obstetrics History GPAL:G 0 P 0 0 0 0 Immunizations Vaccine Type Date Status Note Provider Nam e and Address Organization Details Recorded Time Respiratory syncytial virus (RSV) MAB, unspecified 5 completed [facility] 02/18/2025 13:09:54 Td(adult) unspecified formulation 4 completed [facility] 02/18/2025 13:10:05 Pneumococcal conjugate PCV21, polysaccharide DCC063 conjugate, PF 5 [facility] 02/18/2025 13:10:32 influenza, unspecified formulation 4 completed [facility] 02/18/2025 13:10:45 SARS-COV-2 (COVID-19) vaccine, UNSPECIFIED 4 [facility] 02/18/2025 13:10:57 SARS-COV-2 (COVID-19) vaccine, UNSPECIFIED 4 completed [facility] 02/18/2025 13:11:01 SARS-COV-2 (COVID-19) vaccine, UNSPECIFIED 5 completed [facility] 02/18/2025 13:11:25 Past Encounters Encounter ID Performer Location Encounter Start Date Encounter Closed Date Diagnosis/Indication Diagnosis SNOMED-CT Code Diagnosis ICD10 Code Diagnosis IMO Codes Diagnosis Note [id number] NEEMA ZEE NP [facility] [address] [place], [place] [address] 02/17/2025 13:55:34 02/18/2025 14:34:31 Asthenia 08431624 R53.1 67399 Generally deconditio nedPT OT eval and tx.Unsure if will return to [facility] vs. LTCMonitor need for increased support in community. Dementia 67853402 F03.90 56241572 Continue:A ricept 5 mg qdEscitalo pram 20 mg qdMonitor mood, behaviorsP sych eval prnConside r invoking HCP Acute constipation [id number] at [facility] revealed large stool burden and acute stercoral colitis with perirectal stranding and fluid.Requ ired manual disimpacti on and enemas in ER, now reported to be moving bowels well.Will ad daily laxative and adjust as needed - senna plus 2 tabs daily and 2 tabs daily prnEncoura ge fluids, fiber, activityMo nitor closely Chronic ob structive pulmonary disease 00471889 J44.9 73607589 Continue Breo Ellipta 50/25 1 inh qd Cobalamin deficiency 190 378485 E53.8 35640 Continue B 12 1000 mcg qd Gastroesop hageal reflux disease without esophagitis 387669599 K21.9 000329 Not on meds, monitor GI sx. Generalize d anxiety disorder 16507939 F41.1 021950 Continue escitalopr am 20 mg qdMonitor mood, behaviorsP sych eval prn Mixed hyperlipidemia 267 279979 E78.2 11171 Continue atorvastat in 10 mg qdLFTs, lipid panel if stays LTC or consider stopping, ? risk>benef it Primary hypothyroidism 85558519 E03.9 15555 Continue levothyrox ine 50 mcg qdCheck TSH, FT4 x 1 Symptomati c parkinsonism 429414458 G20.A1 79258 Continue sinemet 25/100 tid Vitamin D deficiency 347 39131 E55.9 24059 Continue Vit D 2000 units qd [id number] NEEMA ZEE NP [place] [address] [place] [address] 02/19/2025 09:34:39 02/25/2025 09:12:27 Asthenia 83171088 R53.1 59463 Generally deconditio nedPT OT eval and tx.Unsure if will return to [facility] vs. LTCMonitor need for increased support in community. Acute constipation [id number] at [facility] revealed large stool burden and acute stercoral colitis with perirectal stranding and fluid.Requ ired manual disimpacti on and enemas in ER, now reported to be moving bowels well.Added senna plus 2 tabs daily and 2 tabs daily prn - adjust as needed.Enc ourage fluids, fiber, activityMo nitor closely Dementia 04444284 F03.90 35303266 Continue:A ricept 5 mg qdEscitalo pram 20 mg qdMonitor mood, behaviorsP sych eval prnConside r invoking HCP Symptomati c parkinsonism 074460227 G20.A1 40825 Continue sinemet 25/100 tid Chronic ob structive pulmonary disease 84102091 J44.9 92022014 Continue Breo Ellipta 50/25 1 inh qd Gastroesop hageal reflux disease without esophagitis 995792858 K21.9 247023 Not on meds, monitor GI sx. Generalize d anxiety disorder 71377626 F41.1 734711 Continue escitalopr am 20 mg qdMonitor mood, behaviorsP sych eval prn Mixed hyperlipidemia 267 216400 E78.2 09019 Continue atorvastat in 10 mg qdLFTs, lipid panel if stays LTC or consider stopping, ? risk>benef it Primary hypothyroidism 34123384 E03.9 06500 Continue levothyrox ine 50 mcg qdCheck TSH, FT4 x 1 Cobalamin deficiency 190 298256 E53.8 66365 Continue B 12 1000 mcg qd Vitamin D deficiency 347 15561 E55.9 74012 Continue Vit D 2000 units qd [id number] Frandy Phan MD [facility] [address] [place] [address] 02/23/2025 14:20:55 02/25/2025 09:15:20 Asthenia 42171884 R53.1 43646 see HPIPT OT Eval and treathas improved since admit now working towards discharge back to assisted living with 24 hour care Acute constipation 9006 K59.00 710901 required disimpacti oncontinue bowel protocolmo nitor for effect Dementia 06340178 F03.90 F01.B4 38576894 baseline dementiaat times required repeat attempt to take medication saricept 5 mg qdmonitor level of insight and need to invoke Symptomati c parkinsonism 057833510 G20.A1 52497 continue sinemetupd ate neuro with concerns Chronic ob structive pulmonary disease 63301054 J44.9 79351171 carrying dxcontinue out patient medication smonitor respirator y status Generalize d anxiety disorder 61998558 F41.1 584902 baseline anxiety with above cognitive impairment monitor moodpsych eval prn Mixed hyperlipidemia 267 610659 E78.2 92474 lipitor 10 mg qdcontinue d Primary hypothyroidism 04432090 E03.9 64590 synthroid continuedt sh prn [id number] NEEMA ZEE NP [place] [place] [address] [facility] [place] [address] 02/24/2025 08:30:36 02/25/2025 13:42:22 Asthenia [id number] R53.1 69720 Generally deconditio nedWorked with PT OT, meeting goals for d/c home with support of 24 hr services.M onitor need for increased support in community. Acute constipation [address] at [facility] revealed large stool burden and acute stercoral colitis with perirectal stranding and fluid.Requ ired manual disimpacti on and enemas in ER with improvemen t in bowel movements. Currently on senna plus 2 tabs daily and 2 tabs daily prn - moving bowels here q2-3 days - increase senna-plus to 2 tabs po bid upon discharge, hold for loose stool.Tracy tor bowels closely at home. Monitor need to adjust laxatives to keep bowels moving.Con tinue to encourage fluids, fiber, activityMo nitor closely Dementia 21703979 F03.90 75209891 Continue:A ricept 5 mg qdEscitalo pram 20 mg qdMonitor mood, behaviorsP sych eval prnConside r invoking HCP Symptomati c parkinsonism 665000575 G20.A1 88222 Continue sinemet 25/100 tid Chronic ob structive pulmonary disease 04401570 J44.9 18717613 Continue Breo Ellipta 50/25 1 inh qd Gastroesop hageal reflux disease without esophagitis 090919189 K21.9 105487 Not on meds, monitor GI sx. Generalize d anxiety disorder 48183172 F41.1 189651 Continue escitalopr am 20 mg qdMonitor mood, behaviorsP sych eval prn Mixed hyperlipidemia 267 013631 E78.2 25805 Continue atorvastat in 10 mg qdLFTs, lipid panel if stays LTC or consider stopping, ? risk>benef it Primary hypothyroidism 37969638 E03.9 73650 Continue levothyrox ine 50 mcg qdCheck TSH, FT4 x 1 Cobalamin deficiency 190 204023 E53.8 24415 Continue B 12 1000 mcg qd Vitamin D deficiency 347 68822 E55.9 80591 Continue Vit D 2000 units qd Health Concerns Section Related Observation LastModified by Organization Detai ls LastModified Time None Recorded Concern Status LastModified by Organization Details LastModified Time None Recorded Advance Directives Directive None Recorded Payers Insurance Date Sequence Insurance Name Policy Number Policy Rodríguez Covered Member ID Rodríguez Member ID Guarantor Name 03/12/2025 2 UNSPECIFIED REMIT PAYOR Rosalina Trejo 05/19/2025 1 [place]IC[place]: [employer] Rosalina Trejo [id number] Rosalina Trejo 05/19/2025 2 [employer] SU[employer] - [employer]UR[employer] (MEDICARE SUPPLEMENT) Rosalina Trejo [id number] Rosalina Trejo Notes Date Note Type Note Provider Name and Address Organization Details Recorded Time 2024 text/h tml Rosalina is seen today for initial intake. She is a 79 yo lady, admitted today to [facility] form [facility] ER for continued care and rehab.She presented to [facility] ED 02/14 due to family concerns of increased confusion and incontinence.Work up concerning for constipation requiring disimpaction. Labs, UA C&S unremarkable. Grover changes most likely due to advancing dementia. Upon exam, Rosalina is in a chair in her room, alert, but very tired. ROS all negative except feeling tired and some SOB, non specific with details. CHATMAN: mod. fall riskBIMS: 08/14 PMH: COPD, B 12 def., dementia, anxiety, GERD, lymphoma, HLD, hypothyroid, PD, Vit D def.MOLST: DNR, DNI, no dialysis, g tube, or IVF NEEMA ZEE NP [address] [facility], [address], [place], [address] , [facility] 5 14:47:53 2024 text/h tml Rosalina is seen today for an acute visit. She is a 79 yo lady, admitted today to [facility] ER for continued care and rehab.She presented to [facility] ED 02/14 due to family concerns of increased confusion and incontinence.Work up concerning for constipation requiring disimpaction. Labs, UA C&S unremarkable. Grover changes most likely due to advancing dementia. Upon exam, Rosalina is resting in bed, easily arousable, smiles, says she feels ok. Slept well, denies feeling dizzy or lightheaded. No SOB, cough, CP. No GI or complaints. She says she is eating well. No pain. Already worked with rehab this morning and thinks it is going good. CHATMAN: mod. fall riskBIMS: 08/14 PMH: COPD, B 12 def., dementia, anxiety, GERD, lymphoma, HLD, hypothyroid, PD, Vit D def.MOLST: DNR, DNI, no dialysis, g tube, or IVF NEEMA ZEE NP [address] [facility], [address], [place], [address] , [facility] 5 11:00:54 2024 text/h tml Patient is a 79 yo female admit from hospital after presenting with increased confusion and incontinence. Noted constipation required disimpaction. Baseline cognitive impairment secondary to progressive dementia PMH significant fordementiagerdhx lymphomaanxietyhypothyroidhldparkinsons dxcopd admit to facility for continued care and therapy eval and treat Frandy Phan MD [address] [facility], [address], [place], [address] , [facility] 5 14:44:34 2024 text/h tml Rosalina is seen today for discharge.She is returning home today with 24 hr care. She is a 79 yo lady, admitted 02/17 to [facility] form [facility] for continued care and rehab.She presented to [facility] ED 02/14 due to family concerns of increased confusion and incontinence.Work up concerning for constipation requiring disimpaction. Labs, UA C&S unremarkable. Grover changes most likely due to advancing dementia. While here, Rosalina has had an uneventful stay.She has worked with rehab and has met goals for d/c home with support of 24 hr services.VSS, BP variable at times.Labs 02/19/25 stable. Upon exam, Rosalina is up in a chair, alert, NAD. Smiling, feels allright , denies any complaints at this time and is looking forward to going home.Per staff, no concerns. No reports of constipation, but review of BM book showing BMs q 2-3 days. Currently on senna-plus 2 tabs daily and 2 tabs daily as needed. CHATMAN: mod. fall riskBIMS: 08/14 PMH: COPD, B 12 def., dementia, anxiety, GERD, lymphoma, HLD, hypothyroid, PD, Vit D def.MOLST: DNR, DNI, no dialysis, g tube, or IVF NEEMA ZEE NP [address] [facility], [address], [place], [address] , [facility] 5 10:12:27 OBGyn Episode No OBEpisode recorded.
--- OUTSIDE RECORDS SUMMARY | 2025-07-02 15:06 | XMS_ITS | Encounter Summary ---
Author Organization [facility] Address [address] [place] [address] Phone Care Team Providers Care Zinc Etcher Name Role Phone Camilla Thomason MD Primary Care Provider [phone] DavidAj DO Unavailable [phone] DavidAj dodson DO Unavailable [phone] Encounter Details Date Type Department Care Team (Late st Contact Info) Description 12/04/2024 Procedure Pass [address] [place] [address] Social History Tobacco Use Types Packs/Day Years [...] Description 07/19/2025 3:00 PM EDT Office Visit [facility] [address] [place] [address] Kevin Corona MD [address] [place] [address] 09/03/2025 12:15 PM EST Office Visit [facility] [address] [place] [address] Aj Hernandez, DO [address] [place] [address] 10/07/2025 1:30 PM EST Office Visit [address] [address] Aj eHrnandez, DO [address] [place] [address] Viv Miller CCC-SLP [address] [place] [address] [email or web address] 10/12/2025 2:30 PM EST Office Visit [address] [address] Aj Hernandez, DO [address] [place] [address] Viv Miller CCC-FURNACE FEEDER [address] [place] [address] [email or web address] 10/21/2025 2:30 PM EST Office Visit [address] [address] Aj Hernandez, DO [address] [place] [address] Viv Miller [facility] [address] [email or web address] 10/28/2025 2:30 PM EST Office Visit [address] [address] DavidAj dodson, DO [address] [place] [address] Viv Miller [address] [address] [email or web address] 11/02/2025 2:30 PM EST Office Visit [address] [address] David, Aj Zepeda, DO [address] [place] [address] Viv Miller [address] [address] [email or web address] 11/11/2025 2:30 PM EST Office Visit [address] [address] DavidAj dodson, DO [address] [place] [address] Viv Miller [address] [address] [email or web address] 11/18/2025 2:30 PM EST Office Visit [address] [address] David, Aj Zepeda, DO [address] [place] [address] Viv Miller [facility] [address] [place] [address] [email or web address] 11/25/2025 2:30 PM EST Office Visit [address] [address] David, Aj Zepeda, DO [address] [place] [address] Viv Miller [facility] [address] [place] [address] [email or web address] 12/02/2025 2:30 PM EST Office Visit [address] [address] David, Aj Zepeda, DO [address] [place] [address] Viv Miller [address] [address] [email or web address] 12/09/2025 2:30 PM EDT Office Visit [address] [address] David, Aj Zepeda, DO [address] [place] [address] Viv Miller [facility] [address] [email or web address] 12/16/2025 2:30 PM EDT Office Visit [address] [address] David, Aj Zepeda, DO [address] [place] [address] Viv Miller CCC-FURNACE [employer]EDER [address] [place] [address] [email or web address] 12/23/2025 2:30 PM EDT Office Visit [facility] [address] [place] [address] Aj Hernandez DO [address] [place] [address] Viv Miller CCC-FURNACE [employer]ER [address] [place] [address] [email or web address] documented as of this encounter Visit Diagnoses Not on filedocumented in this encounter Care Teams Zinc Etcher Relationship Specialty Start Date End Date Camilla Thomason MD [address] [place] [address] PCP - General Internal Medicine 08/03/24 Aj Hernandez DO [address] [place] [address] PCP - Hospice Attending 06/10/25 Aj Hernandez DO [address] [place] [address] Geriatric Medicine 08/03/24 documented as of this encounter Additional Source Comments The information contained in this document represents components of the legal health record. It is not the complete legal health record.[facility]
--- OUTSIDE RECORDS SUMMARY | 2025-07-02 15:06 | XMS_ITS | Encounter Summary ---
Author Organization [facility] Address [address] [place] [address] Phone Care Team Providers Care Frame Cleaner Name Role Phone Camilla Thomason MD Primary Care Provider Aj Hernandez DO Unavailable [phone] Aj Hernandez DO Unavailable [phone] Reason for Referral * Consultation (Within 3 days (urgent)) - New Request Specialty Diagnoses / Procedures Referred By Susan marquez Referred To Contact Hospice and Palliative Medicine Diagnoses Mixed dementia Mood disorder Word finding difficulty Declining functional status Caregiver role strain Aj Hernandez DO [address] [place] [address] Phone: tel: fax: mailto:[email or web address] [address] [place] [address] Phone: tel: Referral ID Status Reason Start Date Expiration Date V isits Requested Visits Authorized [id number] New Request 07/01/2025 07/01/2026 1 1 Reason for Visit * Reason Onset Date Comments referral palliative 07/01/2025 Encounter Details Date Type Department Care Team (Late st Contact Info) Description 07/01/2025 Telephone [facility] [address] [place] [address] Anthony Berman RN [address] [place] [address] [email or web address] referral palliative Social History Tobacco Use Types Packs/Day Years [...] Progress Notes * Anthony Berman RN - 07/02/2025 9:02 AM EDT Akiko notified * Anthony Berman RN - 07/01/2025 5:36 PM EDT Akiko calls, wishes referral for palliative care. See case communication. documented in this encounter Plan of Treatment Upcoming Encounters Date Type Department Care Team (Late Contact Info) Description 07/19/2025 3:00 PM EDT Office Visit [facility] [address] [place] [address] Kevin Corona MD [address] [place] [address] 09/03/2025 12:15 PM EST Office Visit [facility] [address] [place] [address] David, Aj Zepeda, DO [address] [place] [address] 10/07/2025 1:30 PM EST Office Visit [facility] [address] [place] [address] David, Aj Zepeda, DO [address] [place] [address] Viv Miller [facility]-[address] [address] [email or web address] 10/12/2025 2:30 PM EST Office Visit [address] [address] David, Aj Zepeda, DO [address] [place] [address] Viv Miller [facility]-[address] [address] [email or web address] 10/21/2025 2:30 PM EST Office Visit [address] [address] David, Aj Zepeda, DO [address] [place] [address] Viv Miller [facility]-[address] [address] [email or web address] 10/28/2025 2:30 PM EST Office Visit [address] [address] Aj Hernandezkash, DO [address] [place] [address] Viv Miller [facility]-[address] [address] [email or web address] 11/02/2025 2:30 PM EST Office Visit [address] [address] David, Aj Zepeda, [place] [address] Viv Miller [address] [address] [email or web address] 11/11/2025 2:30 PM EST Office Visit [address] [address] David, Aj Zepeda, DO [address] [place] [address] [email or web address] Viv Miller [address] [address] [email or web address] 11/18/2025 2:30 PM EST Office Visit [address] [address] David, Aj Zepeda, DO [address] [place] [address] [email or web address] Viv Miller [address] [address] [email or web address] 11/25/2025 2:30 PM EST Office Visit [address] [address] DavidAj dodson, [place] [address] Viv Miller [address] [address] [email or web address] 12/02/2025 2:30 PM EST Office Visit [address] [address] DavidAj, [place] [address] Viv Miller [address] [address] [email or web address] 12/09/2025 2:30 PM EDT Office Visit [address] [address] DavidAj, [place] [address] Viv Miller [address] [address] [email or web address] 12/16/2025 2:30 PM EDT Office Visit [address] [address] DavidAj, [place] [address] Viv Miller [address] [address] [email or web address] 12/23/2025 2:30 PM EDT Office Visit [address] [address] DavidAj DO [address] [place] [address] Viv Miller CCC-COAL GRADER [address] [place] [address] [email or web address] Scheduled Referrals Name Type Priority Associated Diagnoses Order Schedule Ambulatory referral to [facility] Palliative Care Outpatient Referral Routine Mixed dementia Mood disorder Word finding difficulty Declining functional status Caregiver role strain Ordered: 07/01/2025 documented as of this encounter Visit Diagnoses Diagnosis Mixed dementia- Primary Mood disorder Unspecified episodic mood disorder Encounter for support to caregiver Advance care planning Other specified counseling At increased risk for social isolation Word finding difficulty Declining functional status Caregiver role strain documented in this encounter Additional Health Concerns Assessment Noted Time PHQ-9 Depression Total Score: 8 05/20/20 2:28 PM EDT PHQ-2 Depression Total Score: 4 05/20/20 2:28 PM EDT documented as of this encounter Care Teams Frame Cleaner Relationship Specialty Start Date End Date Camilla Thomason MD [facility] [place] [address] PCP - General Internal Medicine 08/03/24 Aj Hernandez DO [address] [place] [address] PCP - Hospice Attending 06/10/25 Aj Hernandez DO [address] [place] [address] Geriatric Medicine 08/03/24 documented as of this encounter Additional Source Comments The information contained in this document represents components of the legal health record. It is not the complete legal health record.[facility]
[2025-07-02 15:07] VITALS: BP 110/62; PULSE 73; O2SAT 99; BMI 20.9
--- NOTE | 2025-07-02 15:07 | MHC.OFFVIS ---
Vital Signs 07/02/25 15:07 Height 5 ft 3 in Weight 118 lb 2 oz BMI 20.9 BP 110/62 Blood Pressure Location Lt brachial Position Sitting Pulse 73 Pulse Source Pulse Oximeter Pulse Oximetry (%) 99 Oxygen Delivery Method Room Air Intake Visit Reasons: 4m follow up Intake Note: Dementia Pest Control Service Technician Required: No Accompanied by: Daughter Allergies No Known Allergies Allergy (Verified 07/02/25 15:07) HPI Comments Details: 80y/o Left handed female with h/o Parkinsons Disease, word finding difficulty, cognitive impairment and comes for follow up.she feels she is worse. Her mood is better. she is on mirtazapine 22.5 mg and titrating to 30 mg starte [facility] psychiatrist. Bowel movements are stable she is in an Assisted living now .she is doing good- gained 10 lbs , she has aides to help with ahower . No hospitalizations since she moved to Assisted Living she long spainful left hand dystonia intermittently she was seen by Geriatrics at [facility] Aj Casper who diagnosed her with moderate parkinsons dementia vs DLBD. Lavern reagan sreferred her to Palliative care. she denies hallucinations. Her first symptom was tremors in her left hand and later in bilateral hands. she was living in [place] at that time and was diagnosed with Parkinsons disease.she goes to a support group at [place] . She also reports memory issues - usually short term she also has lot of word finding difficulties. Neuropsych eval in November 2022 was c/ Mild cognitive impairment. She is on donepezil 5mg . Sleep- 1-2 episodes where she thought someone was in the room when she woke up. Mood- anxiety and mild depression Motivation-OK SPeech- softer. No drooling Handwriting- smaller and difficult Using utensils-slower Dressing-slower Showering- slower No difficulty turning in bed Gait- slower She had 1 near fall - she lives at [facility] she has constipation- better with change in diet No dizziness . No vertigo [facility] History Dementia Confusion Parkinson disease Anxiety Lymphoma Mild cognitive impairment Parkinson's disease without dyskinesia or fluctuating manifestations Parkinson disease Surgical History History of left knee replacement History of left knee surgery History of tonsillectomy Family History Mother Colon cancer Father Lung cancer Sister Breast cancer Social History Housing: Assisted Living Facility Patient Tobacco Use Status: Former Tobacco user e-Cigarette/Vaping Use: Never Used Advance Directives Date on File: 07/15/24 service: No Current occupational status: retired Cognitive needs: No Hearing needs: No Vision needs: Yes Physical Exam Vital Signs: Last Vital Signs Pulse 73 07/02/25 15:07 BP 110/62 07/02/25 15:07 Pulse Ox 99 07/02/25 15:07 Oxygen Delivery Method Room Air 07/02/25 15:07 BMI result Body Mass Index 20.9 Const General: cooperative, healthy appearing, comfortable and no acute distress Nutritional Appearance: average body habitus Orientation/consciousness: patient oriented x3 Eyes Pupils: Equal, round and reactive pupils present Neck Neck: Yes no meningeal signs Neuro Other: Mildly decreased facial expression and blink kip rest tremors L>R Mild postural tremors Left Upper extremity No cog wheel rigidty Kip bradykinesia L>R FFM and foot taps- mild decreased Moderate hypophonia, word finding difficulties gait- no arm swing, slow stooped General: patient oriented x3, moves all extremities and no meningeal signs Cranial nerves: Yes Facial sensation intact/muscles of mastication intact, Yes Equal, round and reactive pupils present, Yes Bilaterally intact EOM present, Yes Nystagmus not present, Yes Normal facial strength present and Yes Midline tongue present Cognition (Neuro): normal cognition Assessment & Plan Assessment & Plan (1) Parkinson's disease without dyskinesia or fluctuating manifestations: Code(s): G20.A1 - Parkinson's disease without dyskinesia, without mention of fluctuations Category: Medical (2) Dementia: Comment: PDD VS DLBD Code(s): F03.90 - Unspecified dementia, unspecified severity, without behavioral disturbance, psychotic disturbance, mood disturbance, and anxiety Category: Medical Qualifiers: Dementia type: unspecified type Dementia severity: moderate Dementia behavioral or psychological symptom: without behavioral, psychotic, or mood disturbance or anxiety Qualified Code(s): F03.B0 - Unspecified dementia, moderate, without behavioral disturbance, psychotic disturbance, mood disturbance, and anxiety Plan Increase carbidopa/levodopa 25/100 - 1.5-1-1.5-1 - calll in 3 weeks to increase to 2tabs qid Mirtazapine 30mg qd F/u with Dr. Hernandez Continue exercise Psychiatric eval- patient has sundowning and vivid dreams Medications: Changed From carbidopa-levodopa 25-100 mg 4 - tablets of Sinemet a day. 1 tab PO QID 3 months 360 tabs 6RF parkinson MDD 4 tablets G20.A1 - Parkinson's disease without dyskinesia, without mention of fluctuations To carbidopa-levodopa 25-100 mg 1 tab orally; 1.5-1-1.5-1 ( Total 5 tabs per day) 450 tabs 6RF parkinson 3 months G20.A1 - Parkinson's disease without dyskinesia, without mention of fluctuations Coding Level of Care Code Est Pt Level 4 (73203) Complex EM visit Add On G2211 Diagnoses Parkinson's disease without dyskinesia or fluctuating manifestations G20.A1 Moderate dementia without behavioral disturbance, psychotic disturbance, mood disturbance, or anxiety, unspecified dementia type F03.B0 Dementia type: unspecified type Dementia severity: moderate Dementia behavioral or psychological symptom: without behavioral, psychotic, or mood disturbance or anxiety
--- OUTSIDE RECORDS SUMMARY | 2025-07-02 15:07 | XMS_ITS | Clinical Summary ---
Author Organization [facility] Address [address] [place] [address] Phone Care Team Providers Care Air Pollution Analyst Name Role Phone Camilla Thomason MD Primary Care Provider [phone] David, Aj Zepeda DO Unavailable David, Aj Zepeda DO Unavailable Allergies No known active allergies Medications atorvastatin (LIPITOR) 10 MG tablet 5 Active carbidopa-levodop a (SINEMET) 25-100 mg per tablet 3 (three) times a day. 5 Active escitalopram oxalate (LEXAPRO) 20 MG tablet 5 Active levothyroxine (SYNTHROID, LEVOTHROID) 50 MCG tablet 5 Active cyanocobalamin, vitamin B-12, 1000 MCG tablet Take 2,000 mcg by mouth daily. Active cholecalciferol (VITAMIN D3) 2,000 unit tablet Take 1,000 Units by mouth daily. Active BREO ELLIPTA 50-25 mcg/dose DsDv 5 Active therapeutic multivitamin tablet Take 1 tablet by mouth daily. Active albuterol 90 mcg/actuation inhaler 5 Active mirtazapine (REMERON) 15 MG tablet Take 15 mg by mouth nightly at bedtime. 5 Active amantadine HCl (SYMMETREL) 100 mg tablet 5 Active amantadine HCl (SYMMETREL) 50 mg/5 mL solution 5 Active memantine (NAMENDA XR) 7 mg 24 hr sprinkle capsule 5 Active senna (SENOKOT) 8.6 mg tablet Take 1 tablet by mouth daily. Active psyllium (KONSYL) Pack Take 1 packet by mouth 2 (two) times a day. Active docusate sodium (COLACE) 50 MG capsule Take 50 mg by mouth 2 (two) times a day. Active Active Problems Problem Noted Date Diagnosed Date Mixed dementia 12/04/2024 Mood disorder 12/04/2024 Encounters Date Type Department Care Team Description 07/01/2025 Telephone [facility] [address] [place] [address] [place] [address] Anthony Berman RN referral palliative 06/29/2025 Home Care Visit [facility] [address] [place] [phone] Gill Liz RN CASE COMMUNICATION 06/28/2025 Home Care Visit [facility] [address] [place] [phone] Gill Liz RN CASE COMMUNICATION 06/22/2025 Home Care Visit [facility] [address] [place] [phone] Nela Mendez LCSW CASE COMMUNICATION 06/15/2025 4:00 PM EDT Home Care Visit [facility] [address] [place] [phone] Nela Mendez LCSW [facility] INFORMATIONAL VISIT 06/11/2025 Home Care Visit [facility] [address] [place] [phone] Nela Mendez LCSW CASE COMMUNICATION 06/11/2025 Telephone [facility] [address] [place] [address] Anthony Berman RN Donepezil (stopped) 06/11/2025 Orders Only [facility] [address] [place] [address] [place] [address] Aj Hernandez DO 06/10/2025 Hospice Admission [facility] [address] [place] [phone] Julia Singh, RAMIRO 06/10/2025 Home Care Visit [facility] [address] [place] [address] Nela Mendez, [facility] CASE COMMUNICATION 06/10/2025 Home Care Visit [facility] [address] [place] [phone] Gill Liz RN CASE COMMUNICATION 06/10/2025 Orders Only [facility] [address] [place] [address] [place] [address] Aj Hernandez DO Mixed dementia (Primary Dx) 06/08/2025 Orders Only [facility] [address] [place] [phone] Homehealth, Karon Spivey MD 06/07/2025 Telephone [facility] [address] [place] [address] [place] [address] Anthony Berman RN Hospice 05/20/2025 2:30 PM EDT Office Visit [facility] [address] [place] [address] [place] [address] Aj Hernandez DO Mixed dementia (Primary Dx); Encounter for support to caregiver; Encounter for medication review; Advance care planning 05/17/2025 Telephone [facility] [address] [place] [address] [place] [address] Anthony Berman RN 04/15/2025 Telephone [facility] [address] [place] [address] [place] [address] Anthony Berman, RAMIRO Update- Seeking ANTHONY from Last 3 Months Social History Tobacco [...] Description 07/19/2025 3:00 PM EDT Office Visit [facility] [address] [place] [address] Kevin Corona MD [address] [place] [address] 09/03/2025 12:15 PM EST Office Visit [facility] [address] [place] [address] Aj Hernandez DO [address] [place] [address] 10/07/2025 1:30 PM EST Office Visit [address] [address] Aj Hernandez, [address] [address] Viv Miller CCC-SLP [address] [place] [address] [email or web address] 10/12/2025 2:30 PM EST Office Visit [address] [address] Aj Hernandezsh, [address] [address] Viv Miller CCC-SLP [address] [place] [address] [email or web address] 10/21/2025 2:30 PM EST Office Visit [address] [address] Aj Hernandezsh, [address] [address] Viv Miller CCC-SLP [address] [place] [address] [email or web address] 10/28/2025 2:30 PM EST Office Visit [address] [address] David Aj Duane, [address] [address] Viv Miller CCC-SLP [address] [place] [address] [email or web address] 11/02/2025 2:30 PM EST Office Visit [address] [address] DavidAj dodson, DO [address] [place] [address] Viv Miller CCC-[address] [address] [email or web address] 11/11/2025 2:30 PM EST Office Visit [address] [address] DavidAj dodson, [address] [address] Viv Miller CCC-[address] [address] [email or web address] 11/18/2025 2:30 PM EST Office Visit [address] [address] DavidAj, [address] [address] Viv Miller CCC-[address] [address] [email or web address] 11/25/2025 2:30 PM EST Office Visit [address] [address] DavidAj dodson, DO [address] [place] [address] Viv Miller CCC-[address] [address] [email or web address] 12/02/2025 2:30 PM EST Office Visit [address] [address] DavidAj, DO [address] [place] [address] Viv Miller CCC-[address] [address] [email or web address] 12/09/2025 2:30 PM EDT Office Visit [address] [address] DavidAj dodson, DO [address] [place] [address] Viv Miller [address] [address] [email or web address] 12/16/2025 2:30 PM EDT Office Visit [address] [address] DavidAj, DO [address] [place] [address] Viv Miller [address] [address] [email or web address] 12/23/2025 2:30 PM EDT Office Visit [address] [address] DavidAj dodson, DO [address] [place] [address] Viv Miller CCC-SHEETER HELPER [address] [place] [address] [email or web address] Health Maintenance Due Date Last Done Comments LIPID PANEL 1947 TSH LEVEL 1947 HEPATITIS C SCREENING 1965 ZOSTER VACCINES (1 of 2) 1997 OSTEOPOROSIS SCREENING INITI AL (ONE-TIME) 2012 INFLUENZA VACCINE (#1) 2025 06/25/2024 COVID-19 VACCINE (4 - 2024-2 6 season) 2025 01/12/2025, 06/25/2024, 01/07/2024 DEPRESSION SCREENING 05/20/2026 05/20/2025, 05/20/2025 Adult Td,Tdap Booster 09/18/2034 09/18/2024 PNEUMOCOCCAL VACCINES (50+ years) Completed 11/24/2024 RSV VACCINE Completed 11/24/2024 SMOKING STATUS SCREENING (On ce After 26 [...] GENERIC COMMERCIAL MEDICARE PART A & B [employer] MEDICARE PART A & B GENERIC COMMERCIAL [employer] Address: [address] [place] [address] MEDICARE PART A & B GENERIC COMMERCIAL [employer] Address: [address] [place] [address] MEDICARE PART A & B GENERIC COMMERCIAL Member Subscriber Plan / Payer ( fective 2024-Present) Name:Rosalina Trejo Relation to Subscriber:Self Name:Rosalina Trejo Payer ID:Not on file Group ID:Not on file Type:Dick or Bro Address: [address] [place] MEDICARE PART A & B GENERIC COMMERCIAL Advance Directives For more information, please contact: [phone] (9AM - 5PM [facility], Saturday-Saturday) Healthcare Agents on File Name Relationship Healthcare Agent Relationshi p Communication Akiko Neil Daughter .Primary Health Care Agent (Proxy form on file) Care Teams Air Pollution Analyst Relationship Specialty Start Date End Date Camilla Thomason MD [address] [place] [address] PCP - General Internal Medicine 08/03/24 Aj Hernandez DO [address] [place] [address] PCP - Hospice Attending 06/10/25 Aj Hernandez DO [address] [place] [address] Geriatric Medicine 08/03/24 Additional Source Comments The information contained in this document represents components of the legal health record. It is not the complete legal health record.[facility]
--- OUTSIDE RECORDS SUMMARY | 2025-07-02 15:07 | XMS_ITS | Encounter Summary ---
Author Organization [facility] Address [address] [place] [address] Phone Care Team Providers Care Casket Trimmer Name Role Phone Camilla Thomason MD Primary Care Provider [phone] David, Aj Zepeda DO Unavailable [phone] David, Aj Zepeda DO Unavailable [phone] Reason for Visit * Auth/Cert (Routine) Specialty Diagnoses / Procedures Referred By Susan marquez Referred To Contact Referral ID Status Reason Start Date Expiration Date Visits Re quested Visits Authorized [id number] 1 1 Encounter Details Date Type Department Care Team (Late st Contact Info) Description 06/28/2025 Home Care Visit [facility] [address] [place] [address] Gill Liz RN [address] [place] [address] [email or web address] CASE COMMUNICATION Social History Tobacco Use Types Packs/Day Years [...] Description 07/19/2025 3:00 PM EDT Office Visit [facility] [address] [place] [address] Kevin Corona MD [address] [place] [address] 09/03/2025 12:15 PM EST Office Visit [facility] [address] [place] [address] Aj Hernandez, [address] [address] 10/07/2025 1:30 PM EST Office Visit [address] [address] Aj Hernandez, [address] [address] Viv Miller CCC-SLP [address] [place] [address] [email or web address] 10/12/2025 2:30 PM EST Office Visit [address] [address] Aj Hernandez, [address] [address] Viv Miller CCC-SLP [address] [place] [address] [email or web address] 10/21/2025 2:30 PM EST Office Visit [address] [address] Aj Hernandez, [address] [address] Viv Miller CCC-[address] [address] [email or web address] 10/28/2025 2:30 PM EST Office Visit [address] [address] Aj Hernandezsh, [address] [address] Viv Miller CCC-[address] [address] [email or web address] 11/02/2025 2:30 PM EST Office Visit [address] [address] Aj Hernandezsh, [address] [address] Viv Miller CCC-SLP [address] [place] [address] [email or web address] 11/11/2025 2:30 PM EST Office Visit [address] [address] Aj Hernandezkash, [address] [address] Viv Miller CCC-SLP [address] [place] [address] [email or web address] 11/18/2025 2:30 PM EST Office Visit [address] [address] Aj Hernandez, [address] [address] Viv Miller CCC-SLP [address] [place] [address] [email or web address] 11/25/2025 2:30 PM EST Office Visit [address] [address] Aj Hernandez, [address] [address] Viv Miller CCC-SLP [address] [place] [address] [email or web address] 12/02/2025 2:30 PM EST Office Visit [address] [address] Aj Hernandez, [address] [address] Viv Miller CCC-SLP [address] [place] [address] [email or web address] 12/09/2025 2:30 PM EDT Office Visit [address] [address] Aj Hernandezsh, [address] [address] Viv Miller CCC-SLP [address] [place] [address] [email or web address] 12/16/2025 2:30 PM EDT Office Visit [facility] [address] [place] [address] [place] [address] Viv Miller CCC-GLAZE SPRAYER [address] [place] [address] [email or web address] 12/23/2025 2:30 PM EDT Office Visit [facility] [address] [place] [address] [place] [address] Viv Miller CCC-GLAZE SPRAYER [address] [place] [address] [email or web address] documented as of this encounter Visit Diagnoses Not on filedocumented in this encounter Additional Health Concerns Assessment Noted Time PHQ-9 Depression Total Score: 8 05/20/20 2:28 PM EDT PHQ-2 Depression Total Score: 4 05/20/20 2:28 PM EDT documented as of this encounter Care Teams Casket Trimmer Relationship Specialty Start Date End Date Camilla Thomason MD [facility] [place] [address] PCP - General Internal Medicine 08/03/24 [place] [address] PCP - Hospice Attending 06/10/25 [place] [address] [email or web address] Geriatric Medicine 08/03/24 documented as of this encounter Additional Source Comments The information contained in this document represents components of the legal health record. It is not the complete legal health record.[facility]
--- OUTSIDE RECORDS SUMMARY | 2025-07-02 15:07 | XMS_ITS | Patient Health Record ---
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
--- OUTSIDE RECORDS SUMMARY | 2025-07-02 15:07 | XMS_ITS | Encounter Summary ---
Author Organization [facility] Address [address] [place] [address] Phone Care Team Providers Care Parts Processor Name Role Phone Camilla Thomason MD Primary Care Provider [phone] David, Aj Zepeda DO Unavailable David, Aj Zepeda DO Unavailable [phone] Reason for Visit * Auth/Cert (Routine) Specialty Diagnoses / Procedures Referred By Susan marquez Referred To Contact Referral ID Status Reason Start Date Expiration Date Visits Re quested Visits Authorized [id number] 1 1 Encounter Details Date Type Department Care Team (Late st Contact Info) Description 06/29/2025 Home Care Visit [facility] [address] [place] [address] Gill Liz RN [address] [place] [address] [email or web address] CASE COMMUNICATION Social History Tobacco Use Types [...] Description 07/19/2025 3:00 PM EDT Office Visit [facility] [address] [place] [address] Kevin Corona MD [address] [place] [address] 09/03/2025 12:15 PM EST Office Visit [facility] [address] [place] [address] Aj Hernandez, [address] [address] 10/07/2025 1:30 PM EST Office Visit [address] [address] Aj Hernandez, [address] [address] Viv Miller CCC-SLP [address] [place] [address] [email or web address] 10/12/2025 2:30 PM EST Office Visit [address] [address] Aj Hernandez, [address] [address] Viv Miller CCC-SLP [address] [place] [address] [email or web address] 10/21/2025 2:30 PM EST Office Visit [address] [address] Aj Hernandez, [address] [address] Viv Miller CCC-[address] [address] [email or web address] 10/28/2025 2:30 PM EST Office Visit [address] [address] Aj Hernandezsh, [address] [address] Viv Miller CCC-[address] [address] [email or web address] 11/02/2025 2:30 PM EST Office Visit [address] [address] Aj Hernandezsh, [address] [address] Viv Miller CCC-SLP [address] [place] [address] [email or web address] 11/11/2025 2:30 PM EST Office Visit [address] [address] Aj Hernandezkash, [address] [address] Viv Miller CCC-SLP [address] [place] [address] [email or web address] 11/18/2025 2:30 PM EST Office Visit [address] [address] Aj Hernandez, [address] [address] Viv Miller CCC-SLP [address] [place] [address] [email or web address] 11/25/2025 2:30 PM EST Office Visit [address] [address] Aj Hernandez, [address] [address] Viv Miller CCC-SLP [address] [place] [address] [email or web address] 12/02/2025 2:30 PM EST Office Visit [address] [address] Aj Hernandez, [address] [address] Viv Miller CCC-SLP [address] [place] [address] [email or web address] 12/09/2025 2:30 PM EDT Office Visit [address] [address] Aj Hernandezsh, [address] [address] Viv Miller CCC-SLP [address] [place] [address] [email or web address] 12/16/2025 2:30 PM EDT Office Visit [facility] [address] [place] [address] [place] [address] Viv Miller CCC-SENIOR RESTAURANT MANAGER [address] [place] [address] [email or web address] 12/23/2025 2:30 PM EDT Office Visit [facility] [address] [place] [address] [place] [address] Viv Miller CCC-SENIOR RESTAURANT MANAGER [address] [place] [address] [email or web address] documented as of this encounter Visit Diagnoses Not on filedocumented in this encounter Additional Health Concerns Assessment Noted Time PHQ-9 Depression Total Score: 8 05/20/20 2:28 PM EDT PHQ-2 Depression Total Score: 4 05/20/20 2:28 PM EDT documented as of this encounter Care Teams Parts Processor Relationship Specialty Start Date End Date Camilla Thomason MD [facility] [place] [address] PCP - General Internal Medicine 08/03/24 [place] [address] PCP - Hospice Attending 06/10/25 [place] [address] [email or web address] Geriatric Medicine 08/03/24 documented as of this encounter Additional Source Comments The information contained in this document represents components of the legal health record. It is not the complete legal health record.[facility]
== END 2025-07-02 15:48 | disposition home or self-care (01) ==
LOC: HO.HSMS 15:05
PROVIDERS: PCP Internal Medicine; Visit Provider Psychiatry & Neurology Neurology
DX: G20.A1 Parkinson's disease without dyskinesia, without mention of fluctuations (principal); F03.B0 Unspecified dementia, moderate, without behavioral disturbance, psychotic disturbance, mood disturbance, and anxiety
CPT/HCPCS: 99214; G2211

== ENCOUNTER → 2025-07-02 15:04 | Outpatient (BNVA) | payer MEDICARE, OTHER, SELFPAY | PROVIDERS: PCP Internal Medicine; Visit Provider Psychiatry & Neurology Neurology | DX: G20.A1 Parkinson's disease without dyskinesia, without mention of fluctuations (principal); F03.B0 Unspecified dementia, moderate, without behavioral disturbance, psychotic disturbance, mood disturbance, and anxiety | CPT/HCPCS: 99212 ==

== ENCOUNTER 2025-09-14 14:58 | Outpatient (AMB) | payer MEDICARE, SELFPAY ==
[2025-09-14 15:02] VITALS: BP 142/80; BMI 20.5
--- NOTE | 2025-09-14 15:02 | A.OFFVIS_ITS ---
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 Today she is accompanied by her stepdaughter. They both report good control of respiratory symptoms since initiating Breo with notable decrease in labored breathing and cough. She has moved into assisted living and has a visiting nurse administer Breo with some issues, noting difficulty with timing and inhalation of medication. We had previously discussed switching to nebulized therapy but since patient with overall improvements would like to continue current regimen. Of note, given progression of Parkinson's and dementia family having discussion regarding Hospice care. [facility] Medical History Dementia Confusion Parkinson disease Anxiety Lymphoma Mild cognitive impairment Parkinson's disease without dyskinesia or fluctuating manifestations Parkinson disease Surgical History History of left knee replacement History of left knee surgery History of tonsillectomy Family History Mother Colon cancer Father Lung cancer Sister Breast cancer Social History Housing: Assisted Living Facility Unable to assess alcohol history related to: Unknown Patient Tobacco Use Status: Former Tobacco user e-Cigarette/Vaping Use: Never Used Advance Directives Date on File: 07/15/24 service: No Current occupational status: retired Cognitive needs: No Hearing needs: No Vision needs: Yes Review of Systems Const Denies chills, Denies excessive sweating, Denies fever(s), Denies headache(s) and Denies night sweats Eyes Denies dry eyes, Denies irritation and Denies itchy eyes ENT Reports Normal hearing present, Denies headache(s), Denies nasal congestion, Denies nasal discharge, Denies post nasal drip and Denies sore throat Card Denies chest pain, Denies chest pain at rest, Denies chest pain with activity, Denies claudication, Denies leg edema, Denies dyspnea, Denies dyspnea on exertion, Denies orthopnea and Denies paroxysmal nocturnal dyspnea Resp Denies chest congestion, Denies cough, Denies excessive phlegm production, Denies pain on inspiration, Denies pain with cough, Denies dyspnea, Denies dyspnea on exertion, Denies stridor and Denies wheezing Musc Denies myalgias Neuro Reports Normal hearing present and Denies headache(s) Endo Denies excessive sweating Bronson/Lymph Denies lymphadenopathy Aller/Immun Denies itchy eyes, Denies seasonal rhinorrhea and Denies wheezing Physical Exam Vital Signs: Last Vital Signs BP 142/80 H 09/14/25 15:02 BMI result Body Mass Index 20.5 Const General: cooperative, comfortable, no acute distress and alert Nutritional Appearance: average body habitus Orientation/consciousness: patient oriented x3 Limitations: other limitations (cognitive impairment) HEENT Head: Yes normal to inspection, Yes normocephalic and Yes atraumatic Ears: hearing grossly normal bilaterally and external ears normal Eyes General: appearance normal, both eyes and all related structures Eyelids: Yes eyelids normal Sclerae: sclerae normal EOM: EOMs intact bilaterally Neck Neck: Yes normal visual inspection and Yes no lymphadenopathy Lymphatic: no lymphadenopathy noted Chest Chest palpation & inspection: normal inspection of the chest Resp Effort & Inspection: normal respiratory effort, able to speak in complete sentences, no audible wheezes, no cough, no stridor, not tachypneic, no tripod positioning and no use of accessory muscles Cardio Jugular venous distension: no JVD Rate: regular rate Rhythm: regular rhythm Skin Other: warm, dry General skin exam: no rashes or lesions noted Neuro General: patient oriented x3 Cranial nerves: Yes Normal hearing present Extrem General: Yes normal to inspection, Yes capillary refill normal, Yes no clubbing, cyanosis or edema and Yes no pedal edema Psych Appearance: grossly normal and well kempt Speech and movement: Other speech and movement exam findings present (Psych) (difficulty word finding) Affect: normal affect Attitude: cooperative Thought process: Normal thought process present Thought content: Normal thought content present Insight: Good insight present (Psych) Judgement: Good judgement present (Psych) Assessment & Plan Assessment & Plan (1) Asthma-COPD overlap syndrome: Code(s): J44.89 - Other specified chronic obstructive pulmonary disease Category: Medical Plan At this time, patient reports good control of respiratory symptoms with the use of Breo. They are aware to call if symptoms change or persistent issues with use of Breo device, would switch to nebulized therapy. Had detailed discussion regarding use of Breo. Family considering Hospice, will inform our office when they are going to proceed with this. All questions were answered and patient is in agreement of plan. Will follow up PRN. Coding Level of Care Code Est Pt Level 3 (72055) Diagnoses 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
--- OUTSIDE RECORDS SUMMARY | 2025-09-14 19:20 | XMS_ITS | Patient Health Record ---
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
--- OUTSIDE RECORDS SUMMARY | 2025-09-14 19:20 | XMS_ITS | Clinical Summary ---
Author Organization [facility] Address [address] [address] Phone Care Team Providers Care [employer] [place] Name Role Phone David Aj Zepeda DO Unavailable [phone] Anthony Berman RN Unavailable [phone] Frandy Phan MD Primary Care Provider [phone] Allergies No known active allergies Medications atorvastatin (LIPITOR) 10 MG tablet 10/29/19 25 Active escitalopram oxalate (LEXAPRO) 20 [...] albuterol 90 mcg/actuation inhaler 02/27/20 25 Active amantadine HCl (SYMMETREL) 100 mg tablet Take 50 mg by mouth 2 (two) times a day. 05/13/20 25 Active senna (SENOKOT) 8.6 mg tablet Take 1 tablet by mouth daily. Active psyllium (KONSYL) Pack Take 1 packet by mouth 2 (two) times a day. Active docusate sodium (COLACE) 50 MG capsule Take 50 mg by mouth 2 (two) times a day. Active mirtazapine (REMERON) 15 MG tablet Take 1.5 tablets (22.5 mg total) by mouth nightly at bedtime. Taking 1.5 tabs at night 22.5 total dose 08/24/20 Active carbidopa-levod opa (SINEMET) 25-100 mg per tablet 3 (three) times a day. 4x daily with an extra half dose morning and afteernoon 09/03/20 25 Active carbidopa-levod opa (SINEMET) 25-100 mg per tablet 3 (three) times a day. 10/29/19 025 Discontinued(D ose adjustment) mirtazapine (REMERON) 15 MG tablet Take 15 mg by mouth nightly at bedtime. 03/25/20 025 Discontinued(D ose adjustment) amantadine HCl (SYMMETREL) 50 mg/5 mL solution 04/05/20 025 Discontinued memantine (NAMENDA XR) 7 mg 24 hr sprinkle capsule 04/20/20 025 Discontinued Active Problems Problem Noted Date Diagnosed Date Mixed dementia 12/04/2024 Mood disorder 12/04/2024 Encounters Date Type Department Care Team Description 09/07/2025 Home [facility] Visit [facility] [address] [place] [phone] Maryan Em RN [facility] INFORMATIONAL VISIT 09/07/2025 Home Care Visit [facility] [address] [place] [phone] Gill Liz RN CASE COMMUNICATION 09/06/2025 Home Care Visit [facility] [address] [place] [phone] Gill Liz RN CASE COMMUNICATION 09/03/2025 11:30 AM EST Office Visit [facility] [address] [place] [address] Aj Hernandez, Mixed dementia (Primary Dx); Mood disorder; Encounter for support to caregiver; Advance care planning; Mobility impaired 09/03/2025 Orders Only [facility] [address] [place] [phone] Homehealth, Karon Spivey MD 07/23/2025 Home Care Visit [facility] [address] [place] [address] Gill Liz, RN CASE COMMUNICATION 07/19/2025 3:00 PM EDT Office Visit [facility] [address] [place] [phone] Kevin Corona MD Palliative care encounter (Primary Dx); Advance care planning; Mixed dementia 07/13/2025 Home Care Visit [facility] [address] [place] [address] Gill Liz, RN CASE COMMUNICATION 07/13/2025 Home Care Visit [facility] [address] [place], [place] [phone] Gill Liz, RN CASE COMMUNICATION 07/01/2025 Telephone [facility] [address] [place] [address] Anthony Berman RN referral palliative 06/29/2025 Home Care Visit [facility] [address] [place], [place] [phone] Gill Liz, RN CASE COMMUNICATION 06/28/2025 Home Care Visit [facility] [address] [place], [place] [phone] Gill Liz, RN CASE COMMUNICATION 06/22/2025 Home Care Visit [facility] [address] [place], [place] [phone] Nela Mendez LCSW CASE COMMUNICATION 06/15/2025 4:00 PM EDT Home Care Visit [facility] [address] [place], [place] [phone] Nela Mendez LCSW RELAY ASSEMBLER [facility] INFORMATIONAL VISIT 06/10/2025 Hospice Admission [facility] [address] [place], [place] [phone] Julia Singh RN from Last 3 Months Social History [...] Sign Reading Time Taken Comments Blood Pressure 118/60 09/03/2025 11:35 AM EST Pulse 60 09/03/2025 11:35 AM EST Temperature - - Respiratory Rate - - Oxygen Saturation 99% 09/03/2025 11:35 AM EST Inhaled Oxygen Concentration - - Weight 52.6 kg (116 lb) 09/03/2025 11:35 AM EST Height 162.6 cm (5' 4 ) 12/19/2024 12:50 PM EDT Body Mass Index 19.91 12/19/2024 12:50 PM EDT Plan of Treatment Upcoming Encounters Date Type Department Care Team (Late st Contact Info) Description 11/02/2025 2:30 PM EST Office Visit [facility] [address] [place] [phone] Aj Hernandez, DO [address] [place] [address] Viv Miller CCC-KEG VARNISHER [address] [place] [address] 11/11/2025 2:30 PM EST Office Visit [facility] [address] [address] Aj Hernandez, [address] [address] Viv Miller CCC-KEG VARNISHER [address] [place] [phone] 11/18/2025 2:30 PM EST Office Visit [facility] [address] [address] Aj Hernandez, [address] [address] Viv Miller CCC-KEG VARNISHER [address] [place] [address] 11/25/2025 2:30 PM EST Office Visit [address] [address] Aj Hernandez, [address] [address] Viv Miller CCC-SLP [address] [place] [address] 12/02/2025 2:30 PM EST Office Visit [facility] [address] [address] Aj Hernandez, [address] [address] Viv Miller CCC-KEG VARNISHER [address] [place] [phone] 12/09/2025 2:30 PM EDT Office Visit [facility] [address] [place] [address] DavidAj, [address] [address] Viv Miller CCC-KEG VARNISHER [address] [place] [address] 12/16/2025 2:30 PM EDT Office Visit [facility] [address] [address] DavidAj, [address] [address] Viv Miller CCC-KEG VARNISHER [address] [place] [address] 12/23/2025 2:30 PM EDT Office Visit [facility] [address] [address] DavidAj, [address] [address] Viv Miller CCC-KEG VARNISHER [address] [place] [address] 12/30/2025 2:30 PM EDT Office Visit [facility] [address] [address] DavidAj dodson, [address] [address] Viv Miller CCC-KEG VARNISHER [address] [place] [address] 01/06/2026 2:30 PM EDT Office Visit [facility] [address] [place] [address] David Aj Duane, DO [address] [place] [address] Viv Miller CCC-KEG VARNISHER [address] [place] [phone] 01/13/2026 2:30 PM EDT Office Visit [facility] [address] [place] [address] David Aj Duane, DO [address] [place] [address] Viv Miller CCC-KEG VARNISHER [address] [place] [address] 01/20/2026 2:30 PM EDT Office Visit [facility] [address] [place] [address] Aj Hernandezkash, DO [address] [place] [phone] Viv Miller CCC-KEG [employer]ARNISHER [address] [place] [phone] Health Maintenance Due Date Last Done Comments LIPID PANEL 1947 TSH LEVEL 1945 HEPATITIS C SCREENING 1965 ZOSTER VACCINES (1 of 2) 1997 OSTEOPOROSIS SCREENING INITIAL (ONE-TIME) 2012 COVID-19 VACCINE ( season) 2026 07/08/2025, 01/12/2025, 06/25/2024, Additional history exists DEPRESSION SCREENING 09/03/2026 09/03/2025, 09/03/20 25 Adult Td,Tdap Booster 09/18/2034 09/18/2024 PNEUMOCOCCAL VACCINES (50+ years) Completed 11/24/2024 RSV VACCINE Completed 11/24/2024 INFLUENZA VACCINE Completed 07/08/2025, 06/25/2024 SMOKING STATUS SCREENING (Once After 26 Yrs) Completed 09/03/2025 HEPATITIS A VACCINES Aged Out No long [...] & B Member Subscriber Plan / Payer ( fective 2013-Present) Name:Rosalina Trejo Member ID:[id number] Relation to Subscriber:Self Name:Rosalina Trejo Subscriber ID:[id number] Payer ID:[id number] Group ID:Not on file Type:Medicare Address: [employer] GENERIC COMMERCIAL MEDICARE PART A & B GENERIC COMMERCIAL MEDICARE PART A & B GENERIC COMMERCIAL MEDICARE PART A & B GENERIC COMMERCIAL MEDICARE PART A & B [employer] Advance Directives For more information, please contact: [phone] (9AM - 5PM [facility], Saturday-Saturday) Documents on File Type Date Recorded Patient Mapping Engineer Expl anation POLST 09/03/2025 POLST SIGNED ON 09/03/25 * DNR/DNI (No CPR/No Intubation) (Latest Code Status on File) Date Activated Date Inactivated Comments 09/03/2025 12:18 PM Question Answer Comments Code Status Confirmed With: Family Healthcare Agents on File Name Relationship Healthcare Agent Relationshi p Communication Akiko Neil Daughter .Primary Health Care Agent (Proxy form on file) Care Teams [employer] [place] [place] Relationship Specialty Start Date End Date Frandy Phan MD [address] [facility] [address], [address] [place] [address] [email or web address] PCP - General Family Medicine 09/07/25 Aj Hernandez DO [address] [place] [address] [email or web address] Geriatric Medicine 08/03/24 Anthony Berman RN [address] [place] [address] [email or web address] Registered Nurse 08/13/25 Additional Source Comments The information contained in this document represents components of the legal health record. It is not the complete legal health record.[facility]
--- OUTSIDE RECORDS SUMMARY | 2025-09-14 19:20 | XMS_ITS | Data Portability ---
Author Organization [facility], Main Office Address 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 NEEMA ZEE NP [address], [address], [place], [address], [facility] 5 13:56:55 Chronic obstructive pulmonary disease 85887089 Active 2024 NEEMA ZEE NP [address], [address], [place], [address], [facility] 5 13:57:04 Dementia 78640813 Active 2024 NEEMA ZEE NP [address], [address], [place], [address], [facility] 5 13:57:20 Generalized anxiety disorder 29324424 Active 2024 NEEMA ZEE NP [address], [address], [place], [address], [facility] 5 13:57:29 Malignant lymphoma 160942097 Active 2024 NEEMA ZEE NP [address], [address], [place], [address], [place] [facility] 5 13:57:55 Asthenia 12865664 Active 2024 NEEMA ZEE NP [address], [address], [place], [address], [facility] 5 13:58:03 Primary hypothyroidism 65205593 Active 2024 NEEMA ZEE NP [address], [address], [place], [address], [facility] 5 13:58:18 Vitamin D deficiency 62103777 Active 2024 NEEMA ZEE NP [address], [address], [place], [address], [facility] 5 13:58:31 Cobalamin deficiency 673953557 Active 2024 NEEMA ZEE NP [address], [address], [place], [address], [facility] 5 13:58:46 Gastroesophage al reflux disease without esophagitis 921340382 Active 2024 NEEMA ZEE NP [address], [address], [place], [address], [facility] 5 13:59:19 Mixed hyperlipidemia 482073095 Active 2024 NEEMA ZEE NP [address], [address], [place], [address], [facility] 5 14:12:43 Acute constipation 867825849 Active 2024 NEEMA ZEE NP [address], [address], [place], [address], [facility] 5 14:13:08 Problem Notes None recorded. Medical Equipment None Reported. Allergies No known drug allergies Medications Not known to be on any medication Vitals Date Recorded Heart rate Respiratory rate Body temperature Oxygen saturation Systolic And Diastolic Provider Name and Address Organization Details Last Updated DateTime 5 74 /min 18 /min 98.3 [degF] 94 % 134/54 mm[Hg] NEEMA ZEE NP [address], [address], [place], [address], [facility] 5 14:08:07 Date Recorded Heart rate Respiratory rate Body temperature Oxygen saturation Systolic And Diastolic Provider Name and Address Organization Details Last Updated DateTime 5 67 /min 18 /min 97.7 [degF] 97 % 117/62 mm[Hg] NEEMA ZEE NP [address], [address], [place], [address], [facility] 5 10:57:31 Date Recorded Heart rate Respiratory rate Body temperature Oxygen saturation Systolic And Diastolic Provider Name and Address Organization Details Last Updated DateTime 5 65 /min 16 /min 97.8 [degF] 95 % 143/73 mm[Hg] NEEMA ZEE NP [address], [address], [place], [address], [facility] 5 09:58:21 Social History Question Answer Notes LastModified by [email or web address] Details LastModified Time Tobacco Smoking Status Former Smoker NEEMA ZEE NP [address], [address], [place], [address], [facility] 02/17/2025 14:02:11 What Is Your Code Status? DNR/DNI No Dialysis, G Tube, Or IVF [email or web address] Information not available 02/17/2025 Where Do You Live? 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 02/17/2025 Information not available 02/17/2025 Do You Have An Out Of Hospital DNR? Yes [email or web address] Information not available 02/17/2025 Has Tobacco Cessation Counseling Been Provided? No [email or web address] Information not available 02/17/2025 Sex: Unknown Functional Status Question Answer Note LastModified by Organizat ion Details LastModified Time Do you use any illicit or recreational drugs? No [email or web address] Information not available 02/17/2025 Do you or have you ever used any other forms of tobacco or nicotine? No [email or web address] Information not available 02/17/2025 What is your level of alcohol consumption? None [email or web address] Information not available 02/17/2025 Mental Status None recorded. Family History Relationship Description Onset Age of this Age Resolved Age Notes LastModified by Organization Details LastModified Time Mother Malignant neoplasm of colon [email or web address] Not available 2024 14:00:24 Father Malignant neoplasm of lung [email or web address] Not available 2024 14:00:36 Sister Malignant neoplasm of breast [email or web address] Not available 2024 14:00:47 Medical History No medical history recorded. Gynecological HistoryNo gynecological history recorded. Obstetrics History GPAL:G 0 P 0 0 0 0 Immunizations Vaccine Type Date Status Note Provider Nam e and Address Organization Details Recorded Time Respiratory syncytial virus (RSV) MAB, unspecified 5 completed Kareem Lissette [facility] 02/18/2025 13:09:54 Td(adult) unspecified formulation 4 completed Kareem ElizaFields [facility] 02/18/2025 13:10:05 Pneumococcal conjugate PCV21, polysaccharide [id number] conjugate, PF 5 completed Kareem ElizaFields [facility] 02/18/2025 13:10:32 influenza, unspecified formulation 4 completed Kareem ElizaFields [facility] 02/18/2025 13:10:45 SARS-COV-2 (COVID-19) vaccine, UNSPECIFIED 4 completed Kareem Lissette [facility] 02/18/2025 13:10:57 SARS-COV-2 (COVID-19) vaccine, UNSPECIFIED 4 completed Kareem Lissette [facility] 02/18/2025 13:11:01 SARS-COV-2 (COVID-19) vaccine, UNSPECIFIED 5 completed Kareem ElizaFields [facility] 02/18/2025 13:11:25 Past Encounters Encounter ID Performer Location Encounter Start Date Encounter Closed Date Diagnosis/Indication Diagnosis SNOMED-CT Code Diagnosis ICD10 Code Diagnosis IMO Codes Diagnosis Note [id number] GRETCHEN CRUZ [address] [place] [address] 02/17/2025 13:55:34 02/18/2025 14:34:31 Asthenia 48742230 R53.1 83708 Generally deconditio nedPT OT eval and tx.Unsure if will return to [facility]IDENTIAL vs. LTCMonitor need for increased support in community. Dementia 66274519 F03.90 39500438 Continue:A ricept 5 mg qdEscitalo pram 20 mg qdMonitor mood, behaviorsP sych eval prnConside r invoking HCP Acute constipation [id number] at [facility] revealed large stool burden and acute stercoral colitis with perirectal stranding and fluid.Requ ired manual disimpacti on and enemas in ER, now reported to be moving bowels well.Will ad daily laxative and adjust as needed - senna plus 2 tabs daily and 2 tabs daily prnEncoura ge fluids, fiber, activityMo nitor closely Chronic ob structive pulmonary disease 92629955 J44.9 87924971 Continue Breo Ellipta 50/25 1 inh qd Cobalamin deficiency 190 775948 E53.8 27200 Continue B 12 1000 mcg qd Gastroesop hageal reflux disease without esophagitis 505814948 K21.9 017789 Not on meds, monitor GI sx. Generalize d anxiety disorder 01254256 F41.1 842961 Continue escitalopr am 20 mg qdMonitor mood, behaviorsP sych eval prn Mixed hyperlipidemia 267 256098 E78.2 41284 Continue atorvastat in 10 mg qdLFTs, lipid panel if stays LTC or consider stopping, ? risk>benef it Primary hypothyroidism 13560428 E03.9 46262 Continue levothyrox ine 50 mcg qdCheck TSH, FT4 x 1 Symptomati c parkinsonism 293223809 G20.A1 43181 Continue sinemet 25/100 tid Vitamin D deficiency 347 12163 E55.9 99922 Continue Vit D 2000 units qd [id number] NEEMA ZEE NP [place] [address] [facility] rohit [place] [address] 02/19/2025 09:34:39 02/25/2025 09:12:27 Asthenia [id number] R53.1 21599 Generally deconditio nedPT OT eval and tx.Unsure if will return to [facility]IDENT[facility] vs. LTCMonitor need for increased support in community. Acute constipation [id number] at [facility] revealed large stool burden and acute stercoral colitis with perirectal stranding and fluid.Requ ired manual disimpacti on and enemas in ER, now reported to be moving bowels well.Added senna plus 2 tabs daily and 2 tabs daily prn - adjust as needed.Enc ourage fluids, fiber, activityMo nitor closely Dementia 99030137 F03.90 84150237 Continue:A ricept 5 mg qdEscitalo pram 20 mg qdMonitor mood, behaviorsP sych eval prnConside r invoking HCP Symptomati c parkinsonism 977100366 G20.A1 60041 Continue sinemet 25/100 tid Chronic ob structive pulmonary disease 59274744 J44.9 27206277 Continue Breo Ellipta 50/25 1 inh qd Gastroesop hageal reflux disease without esophagitis 262908749 K21.9 099362 Not on meds, monitor GI sx. Generalize d anxiety disorder 38235190 F41.1 549339 Continue escitalopr am 20 mg qdMonitor mood, behaviorsP sych eval prn Mixed hyperlipidemia 267 508709 E78.2 89521 Continue atorvastat in 10 mg qdLFTs, lipid panel if stays LTC or consider stopping, ? risk>benef it Primary hypothyroidism 41886541 E03.9 47647 Continue levothyrox ine 50 mcg qdCheck TSH, FT4 x 1 Cobalamin deficiency 190 033928 E53.8 72620 Continue B 12 1000 mcg qd Vitamin D deficiency 347 40728 E55.9 52613 Continue Vit D 2000 units qd [id number] Frandy Phan MD [place] [address] [place], [place] [address] 02/23/2025 14:20:55 02/25/2025 09:15:20 Asthenia [id number] R53.1 20668 see HPIPT OT Eval and treathas improved since admit now working towards discharge back to assisted living with 24 hour care Acute constipation 9005 K59.00 821480 required disimpacti oncontinue bowel protocolmo nitor for effect Dementia 00780786 F03.90 F01.B4 07654547 baseline dementiaat times required repeat attempt to take medication saricept 5 mg qdmonitor level of insight and need to invoke Symptomati c parkinsonism 167147092 G20.A1 68600 continue sinemetupd ate neuro with concerns Chronic ob structive pulmonary disease 90379375 J44.9 91896850 carrying dxcontinue out patient medication smonitor respirator y status Generalize d anxiety disorder 76272323 F41.1 467438 baseline anxiety with above cognitive impairment monitor moodpsych eval prn Mixed hyperlipidemia 267 631182 E78.2 63119 lipitor 10 mg qdcontinue d Primary hypothyroidism 11795870 E03.9 35607 synthroid continuedt sh prn [id number] NEEMA ZEE NP [place] [address] [facility] [place] [address] 02/24/2025 08:30:36 02/25/2025 13:42:22 Asthenia [id number] R53.1 09680 Generally deconditio nedWorked with PT OT, meeting goals for d/c home with support of 24 hr services.M onitor need for increased support in community. Acute constipation [id number] at [facility] revealed large stool burden and acute stercoral [...] encourage fluids, fiber, activityMo nitor closely Dementia 72049386 F03.90 88205023 Continue:A ricept 5 mg qdEscitalo pram 20 mg qdMonitor mood, behaviorsP sych eval prnConside r invoking HCP Symptomati c parkinsonism 596386830 G20.A1 49368 Continue sinemet 25/100 tid Chronic ob structive pulmonary disease 25157244 J44.9 61761857 Continue Breo Ellipta 50/25 1 inh qd Gastroesop hageal reflux disease without esophagitis 280983217 K21.9 059090 Not on meds, monitor GI sx. Generalize d anxiety disorder 61304617 F41.1 568228 Continue escitalopr am 20 mg qdMonitor mood, behaviorsP sych eval prn Mixed hyperlipidemia 267 721835 E78.2 46070 Continue atorvastat in 10 mg qdLFTs, lipid panel if stays LTC or consider stopping, ? risk>benef it Primary hypothyroidism 24533492 E03.9 91649 Continue levothyrox ine 50 mcg qdCheck TSH, FT4 x 1 Cobalamin deficiency 190 928679 E53.8 58611 Continue B 12 1000 mcg qd Vitamin D deficiency 347 43614 E55.9 21718 Continue Vit D 2000 units qd Health [...] PAYOR Rosalina Trejo 05/19/2025 1 MEDICARE B-[place]: [employer] Rosalina Singh Trejo [id number] 1 Rosalina Neli 05/19/2025 2 [employer] - [employer]URANCE (MEDICARE SUPPLEMENT) Rosalina Trejo [id number] Rosalina Trejo Notes Date Note Type Note Provider Name and Address Organization Details Recorded Time 2024 text/h tml Rosalina is seen today for initial intake. She is a 79 yo lady, admitted today to [facility] form [facility] ER for continued care and rehab.She presented to [facility] ED 02/14 due to family concerns of increased confusion and incontinence.Work up concerning for constipation requiring disimpaction. Labs, UA C&S unremarkable. Franklin changes most likely due to advancing dementia. [...] tube, or IVF NEEMA ZEE NP [address], [address], [place], [address] , [employer] [facility] 5 14:47:53 2024 text/h tml Rosalina is seen today for an acute visit. She is a 79 yo lady, admitted today to [facility] ER for continued care and rehab.She presented to [facility] ED 02/14 due to family concerns of increased confusion and incontinence.Work up concerning for constipation requiring disimpaction. Labs, UA C&S unremarkable. Franklin changes most likely due to advancing dementia. [...] tube, or IVF NEEMA ZEE NP [address], [address], [place], [address] , [facility] 5 11:00:54 2024 text/h tml Patient is a 79 yo female admit from hospital after presenting with increased confusion and incontinence. Noted constipation required disimpaction. Baseline cognitive impairment secondary to progressive dementia PMH significant fordementiagerdhx lymphomaanxietyhypothyroidhldparkinsons dxcopd admit to facility for continued care and therapy eval and treat Frandy Phan MD [address], [address], [place], [address] , [facility] 5 14:44:34 2024 text/h tml Rosalina is seen today for discharge.She is returning home today with 24 hr care. She is a 79 yo lady, admitted 02/17 to [facility] ER for continued care and rehab.She presented to [facility] ED 02/14 due to family concerns of increased confusion and incontinence.Work up concerning for constipation requiring disimpaction. Labs, UA C&S unremarkable. Franklin changes most likely due to advancing dementia. [...] tube, or IVF NEEMA ZEE NP [address], [address], [place], [address] , [facility] 5 10:12:27 OBGyn Episode No OBEpisode recorded.
--- OUTSIDE RECORDS SUMMARY | 2025-09-14 19:20 | XMS_ITS | Encounter Summary ---
Author Organization [facility] Address [address] [place] [address] Phone Care Team Providers Care Chargemaster Specialist Name Role Phone David Aj Zepeda DO Unavailable [phone] Anthony Berman RN Unavailable [phone] Frandy Phan MD Primary Care Provider [phone] Frandy Phan MD Unavailable Reason for Visit * Auth/Cert (Routine) Specialty Diagnoses / Procedures Referred By Contac t Referred To Contact Referral ID Status Reason Start Date Expiration Date Visits Re quested Visits Authorized [id number] 1 1 Encounter Details Date Type Department Care Team (Late st Contact Info) Description 09/07/2025 Home Care Visit [facility] [address] [place] [address] Maryan Em, RN [address] [place] [address] [email or web address] [facility] VIS[facility] Social History Tobacco Use Types Packs/Day Years [...] Description 11/02/2025 2:30 PM EST Office Visit [facility] [address] [place] [address] Aj Hernandez, DO [address] [place] [address] Viv Miller CCC-SUPERVISOR REFINING [address] [place] [address] 11/11/2025 2:30 PM EST Office Visit [facility] Speech Therapy [facility] [address] [place] [address] Aj Hernandez, DO [address] [place] [address] Viv Miller [facility]-[employer] [address] [place] [address] 11/18/2025 2:30 PM EST Office Visit [facility] [address] [place] [address] Aj Hernandez, DO [address] [place] [address] Viv Miller [facility]-[employer] [address] [place] [address] 11/25/2025 2:30 PM EST Office Visit [facility] [address] [place] [address] Aj Hernandezsh, DO [address] [place] [address] [email or web address] Viv Miller CCC-SUPERVISOR REFINING [address] [place] [address] 12/02/2025 2:30 PM EST Office Visit [facility] Speech Therapy [address] [address] Claudio Hernandezrudarius RevelesDuane, DO [address] [place] [address] [email or web address] Viv Miller CCC-SUPERVISOR REFINING [address] [place] [address] 12/09/2025 2:30 PM EDT Office Visit [facility] Speech Therapy [address] [address] David Aj Zepeda, DO [address] [place] [address] Viv Miller [facility]-[employer] [address] [place] [address] 12/16/2025 2:30 PM EDT Office Visit [facility] Speech Therapy [address] [address] David Aj Zepeda, DO [address] [place] [address] Viv Miller [facility]-[employer] [address] [place] [address] 12/23/2025 2:30 PM EDT Office Visit [facility] Therapy [address] [address] Aj Hernandezkash, DO [address] [place] [address] Viv Miller [facility]-[employer] [address] [place] [address] 12/30/2025 2:30 PM EDT Office Visit [facility] Speech Therapy [facility] [address] [place] [address] Claudio Hernandezrudarius RevelesDuane, DO [address] [place] [address] Viv Miller [facility]-[employer] [address] [place] [address] 01/06/2026 2:30 PM EDT Office Visit [facility] Speech Therapy [address] [address] David Aj Gamblesh, DO [address] [place] [address] Viv Miller [facility]-[employer] [address] [place] [address] 01/13/2026 2:30 PM EDT Office Visit [facility] Speech Therapy [address] [address] David Aj Zepeda, DO [address] [place] [address] Viv Miller [facility] [address] 01/20/2026 2:30 PM EDT Office Visit [facility] Speech Therapy [address] [address] [place] [address] Viv Miller CCC-SUPERVISOR REFINING [address] [place] [address] documented as of this encounter Visit Diagnoses Not on filedocumented in this encounter Additional Health Concerns Assessment Noted Time PHQ-9 Depression Total Score: 5 09/03/20 11:25 AM EST PHQ-2 Depression Total Score: 2 09/03/20 11:25 AM EST documented as of this encounter Care Teams Chargemaster Specialist Relationship Specialty Start Date End Date Frandy Phan MD [address] [facility] [place] [address] PCP - General Family Medicine 09/07/25 Frandy Phan MD [address] [facility], [address] [place] [address] PCP - Hospice Attending 09/07/25 09/07/25 Aj Hernandez DO [address] [place] [address] Geriatric Medicine 08/03/24 Anthony Berman RN [address] [place] [address] Registered Nurse 08/13/25 documented as of this encounter Additional Source Comments The information contained in this document represents components of the legal health record. It is not the complete legal health record.[facility]
--- OUTSIDE RECORDS SUMMARY | 2025-09-14 19:20 | XMS_ITS | Encounter Summary ---
Author Organization [facility] Address [address] [place] [id number] Phone Care Team Providers Care Manager Generation Name Role Phone Camilla Thomason MD Primary Care Provider [phone] DavidAj dodson DO Unavailable [phone] Aj Hernandez DO Unavailable [phone] Anthony Berman RN Unavailable [phone] Frandy Phan MD Primary Care Provider [phone] Frandy Phan MD Unavailable Encounter Details Date Type Department Care Team (Late st Contact Info) Description 12/04/2024 Procedure Pass [facility], [address] [place] [address] Social History Tobacco Use Types Packs/Day Years [...] Description 11/02/2025 2:30 PM EST Office Visit [facility] [address] [address] Aj Hernandez, DO [address] [place] [address] Viv Miller CCC-CARE TRANSPORT NURSE [address] [place] [phone] 11/11/2025 2:30 PM EST Office Visit [facility] [address] [address] Aj Hernandez, DO [address] [place] [address] Viv Miller CCC-CARE TRANSPORT NURSE [address] [place] [phone] 11/18/2025 2:30 PM EST Office Visit [facility] [address] [address] Aj Hernandez, DO [address] [place] [address] Viv Miller CCC-CARE TRANSPORT NURSE [address] [place] [phone] 11/25/2025 2:30 PM EST Office Visit [facility] [address] [address] Aj Hernandez, DO [address] [place] [address] Viv Miller CCC-CARE TRANSPORT NURSE [address] [place] [phone] 12/02/2025 2:30 PM EST Office Visit [facility] Speech Therapy [facility] [address] [place] [address] Aj Hernandez, DO [address] [place] [address] Viv Miller CCC-CARE TRANSPORT NURSE [address] [place] [phone] 12/09/2025 2:30 PM EDT Office Visit [facility] [address] [address] Aj Hernandez, DO [address] [place] [address] Viv Miller CCC-CARE TRANSPORT NURSE [address] [place] [phone] 12/16/2025 2:30 PM EDT Office Visit [facility] [address] [address] Aj Hernandez, DO [address] [place] [address] Viv Miller CCC-CARE TRANSPORT NURSE [address] [place] [phone] 12/23/2025 2:30 PM EDT Office Visit [facility] Speech [facility] [address] [place] [address] Aj Hernandez, DO [address] [place] [address] Viv Miller CCC-CARE TRANSPORT NURSE [address] [place] [phone] 12/30/2025 2:30 PM EDT Office Visit [facility] Speech [facility] [address] [place] [address] Aj Hernandez, DO [address] [place] [address] Viv Miller CCC-CARE TRANSPORT NURSE [address] [place] [phone] 01/06/2026 2:30 PM EDT Office Visit [facility] [address] [address] Aj Hernandez, DO [address] [place] [address] Viv Miller CCC-CARE TRANSPORT NURSE [address] [place] [phone] 01/13/2026 2:30 PM EDT Office Visit [facility] [address] [address] Aj Hernandez, DO [address] [place] [address] Viv Miller CCC-CARE TRANSPORT NURSE [address] [place] [phone] 01/20/2026 2:30 PM EDT Office Visit [facility] [address] [address] DavidAj dodson, DO [address] [place] [address] Viv Miller CCC-CARE TRANSPORT NURSE [address] [place] [address] documented as of this encounter Visit Diagnoses Not on filedocumented in this encounter Care Teams Manager Generation Relationship Specialty Start Date End Date Camilla Thomason MD [facility] [place] [address] PCP - General Internal Medicine 08/03/24 09/06/25 Aj Hernandez DO [address] [place] [address] PCP - Hospice Attending 06/10/25 09/06/25 Frandy Phan MD [address] [facility] [address], [address] [place] [address] PCP - General Family Medicine 09/07/25 Frandy Phan MD [address] [facility] [address], [address] [place] [address] PCP - Hospice Attending 09/07/25 09/07/25 Aj Hernandez DO [address] [place] [address] Geriatric Medicine 08/03/24 Anthony Berman RN [address] [place] [address] [email or web address] Registered Nurse 08/13/25 documented as of this encounter Additional Source Comments The information contained in this document represents components of the legal health record. It is not the complete legal health record.[facility]
== END 2025-09-14 15:35 | disposition home or self-care (01) ==
LOC: HO.HPSW 14:59
PROVIDERS: PCP Internal Medicine; Visit Provider Nurse Practitioner Family
DX: J44.89 Other specified chronic obstructive pulmonary disease (principal)
CPT/HCPCS: 99213

== ENCOUNTER → 2025-09-14 14:58 | Outpatient (BNVA) | payer MEDICARE, SELFPAY | PROVIDERS: PCP Internal Medicine; Visit Provider Nurse Practitioner Family | DX: R06.02 Shortness of breath (principal); J44.89 Other specified chronic obstructive pulmonary disease | CPT/HCPCS: 99212 ==